=== PATIENT | female | born 1950 | race Caucasian/White ===

== ENCOUNTER 2017-03-01 08:10 | Day surgery (SDC) | payer MEDICARE, OTHER ==
[~2017-03-01 08:10] MED LIST: BUPIVACAINE HCL 0.75% INJ/PF (7.5 MG/1 ML) 10 ML SDV OS PRN; KETOROLAC TROMETHAMINE 0.45% 4 DROP/0.4 ML DROPERETTE OS PRN; LIDOCAINE 4% INJ/PF (40 MG/ML) 5 ML AMPUL OS PRN
[2017-03-01] MEDS ORDERED: CHONDR SU A NA/HYALUR INTRAOC KIT (SURGICARE) ONE (08:13)
[2017-03-01] MEDS ORDERED: PHENYLEPHRINE/KETOROLAC 1%-0.3% 4 ML VIAL ONE (08:13)
[2017-03-01] MEDS: CYCLOPENTOLATE 0.2%/PHENYLEPHRINE 1% OPH SOLN 2 ML OS PRN ×3 (08:31→08:57)
[2017-03-01] MEDS: TROPICAMIDE 1% OPH SOLN 3 ML OS PRN ×3 (08:32→08:58)
[2017-03-01] MEDS: BESIFLOXACIN HCL 0.6% OPH SUSP 5 ML BOTTLE OS PRN ×4 (08:33→09:40)
[2017-03-01] MEDS: TETRACAINE HCL 0.5% OPH SOLN 0.6 ML DROPERETTE OS PRN ×2 (08:35→08:59)
[2017-03-01] MEDS ORDERED: MIDAZOLAM 2 MG/2 ML INJ ONE (08:54)
--- NOTE | 2017-03-01 09:53 | [facility] OPERATIVE REPORT E ---
[facility] Operative Report NAME: MIGUEL ROBB AGE: 66Y DATE OF SURGERY: 03/01/2017 ROOM: PREOPERATIVE DIAGNOSIS: CATARACT, LEFT EYE. POSTOPERATIVE DIAGNOSIS: CATARACT, LEFT EYE. PROCEDURE PERFORMED: PHACOEMULSIFICATION WITH POSTERIOR CHAMBER INTRAOCULAR LENS, LEFT EYE. SURGEON: LEYLA GAR MD ANESTHESIA: TOPICAL WITH MAC. INDICATIONS FOR SURGERY: Difficulty reading captions on the TV and driving at night. Best corrected visual acuity 20/50. PROCEDURE: The patient was brought to the Operating Room and placed on the operative table. Following tetracaine drops, topical anesthesia was administered. This consisted of instrument wipe pledgets soaked in a solution of 4% Xylocaine mixed with 0.75% Marcaine in a 1:2 ratio. A 2 x 1 cm pledget was placed in the superior fornix. A 1 x 1 cm pledget was placed in the inferior fornix. The eye was patched shut for 5 minutes. The patch was removed. The eye was sterilely prepped and draped in the usual manner. Lid speculum was placed in the eye. The pledgets were removed. 4-0 black silk sutures were placed around the superior and the inferior rectus muscles to be used as traction. A conjunctival peritomy was made at the 10 o'clock position. Hemostasis was obtained with bipolar cautery. A posterior limbal groove was created using a crescent knife and dissected anteriorly towards the cornea. A sharp point blade was used to create a paracentesis site at the 2 o'clock position. A 2.4 mm keratome was used to enter the anterior chamber through the groove. Viscoelastic was injected into the anterior chamber. An anterior capsulotomy was performed using Utrata forceps in a capsulorrhexis fashion. Hydrodissection and hydrodelineation were performed. Phacoemulsification was performed in [id number] technique. A total of 52 seconds phaco time was used. Following this, the I/A unit was used to remove residual cortex. Viscoelastic was injected into the capsular bag. Intraocular lens model [id number], 19.5 diopters, serial number [id number] was placed in the capsular bag. The I/A unit was used to remove residual viscoelastic. The wound was seen to be watertight under high and low pressure, and no sutures were placed. The intraocular lens was well centered. The pressure was adjusted in the eye to normal pressure. The 4-0 black silk sutures and lid speculum were removed. The eye was shielded after Besivance drops were placed. The patient tolerated the procedure well and was sent to the Recovery Room in good condition. DICTATING PHYSICIAN: LEYLA GAR M.D. DICTATING PHYSICIAN: LEYLA GAR M.D. [id number] PHY#: [id number] ID: [id number] JOB#: [id number] ACCT: [id number] cc:LEYLA GAR M.D. >
--- NOTE | 2017-03-01 09:58 | [facility] DISCHARGE SUMMARY E ---
[facility] Discharge Summary NAME: MIGUEL ROBB AGE: 66Y ADMITTED: 03/01/2017 DISCHARGED: HOSPITAL COURSE: The patient is a 66-year-old lady who underwent uneventful cataract extraction with intraocular lens implant left eye on 03/01/17. She will be discharged to home. She is instructed to resume preoperative medications, take Tylenol as needed for discomfort, to keep eye shielded, to use Pred Forte, ketorolac, and Vigamox at 3:00 p.m. and 8:00 p.m. Follow up in my office in 1 day. DICTATING PHYSICIAN: LEYLA GAR M.D. [id number] PHY#: [id number] ID: [id number] JOB#: [id number] ACCT: [id number] cc:LEYLA GAR M.D. >
== END 2017-03-01 10:31 | disposition home or self-care (01) ==
LOC: SC 08:10
PROVIDERS: ATTEND Ophthalmology
PROC: 08RK3JZ Replacement of Left Lens with Synthetic Substitute, Percutaneous Approach (ICD-10-PCS; principal; 2017-03-01 09:30)
DX: H25.813 Combined forms of age-related cataract, bilateral (principal); H35.3131 Nonexudative age-related macular degeneration, bilateral, early dry stage; H04.123 Dry eye syndrome of bilateral lacrimal glands; H01.001 Unspecified blepharitis right upper eyelid; H01.004 Unspecified blepharitis left upper eyelid; E11.9 Type 2 diabetes mellitus without complications; I10 Essential (primary) hypertension; E78.00 Pure hypercholesterolemia, unspecified; E03.9 Hypothyroidism, unspecified; M19.90 Unspecified osteoarthritis, unspecified site; G47.30 Sleep apnea, unspecified; I51.9 Heart disease, unspecified; E66.9 Obesity, unspecified; Z87.891 Personal history of nicotine dependence; Z79.82 Long term (current) use of aspirin; Z79.899 Other long term (current) drug therapy; Z79.02 Long term (current) use of antithrombotics/antiplatelets; Z88.2 Allergy status to sulfonamides; Z88.5 Allergy status to narcotic agent; Z88.8 Allergy status to other drugs, medicaments and biological substances; Z79.84 Long term (current) use of oral hypoglycemic drugs; Z68.43 Body mass index [BMI] 50.0-59.9, adult
CPT/HCPCS: 66984; 82962; V2632; J2250; J3490 ×3; A9270; C9447; 142

== ENCOUNTER 2017-04-05 11:35 | Day surgery (SDC) | payer MEDICARE, OTHER ==
[~2017-04-05 11:35] MED LIST changes: +BUPIVACAINE HCL 0.75% INJ/PF (7.5 MG/1 ML) 10 ML SDV OD PRN; -BUPIVACAINE HCL 0.75% INJ/PF (7.5 MG/1 ML) 10 ML SDV OS PRN; +KETOROLAC TROMETHAMINE 0.45% 4 DROP/0.4 ML DROPERETTE OD PRN; -KETOROLAC TROMETHAMINE 0.45% 4 DROP/0.4 ML DROPERETTE OS PRN; +LIDOCAINE 4% INJ/PF (40 MG/ML) 5 ML AMPUL OD PRN; -LIDOCAINE 4% INJ/PF (40 MG/ML) 5 ML AMPUL OS PRN; +MIDAZOLAM 2 MG/2 ML INJ ONE
[2017-04-05] MEDS ORDERED: PHENYLEPHRINE/KETOROLAC 1%-0.3% 4 ML VIAL ONE (11:42)
[2017-04-05] MEDS ORDERED: CHONDR SU A NA/HYALUR INTRAOC KIT (SURGICARE) ONE (11:43)
[2017-04-05] MEDS: TROPICAMIDE 1% OPH SOLN 3 ML OD PRN ×3 (12:08→12:36)
[2017-04-05] MEDS: CYCLOPENTOLATE 0.2%/PHENYLEPHRINE 1% OPH SOLN 2 ML OD PRN ×3 (12:08→12:36)
[2017-04-05] MEDS: BESIFLOXACIN HCL 0.6% OPH SUSP 5 ML BOTTLE OD PRN ×3 (12:09→13:12)
[2017-04-05] MEDS: TETRACAINE HCL 0.5% OPH SOLN 0.6 ML DROPERETTE OD PRN ×2 (12:10→12:37)
--- NOTE | 2017-04-05 13:23 | [facility] OPERATIVE REPORT E ---
[facility] Operative Report NAME: MIGUEL RBOB AGE: 66Y DATE OF SURGERY: 04/05/2017 ROOM: PREOPERATIVE DIAGNOSIS: Cataract, right eye. POSTOPERATIVE DIAGNOSIS: Cataract, right eye. PROCEDURE PERFORMED: Phacoemulsification with posterior chamber intraocular lens, right eye. SURGEON: LEYLA GAR M.D. ANESTHESIA: Topical with MAC. INDICATIONS FOR SURGERY: Difficulty watching TV and reading small print. BEST CORRECTED VISUAL ACUITY: 20/70. DESCRIPTION OF PROCEDURE: The patient was brought to the operating room and placed on the operative table. Following tetracaine drops, topical anesthesia was administered. This consisted of instrument wipe pledgets soaked in a solution of 4% Xylocaine mixed with 0.75% Marcaine in a 1:2 ratio. A 2 x 1 cm pledget was placed in the superior fornix. A 1 x 1 cm pledget was placed in the inferior fornix. The eye was patched shut for 5 minutes. The patch was removed. The eye was sterilely prepped and draped in the usual manner. Lid speculum was placed in the eye. The pledgets were removed, 4-0 black silk sutures were placed around the superior and the inferior rectus muscles to be used as traction. A conjunctival peritomy was made at the 10 o'clock position. Hemostasis was obtained with bipolar cautery. A posterior limbal groove was created using a crescent knife and dissected anteriorly towards the cornea. A sharp point blade was used to create a paracentesis site at the 2 o'clock position. A 2.4 mm keratome was used to enter the anterior chamber through the groove. Viscoelastic was injected into the anterior chamber. An anterior capsulotomy was performed using Utrata forceps in a capsulorrhexis fashion. Hydrodissection and hydrodelineation were performed. Phacoemulsification was performed in [id number]-ket-[id number] technique. A total of 1 minutes 27 seconds of total phaco time was used. Following this, the I/A unit was used to remove residual cortex. Viscoelastic was injected into the capsular bag. Intraocular lens Model SN60WF, 21.0 diopters, serial number [id number] was placed in the capsular bag. The I/A unit was used to remove residual viscoelastic. The wound was seen to be watertight under high and low pressure, and no sutures were placed. The intraocular lens was well centered. The pressure was adjusted in the eye to normal pressure. The 4-0 black silk sutures and lid speculum were removed. The eye was shielded after Besivance drops were placed. The patient tolerated the procedure well and was sent to the recovery room in good condition. DICTATING PHYSICIAN: LEYLA GAR M.D. [id number] PHY#: [id number] ID: [id number] JOB#: [id number] ACCT: [id number] cc:LEYLA GAR M.D. >
--- NOTE | 2017-04-05 13:28 | [facility] DISCHARGE SUMMARY E ---
[facility] Discharge Summary NAME: MIGUEL ROBB AGE: 66Y ADMITTED: 04/05/2017 DISCHARGED: 04/05/2017 HOSPITAL COURSE: Ms. Rawls is a 66-year-old lady who underwent uneventful cataract extraction with intraocular lens implant, right eye, on 04/05/2017. She will be discharged to home. She was instructed to resume preoperative medications, to take Tylenol as needed for discomfort, to keep her eye shielded, to use Besivance, Durezol, and Ilevro at 3:00 p.m. and 8:00 p.m., and to follow up in my office in 1 day. DICTATING PHYSICIAN: LEYLA GAR M.D. [id number] PHY#: [id number] ID: [id number] JOB#: [id number] ACCT: [id number] cc:LEYLA GAR M.D. >
== END 2017-04-05 14:07 | disposition home or self-care (01) ==
LOC: SC 11:35
PROVIDERS: ATTEND Ophthalmology
PROC: 08RJ3JZ Replacement of Right Lens with Synthetic Substitute, Percutaneous Approach (ICD-10-PCS; principal; 2017-04-05 13:00)
DX: H25.811 Combined forms of age-related cataract, right eye (principal); E07.9 Disorder of thyroid, unspecified; Z96.1 Presence of intraocular lens; I11.0 Hypertensive heart disease with heart failure; I50.9 Heart failure, unspecified; E11.9 Type 2 diabetes mellitus without complications; Z79.899 Other long term (current) drug therapy; Z79.02 Long term (current) use of antithrombotics/antiplatelets; Z88.2 Allergy status to sulfonamides; Z79.84 Long term (current) use of oral hypoglycemic drugs; Z88.8 Allergy status to other drugs, medicaments and biological substances; Z88.5 Allergy status to narcotic agent; Z79.82 Long term (current) use of aspirin; E66.9 Obesity, unspecified; Z68.43 Body mass index [BMI] 50.0-59.9, adult
CPT/HCPCS: 66984; 82962; V2632; J2250; J3490 ×3; A9270; C9447; 142

== ENCOUNTER 2017-10-30 04:33 | Observation (INO) | payer MEDICARE, OTHER ==
--- NOTE | 2017-10-30 04:58 | ER Document Report ---
ED General - General Stated Complaint: BLOOD SUGAR PROBLEMS Time Seen by Provider: 10/30/17 04:39 TRAVEL OUTSIDE OF THE [place] IN LAST 30 DAYS: No - HPI Notes: Patient is a 67-year-old female with a history of type 2 diabetes, hypertension , coronary artery disease, hypothyroidism, chronic LBP who presents to the ED by EMS status post hypoglycemic episode prior to arrival. Patient states that she ate a very good dinner last evening. Patient states that she was on the floor next to her bed during her hypoglycemic episode and possibly lost consciousness for an unknown amount of time. Her son states that she ate well for dinner with a glucose of 70 prior to the meal. She went to bed normally and he left and hung out with his friend throughout the night. Son states that he received a phone call from his mother at 4am and it sounded slurred so he rushed home (5minutes away) which is when she was sitting on the floor and 'not making any sense when she spoke.' Patient states that her son gave her oral glucose which increased her sugar to 51 when EMS came and checked her glucose. EMS then gave another dose of oral glucose and her sugars increased to 108 over a shorter period of time. Patient did urinate on herself when she was having her episode. Currently, patient has no concerns or complaints and feels 'good. ' Patient has not noticed any changes in her mentation, vision, speech. Patient is nonambulatory normally aside from transitioning from her wheelchair to her bed/toilet/furniture. Patient has no other concerns or complaints. Patient does take sitagliptin and Januvia for her diabetes. Patient states that she has had hypoglycemic episodes in the past. Her PCM is Ms BroMargaret. Denies any headache, fever, neck pain, changes in vision/speech/mentation/ hearing, URI, sore throat, chest pain, palpitations, syncope, cough, shortness of breath, wheeze, dyspnea, abdominal pain, nausea/vomiting/diarrhea, urinary retention, dysuria, hematuria, numbness/tingling, saddle anesthesia, muscle paralysis/weakness, or rash. - Related Data Allergies/Adverse Reactions: albuterol [Albuterol] Allergy (Intermediate, Verified 02/22/17 12:58) Sulfa (Sulfonamide Antibiotics) Allergy (Intermediate, Verified 02/22/17 12:58) codeine [Codeine] Adverse Reaction (Intermediate, Verified 02/22/17 12:58) Past Medical History - Social History Smoking Status: Unknown if Ever Smoked Family History: DM, Hyperlipidemia, Hypertension - Past Medical History Cardiac Medical History: Reports: Hx Congestive Heart Failure, Hx Heart Attack - HRT CATH AUG 2016 2 [facility] SHANNON 3 MO AGO, Hx Hypercholesterolemia, Hx Hypertension - MEDICATED Pulmonary Medical History: Reports: Hx COPD Denies: Hx Asthma Neurological Medical History: Denies: Hx Cerebrovascular Accident, Hx Seizures Endocrine Medical History: Reports: Hx Diabetes Mellitus Type 2, Hx Hypothyroidism GI Medical History: Denies: Hx Hepatitis, Hx Hiatal Hernia, Hx Ulcer Musculoskeltal Medical History: Reports Hx Muscle Weakness Infectious Medical History: Denies: Hx Hepatitis Past Surgical History: Reports: Hx Abdominal Surgery - exploratory abd surgery, Hx Appendectomy, Hx Section, Hx Herniorrhaphy, Other - exploratory laparotomy 2. Denies: Hx Hysterectomy, Hx Mastectomy, Hx Open Heart Surgery, Hx Pacemaker - Immunizations Hx Pneumococcal Vaccination: 10/17/14 Review of Systems - Review of Systems Notes: REVIEW OF SYSTEMS: CONSTITUTIONAL : Denies fever, chills, or sweats. Denies recent illness. EENT: Denies eye, ear, throat, or mouth pain or symptoms. Denies nasal or sinus congestion or discharge. Denies throat, tongue, or mouth swelling or difficulty swallowing. CARDIOVASCULAR: Denies chest pain. Denies palpitations or racing or irregular heart beat. RESPIRATORY: Denies cough, cold, or chest congestion. Denies shortness of breath, difficulty breathing, or wheezing. GASTROINTESTINAL: Denies abdominal pain or distention. Denies nausea, vomiting , or diarrhea. Denies blood in vomitus, stools, or per rectum. Denies black, tarry stools. Denies constipation. GENITOURINARY: see hpi. Denies difficulty urinating, painful urination, burning, frequency, blood in urine, or discharge. MUSCULOSKELETAL: Denies back or neck pain or stiffness. Denies joint pain or swelling. SKIN: Denies rash, lesions or sores. NEUROLOGICAL: see hpi. Denies confusion or altered mental status. Denies dizziness or lightheadedness. Denies headache. Denies weakness or paralysis or loss of use of either side. Denies problems with gait or speech. Denies sensory loss, numbness, or tingling. Denies seizures. PSYCHIATRIC: Denies anxiety or stress. Denies depression, suicidal ideation, or homicidal ideation. ALL OTHER SYSTEMS REVIEWED AND NEGATIVE. Dictation was performed using [employer] voice recognition software Physical Exam - Vital signs Vitals: Temp Pulse Resp BP Pulse Ox 97.8 F 64 18 144/87 H 100 10/30/17 04:35 10/30/17 04:35 10/30/17 04:35 10/30/17 04:35 10/30/17 04:35 Notes: PHYSICAL EXAMINATION: GENERAL: Well-appearing, well-nourished and in no acute distress. A&Ox4. Answers questions appropriately. Does not show any signs of discomfort. HEAD: Atraumatic, normocephalic. Non-tender. No swift sign EYES: Pupils equal round and reactive to light, extraocular movements intact, sclera anicteric, conjunctiva are normal. No raccoon eyes/entrapment. No nystagmus. ENT: EAC clear b/l. TM's intact b/l without erythema, fluid, or perforation. Nares patent and without discharge. oropharynx clear without exudates. No tonsilar hypertrophy or erythema. Moist mucous membranes. No sinus tenderness. No hemotympanum/CSF discharge. NECK: Normal range of motion, supple without lymphadenopathy. No rigidity. No midline tenderness. Spurling negative. NEXUS negative. Chest: No flail chest. equal rise/fall. Non-tender LUNGS: Breath sounds clear to auscultation bilaterally and equal. No wheezes rales or rhonchi. HEART: Regular rate and rhythm without murmurs, rubs, gallops. ABDOMEN: Obese. Soft, nontender, nondistended abdomen. No guarding, no rebound. No masses appreciated. Normal bowel sounds present. No CVA tenderness bilaterally. Musculoskeletal: Ext b/l: FROM to passive/active. Strength 5+/5. No deficits noted. No bony tenderness of extremities. Back: FROM to passive/active. Strength 5+/5. No vertebral point tenderness, stepoffs, or deformities. No other bony tenderness or ecchymosis. + tenderness to the paraspinal L-spine. Extremities: Trace pitting edema b/l. Peripheral pulses 2+. Capillary refill less than 2 seconds. NEUROLOGICAL: NIH 0. GCS 15. MMSE intact. Cranial nerves grossly intact. Normal speech. Normal sensory, motor exams. Reflexes 2+ b/l. VERONIQUE's negative. Pronator drift negative. Heel/mancuso, finger/nose wnl. PSYCH: Normal mood, normal affect. SKIN: Warm, Dry, normal turgor, no rashes or lesions noted. Course - Re-evaluation Re-evalutation: 10/30/17 06:[address] Escalera who is in agreement with admit/plan: Patient is an afebrile, well-hydrated, 67-year-old female who presents to the ED status post hypoglycemic event (on sulfonylurea) who is currently euglycemic and has a UTI. Vitals are stable. PE is otherwise unremarkable for any focal neurological deficits. CBC did show a mildly elevated white count with a left shift. CMP was otherwise unremarkable. TSH is pending. See urinalysis results with a urine culture pending. Rocephin given IV today. Patient has been eating crackers without any difficulties. Her Accu-Chek most recently was 135. Patient has no new concerns or complaints and is feeling well otherwise. Reviewed with Dr. La who will accept patient for medical floor obs. Pt and family are in agreement with plan. - Vital Signs Vital signs: Temp Pulse Resp BP Pulse Ox 97.8 F 64 18 141/58 H 98 10/30/17 04:35 10/30/17 04:35 10/30/17 05:27 10/30/17 05:27 10/30/17 05:27 - Laboratory Result Diagrams: 10/30/17 05:35 10/30/17 05:35 Laboratory results interpreted by me: 10/30/17 10/30/17 10/30/17 04:55 05:35 05:35 WBC 14.5 H RBC 5.31 H MCH 25.0 L MCHC 30.8 L RDW 17.3 H Seg Neutrophils % 78.6 H Lymphocytes % 12.6 L Absolute Neutrophils 11.4 H Chloride 110 H BUN 24 H Glucose 127 H Calcium 10.8 H Urine Nitrite POSITIVE H Ur Leukocyte Esterase LARGE H Discharge - Discharge Clinical Impression: Hypoglycemia UTI (urinary tract infection) Qualifiers: Urinary tract infection type: site unspecified Hematuria presence: without hematuria Qualified Code(s): N39.0 - Urinary tract infection, site not specified Condition: Stable Disposition: ADMITTED OBSERVATION Admitting Provider: Hospitalist - Dr. La-Day shift Unit Admitted: Medical Floor Referrals: NIC KOTHARI NP [Primary Care Provider] - Follow up as needed
[2017-10-30 05:17] LABS: APPEARANCE,URINE SLIGHTLY-CLOUDY; BILIRUBIN,URINE NEGATIVE (NEGATIVE); COLOR,URINE YELLOW; GLUCOSE, URINE NEGATIVE (NEGATIVE); KETONES,URINE NEGATIVE (NEGATIVE); LEUKOCYTE ESTERASE,URINE LARGE (NEGATIVE); NITRITE,URINE POSITIVE (NEGATIVE); PROTEIN,URINE NEGATIVE (NEGATIVE); URINE SPECIFIC GRAVITY 1.011; UROBILINOGEN,URINE NEGATIVE mg/dL (<2.0)
[2017-10-30 05:58] LABS: ABSOLUTE BASOPHILS # (AUTO) 0.1 10^3/uL (0.0-0.2); ABSOLUTE EOSINOPHILS # (AUTO) 0.1 10^3/uL (0.0-0.6); ABSOLUTE LYMPHOCYTES (AUTO) 1.8 10^3/uL (0.5-4.7); ABSOLUTE MONOCYTES (AUTO) 1.1 10^3/uL (0.1-1.4); ABSOLUTE NEUT (AUTO) 11.4 10^3/uL (1.7-8.2); BASOPHILS % (AUTO) 0.5 % (0-2); EOSINOPHILS % (AUTO) 0.8 % (0-6); HEMATOCRIT 43.2 % (36.0-47.0); HEMOGLOBIN 13.3 g/dL (12.0-15.5); LYMPHOCYTES % (AUTO) 12.6 % (13-45); MEAN CORPUSCULAR HGB CONC 30.8 g/dL (32.0-36.0); MEAN CORPUSCULAR VOLUME 81 fl (80-97); MONOCYTES % (AUTO) 7.5 % (3-13); PLATELET COUNT 351 10^3/uL (150-450); RED BLOOD COUNT 5.31 10^6/uL (3.72-5.28); RED CELL DISTRIBUTION WIDTH 17.3 % (11.5-14.0); SEGMENTED NEUTROPHILS % (AUTO) 78.6 % (42-78); TOTAL CELLS COUNTED % (AUTO) 100 %; WHITE BLOOD COUNT 14.5 10^3/uL (4.0-10.5)
[2017-10-30 06:12] LABS: ALANINE AMINOTRANSFERASE 21 U/L (9-52); ALBUMIN 3.5 g/dL (3.5-5.0); ALKALINE PHOSPHATASE 112 U/L (38-126); ANION GAP 9 (5-19); ASPARTATE AMINO TRANSFERASE 18 U/L (14-36); BILIRUBIN,DIRECT 0.2 mg/dL (0.0-0.4); BILIRUBIN,TOTAL 0.3 mg/dL (0.2-1.3); BLOOD UREA NITROGEN 24 mg/dL (7-20); CALCIUM 10.8 mg/dL (8.4-10.2); CARBON DIOXIDE 26 mmol/L (22-30); CHLORIDE 110 mmol/L (98-107); GLUCOSE 127 mg/dL (75-110); POTASSIUM 4.6 mmol/L (3.6-5.0); SODIUM 144.7 mmol/L (137-145); TOTAL PROTEIN 6.5 g/dL (6.3-8.2)
[2017-10-30] MEDS ORDERED: CEFTRIAXONE 1 GM/D5W RTU 1 GM/50 ML RTUPB IV ONE (06:33)
[2017-10-30] MEDS ORDERED: CEFTRIAXONE INJ 1000 MG VIAL ONE (06:42)
[2017-10-30] MEDS ORDERED: ONDANSETRON HCL INJ/PF 4 MG/2 ML SDV IV PRN (07:41)
[2017-10-30] MEDS ORDERED: ACETAMINOPHEN 325 MG TABLET PO PRN (07:41)
[2017-10-30] MEDS ORDERED: ZOLPIDEM TARTRATE 5 MG TABLET PO PRN (07:41)
[2017-10-30] MEDS ORDERED: TOBRAMYCIN SULFATE/DEXAMETH OPH SUSP 2.5 ML OP SCH (07:45)
[2017-10-30] MEDS ORDERED: (PENDING PHARMACY ID) (Difluprednate [Durezol] 1 DROP) OP SCH (07:45)
[2017-10-30] MEDS ORDERED: GLUCAGON,HUMAN RECOMB 1 MG INJ IM PRN (07:47)
[2017-10-30] MEDS ORDERED: DEXTROSE 50%-WATER 25 GM/50 ML DISP.SYRIN IV PRN ×2 (07:47)
[2017-10-30] MEDS ORDERED: INSULIN LISPRO 100 UNIT/ML 3 ML VIAL SUBCUT PRN (07:47)
[2017-10-30] MEDS ORDERED: DEXTROSE 40% GEL 15 GM TUBE PO PRN ×2 (07:47)
--- NOTE | 2017-10-30 08:49 | EKG REPORT ---
SEVERITY:- ABNORMAL ECG - SINUS RHYTHM INCOMPLETE LEFT BUNDLE BRANCH BLOCK PROBABLE LVH WITH SECONDARY REPOL ABNRM : Confirmed by: Ino Coon MD 30-Oct-2017 08:48:46
[2017-10-30] MEDS: METOPROLOL SUCCINATE 25 MG TAB.SR.24H PO SCH (09:31)
[2017-10-30] MEDS: CLOPIDOGREL BISULFATE 75 MG TABLET PO SCH (09:32)
[2017-10-30] MEDS: LISINOPRIL 10 MG TABLET PO SCH (09:33)
[2017-10-30] MEDS: ATORVASTATIN CALCIUM 40 MG TABLET PO SCH (09:34)
[2017-10-30] MEDS: ASPIRIN 81 MG TABLET, CHEWABLE PO SCH (09:34)
[2017-10-30] MEDS: FUROSEMIDE 40 MG TABLET PO SCH (09:34)
[2017-10-30] MEDS: ENOXAPARIN SODIUM INJ 40 MG/0.4 ML DISP.SYRIN SUBCUT SCH (09:35)
[2017-10-30] MEDS: OXYCODONE-ACETAMINOPHEN 5-325 MG TABLET PO PRN ×2 (09:52→22:11)
[2017-10-30] MEDS: DOCUSATE SODIUM 100 MG CAPSULE PO SCH (09:54)
[2017-10-30] MEDS ORDERED: (PENDING PHARMACY ID) (Duloxetine Hcl [Duloxetine Hcl] 60 MG) PO SCH (10:00)
[2017-10-30] MEDS ORDERED: BUDESONIDE IH SCH (10:00)
[2017-10-30] MEDS ORDERED: LEVOTHYROXINE SODIUM 0.075 MG TABLET PO ONE (10:00)
[2017-10-30] MEDS ORDERED: (PENDING PHARMACY ID) (Lisinopril [Lisinopril] 20 MG) PO SCH (10:00)
[2017-10-30] MEDS: DULOXETINE HCL 30 MG CAPSULE.DR PO SCH ×2 (10:55→22:00)
--- NOTE | 2017-10-30 11:11 | PDOC H&P ---
History of Present Illness Admission Date/PCP: 10/30/17 06:38 NIC KOTHARI NP History of Present Illness: MIGUEL ROBB is a 67 year old female who presented to the ED by EMS due to hypoglycemic episode prior to arrival. Patient relates that she check her blood sugar before bedtime and was in the 70s. She had a small portion of lasagna. Patient states that she was on the floor next to her bed during her hypoglycemic episode and possibly lost consciousness for an unknown amount of time. Son states that he received a phone call from his mother at 4am and it sounded slurred so he rushed home which was 5 minutes away. On arrival patient was sitting on the floor and 'not making any sense when she spoke.' Patient states that her son gave her oral glucose which increased her sugar to 5. On arrival EMS then gave her another dose of oral glucose and her sugars increased to 108 over a shorter period of time. Patient did urinate on herself when she was having her episode. She admits that had been having frquen low blood sugar episodes. Patient does take Amaryl and Januvia for her diabetes. Due to comorbidities are service was contacted and prompted to admit for observation status. Past Medical History Cardiac Medical History: Reports: Congestive Heart Failure, Myocardial Infarction - HRT CATH AUG 2016 2 [facility] SHANNON 3 MO AGO, Hyperlipidema, Hypertension - MEDICATED Pulmonary Medical History: Reports: Chronic Obstructive Pulmonary Disease (COPD) Denies: Asthma EENT Medical History: Reports: None Neurological Medical History: Reports: None Denies: Seizures Endocrine Medical History: Reports: Diabetes Mellitus Type 2, Hypothyroidism Malignancy Medical History: Reports: None GI Medical History: Denies: Hepatitis, Hiatal Hernia Musculoskeltal Medical History: Reports: None Psychiatric Medical History: Reports: None Traumatic Medical History: Reports: None Hematology: Denies: Anemia, Sickle Cell Disease Infectious Medical History: Reports: None Past Surgical History Past Surgical History: Reports: Appendectomy, Section, Herniorrhaphy, Other - exploratory laparotomy 2 Denies: Amputation, Hysterectomy, Mastectomy, Pacemaker Social History Smoking Status: Former Smoker Frequency of Alcohol Use: None Hx Recreational Drug Use: No Drugs: None Hx Prescription Drug Abuse: No - Advance Directive Resuscitation Status: Full Code Family History Family History: DM, Hyperlipidemia, Hypertension Parental Family History Reviewed: Yes Children Family History Reviewed: Yes Sibling(s) Family History Reviewed.: Yes Medication/Allergy Home Medications: Furosemide [Lasix 40 mg Tablet] 40 mg PO QAM #30 tablet 01/09/15 Metoprolol Succinate 25 mg PO DAILY #30 tab.sr.24h 01/09/15 Aspirin 81 mg PO DAILY PRN 09/01/16 Atorvastatin Calcium 40 mg PO DAILY 02/22/17 Clopidogrel Bisulfate [Clopidogrel] 75 mg PO DAILY 02/22/17 Gabapentin 600 mg PO TID 02/22/17 Levothyroxine Sodium [Synthroid 0.075 mg Tablet] 0.15 mg PO DAILY 02/22/17 Lisinopril 20 mg PO DAILY 02/22/17 Tobramycin Sulf/Dexamethasone [Tobradex Eye Drops] 1 drop OP ASDIR 02/22/17 Difluprednate [Durezol] 1 drop OP .3 & 8 PM TODAY 02/28/17 Benzonatate 100 mg PO TID 10/30/17 Budesonide [Pulmicort 90 mcg Flexhaler] 1 inh IH DAILY 10/30/17 Duloxetine HCl 60 mg PO BID 10/30/17 Glimepiride 4 mg PO BID 10/30/17 Sitagliptin Phos/Metformin HCl [Janumet Xr 100-1,000 mg Tablet] 1 each PO DAILY 10/30/17 Sitagliptin Phosphate [Januvia] 100 mg PO DAILY 10/30/17 Allergies/Adverse Reactions: albuterol [Albuterol] Allergy (Intermediate, Verified 02/22/17 12:58) Sulfa (Sulfonamide Antibiotics) Allergy (Intermediate, Verified 02/22/17 12:58) codeine [Codeine] Adverse Reaction (Intermediate, Verified 02/22/17 12:58) Review of Systems Constitutional: ABSENT: fatigue, fever(s), night sweats, weakness Eyes: ABSENT: visual disturbances Ears: ABSENT: hearing changes Nose, Mouth, and Throat: ABSENT: mouth pain, sore throat Cardiovascular: ABSENT: chest pain, dyspnea on exertion, edema Respiratory: ABSENT: cough Gastrointestinal: ABSENT: abdominal pain, nausea, vomiting Genitourinary: ABSENT: difficulty urinating, dysuria, hematuria Musculoskeletal: ABSENT: joint swelling, muscle weakness Neurological: ABSENT: numbness Psychiatric: ABSENT: depression Endocrine: PRESENT: cold intolerance Hematologic/Lymphatic: ABSENT: easy bruising, lymphadenopathy Physical Exam Vital Signs: Temp Pulse Resp BP Pulse Ox 97.8 F 64 17 108/53 L 96 10/30/17 04:35 10/30/17 04:35 10/30/17 10:05 10/30/17 10:05 10/30/17 10:05 Intake & Output 10/29/17 10/30/17 10/31/17 06:59 06:59 06:59 Output Total 75 Balance -75 General appearance: PRESENT: no acute distress, cooperative, well-developed, well-nourished Head exam: PRESENT: atraumatic, normocephalic Eye exam: PRESENT: conjunctiva pink, EOMI, PERRLA Ear exam: PRESENT: normal external ear exam Mouth exam: PRESENT: moist Neck exam: PRESENT: full ROM. ABSENT: JVD, lymphadenopathy, tenderness, thyromegaly Respiratory exam: PRESENT: clear to auscultation [place] Cardiovascular exam: PRESENT: RRR. ABSENT: diastolic murmur, systolic murmur Vascular exam: PRESENT: normal capillary refill GI/Abdominal exam: PRESENT: normal bowel sounds, soft. ABSENT: tenderness Extremities exam: ABSENT: joint swelling, pedal edema, tenderness Musculoskeletal exam: PRESENT: full ROM Neurological exam: PRESENT: alert, oriented to person, oriented to place, oriented to time Psychiatric exam: PRESENT: appropriate affect, normal mood Skin exam: PRESENT: normal color Assessment & Plan - Diagnosis (1) Diabetes Qualifiers: Diabetes mellitus type: type 2 Diabetes mellitus complication status: with hypoglycemia Diabetes mellitus complication detail: without coma Diabetes mellitus roasterman insulin use: without chcf use Qualified Code(s): E11.649 - Type 2 diabetes mellitus with hypoglycemia without coma Is this a current diagnosis for this admission?: Yes Plan: Hold oral anti-glycemic agents. To place on bedside glucose before meals and at bedtime and Humalog sliding scale. Patient has been advised as to follow-up with her primary care provider since she has been having acute episodes of hypoglycemia. She has was also made aware that if when checking up blood sugar before bedtime if it is 100 or less she will have to have a snack (2) UTI (urinary tract infection) Qualifiers: Urinary tract infection type: site unspecified Hematuria presence: without hematuria Qualified Code(s): N39.0 - Urinary tract infection, site not specified Is this a current diagnosis for this admission?: Yes Plan: Had been started on Rocephin in ED will follow up urine culture since review of system does not point to a urinary tract infection and findings in urinalysis may relate to contamination - Time Time Spent: 30 to 50 Minutes Medications reviewed and adjusted accordingly: Yes Anticipated discharge: Home Within: within 24 hours - Inpatient Certification Based on my medical assessment, after consideration of the patient's comorbidities, presenting symptoms, or acuity I expect that the services needed warrant INPATIENT care.: No I certify that my determination is in accordance with my understanding of Medicare's requirements for reasonable and necessary INPATIENT services [42 CFR 412.3e].: Yes Medical Necessity: Risk of Complication if Not Cared For in Hospital
[2017-10-30] MEDS: GABAPENTIN 300 MG CAPSULE PO SCH ×2 (14:43→22:00)
[2017-10-30] MEDS ORDERED: DEXTROSE 5%-1/2 NORMAL SALINE 1,000 ML IV PRN (17:17)
[2017-10-31] MEDS: GABAPENTIN 300 MG CAPSULE PO SCH (05:53)
[2017-10-31] MEDS ORDERED: LEVOTHYROXINE SODIUM 0.075 MG TABLET PO SCH (06:00)
[2017-10-31 07:18] LABS: ABSOLUTE EOSINOPHILS # (AUTO) 0.3 10^3/uL (0.0-0.6); ABSOLUTE LYMPHOCYTES (AUTO) 2.7 10^3/uL (0.5-4.7); ABSOLUTE MONOCYTES (AUTO) 1.1 10^3/uL (0.1-1.4); ABSOLUTE NEUT (AUTO) 5.7 10^3/uL (1.7-8.2); BASOPHILS % (AUTO) 0.3 % (0-2); EOSINOPHILS % (AUTO) 3.5 % (0-6); HEMOGLOBIN 12.4 g/dL (12.0-15.5); LYMPHOCYTES % (AUTO) 27.5 % (13-45); MEAN CORPUSCULAR HEMOGLOBIN 25.6 pg (27.0-33.4); MEAN CORPUSCULAR HGB CONC 31.9 g/dL (32.0-36.0); MEAN CORPUSCULAR VOLUME 81 fl (80-97); MONOCYTES % (AUTO) 10.9 % (3-13); PLATELET COUNT 288 10^3/uL (150-450); RED BLOOD COUNT 4.84 10^6/uL (3.72-5.28); RED CELL DISTRIBUTION WIDTH 16.9 % (11.5-14.0); SEGMENTED NEUTROPHILS % (AUTO) 57.8 % (42-78); TOTAL CELLS COUNTED % (AUTO) 100 %; WHITE BLOOD COUNT 9.8 10^3/uL (4.0-10.5)
[2017-10-31 07:29] LABS: ANION GAP 8 (5-19); BLOOD UREA NITROGEN 21 mg/dL (7-20); CALCIUM 10.2 mg/dL (8.4-10.2); CARBON DIOXIDE 25 mmol/L (22-30); CHLORIDE 110 mmol/L (98-107); GLUCOSE 118 mg/dL (75-110); MAGNESIUM 2.3 mg/dL (1.6-2.3); POTASSIUM 5.1 mmol/L (3.6-5.0); SODIUM 142.7 mmol/L (137-145)
[2017-10-31] MEDS: LISINOPRIL 10 MG TABLET PO SCH (09:27)
[2017-10-31] MEDS: DULOXETINE HCL 30 MG CAPSULE.DR PO SCH (09:30)
[2017-10-31] MEDS: DOCUSATE SODIUM 100 MG CAPSULE PO SCH (09:30)
[2017-10-31] MEDS: OXYCODONE-ACETAMINOPHEN 5-325 MG TABLET PO PRN (09:30)
[2017-10-31] MEDS: ASPIRIN 81 MG TABLET, CHEWABLE PO SCH (09:30)
[2017-10-31] MEDS: ATORVASTATIN CALCIUM 40 MG TABLET PO SCH (09:31)
[2017-10-31] MEDS: FUROSEMIDE 40 MG TABLET PO SCH (09:31)
[2017-10-31] MEDS: CLOPIDOGREL BISULFATE 75 MG TABLET PO SCH (09:31)
[2017-10-31] MEDS: METOPROLOL SUCCINATE 25 MG TAB.SR.24H PO SCH (09:31)
[2017-10-31] MEDS: ENOXAPARIN SODIUM INJ 40 MG/0.4 ML DISP.SYRIN SUBCUT SCH (09:35)
[2017-10-31] MEDS ORDERED: CEFTRIAXONE 1 GM/D5W RTU 1 GM/50 ML RTUPB IV SCH (10:00)
[2017-10-31] MEDS ORDERED: CEFTRIAXONE SODIUM 1,000 MG in DEXTROSE 5%-WATER 50 ML IV SCH (10:00)
[2017-10-31 10:04] VITALS: BP 123/63
--- NOTE | 2017-10-31 11:56 | PDOC DISCHARGE SUMMARY ---
General - Admit/Disc Date/PCP Admission Date/Primary Care Provider: 10/30/17 06:38 NIC KOTHARI NP Discharge Date: 10/31/17 - Discharge Diagnosis (1) Diabetes Is this a current diagnosis for this admission?: Yes (2) UTI (urinary tract infection) Is this a current diagnosis for this admission?: Yes (3) Hyperkalemia Is this a current diagnosis for this admission?: Yes - Additional Information Resuscitation Status: Full Code Prescriptions: Cefuroxime Axetil [Ceftin 500 mg Tablet] 1 tab PO BID #20 tablet Home Medications: Aspirin [Aspirin EC] 81 mg PO DAILY 10/30/17 Atorvastatin Calcium [Lipitor 40 mg Tablet] 40 mg PO QHS 10/30/17 Budesonide [Pulmicort Flexhaler] 1 puff IH DAILY 10/30/17 Duloxetine HCl [Cymbalta] 60 mg PO Q12 10/30/17 Furosemide [Lasix 40 mg Tablet] 40 mg PO QAM 10/30/17 Gabapentin [Neurontin 300 mg Capsule] 600 mg PO Q8 10/30/17 Hydrocodone Bit/Acetaminophen [Hydrocodon-Acetaminophn 10-325] 1 each PO Q8HP PRN 10/30/17 Levothyroxine Sodium [Synthroid 0.15 mg Tablet] 0.15 mg PO Q6AM 10/30/17 Lisinopril [Prinivil 10 mg Tablet] 20 mg PO DAILY 10/30/17 Metoprolol Succinate [Toprol Xl 25 mg Tab.sr] 25 mg PO DAILY 10/30/17 Nitroglycerin [Nitrostat 0.4 mg (1/150 Gr) Tabs 25/Bottle] 1 tab SL Q5MP PRN Cefuroxime Axetil [Ceftin 500 mg Tablet] 1 tab PO BID #20 tablet 10/31/17 Sitagliptin Phosphate [Januvia 50 mg Tablet] 100 mg PO DAILY #0 10/31/17 History of Present Illness History of Present Illness: MIGUEL ROBB is a 67 year old female who presented to the ED by EMS due to hypoglycemic episode prior to arrival. Patient related that she checked her blood sugar before bedtime and was in the 70s. She had a small portion of lasagna. Patient stated that she was on the floor next to her bed during her hypoglycemic episode and possibly lost consciousness for an unknown amount of time. Son stated that he received a phone call from his mother at 4am and it sounded slurred so he rushed home which was 5 minutes away. On arrival patient was sitting on the floor and 'not making any sense when she spoke.' Patient stated that her son gave her oral glucose which increased her sugar. On arrival EMS then gave her another dose of oral glucose and her sugars increased to 108 over a shorter period of time. Patient did urinate on herself when she was having her episode. She admits that had been having frequent low blood sugar episodes. Patient does take Amaryl and Januvia for her diabetes. Due to comorbidities the hospitalist service was contacted and was admitted for observation status. Hospital Course Hospital Course: Patient was admitted for observation status. It is noteworthy i to mention that her blood sugars had remained stable for more than 12 hours however around 1700 blood sugar dropped and patient had to be placed on D5 and half-normal saline. Blood sugars remained stable. We discontinued then IV fluids. On the day of discharge, patient stated that she was feeling well and that she wanted to go home. We had extensive conversation with this patient regarding adequate oral intake to avoid episodes of hypoglycemia as she has been advised not to take Amaryl and to restart Januvia on November 02. She does have an appointment with her primary care provider on November 09. Patient has been encouraged to check her blood sugar before bedtime and if 100 or less she is to take a snack, apple juice or regular Coke. Hemoglobin A1c was checked and it was 6. Recommend primary care provider not to pursue aggressive blood sugar control according to recommendations for elderly patients. On admission urinalysis was consistent with a urinary tract infection and at the time of dictation had been growing gram-negative bacilli. Patient had been placed on Rocephin IV while hospitalized. We opted to discharge patient on Ceftin 500 mg 1 p.o. twice daily. Recommend primary care provider to follow up final sensitivity report. . Also recommend primary care provider to follow-up BMP due to mild hyperkalemia. On admission potassium level was normal. Therefore there is a concern of a traumatic blood draw however patient was treated with Kayexalate 1 dose. Since patient had achieved maximum benefit of hospitalization stay prompted to discharge under stable condition Physical Exam Vital Signs: Temp Pulse Resp BP Pulse Ox 97.8 F 56 L 20 134/56 H 98 10/31/17 07:44 10/31/17 07:44 10/31/17 07:44 10/31/17 07:44 10/31/17 07:44 Intake & Output 10/30/17 10/31/17 11/01/17 06:59 06:59 06:59 Intake Total 1900 Output Total 875 Balance 1025 Weight 112.3 kg General appearance: PRESENT: no acute distress, cooperative, obese Head exam: PRESENT: atraumatic, normocephalic Eye exam: PRESENT: conjunctiva pink, EOMI, PERRLA Ear exam: PRESENT: normal external ear exam, TM's normal bilaterally Mouth exam: PRESENT: moist, neck supple Neck exam: PRESENT: full ROM. ABSENT: JVD, lymphadenopathy, tenderness, thyromegaly Respiratory exam: PRESENT: clear to auscultation [place] Cardiovascular exam: PRESENT: RRR. ABSENT: diastolic murmur, systolic murmur Vascular exam: PRESENT: normal capillary refill GI/Abdominal exam: PRESENT: normal bowel sounds, soft. ABSENT: guarding, tenderness Extremities exam: PRESENT: full ROM. ABSENT: joint swelling, pedal edema Musculoskeletal exam: PRESENT: ambulatory Neurological exam: PRESENT: alert, awake, oriented to person, oriented to place , oriented to time, CN II-XII grossly intact Psychiatric exam: PRESENT: appropriate affect, normal mood Skin exam: PRESENT: normal color Results Laboratory Results: 10/31/17 06:26 10/31/17 06:26 10/31/17 10/31/17 06:26 06:26 WBC 9.8 RBC 4.84 Hgb 12.4 Hct 39.0 MCV 81 MCH 25.6 L MCHC 31.9 L RDW 16.9 H Plt Count 288 Seg Neutrophils % 57.8 Lymphocytes % 27.5 Monocytes % 10.9 Eosinophils % 3.5 Basophils % 0.3 Absolute Neutrophils 5.7 Absolute Lymphocytes 2.7 Absolute Monocytes 1.1 Absolute Eosinophils 0.3 Absolute Basophils 0.0 Sodium 142.7 Potassium 5.1 H Chloride 110 H Carbon Dioxide 25 Anion Gap 8 BUN 21 H Creatinine 0.98 Est GFR ( Amer) > 60 Est GFR (Non-Af Amer) 56 L Glucose 118 H Calcium 10.2 Magnesium 2.3 Plan Discharge Plan: Discharge home Time Spent: Less than 30 Minutes
[2017-10-31] MEDS ORDERED: SODIUM POLYSTYRENE SULFONATE 15 GM/60 ML PO ONE (12:30)
== END 2017-10-31 11:47 | disposition home or self-care (01) ==
LOC: ER 04:33 → EH 06:38 → 2N 11:37
PROVIDERS: ADMIT Family Medicine; ATTEND Family Medicine
DX: E11.649 Type 2 diabetes mellitus with hypoglycemia without coma (principal); N39.0 Urinary tract infection, site not specified; E87.5 Hyperkalemia; R32 Unspecified urinary incontinence; E03.9 Hypothyroidism, unspecified; J44.9 Chronic obstructive pulmonary disease, unspecified; E66.9 Obesity, unspecified; I11.0 Hypertensive heart disease with heart failure; I50.9 Heart failure, unspecified; Z79.899 Other long term (current) drug therapy; Z68.43 Body mass index [BMI] 50.0-59.9, adult; Z79.82 Long term (current) use of aspirin; Z79.84 Long term (current) use of oral hypoglycemic drugs; Z95.5 Presence of coronary angioplasty implant and graft; I25.2 Old myocardial infarction; Z90.49 Acquired absence of other specified parts of digestive tract; Z87.891 Personal history of nicotine dependence; Z83.3 Family history of diabetes mellitus; Z79.02 Long term (current) use of antithrombotics/antiplatelets; Z99.3 Dependence on wheelchair; Z74.01 Bed confinement status
CPT/HCPCS: 93005; 99285; 96372; 96374; 96375; 36415 ×2; 87086; 82962 ×2; 83735; 84443; 85025 ×2; 87088; 80048; 80053; 81001; 87186; 83036; 93010; G0378 ×3; A9270 ×21; J3490; J1650; J0696 ×2; J2405; J1815

== ENCOUNTER 2017-11-11 03:14 | Observation (INO) | payer MEDICARE, OTHER ==
[2017-11-11 06:36] LABS: ABSOLUTE EOSINOPHILS # (AUTO) 0.3 10^3/uL (0.0-0.6); ABSOLUTE LYMPHOCYTES (AUTO) 1.9 10^3/uL (0.5-4.7); ABSOLUTE MONOCYTES (AUTO) 1.1 10^3/uL (0.1-1.4); ABSOLUTE NEUT (AUTO) 11.5 10^3/uL (1.7-8.2); BASOPHILS % (AUTO) 0.2 % (0-2); EOSINOPHILS % (AUTO) 1.9 % (0-6); HEMATOCRIT 40.7 % (36.0-47.0); HEMOGLOBIN 12.5 g/dL (12.0-15.5); MEAN CORPUSCULAR HEMOGLOBIN 25.4 pg (27.0-33.4); MEAN CORPUSCULAR HGB CONC 30.8 g/dL (32.0-36.0); MEAN CORPUSCULAR VOLUME 83 fl (80-97); MONOCYTES % (AUTO) 7.6 % (3-13); PLATELET COUNT 322 10^3/uL (150-450); RED BLOOD COUNT 4.94 10^6/uL (3.72-5.28); RED CELL DISTRIBUTION WIDTH 17.1 % (11.5-14.0); SEGMENTED NEUTROPHILS % (AUTO) 77.3 % (42-78); TOTAL CELLS COUNTED % (AUTO) 100 %; WHITE BLOOD COUNT 14.8 10^3/uL (4.0-10.5)
[2017-11-11 06:44] LABS: ALANINE AMINOTRANSFERASE 28 U/L (9-52); ALBUMIN 3.3 g/dL (3.5-5.0); ALKALINE PHOSPHATASE 113 U/L (38-126); ANION GAP 8 (5-19); ASPARTATE AMINO TRANSFERASE 26 U/L (14-36); BILIRUBIN,DIRECT 0.2 mg/dL (0.0-0.4); BILIRUBIN,TOTAL 0.3 mg/dL (0.2-1.3); BLOOD UREA NITROGEN 27 mg/dL (7-20); CALCIUM 10.4 mg/dL (8.4-10.2); CARBON DIOXIDE 25 mmol/L (22-30); CHLORIDE 110 mmol/L (98-107); GLUCOSE 119 mg/dL (75-110); POTASSIUM 4.4 mmol/L (3.6-5.0); SODIUM 142.9 mmol/L (137-145); TOTAL PROTEIN 6.3 g/dL (6.3-8.2)
--- NOTE | 2017-11-11 07:24 | RADIOLOGY REPORT (SQ) ---
EXAM DESCRIPTION: CT ABDOMEN AND PELVIS WITH CONTRAST CLINICAL HISTORY: Insulinoma COMPARISON: None Available. TECHNIQUE: CT of the abdomen and pelvis are performed during IV bolus administration of 100 mL of Isovue-370. DLP: 3543.68 mGycm FINDINGS: Abdomen: The liver has normal size and density. No intrahepatic mass or biliary dilatation. Prior cholecystectomy. The spleen, pancreas, and right adrenal gland are unremarkable. No pancreatic hyperenhancing mass or nodule identified. 2.4 cm lipid rich left adrenal adenoma. The kidneys have normal size and contour without evidence of solid mass or hydronephrosis. Aortoiliac atherosclerosis. IVC is unremarkable. The portal vein patent. The proximal visceral and renal arteries are patent. No free intraperitoneal air. The stomach and duodenum have normal course. Pelvis: Uterus is not enlarged. Urinary bladder is unremarkable. No free pelvic fluid or lymphadenopathy. Scattered diverticula of the colon. No dilated loops of large or small bowel. Normal appendix. Prior ventral hernia repair. Midline ventral hernia containing loops of nondilated transverse colon. The visualized lung bases are clear. Coronary artery atherosclerosis. No destructive bone lesions identified. Degenerative change of the lumbar spine. IMPRESSION: 1. No acute inflammatory or obstructive abnormality identified. 2. No enhancing pancreatic nodule identified suggesting insulinoma. 3. Midline ventral hernia with a small neck containing a loop of transverse colon without evidence of obstruction. 4. Diverticulosis without evidence of diverticulitis. 5. Lipid rich benign appearing 2.4 cm left adrenal adenoma. This exam was performed according to our departmental dose-optimization program, which includes automated exposure control, adjustment of the mA and/or kV according to patient size and/or use of iterative reconstruction technique.
--- NOTE | 2017-11-11 07:44 | ER Document Report ---
ED General - General Chief Complaint: Low Blood Sugar Stated Complaint: BLOOD SUGAR PROBLEMS Time Seen by Provider: 11/11/17 06:05 Mode of Arrival: Medic Information source: Patient Notes: 67-year-old female diabetic who was on 3 different medications for her blood sugar presents with hypoglycemia. Patient notes her primary care physician Felicitas Gunderson and removed her from all meds yesterday morning that was the last time she took Januvia. She says that she took the medications out of the case and ate well last night. Patient notes son came home and blood sugar was in the 20s, patient brought in for evaluation. Patient had similar episode for admission a week ago TRAVEL OUTSIDE OF THE [place] IN LAST 30 DAYS: No - HPI Onset: Last week Onset/Duration: Persistent Quality of pain: No pain Severity: Mild Pain Level: Denies Associated symptoms: Weakness, Other Exacerbated by: Denies Relieved by: Denies Similar symptoms previously: Yes Recently seen / treated by doctor: Yes - Related Data Allergies/Adverse Reactions: albuterol [Albuterol] Allergy (Intermediate, Verified 02/22/17 12:58) Sulfa (Sulfonamide Antibiotics) Allergy (Intermediate, Verified 02/22/17 12:58) codeine [Codeine] Adverse Reaction (Intermediate, Verified 02/22/17 12:58) Past Medical History - Social History Smoking Status: Unknown if Ever Smoked Cigarette use (# per day): No Chew tobacco use (# tins/day): No Smoking Education Provided: No Frequency of alcohol use: None Drug Abuse: None Family History: DM, Hyperlipidemia, Hypertension Patient has suicidal ideation: No Patient has homicidal ideation: No - Past Medical History Cardiac Medical History: Reports: Hx Congestive Heart Failure, Hx Heart Attack - HRT CATH AUG 2016 [address] [facility] SHANNON 3 MO AGO, Hx Hypercholesterolemia, Hx Hypertension - MEDICATED Pulmonary Medical History: Reports: Hx COPD Denies: Hx Asthma Neurological Medical History: Denies: Hx Cerebrovascular Accident, Hx Seizures Endocrine Medical History: Reports: Hx Diabetes Mellitus Type 2, Hx Hypothyroidism Renal/ Medical History: Denies: Hx Peritoneal Dialysis GI Medical History: Denies: Hx Hepatitis, Hx Hiatal Hernia, Hx Ulcer Musculoskeltal Medical History: Reports Hx Muscle Weakness Psychiatric Medical History: Reports: Hx Depression Infectious Medical History: Denies: Hx Hepatitis Past Surgical History: Reports: Hx Abdominal Surgery - exploratory abd surgery, Hx Appendectomy, Hx Section, Hx Herniorrhaphy, Other - exploratory laparotomy 2. Denies: Hx Hysterectomy, Hx Mastectomy, Hx Open Heart Surgery, Hx Pacemaker - Immunizations Hx Pneumococcal Vaccination: 10/17/14 Review of Systems - Review of Systems Notes: REVIEW OF SYSTEMS: CONSTITUTIONAL : Denies fever, chills, or sweats. Denies recent illness. EENT: Denies eye, ear, throat, or mouth pain or symptoms. Denies nasal or sinus congestion or discharge. Denies throat, tongue, or mouth swelling or difficulty swallowing. CARDIOVASCULAR: Denies chest pain. Denies palpitations or racing or irregular heart beat. Denies ankle edema. RESPIRATORY: Denies cough, cold, or chest congestion. Denies shortness of breath, difficulty breathing, or wheezing. GASTROINTESTINAL: Denies abdominal pain or distention. Denies nausea, vomiting , or diarrhea. Denies blood in vomitus, stools, or per rectum. Denies black, tarry stools. Denies constipation. GENITOURINARY: Denies difficulty urinating, painful urination, burning, frequency, blood in urine, or discharge. FEMALE GENITOURINARY: Denies vaginal bleeding, heavy or abnormal periods, irregular periods. Denies vaginal discharge or odor. MUSCULOSKELETAL: Denies back or neck pain or stiffness. Denies joint pain or swelling. SKIN: Denies rash, lesions or sores. HEMATOLOGIC : Denies easy bruising or bleeding. LYMPHATIC: Denies swollen, enlarged glands. NEUROLOGICAL: Admits to generalized weakness PSYCHIATRIC: Denies anxiety or stress. Denies depression, suicidal ideation, or homicidal ideation. ALL OTHER SYSTEMS REVIEWED AND NEGATIVE. PHYSICAL EXAMINATION: GENERAL: Morbidly obese HEAD: Atraumatic, normocephalic. EYES: Pupils equal round and reactive to light, extraocular movements intact, conjunctiva are normal. ENT: Nares patent, oropharynx clear without exudates. Moist mucous membranes. NECK: Normal range of motion, supple without lymphadenopathy LUNGS: Breath sounds clear to auscultation bilaterally and equal. No wheezes rales or rhonchi. HEART: Regular rate and rhythm without murmurs ABDOMEN: Soft, nontender, nondistended abdomen. No guarding, no rebound. No masses appreciated. Female : deferred Musculoskeletal: Normal range of motion, no pitting or edema. No cyanosis. NEUROLOGICAL: Cranial nerves grossly intact. Normal speech, normal gait. Normal sensory, motor exams PSYCH: Normal mood, normal affect. SKIN: Chronic venous stasis changes of the feet Dictation was performed using [employer] voice recognition software Physical Exam - Vital signs Vitals: Temp Pulse Resp BP Pulse Ox 97.8 F 64 16 124/72 99 11/11/17 08:12 11/11/17 08:12 11/11/17 08:12 11/11/17 08:12 11/11/17 08:12 Course - Re-evaluation Re-evalutation: 11/11/17 08:27 Patient was washed in the emergency department 3 times her blood sugar went over 100 and then immediately dropped to 20s and 30s, a CT was performed to make sure there is no mass on the pancreas and none were noted. Patient denies taking any medications, C-peptide level has been ordered. I attempted to discharge the patient but due to the multiple hypoglycemic events she will require observation - Vital Signs Vital signs: Temp Pulse Resp BP Pulse Ox 97.8 F 64 16 124/72 99 11/11/17 08:12 11/11/17 08:12 11/11/17 08:12 11/11/17 08:12 11/11/17 08:12 - Laboratory Result Diagrams: 11/11/17 03:30 11/11/17 03:30 Laboratory results interpreted by me: 11/11/17 11/11/17 11/11/17 03:30 03:30 03:45 WBC 14.8 H MCH 25.4 L MCHC 30.8 L RDW 17.1 H Absolute Neutrophils 11.5 H Chloride 110 H BUN 27 H Glucose 119 H POC Glucose 114 H Calcium 10.4 H Albumin 3.3 L - Diagnostic Test Radiology reviewed: Image reviewed, Reports reviewed Discharge - Discharge Clinical Impression: Hypoglycemia Type II diabetes mellitus with complication, uncontrolled Qualifiers: Diabetes mellitus lobsterman insulin use: without usp use Qualified Code(s ): E11.8 - Type 2 diabetes mellitus with unspecified complications; E11.65 - Type 2 diabetes mellitus with hyperglycemia; E11.65 - Type 2 diabetes mellitus with hyperglycemia; E11.65 - Type 2 diabetes mellitus with hyperglycemia; E11.65 - Type 2 diabetes mellitus with hyperglycemia Condition: Stable Disposition: ADMITTED OBSERVATION Admitting Provider: Hospitalist
[2017-11-11] MEDS ORDERED: ACETAMINOPHEN 325 MG TABLET PO PRN (09:40)
[2017-11-11] MEDS ORDERED: ONDANSETRON 4 MG TAB.RAPDIS PO PRN (09:40)
--- NOTE | 2017-11-11 09:58 | PDOC H&P ---
History of Present Illness Admission Date/PCP: 11/11/17 08:02 CALDERON ALVAREZ MD Patient complains of: Low blood sugar History of Present Illness: MIGUEL ROBB is a 67 year old female presents with complaint of low blood sugar. ER physician states that blood sugars have been reported to be in the 30s. Patient states that she took her glimepiride 4 mg twice a day yesterday as instructed. Patient states that her blood sugar was checked and it was found to be low. ER doctor stated that he had given her glucose containing fluid and blood sugar was up to 114. ER physician states that when he rechecked her blood sugar it was in the 30s. Patient reports that she has lost over 140 lbs intentional due to her goal of being healthier. Patient was recently admitted to the hospital due to hypoglycemia and was discharged on . Patient denies any chest pain shortness of breath nausea vomiting or dizziness. Past Medical History Cardiac Medical History: Reports: Congestive Heart Failure, Myocardial Infarction - HRT CATH AUG 2016 [address] [facility] SHANNON 3 MO AGO, Hyperlipidema, Hypertension - MEDICATED Pulmonary Medical History: Reports: Chronic Obstructive Pulmonary Disease (COPD) Denies: Asthma Neurological Medical History: Denies: Seizures Endocrine Medical History: Reports: Diabetes Mellitus Type 2, Hypothyroidism GI Medical History: Denies: Hepatitis, Hiatal Hernia Psychiatric Medical History: Reports: Depression Hematology: Denies: Anemia, Sickle Cell Disease Past Surgical History Past Surgical History: Reports: Appendectomy, Section, Herniorrhaphy, Other - exploratory laparotomy 2 Denies: Amputation, Hysterectomy, Mastectomy, Pacemaker Social History Smoking Status: Unknown if Ever Smoked Frequency of Alcohol Use: None Hx Recreational Drug Use: No Drugs: None Hx Prescription Drug Abuse: No Family History Family History: DM, Hyperlipidemia, Hypertension Parental Family History Reviewed: No Children Family History Reviewed: No Sibling(s) Family History Reviewed.: No Medication/Allergy Home Medications: Aspirin [Aspirin EC] 81 mg PO DAILY 10/30/17 Atorvastatin Calcium [Lipitor 40 mg Tablet] 40 mg PO QHS 10/30/17 Budesonide [Pulmicort Flexhaler] 1 puff IH DAILY 10/30/17 Duloxetine HCl [Cymbalta] 60 mg PO Q12 10/30/17 Furosemide [Lasix 40 mg Tablet] 40 mg PO QAM 10/30/17 Gabapentin [Neurontin 300 mg Capsule] 600 mg PO Q8 10/30/17 Hydrocodone Bit/Acetaminophen [Hydrocodon-Acetaminophn 10-325] 1 each PO Q8HP PRN 10/30/17 Levothyroxine Sodium [Synthroid 0.15 mg Tablet] 0.15 mg PO Q6AM 10/30/17 Lisinopril [Prinivil 10 mg Tablet] 20 mg PO DAILY 10/30/17 Metoprolol Succinate [Toprol Xl 25 mg Tab.sr] 25 mg PO DAILY 10/30/17 Nitroglycerin [Nitrostat 0.4 mg (1/150 Gr) Tabs 25/Bottle] 1 tab SL Q5MP PRN Sitagliptin Phosphate [Januvia 50 mg Tablet] 100 mg PO DAILY #0 10/31/17 Allergies/Adverse Reactions: albuterol [Albuterol] Allergy (Intermediate, Verified 02/22/17 12:58) Sulfa (Sulfonamide Antibiotics) Allergy (Intermediate, Verified 02/22/17 12:58) codeine [Codeine] Adverse Reaction (Intermediate, Verified 02/22/17 12:58) Review of Systems Constitutional: PRESENT: weight loss. ABSENT: chills, fever(s), headache(s), weight gain Eyes: ABSENT: visual disturbances Ears: ABSENT: hearing changes Cardiovascular: ABSENT: chest pain, dyspnea on exertion, edema, orthropnea, palpitations Respiratory: ABSENT: cough, hemoptysis Gastrointestinal: ABSENT: abdominal pain, constipation, diarrhea, hematemesis, hematochezia, nausea, vomiting Genitourinary: ABSENT: dysuria, hematuria Musculoskeletal: ABSENT: joint swelling Integumentary: ABSENT: rash, wounds Neurological: ABSENT: abnormal gait, abnormal speech, confusion, dizziness, focal weakness, syncope Psychiatric: ABSENT: anxiety, depression, homidical ideation, suicidal ideation Endocrine: ABSENT: cold intolerance, heat intolerance, polydipsia, polyuria Hematologic/Lymphatic: ABSENT: easy bleeding, easy bruising Physical Exam Vital Signs: Temp Pulse Resp BP Pulse Ox 97.8 F 64 16 124/72 99 11/11/17 08:12 11/11/17 08:12 11/11/17 08:12 11/11/17 08:12 11/11/17 08:12 Intake & Output 11/10/17 11/11/17 11/12/17 06:59 06:59 06:59 Weight 122.3 kg General appearance: PRESENT: no acute distress, well-developed, well-nourished Head exam: PRESENT: atraumatic, normocephalic Eye exam: PRESENT: conjunctiva pink, EOMI. ABSENT: scleral icterus Ear exam: PRESENT: normal external ear exam Mouth exam: PRESENT: moist, tongue midline Neck exam: ABSENT: carotid bruit, JVD, lymphadenopathy, thyromegaly Respiratory exam: PRESENT: clear to auscultation [place]. ABSENT: rales, rhonchi, wheezes Cardiovascular exam: PRESENT: RRR. ABSENT: diastolic murmur, rubs, systolic murmur Pulses: PRESENT: normal carotid pulses Vascular exam: PRESENT: normal capillary refill GI/Abdominal exam: PRESENT: normal bowel sounds, soft, tenderness, other - Large anterior ventral hernia Rectal exam: PRESENT: deferred Extremities exam: PRESENT: full ROM. ABSENT: calf tenderness, clubbing, pedal edema Neurological exam: PRESENT: alert, awake, oriented to person, oriented to place , oriented to time, oriented to situation, CN II-XII grossly intact. ABSENT: motor sensory deficit Psychiatric exam: PRESENT: appropriate affect, normal mood. ABSENT: homicidal ideation, suicidal ideation Skin exam: PRESENT: dry, intact, warm. ABSENT: cyanosis, rash Results Impressions: Abdomen/Pelvis CT 11/11/17 06:16 IMPRESSION: 1. No acute inflammatory or obstructive abnormality identified. 2. No enhancing pancreatic nodule identified suggesting insulinoma. 3. Midline ventral hernia with a small neck containing a loop of transverse colon without evidence of obstruction. 4. Diverticulosis without evidence of diverticulitis. 5. Lipid rich benign appearing 2.4 cm left adrenal adenoma. This exam was performed according to our departmental dose-optimization program, which includes automated exposure control, adjustment of the mA and/or kV according to patient size and/or use of iterative reconstruction technique. Assessment & Plan - Diagnosis (1) Hypoglycemia Is this a current diagnosis for this admission?: Yes Plan: We will stop all diabetic medication. Will place patient on regular diet. Will check Accu-Cheks before meals. (2) Diabetes Qualifiers: Diabetes mellitus type: type 2 Diabetes mellitus complication status: with hypoglycemia Diabetes mellitus complication detail: without coma Diabetes mellitus longterm insulin use: without longterm use Qualified Code(s): E11.649 - Type 2 diabetes mellitus with hypoglycemia without coma Is this a current diagnosis for this admission?: Yes Plan: Patient has lost over 140 pounds. Even though patient still is morbidly obese patient's weight loss may be enough to have reversed her disease process. Will place on regular diet and give no diabetic medication (3) Morbid obesity Is this a current diagnosis for this admission?: Yes Plan: We will continue to encourage weight loss. (4) Hypercalcemia Is this a current diagnosis for this admission?: Yes Plan: Most likely secondary to immobility. Will monitor. Patient would benefit from workup as outpatient. (5) DVT prophylaxis Is this a current diagnosis for this admission?: Yes Plan: SCDS - Time Time Spent: 30 to 50 Minutes
[2017-11-11] MEDS ORDERED: LANSOPRAZOLE 15 MG TAB.RAP.DR PO ONE (10:15)
[2017-11-11] MEDS: HYDROCODONE/ACETAMINOPHEN 10-325 MG TABLET PO PRN (13:41)
[2017-11-11] MEDS: GABAPENTIN 300 MG CAPSULE PO SCH ×2 (14:31→22:54)
[2017-11-11] MEDS: DULOXETINE HCL 30 MG CAPSULE.DR PO SCH (21:51)
[2017-11-11] MEDS ORDERED: GABAPENTIN 300 MG CAPSULE ONE (22:51)
[2017-11-11] MEDS ORDERED: ATORVASTATIN CALCIUM 40 MG TABLET ONE (22:52)
[2017-11-11] MEDS: ATORVASTATIN CALCIUM 40 MG TABLET PO SCH (22:55)
[2017-11-12] MEDS ORDERED: GABAPENTIN 100 MG CAPSULE ONE (05:27)
[2017-11-12] MEDS ORDERED: GABAPENTIN 400 MG CAPSULE ONE (05:28)
[2017-11-12] MEDS: LANSOPRAZOLE 15 MG TAB.RAP.DR PO SCH (05:48)
[2017-11-12] MEDS: LEVOTHYROXINE SODIUM 0.15 MG TABLET PO SCH (05:49)
[2017-11-12] MEDS: GABAPENTIN 300 MG CAPSULE PO SCH ×3 (05:52→23:21)
[2017-11-12] MEDS ORDERED: FUROSEMIDE 40 MG TABLET PO SCH (08:00)
[2017-11-12 08:21] LABS: ABSOLUTE EOSINOPHILS # (AUTO) 0.4 10^3/uL (0.0-0.6); ABSOLUTE LYMPHOCYTES (AUTO) 2.3 10^3/uL (0.5-4.7); ABSOLUTE MONOCYTES (AUTO) 1.1 10^3/uL (0.1-1.4); ABSOLUTE NEUT (AUTO) 7.5 10^3/uL (1.7-8.2); BASOPHILS % (AUTO) 0.4 % (0-2); EOSINOPHILS % (AUTO) 3.3 % (0-6); HEMATOCRIT 39.4 % (36.0-47.0); HEMOGLOBIN 12.2 g/dL (12.0-15.5); LYMPHOCYTES % (AUTO) 20.1 % (13-45); MEAN CORPUSCULAR HEMOGLOBIN 25.4 pg (27.0-33.4); MEAN CORPUSCULAR HGB CONC 31.1 g/dL (32.0-36.0); MEAN CORPUSCULAR VOLUME 82 fl (80-97); MONOCYTES % (AUTO) 9.8 % (3-13); PLATELET COUNT 322 10^3/uL (150-450); RED BLOOD COUNT 4.81 10^6/uL (3.72-5.28); RED CELL DISTRIBUTION WIDTH 17.2 % (11.5-14.0); SEGMENTED NEUTROPHILS % (AUTO) 66.4 % (42-78); TOTAL CELLS COUNTED % (AUTO) 100 %; WHITE BLOOD COUNT 11.3 10^3/uL (4.0-10.5)
[2017-11-12 08:36] LABS: ALANINE AMINOTRANSFERASE 28 U/L (9-52); ALBUMIN 3.3 g/dL (3.5-5.0); ALKALINE PHOSPHATASE 120 U/L (38-126); ANION GAP 5 (5-19); ASPARTATE AMINO TRANSFERASE 19 U/L (14-36); BILIRUBIN,DIRECT 0.1 mg/dL (0.0-0.4); BILIRUBIN,TOTAL 0.1 mg/dL (0.2-1.3); BLOOD UREA NITROGEN 26 mg/dL (7-20); CALCIUM 10.2 mg/dL (8.4-10.2); CARBON DIOXIDE 27 mmol/L (22-30); CHLORIDE 109 mmol/L (98-107); GLUCOSE 211 mg/dL (75-110); POTASSIUM 5.4 mmol/L (3.6-5.0); SODIUM 141.4 mmol/L (137-145); TOTAL PROTEIN 6.1 g/dL (6.3-8.2)
[2017-11-12] MEDS ORDERED: FUROSEMIDE 40 MG TABLET PO ONE (09:30)
[2017-11-12] MEDS ORDERED: BUDESONIDE IH SCH (10:00)
[2017-11-12] MEDS: LISINOPRIL 10 MG TABLET PO SCH (10:07)
[2017-11-12] MEDS: DULOXETINE HCL 30 MG CAPSULE.DR PO SCH ×2 (10:07→23:21)
[2017-11-12] MEDS: ASPIRIN 81 MG TABLET, ENT COATED PO SCH (10:08)
[2017-11-12] MEDS: METOPROLOL SUCCINATE 25 MG TAB.SR.24H PO SCH (10:08)
[2017-11-12] MEDS: HYDROCODONE/ACETAMINOPHEN 10-325 MG TABLET PO PRN ×2 (10:14→23:55)
--- NOTE | 2017-11-12 20:50 | PDOC PROGRESS REPORT ---
Subjective Progress Note for:: 11/12/17 Subjective:: Pt states that she is having knee pain. Reason For Visit: HYPOGLYCEMIA SECONDARY TO MEDICATION Physical Exam Vital Signs: Temp Pulse Resp BP Pulse Ox 98.5 F 75 20 131/71 H 99 11/12/17 15:10 11/12/17 15:10 11/12/17 15:10 11/12/17 15:10 11/12/17 15:10 Intake & Output 11/11/17 11/12/17 11/13/17 06:59 06:59 06:59 Intake Total 700 1000 Output Total 600 Balance 100 1000 Weight 117 kg General appearance: PRESENT: no acute distress, well-developed, well-nourished Head exam: PRESENT: atraumatic, normocephalic Eye exam: PRESENT: conjunctiva pink, EOMI. ABSENT: scleral icterus Ear exam: PRESENT: normal external ear exam Mouth exam: PRESENT: moist, tongue midline Neck exam: ABSENT: carotid bruit, JVD, lymphadenopathy, thyromegaly Respiratory exam: PRESENT: clear to auscultation [place]. ABSENT: rales, rhonchi, wheezes Cardiovascular exam: PRESENT: RRR. ABSENT: diastolic murmur, rubs, systolic murmur Pulses: PRESENT: normal dorsalis pedis pul Vascular exam: PRESENT: normal capillary refill GI/Abdominal exam: PRESENT: normal bowel sounds, soft. ABSENT: distended, guarding, mass, organolmegaly, rebound, tenderness Rectal exam: PRESENT: deferred Extremities exam: PRESENT: full ROM. ABSENT: calf tenderness, clubbing, pedal edema Neurological exam: PRESENT: alert, awake, oriented to person, oriented to place , oriented to time, CN II-XII grossly intact. ABSENT: motor sensory deficit Psychiatric exam: PRESENT: appropriate affect, normal mood. ABSENT: homicidal ideation, suicidal ideation Skin exam: PRESENT: dry, intact, warm. ABSENT: cyanosis, rash Results Laboratory Results: 11/12/17 07:28 11/12/17 07:28 11/12/17 11/12/17 07:28 07:28 WBC 11.3 H RBC 4.81 Hgb 12.2 Hct 39.4 MCV 82 MCH 25.4 L MCHC 31.1 L RDW 17.2 H Plt Count 322 Seg Neutrophils % 66.4 Lymphocytes % 20.1 Monocytes % 9.8 Eosinophils % 3.3 Basophils % 0.4 Absolute Neutrophils 7.5 Absolute Lymphocytes 2.3 Absolute Monocytes 1.1 Absolute Eosinophils 0.4 Absolute Basophils 0.0 Sodium 141.4 Potassium 5.4 H Chloride 109 H Carbon Dioxide 27 Anion Gap 5 BUN 26 H Creatinine 0.88 Est GFR ( Amer) > 60 Est GFR (Non-Af Amer) > 60 Glucose 211 H Calcium 10.2 Total Bilirubin 0.1 L AST 19 ALT 28 Alkaline Phosphatase 120 Total Protein 6.1 L Albumin 3.3 L Impressions: Abdomen/Pelvis CT 11/11/17 06:16 IMPRESSION: 1. No acute inflammatory or obstructive abnormality identified. 2. No enhancing pancreatic nodule identified suggesting insulinoma. 3. Midline ventral hernia with a small neck containing a loop of transverse colon without evidence of obstruction. 4. Diverticulosis without evidence of diverticulitis. 5. Lipid rich benign appearing 2.4 cm left adrenal adenoma. This exam was performed according to our departmental dose-optimization program, which includes automated exposure control, adjustment of the mA and/or kV according to patient size and/or use of iterative reconstruction technique. Assessment & Plan - Diagnosis (1) Hypoglycemia Is this a current diagnosis for this admission?: Yes Plan: Will continue accuchecks. Will keep off diabetic medications. (2) Diabetes Qualifiers: Diabetes mellitus type: type 2 Diabetes mellitus complication status: with hypoglycemia Diabetes mellitus complication detail: without coma Diabetes mellitus prison insulin use: without prison use Qualified Code(s): E11.649 - Type 2 diabetes mellitus with hypoglycemia without coma Is this a current diagnosis for this admission?: Yes Plan: Patient has lost over 140 pounds. Even though patient still is morbidly obese patient's weight loss may be enough to have reversed her disease process. Continue regular diet and give no diabetic medication (3) Morbid obesity Is this a current diagnosis for this admission?: Yes Plan: We will continue to encourage weight loss. (4) Hypercalcemia Is this a current diagnosis for this admission?: Yes Plan: Most likely secondary to immobility. Resolved with IVFs. (5) DVT prophylaxis Is this a current diagnosis for this admission?: Yes Plan: SCDS - Time Time Spent with patient: 15-24 minutes
[2017-11-12] MEDS ORDERED: ATORVASTATIN CALCIUM 40 MG TABLET ONE (23:08)
[2017-11-12] MEDS ORDERED: LEVOTHYROXINE SODIUM 0.15 MG TABLET ONE (23:09)
[2017-11-12] MEDS ORDERED: GABAPENTIN 300 MG CAPSULE ONE (23:09)
[2017-11-12] MEDS: ATORVASTATIN CALCIUM 40 MG TABLET PO SCH (23:21)
[2017-11-13] MEDS: GABAPENTIN 300 MG CAPSULE PO SCH ×2 (05:21→14:04)
[2017-11-13] MEDS: LEVOTHYROXINE SODIUM 0.15 MG TABLET PO SCH (05:21)
[2017-11-13] MEDS: LANSOPRAZOLE 15 MG TAB.RAP.DR PO SCH (05:22)
[2017-11-13] MEDS ORDERED: FUROSEMIDE 40 MG TABLET PO SCH (08:00)
[2017-11-13] MEDS: HYDROCODONE/ACETAMINOPHEN 10-325 MG TABLET PO PRN (08:01)
[2017-11-13] MEDS: ASPIRIN 81 MG TABLET, ENT COATED PO SCH (09:38)
[2017-11-13] MEDS: DULOXETINE HCL 30 MG CAPSULE.DR PO SCH (09:38)
[2017-11-13] MEDS: METOPROLOL SUCCINATE 25 MG TAB.SR.24H PO SCH (09:38)
[2017-11-13] MEDS: LISINOPRIL 10 MG TABLET PO SCH (09:38)
[2017-11-13 12:55] VITALS: BP 116/71
--- NOTE | 2017-11-13 14:32 | RADIOLOGY REPORT (SQ) ---
EXAM DESCRIPTION: KNEE BILATERAL 1-2 VIEWS COMPLETED DATE/TIME: 11/13/2017 1:53 pm REASON FOR STUDY: Knee pain COMPARISON: None. NUMBER OF VIEWS: Two views left knee. Two views right knee. LIMITATIONS: Soft tissue attenuation. Osteopenia. Mild positioning difficulties. FINDINGS: Left knee: Medial and lateral compartments significant joint space narrowing with associa german osteophytes and sclerosis. No gross fracture. Right knee: Degenerative arthropathy throughout all joint spaces with prominent patellofemoral spurr ing most notably. No fracture or bone lesion evident. OTHER: No other significant finding. IMPRESSION: Bilateral knee DJD and osteopenia. No gross fracture. TECHNICAL DOCUMENTATION: JOB ID: [id number]
--- NOTE | 2017-11-13 15:36 | PDOC DISCHARGE SUMMARY ---
General - Admit/Disc Date/PCP Admission Date/Primary Care Provider: 11/11/17 08:02 CALDERON ALVAREZ MD Discharge Date: 11/13/17 - Discharge Diagnosis (1) Hypoglycemia Is this a current diagnosis for this admission?: Yes Summary: Secondary to medication: Pt will be taken off all diabetic medications. Pt will need to follow up with PCP. (2) Diabetes Is this a current diagnosis for this admission?: Yes Summary: DM Type 2: Patient reports that she is lost 140 pounds. Will take patient off of all diabetic medication recommend that patient adhere to a diabetic heart healthy diet. (3) Morbid obesity Is this a current diagnosis for this admission?: Yes Summary: Encourage dietary changes. (4) Hypercalcemia Is this a current diagnosis for this admission?: Yes Summary: Secondary to dehydration. - Additional Information Resuscitation Status: Full Code Discharge Diet: Cardiac, Diabetic Discharge Activity: Activity As Tolerated Home Medications: Aspirin [Aspirin EC] 81 mg PO DAILY 10/30/17 Atorvastatin Calcium [Lipitor 40 mg Tablet] 40 mg PO QHS 10/30/17 Budesonide [Pulmicort Flexhaler] 1 puff IH DAILY 10/30/17 Duloxetine HCl [Cymbalta] 60 mg PO Q12 10/30/17 Furosemide [Lasix 40 mg Tablet] 40 mg PO QAM 10/30/17 Gabapentin [Neurontin 300 mg Capsule] 600 mg PO Q8 10/30/17 Hydrocodone Bit/Acetaminophen [Hydrocodon-Acetaminophn 10-325] 1 each PO Q8HP PRN 10/30/17 Levothyroxine Sodium [Synthroid 0.15 mg Tablet] 0.15 mg PO Q6AM 10/30/17 Lisinopril [Prinivil 10 mg Tablet] 20 mg PO DAILY 10/30/17 Metoprolol Succinate [Toprol Xl 25 mg Tab.sr] 25 mg PO DAILY 10/30/17 Nitroglycerin [Nitrostat 0.4 mg (1/150 Gr) Tabs 25/Bottle] 1 tab SL Q5MP PRN History of Present Illness Patient complains of: Low Blood Sugar History of Present Illness: MIGUEL ROBB is a 67 year old female presents with complaint of low blood sugar. ER physician states that blood sugars have been reported to be in the 30s. Patient states that she took her glimepiride 4 mg twice a day yesterday as instructed. Patient states that her blood sugar was checked and it was found to be low. ER doctor stated that he had given her glucose containing fluid and blood sugar was up to 114. ER physician states that when he rechecked her blood sugar it was in the 30s. Patient reports that she has lost over 140 lbs intentional due to her goal of being healthier. Patient was recently admitted to the hospital due to hypoglycemia and was discharged on . Patient denies any chest pain shortness of breath nausea vomiting or dizziness. Hospital Course Hospital Course: It is a 67-year-old female that presents to our facility with hypoglycemia. Patient had been taking her glimepiride 4 mg p.o. twice a day. Patient was presented to the emergency room with a blood glucose of 30. Pt was give glucose containing fluid which helped to improve blood glucose. Pt then developed another episode of hypoglycemia. Pt was placed on a regular diet during hospitalization. Pt's highest blood glucose was 288. Pt was instructed to adhere to a cardiac and diabetic diet. Physical Exam Vital Signs: Temp Pulse Resp BP Pulse Ox 98.1 F 71 18 116/71 98 11/13/17 12:00 11/13/17 12:00 11/13/17 12:00 11/13/17 12:00 11/13/17 12:00 Intake & Output 11/12/17 11/13/17 11/14/17 06:59 06:59 06:59 Intake Total 700 1000 Output Total 600 Balance 100 1000 Weight 117 kg General appearance: PRESENT: no acute distress, well-developed, well-nourished Head exam: PRESENT: atraumatic, normocephalic Eye exam: PRESENT: conjunctiva pink, EOMI, PERRLA. ABSENT: scleral icterus Ear exam: PRESENT: normal external ear exam Mouth exam: PRESENT: moist, tongue midline Neck exam: ABSENT: carotid bruit, JVD, lymphadenopathy, thyromegaly Respiratory exam: PRESENT: clear to auscultation [place]. ABSENT: rales, rhonchi, wheezes Cardiovascular exam: PRESENT: RRR. ABSENT: diastolic murmur, rubs, systolic murmur Pulses: PRESENT: normal dorsalis pedis pul Vascular exam: PRESENT: normal capillary refill GI/Abdominal exam: PRESENT: normal bowel sounds, soft. ABSENT: distended, guarding, mass, organolmegaly, rebound, tenderness Rectal exam: PRESENT: deferred Extremities exam: PRESENT: full ROM. ABSENT: calf tenderness, clubbing, pedal edema Neurological exam: PRESENT: alert, awake, oriented to person, oriented to place , oriented to time, oriented to situation Psychiatric exam: PRESENT: appropriate affect, normal mood. ABSENT: homicidal ideation, suicidal ideation Skin exam: PRESENT: dry, intact, warm. ABSENT: cyanosis, rash Results Laboratory Results: 11/12/17 07:28 11/12/17 07:28 Impressions: Abdomen/Pelvis CT 11/11/17 06:16 IMPRESSION: 1. No acute inflammatory or obstructive abnormality identified. 2. No enhancing pancreatic nodule identified suggesting insulinoma. 3. Midline ventral hernia with a small neck containing a loop of transverse colon without evidence of obstruction. 4. Diverticulosis without evidence of diverticulitis. 5. Lipid rich benign appearing 2.4 cm left adrenal adenoma. This exam was performed according to our departmental dose-optimization program, which includes automated exposure control, adjustment of the mA and/or kV according to patient size and/or use of iterative reconstruction technique. Knee X-Ray 11/13/17 00:00 IMPRESSION: Bilateral knee DJD and osteopenia. No gross fracture. Plan Time Spent: Less than 30 Minutes
== END 2017-11-13 16:38 | disposition home or self-care (01) ==
LOC: ER 03:14 → EH 08:02 → UNDOADMOB 08:02 → EH 11:30 → 2N 15:00
PROVIDERS: ADMIT Emergency Medicine; ATTEND Emergency Medicine
DX: E09.649 Drug or chemical induced diabetes mellitus with hypoglycemia without coma (principal); T38.3X5A Adverse effect of insulin and oral hypoglycemic [antidiabetic] drugs, initial encounter; E66.01 Morbid (severe) obesity due to excess calories; Z68.44 Body mass index [BMI] 60.0-69.9, adult; E83.52 Hypercalcemia; E86.0 Dehydration; M17.0 Bilateral primary osteoarthritis of knee; M85.862 Other specified disorders of bone density and structure, left lower leg; M85.861 Other specified disorders of bone density and structure, right lower leg; I87.8 Other specified disorders of veins; I11.0 Hypertensive heart disease with heart failure; I50.9 Heart failure, unspecified; E03.9 Hypothyroidism, unspecified; J44.9 Chronic obstructive pulmonary disease, unspecified; I25.2 Old myocardial infarction; Z79.82 Long term (current) use of aspirin; Z79.899 Other long term (current) drug therapy; Z95.5 Presence of coronary angioplasty implant and graft; Z90.49 Acquired absence of other specified parts of digestive tract; Z83.3 Family history of diabetes mellitus
CPT/HCPCS: 99285; 36415 ×2; 82962 ×3; 84681; 85025 ×2; 80053 ×2; 73560; 74177; 97163; G0378 ×4; A9270 ×22

== ENCOUNTER 2018-11-14 15:01 | Emergency (ER) | payer MEDICARE, OTHER ==
[2018-11-14] MEDS ORDERED: KETOROLAC TROMETHAMINE 60 MG/2 ML SDV IM ONE (16:02)
--- NOTE | 2018-11-14 16:02 | ER Document Report ---
ED Medical Screen (RME) - General TRAVEL OUTSIDE OF THE [place] IN LAST 30 DAYS: No - HPI Patient complains to provider of: Low back pain - General Chief Complaint: Back Pain Stated Complaint: BACK PAIN Time Seen by Provider: 11/14/18 15:53 Primary Care Provider: CALDERON ALVAREZ MD [NO LOCAL MD] - Follow up as needed - HPI Notes: 11/14/18 16:01 Patient is a 68-year-old female presenting to the emergency room complaining of right-sided low back pain that is constant and has been persistent times 3 days, she denies a fall or injury (TJ GONSALES) - Related Data Allergies/Adverse Reactions: albuterol [Albuterol] Allergy (Intermediate, Verified 11/14/18 15:52) Sulfa (Sulfonamide Antibiotics) Allergy (Intermediate, Verified 11/14/18 15:52) codeine [Codeine] Adverse Reaction (Intermediate, Verified 11/14/18 15:52) Past Medical History - Past Medical History Cardiac Medical History: Reports: Hx Congestive Heart Failure, Hx Heart Attack - HRT CATH AUG 2016 [address] [facility] [address] SHANNON 3 MO AGO, Hx Hypercholesterolemia, Hx Hypertension - MEDICATED Pulmonary Medical History: Reports: Hx COPD Denies: Hx Asthma Neurological Medical History: Denies: Hx Cerebrovascular Accident, Hx Seizures Endocrine Medical History: Reports: Hx Diabetes Mellitus Type 2, Hx Hypothyroidism Renal/ Medical History: Denies: Hx Peritoneal Dialysis GI Medical History: Denies: Hx Hepatitis, Hx Hiatal Hernia, Hx Ulcer Musculoskeltal Medical History: Reports Hx Muscle Weakness Psychiatric Medical History: Reports: Hx Depression Infectious Medical History: Denies: Hx Hepatitis Past Surgical History: Reports: Hx Abdominal Surgery - exploratory abd surgery, Hx Appendectomy, Hx Section, Hx Herniorrhaphy, Other - exploratory laparotomy 2. Denies: Hx Hysterectomy, Hx Mastectomy, Hx Open Heart Surgery, Hx Pacemaker - Immunizations History of Influenza Vaccine for 07/2017 - 12/2017 Season: Yes - Vital signs Vitals: Temp Pulse Resp BP Pulse Ox 98.0 F 79 16 138/63 H 95 11/14/18 15:14 11/14/18 15:14 11/14/18 15:14 11/14/18 15:14 11/14/18 15:14 - Vital Signs Vital signs: Temp Pulse Resp BP Pulse Ox 98.0 F 79 16 138/63 H 95 11/14/18 15:14 11/14/18 15:14 11/14/18 15:14 11/14/18 15:14 11/14/18 15:14 - Laboratory Laboratory results interpreted by me: 11/14/18 16:20 Urine Nitrite POSITIVE H Ur Leukocyte Esterase LARGE H Doctor's Discharge - Discharge Referrals: CALDERON ALVAREZ MD [NO LOCAL MD] - Follow up as needed
[2018-11-14 16:50] LABS: APPEARANCE,URINE SLIGHTLY-CLOUDY; BILIRUBIN,URINE NEGATIVE (NEGATIVE); COLOR,URINE YELLOW; GLUCOSE, URINE NEGATIVE (NEGATIVE); KETONES,URINE NEGATIVE (NEGATIVE); LEUKOCYTE ESTERASE,URINE LARGE (NEGATIVE); NITRITE,URINE POSITIVE (NEGATIVE); PROTEIN,URINE NEGATIVE (NEGATIVE); URINE SPECIFIC GRAVITY 1.018; UROBILINOGEN,URINE NEGATIVE mg/dL (<2.0)
--- NOTE | 2018-11-14 17:05 | RADIOLOGY REPORT (SQ) ---
EXAM DESCRIPTION: L SPINE WHOLE COMPLETED DATE/TIME: 11/14/2018 4:43 pm REASON FOR STUDY: low back pain COMPARISON: None. NUMBER OF VIEWS: Five views including obliques. TECHNIQUE: AP, lateral, oblique, and sacral radiographic images acquired of the lumbar spine. LIMITATIONS: None. FINDINGS: MINERALIZATION: Osteopenia. SEGMENTATION: Normal. No transitional anatomy. ALIGNMENT: Scoliosis of the lumbar spine, apex to the right. VERTEBRAE: Remote old compression deformity suggested at L3 and L4. DISCS: Multilevel marked disc space narrowing. Grade 1 anterolisthesis of L5 on S1. Slight Grade 1 retrolisthesis of L4 on L5. POSTERIOR ELEMENTS: Multilevel facet arthrosis P The visualized pedicles are intact. No pars defect or posterior arch defects. HARDWARE: None in the spine. PARASPINAL SOFT TISSUES: Normal. PELVIS: Intact as visualized. No fractures or worrisome bone lesions. SI joints intact. OTHER: Atherosclerotic changes involving the abdominal aorta. Pelvic vascular calcifications. Mult iple surgical donta in the right side of the abdomen and the pelvic region. IMPRESSION: 1. Dextroconvex scoliosis and accompanying degenerative lumbar spondylosis, and multile isabela marked degenerative disc disease. 2. Old remote compression deformities are suggested at L3 and L4. 3. Additional findings as above. TECHNICAL DOCUMENTATION: JOB ID: [id number] [employer]- All Rights Reserved Reading location - IP/workstation name: [email or web address]
[2018-11-14] MEDS ORDERED: CEPHALEXIN 500 MG CAPSULE PO ONE (18:09)
[2018-11-14] MEDS ORDERED: LIDOCAINE 5% (700 MG) TRANSDERMAL ADH..PATCH TP ONE (18:18)
[2018-11-14 18:19] VITALS: BP 150/90
--- NOTE | 2018-11-14 18:19 | ER Document Report ---
ED Neck/Back Problem - General Chief Complaint: Back Pain Stated Complaint: BACK PAIN Time Seen by Provider: 11/14/18 15:53 Primary Care Provider: CALDERON ALVAREZ MD [NO LOCAL MD] - Follow up as needed NIC KOTHARI NP [Primary Care Provider] - Follow up in 3-5 days Information source: Patient Notes: 68-year-old female presented to ED for complaint of low back pain that she has had off and on for many years but is been persistent for the last 3 days. She denies any falls or injuries. She states she knows she has scoliosis degenerative disc disease multiple hernias and multiple other chronic problems. Patient is a morbidly obese 4 foot 7 inch patient who weighs 113 kg. TRAVEL OUTSIDE OF THE [place] IN LAST 30 DAYS: No - HPI Patient complains to provider of: Pain, Lower back Onset: Other - She states this is her chronic pain but is been constant for the last 3 days Where: Home Onset: Chronic Timing: Still present Quality of pain: Sharp Severity: Moderate Pain Level: 4 Recent injury: No Associated symptoms: Like prior neck/back pain, Radiation to leg, Lower back pain. denies: Incontinence, Motor loss, Numbness/tingling, Radiation to arm, Radiation to chest, Sensory loss, Unable to urinate, Upper back pain Exacerbated by: Movement of trunk, Sitting position Relieved by: Nothing Similar symptoms previously: Yes Recently seen / treated by doctor: No - Related Data Allergies/Adverse Reactions: albuterol [Albuterol] Allergy (Intermediate, Verified 11/14/18 15:52) Sulfa (Sulfonamide Antibiotics) Allergy (Intermediate, Verified 11/14/18 15:52) codeine [Codeine] Adverse Reaction (Intermediate, Verified 11/14/18 15:52) Past Medical History - General Information source: Patient - Social History Smoking Status: Current Every Day Smoker Cigarette use (# per day): Yes Smoking Education Provided: Yes - 4 minutes Frequency of alcohol use: None Drug Abuse: None Lives with: Family Family History: DM, Hyperlipidemia, Hypertension Patient has suicidal ideation: No Patient has homicidal ideation: No - Past Medical History Cardiac Medical History: Reports: Hx Congestive Heart Failure, Hx Heart Attack - HRT CATH AUG 2016 2 [facility] [address] SHANNON 3 MO AGO, Hx Hypercholesterolemia, Hx Hypertension - MEDICATED Pulmonary Medical History: Reports: Hx COPD EENT Medical History: Reports: None Neurological Medical History: Reports: None Endocrine Medical History: Reports: Hx Diabetes Mellitus Type 2, Hx Hypothyroidism Renal/ Medical History: Reports: None Malignancy Medical History: Reports: None GI Medical History: Reports: Other - Multiple abdominal hernia Musculoskeletal Medical History: Reports Hx Arthritis, Reports Hx Muscle Weakness, Reports Hx Musculoskeletal Deformity - Scoliosis Skin Medical History: Reports None Psychiatric Medical History: Reports: Hx Depression Infectious Medical History: Reports: None Past Surgical History: Reports: Hx Abdominal Surgery - exploratory abd surgery, Hx Appendectomy, Hx Section, Hx Herniorrhaphy, Other - exploratory laparotomy 2 - Immunizations Hx Pneumococcal Vaccination: 10/17/14 Review of Systems - Review of Systems Constitutional: No symptoms reported EENT: No symptoms reported Cardiovascular: No symptoms reported Respiratory: No symptoms reported Gastrointestinal: No symptoms reported Genitourinary: No symptoms reported Female Genitourinary: No symptoms reported Musculoskeletal: Back pain, Muscle pain, Muscle stiffness Skin: No symptoms reported Hematologic/Lymphatic: No symptoms reported Neurological/Psychological: No symptoms reported -: Yes All other systems reviewed and negative Physical Exam - Vital signs Vitals: Temp Pulse Resp BP Pulse Ox 98.0 F 79 16 138/63 H 95 11/14/18 15:14 11/14/18 15:14 11/14/18 15:14 11/14/18 15:14 11/14/18 15:14 Interpretation: Normal - General General appearance: Appears well, Alert - HEENT Head: Normocephalic, Atraumatic Eyes: Normal Pupils: PERRL - Respiratory Respiratory status: No respiratory distress Chest status: Nontender Breath sounds: Normal Chest palpation: Normal - Cardiovascular Rhythm: Regular Heart sounds: Normal auscultation Murmur: No - Abdominal Inspection: Normal Distension: No distension Bowel sounds: Normal Tenderness: Nontender Organomegaly: No organomegaly - Back Back: Normal, Vertebra tenderness, Scoliosis. No: Deformity/step-off, CVA tend erness, Scars, Wounds Notes: Denies any signs or symptoms of cauda equina, denies any saddle anesthesia, loss of control of bowel or bladders, loss control of lower extremities, loss of sensation to lower extremities. She states she has a long history of chronic back pain sciatica scoliosis and multiple other pain for conditions that she gets narcotics from her primary care doctor for. She states that she will follow-up with Nic braun her primary care provider. Patient was given a Lidoderm patch and given a prescription for Lidoderm patches and instructed to f ollow-up with her primary care doctor for her UTI. - Extremities General upper extremity: Normal inspection, Nontender, Normal color, Normal ROM, Normal temperature General lower extremity: Normal inspection, Nontender, Normal color, Normal ROM, Normal temperature, Normal weight bearing. No: Ce's sign - Neurological Neuro grossly intact: Yes Cognition: Normal Orientation: AAOx4 [place] Coma Scale Eye Opening: Spontaneous [place] Coma Scale Verbal: Oriented [place] Coma Scale Motor: Obeys Commands Theresa Coma Scale Total: 15 Speech: Normal Motor strength normal: LUE, RUE, LLE, RLE Sensory: Normal - Psychological Associated symptoms: Normal affect, Normal mood - Skin Skin Temperature: Warm Skin Moisture: Dry Skin Color: Normal Course - Vital Signs Vital signs: Temp Pulse Resp BP Pulse Ox 97.7 F 92 16 150/90 H 93 11/14/18 18:16 11/14/18 18:16 11/14/18 15:14 11/14/18 18:16 11/14/18 18:16 - Laboratory Laboratory results interpreted by me: 11/14/18 16:20 Urine Nitrite POSITIVE H Ur Leukocyte Esterase LARGE H Discharge - Discharge Clinical Impression: Low back pain Qualifiers: Chronicity: acute Back pain laterality: bilateral Sciatica presence: with sciatica Sciatica laterality: bilateral sciatica Qualified Code(s): M54.42 - Lumbago with sciatica, left side UTI (urinary tract infection) Qualifiers: Urinary tract infection type: site unspecified Hematuria presence: without hematuria Qualified Code(s): N39.0 - Urinary tract infection, site not specified Condition: Stable Disposition: HOME, SELF-CARE Instructions: Range of Motion Exercises ([facility]), Stretching Exercises for the Back ([facility]) Additional Instructions: Chronic Back Pain Chronic back pain (pain persisting longer than three months) is a common problem. A medical evaluation can look for herniated disc, arthritis, osteoporosis, tumors, and infections. But at least half the time, there's no obvious treatable cause. Anxiety and depression tend to worsen back pain. Ibuprofen or other anti-inflammatory medicine can help. A heating pad, used for 15-20 minutes at a time, can ease pain. For this type of back pain, narcotic medicines should be avoided. Muscle relaxers are rarely helpful unless you're having spasms. Activity is important. Find an aerobic exercise program that your back can tolerate. Too much rest makes back pain worse. Specific back exercises are usually prescribed to strengthen the back and abdominal muscles. Often, a physical therapist can help. Avoid heavy lifting, working while bent over, or standing with both knees straight. Most back pain patients do better with a firm mattress. If new symptoms of a "herniated disc" (radiation of pain, numbness, or tingling down the back of the leg or weakness in the leg) occur, you should be re-examined. Chronic Pain Control Stress, inactivity, and depression make pain more severe regardless of the cause of the pain. Stress and poor physical condition can cause pain such as headaches and backache. Relaxation: Rest in a quiet place with your eyes closed for 20 minutes twice daily. Concentrate on a pleasant image, or simply "feel" your breathing. Clear your mind. Stress management: Deal with your "stressors." Either take action, or eliminate the stressor from your life. Don't let things hang over you. Accept those things you can't change. Nutrition: Eat small, balanced meals -- don't skip, don't overeat. Meals should be high-carbohydrate, low-sugar, low-fat. Exercise: Exercise helps painful conditions and eases stress. Get 30 minutes of moderate exercise, five days a week. Do an activity that does not flare your pain. Precautions: Pain which continues to disrupt daily activities, or which changes in nature, requires a medical evaluation. Pain Clinic referral is available. We do not manage chronic pain in the Emergency Department. We will try to appropriately help you through an acute flare of your chronic painful condition, but for on-going chronic pain that does not improve, you will need to see your private doctor or paint spray tender. We do not provide repeated medication management of chronic painful conditions. If you wish, we can provide the name of local pain management physicians. URINARY TRACT INFECTION: Your evaluation indicates that you have a urinary tract infection. This is due to germs growing in the bladder. This is a common problem. This infection usually responds quickly to antibiotics. Your antibiotic should be taken exactly as prescribed. Drink plenty of fluids -- three to four quarts a day. Occasionally, a bladder anesthetic will be prescribed to help stop the feeling of urgency until the antibiotic has a chance to clear the infection. This may cause your urine to be dark orange. Certain urine infections require a culture. If the doctor obtained a culture, the results will be back in two days. You should call to see if a change in treatment is needed. A repeat urinalysis after you finish treatment is often recommended. The physician will let you know if further testing is required. Call the doctor if you develop fever, chills, flank pain, inability to urinate, or blood in the urine. CEPHALEXIN: The antibiotic you've been prescribed is a member of the cephalosporin class. This type of antibiotic covers a wide variety of infections, including those of the skin, lungs, and urinary tract. It's useful for staph infections. This antibiotic is slightly similar to the penicillin family. In rare cases, a person who is allergic to penicillin will also be allergic to this medication. If you have had a severe allergic reaction to penicillin, and have not taken this antibiotic since that time, notify your doctor. Antibiotics which cover many germs ("broad spectrum" antibiotics) are more likely to cause diarrhea or "yeast" infections. Women prone to vaginal yeast problems may suffer an attack after taking this antibiotic. In infants, oral thrush (white spots "stuck" on the cheek) or yeast diaper rash may result. See your doctor if these problems occur. Call at once if you develop itching, hi ves, shortness of breath, or lightheadedness. ICE PACKS: Apply ice packs frequently against the painful area. Many different schedules are recommended, such as "20 minutes on, 20 minutes off" or "one hour ice, two hours rest." If you need to work, you may need to go longer between ice treatments. You should plan to have the area ice packed AT LEAST one fourth of the time. The ice should be applied over the wrap, tape, or splint, or over a layer of cloth -- not directly against the skin. Some ice bags have a built-in cloth and can be put directly on the skin. WARM PACKS: After approximately two days, apply gentle heat (such as a heating pad or hot water bottle) for about 20 to 30 minutes about every two hours -- at least four times daily. Warmth and elevation will help you make a more rapid recovery, and will ease the pain considerably. Do not use HOT heat, and never apply heat for longer than 30 minutes. The continuous heat can invisibly damage skin and muscles -- even when no burn is seen on the surface. Damaged muscles can make you MORE sore. FOLLOW-UP CARE: If you have been referred to a physician for follow-up care, call the physicians office for an appointment as you were instructed or within the next two days. If you experience worsening or a significant change in your symptoms, notify the physician immediately or return to the Emergency Department at any time for re-evaluation. Prescriptions: Cephalexin Monohydrate [Keflex 500 mg Capsule] 500 mg PO QID #40 capsule Lidocaine [Lidoderm 5% (700 mg) Transdermal Patch] 1 patch TP DAILY #30 adh..patch Forms: Elevated Blood Pressure, Smoking Cessation Education Referrals: CALDERON ALVAREZ MD [NO LOCAL MD] - Follow up as needed NIC KOTHARI NP [Primary Care Provider] - Follow up in 3-5 days
== END 2018-11-14 18:39 | disposition home or self-care (01) ==
LOC: ER 15:01
DX: M54.42 Lumbago with sciatica, left side (principal); N39.0 Urinary tract infection, site not specified; F17.210 Nicotine dependence, cigarettes, uncomplicated; I50.9 Heart failure, unspecified; E66.01 Morbid (severe) obesity due to excess calories; E78.00 Pure hypercholesterolemia, unspecified; I11.0 Hypertensive heart disease with heart failure; E11.9 Type 2 diabetes mellitus without complications; E03.9 Hypothyroidism, unspecified; Z88.2 Allergy status to sulfonamides; Z88.6 Allergy status to analgesic agent; I25.2 Old myocardial infarction
CPT/HCPCS: 99406; 99283; 96372; 87086; 87088; 81001; 87186; 72110; A9270; J1885

== ENCOUNTER 2019-04-21 05:34 | Emergency (ER) | payer MEDICARE, OTHER ==
[2019-04-21] MEDS ORDERED: ONDANSETRON HCL 8 MG TABLET PO ONE (07:42)
[2019-04-21] MEDS ORDERED: MORPHINE SULFATE 10 MG/ML INJ IM ONE (07:42)
--- NOTE | 2019-04-21 08:40 | RADIOLOGY REPORT (SQ) ---
EXAM DESCRIPTION: CT LUMBAR SPINE WITHOUT COMPLETED DATE/TIME: 04/21/2019 8:22 am REASON FOR STUDY: fall, back pain COMPARISON: Lumbar spine plain films 11/14/2018 CT abdomen pelvis 11/11/2017 TECHNIQUE: Axial images acquired through the lumbar spine without intravenous contrast. Images revi ewed with lung, soft tissue and bone windows. Reconstructed coronal and sagittal MPR images reviewed . All images stored on PACS. All CT scanners at this facility use dose modulation, iterative reconstruction, and/or weight based d osing when appropriate to reduce radiation dose to as low as reasonably achievable (ALARA). [facility]: Dose Right [facility]: CareDose [facility]: Dose Right [facility]: Teradose 4D [facility]: Dynamic Recreation RADIATION DOSE: 36 mGy. LIMITATIONS: None. FINDINGS: SEGMENTATION: Normal. No transitional anatomy. ALIGNMENT: Convex rightward lumbar curvature VERTEBRAL BODIES: No fractures. No dislocation. No acute findings. DISCS: T11-12, T12-L1, L1-2 L2-3 are unremarkable. At L3-4, broad diffuse posterior disc bulging is present with mild central stenosis. Mild right, hig h-grade left foraminal narrowing. At L4-5, broad diffuse posterior disc bulging is present. There is soft tissue filling the right lat eral recess which could be an old chronic disc herniation. High-grade central canal narrowing is pre sent from broad diffuse disc bulge and facet and ligament hypertrophy. High-grade right foraminal na rrowing, moderate left foraminal narrowing. At L5-S1, broad diffuse disc bulge is present with facet arthropathy. No high-grade central or bj inal stenosis. PEDICLES, TRANSVERSE PROCESSES: No acute changes FACETS, POSTERIOR ELEMENTS: No acute changes HARDWARE: None in the spine. VISUALIZED RIBS: No fractures. SOFT TISSUES: No significant or acute finding in adjacent soft tissues. OTHER: No other significant finding. IMPRESSION: Degenerative changes most pronounced at L4-5 at L5-S1. No acute fracture TECHNICAL DOCUMENTATION: JOB ID: [id number] Quality ID # [id number]: Final reports with documentation of one or more dose reduction techniques (e.g., Au tomated exposure control, adjustment of the mA and/or kV according to patient size, use of iterative reconstruction technique) 2010 [employer]- All Rights Reserved Reading location - IP/workstation name: [email or web address]
[2019-04-21 09:12] LABS: APPEARANCE,URINE CLEAR; BILIRUBIN,URINE NEGATIVE (NEGATIVE); COLOR,URINE STRAW; GLUCOSE, URINE NEGATIVE (NEGATIVE); KETONES,URINE NEGATIVE (NEGATIVE); URINE SPECIFIC GRAVITY 1.013
[2019-04-21 09:13] LABS: LEUKOCYTE ESTERASE,URINE NEGATIVE (NEGATIVE); NITRITE,URINE NEGATIVE (NEGATIVE); PROTEIN,URINE NEGATIVE (NEGATIVE); UROBILINOGEN,URINE NEGATIVE mg/dL (<2.0)
[2019-04-21] MEDS ORDERED: HYDROCODONE/ACETAMINOPHEN 5-325 MG (6 TAB/ER DISP) PO PRN (09:53)
--- NOTE | 2019-04-21 09:59 | ER Document Report ---
ED General - General Chief Complaint: Back Pain Stated Complaint: BACK PAIN Time Seen by Provider: 04/21/19 07:34 Primary Care Provider: NIC KOTHARI NP [Primary Care Provider] - Follow up as needed TRAVEL OUTSIDE OF THE [place] IN LAST 30 DAYS: No - HPI Notes: Patient is a 68-year-old female with a history of chronic low back pain, radicular symptoms, who presents to the emergency department for evaluation of increased pain. Initially she states to me that her legs were weak and she could not get into her bed. She states she fell down, injuring her lower back. On further questioning, however, she uses a wheelchair regularly. She has but home with her son. She denies any bowel or bladder incontinence, no saddle anesthesia. She states that she sees her primary care provider regularly, receives Vicodin monthly. She has run out, is not due for another prescription until Tuesday. She describes her pain as sharp and stabbing, with occasional radiation into the buttock and hip region. - Related Data Allergies/Adverse Reactions: albuterol [Albuterol] Allergy (Intermediate, Verified 04/21/19 06:28) Sulfa (Sulfonamide Antibiotics) Allergy (Intermediate, Verified 04/21/19 06:28) codeine [Codeine] Adverse Reaction (Intermediate, Verified 04/21/19 06:28) Past Medical History - General Information source: Patient - Social History Smoking Status: Current Every Day Smoker Frequency of alcohol use: None Drug Abuse: None Family History: DM, Hyperlipidemia, Hypertension Patient has suicidal ideation: No Patient has homicidal ideation: No - Past Medical History Cardiac Medical History: Reports: Hx Congestive Heart Failure, Hx Heart Attack - HRT CATH AUG 2016 [address] [facility] SHANNON 3 MO AGO, Hx Hypercholesterolemia, Hx Hypertension - MEDICATED Pulmonary Medical History: Reports: Hx COPD Denies: Hx Asthma Neurological Medical History: Denies: Hx Cerebrovascular Accident, Hx Seizures Endocrine Medical History: Reports: Hx Diabetes Mellitus Type 2, Hx Hypothyroidism Renal/ Medical History: Denies: Hx Peritoneal Dialysis GI Medical History: Denies: Hx Hepatitis, Hx Hiatal Hernia, Hx Ulcer Musculoskeletal Medical History: Reports Hx Arthritis, Reports Hx Muscle Weakness, Reports Hx Musculoskeletal Deformity - Scoliosis Psychiatric Medical History: Reports: Hx Depression Infectious Medical History: Denies: Hx Hepatitis Past Surgical History: Reports: Hx Abdominal Surgery - exploratory abd surgery, Hx Appendectomy, Hx Section, Hx Herniorrhaphy, Other - exploratory laparotomy 2. Denies: Hx Hysterectomy, Hx Mastectomy, Hx Open Heart Surgery, Hx Pacemaker - Immunizations Hx Pneumococcal Vaccination: 10/17/14 Review of Systems - Review of Systems Constitutional: No symptoms reported EENT: No symptoms reported Cardiovascular: No symptoms reported Respiratory: No symptoms reported Gastrointestinal: No symptoms reported Genitourinary: No symptoms reported Musculoskeletal: See HPI Skin: No symptoms reported Neurological/Psychological: No symptoms reported Physical Exam - Vital signs Vitals: Temp Pulse Resp BP Pulse Ox 97.9 F 91 21 H 129/80 H 95 04/21/19 05:37 04/21/19 05:37 04/21/19 05:37 04/21/19 05:37 04/21/19 05:37 - Notes Notes: This is an obese 68-year-old female who appears her stated age in no acute distress. Head is normocephalic and atraumatic. Pupils are equal round, reactive to light. Oral mucous is moist. Heart is regular rate and rhythm, lungs are clear station bilaterally. Examination of the spine yields no obvious deformity. She is tender to palpation over the entire midline lumbar spine, even with light touch. She has no appreciable step-off, but exam is understandably limited by body habitus. I am unable to strength test the lower extremities secondary to pain. She does have diminished Achilles and patellar reflexes bilaterally. Sensation appears to be intact. Course - Re-evaluation Re-evalutation: 04/21/19 09:56 Patient presents to the emergency department for evaluation. She has a back injury per history, but I also suspect that this is in part due to the fact that she is run out of her [employer]. I did perform CT scan of her lumbar spine. It failed to reveal any acute fracture. She does have significant disc herniation and radiculopathy, as well as spinal stenosis. Patient is unfortunately a diabetic, will not be able to treat with steroids. We will go ahead with Shelli. We will send her home with the [facility] [employer] to go. She is to follow-up with her primary care provider on Tuesday as scheduled. She is to return to the ED with worsening or new concerning symptoms of any sort. 04/21/19 10:08 Please note that, during the course of her stay, patient had an incident. Please see nurse's notes for full details. In short, during assist to getting her over to the ED bed, she slid to the floor. She was lowered slowly. She denies any increase in her pain from this. She was medicated following this and, states she is feeling improved. - Vital Signs Vital signs: Temp Pulse Resp BP Pulse Ox 97.8 F 81 16 125/84 100 04/21/19 08:52 04/21/19 08:52 04/21/19 08:52 04/21/19 08:53 04/21/19 08:52 - Laboratory Laboratory results interpreted by me: 04/21/19 08:56 Urine Ascorbic Acid 40 H Discharge - Discharge Clinical Impression: Lumbosacral radiculopathy Fall Qualifiers: Encounter type: initial encounter Qualified Code(s): W19.XXXA - Unspecified fall, initial encounter Condition: Stable Disposition: HOME, SELF-CARE Instructions: Low Back Pain ([facility]), Warm Packs ([facility]) Additional Instructions: Follow-up with your primary care provider as scheduled on Tuesday. Mobic as directed, with food. Return to the emergency department with worsening or new concerning symptoms of any sort. Prescriptions: Meloxicam [Mobic] 15 mg PO DAILY #10 tablet Referrals: NIC KOTHARI NP [Primary Care Provider] - Follow up as needed
[2019-04-21 11:57] VITALS: BP 123/62
== END 2019-04-21 11:51 | disposition home or self-care (01) ==
LOC: ER 05:34
DX: M54.17 Radiculopathy, lumbosacral region (principal); G89.29 Other chronic pain; M54.5 Low back pain; W18.30XA Fall on same level, unspecified, initial encounter; F17.200 Nicotine dependence, unspecified, uncomplicated; I50.9 Heart failure, unspecified; E78.00 Pure hypercholesterolemia, unspecified; I11.0 Hypertensive heart disease with heart failure; E11.9 Type 2 diabetes mellitus without complications; E03.9 Hypothyroidism, unspecified; Z88.6 Allergy status to analgesic agent; Z88.2 Allergy status to sulfonamides; I25.2 Old myocardial infarction
CPT/HCPCS: 99284; 96374; 81001; 72131; J2270; A9270 ×2; S0119

== ENCOUNTER 2019-07-02 17:56 | Inpatient (IN) | payer MEDICARE, OTHER ==
[2019-07-02] MEDS ORDERED: ASPIRIN 81 MG TABLET, CHEWABLE PO ONE (18:01)
[2019-07-02] MEDS ORDERED: FUROSEMIDE INJ/PF 40 MG/4 ML SDV IV ONE (18:14)
[2019-07-02 18:30] LABS: ABSOLUTE BASOPHILS # (AUTO) 0.1 10^3/uL (0.0-0.2); ABSOLUTE EOSINOPHILS # (AUTO) 0.2 10^3/uL (0.0-0.6); ABSOLUTE LYMPHOCYTES (AUTO) 1.4 10^3/uL (0.5-4.7); ABSOLUTE MONOCYTES (AUTO) 0.9 10^3/uL (0.1-1.4); ABSOLUTE NEUT (AUTO) 10.1 10^3/uL (1.7-8.2); BASOPHILS % (AUTO) 0.5 % (0-2); EOSINOPHILS % (AUTO) 1.2 % (0-6); HEMATOCRIT 29.7 % (36.0-47.0); HEMOGLOBIN 8.8 g/dL (12.0-15.5); LYMPHOCYTES % (AUTO) 11.2 % (13-45); MEAN CORPUSCULAR HGB CONC 29.7 g/dL (32.0-36.0); MEAN CORPUSCULAR VOLUME 67 fl (80-97); MONOCYTES % (AUTO) 7.4 % (3-13); PLATELET COUNT 412 10^3/uL (150-450); SEGMENTED NEUTROPHILS % (AUTO) 79.7 % (42-78); TOTAL CELLS COUNTED % (AUTO) 100 %; WHITE BLOOD COUNT 12.7 10^3/uL (4.0-10.5)
[2019-07-02 18:44] LABS: ALKALINE PHOSPHATASE 118 U/L (38-126); ANION GAP 7 (5-19); ASPARTATE AMINO TRANSFERASE 13 U/L (14-36); BILIRUBIN,DIRECT 0.3 mg/dL (0.0-0.4); BILIRUBIN,TOTAL 0.5 mg/dL (0.2-1.3); BLOOD UREA NITROGEN 26 mg/dL (7-20); CALCIUM 10.2 mg/dL (8.4-10.2); CARBON DIOXIDE 27 mmol/L (22-30); CHLORIDE 109 mmol/L (98-107); GLUCOSE 120 mg/dL (75-110); POTASSIUM 3.6 mmol/L (3.6-5.0)
[2019-07-02 18:56] LABS: TROPONIN I 0.016 ng/mL
--- NOTE | 2019-07-02 19:04 | RADIOLOGY REPORT (SQ) ---
EXAM DESCRIPTION: CHEST SINGLE VIEW COMPLETED DATE/TIME: 07/02/2019 6:41 pm REASON FOR STUDY: t2 cp COMPARISON: 09/01/2016 TECHNIQUE: Single frontal radiographic view of the chest acquired. NUMBER OF VIEWS: One view. LIMITATIONS: None. FINDINGS: LUNGS AND PLEURA: No pneumothorax. Left basilar airspace -interstitial markings and small pleural effusion. MEDIASTINUM AND HILAR STRUCTURES: Stable. HEART AND VASCULAR STRUCTURES: Stable. BONES: No acute findings. HARDWARE: None in the chest. OTHER: No other significant finding. IMPRESSION: Left basilar airspace -interstitial markings and small pleural effusion. TECHNICAL DOCUMENTATION: JOB ID: [id number] [place]-72 2010 [employer]- All Rights Reserved Reading location - IP/workstation name: [email or web address]
[2019-07-02] MEDS ORDERED: CEFTRIAXONE 2 GM/D5W RTU 2 GM/50 ML RTUPB IV ONE (20:19)
[2019-07-02] MEDS ORDERED: AZITHROMYCIN 250 MG TABLET PO ONE (20:19)
[2019-07-02] MEDS ORDERED: HYDRALAZINE HCL INJ/PF 20 MG/1 ML SDV IV PRN (20:30)
[2019-07-02] MEDS ORDERED: IPRATROPIUM BROMIDE 0.02% NEB 0.5 MG/2.5 ML AMPUL NEB PRN (20:36)
[2019-07-02] MEDS ORDERED: LEVALBUTEROL HCL NEB 1.25 MG/3 ML AMPUL NEB PRN (20:36)
[2019-07-02] MEDS ORDERED: GLUCAGON,HUMAN RECOMB 1 MG INJ IM PRN (20:38)
[2019-07-02] MEDS ORDERED: DEXTROSE 40% GEL 15 GM TUBE PO PRN ×2 (20:38)
[2019-07-02] MEDS ORDERED: DEXTROSE 50%-WATER 25 GM/50 ML DISP.SYRIN IV PRN ×2 (20:38)
--- NOTE | 2019-07-02 21:23 | ER Document Report ---
ED General - General Chief Complaint: Shortness Of Breath Stated Complaint: CHEST PAIN Time Seen by Provider: 07/02/19 18:09 Primary Care Provider: NIC KOTHARI NP [Primary Care Provider] - Follow up as needed TRAVEL OUTSIDE OF THE [place] IN LAST 30 DAYS: No - HPI Notes: Patient presents complaining of shortness of breath. Patient states she got up to use the restroom and on her way back to bed she became severely short of breath. The ambulance was called and brought the patient to the emergency department. EMS records state that patient was found in respiratory distress with saturations of 88% on room air. They states on 6 L her pulse ox was 96%. Patient denies being on home oxygen. She states she is supposed to be on CPAP but has been unable to get the CPAP at this time. She does have a history of congestive heart failure. She states she had a dry cough. No fevers. She denies any pain. The shortness of breath was worse with exertion and better with rest. There is no radiation of the symptoms. The symptoms were constant but now improving since she got oxygen and nitroglycerin in route. The symptoms were severe. - Related Data Allergies/Adverse Reactions: albuterol [Albuterol] Allergy (Intermediate, Verified 04/21/19 06:28) Sulfa (Sulfonamide Antibiotics) Allergy (Intermediate, Verified 04/21/19 06:28) codeine [Codeine] Adverse Reaction (Intermediate, Verified 04/21/19 06:28) Past Medical History - General Information source: Patient - Social History Smoking Status: Never Smoker Frequency of alcohol use: None Drug Abuse: None Family History: Reviewed & Not Pertinent, DM, Hyperlipidemia, Hypertension Patient has suicidal ideation: No Patient has homicidal ideation: No - Past Medical History Cardiac Medical History: Reports: Hx Congestive Heart Failure, Hx Heart Attack - HRT CATH AUG 2016 [address] SHANNON 3 MO AGO, Hx Hypercholesterolemia, Hx Hypertension - MEDICATED Pulmonary Medical History: Reports: Hx COPD Denies: Hx Asthma Neurological Medical History: Denies: Hx Cerebrovascular Accident, Hx Seizures Endocrine Medical History: Reports: Hx Diabetes Mellitus Type 2, Hx Hypothyroidism Renal/ Medical History: Denies: Hx Peritoneal Dialysis GI Medical History: Denies: Hx Hepatitis, Hx Hiatal Hernia, Hx Ulcer Musculoskeletal Medical History: Reports Hx Arthritis, Reports Hx Muscle Weakness, Reports Hx Musculoskeletal Deformity - Scoliosis Psychiatric Medical History: Reports: Hx Depression Infectious Medical History: Denies: Hx Hepatitis Past Surgical History: Reports: Hx Abdominal Surgery - exploratory abd surgery, Hx Appendectomy, Hx Section, Hx Herniorrhaphy, Other - exploratory laparotomy 2. Denies: Hx Hysterectomy, Hx Mastectomy, Hx Open Heart Surgery, Hx Pacemaker - Immunizations Hx Pneumococcal Vaccination: 10/17/14 Review of Systems - Review of Systems Constitutional: Malaise, Weakness Cardiovascular: Dyspnea. denies: Chest pain Respiratory: Cough, Short of breath Gastrointestinal: denies: Diarrhea, Vomiting -: Yes All other systems reviewed and negative Physical Exam - Vital signs Vitals: Temp 98.0 F 07/02/19 18:05 Interpretation: Hypertensive, Hypoxic - General General appearance: Alert In distress: Mild - HEENT Head: Normocephalic, Atraumatic Eyes: Normal Pupils: PERRL - Respiratory Respiratory status: No respiratory distress Chest status: Nontender Breath sounds: Decreased air movement - Bilateral Chest palpation: Normal - Cardiovascular Rhythm: Regular Heart sounds: Normal auscultation Murmur: No - Abdominal Inspection: Normal Distension: No distension Bowel sounds: Normal Tenderness: Nontender Organomegaly: No organomegaly - Back Back: Normal, Nontender - Extremities General upper extremity: Normal inspection, Nontender, Normal color, Normal ROM, Normal temperature General lower extremity: Normal inspection, Nontender, Edema - 2+ bilaterally, Normal color, Normal ROM, Normal temperature. No: Ce's sign - Neurological Neuro grossly intact: Yes Cognition: Normal Orientation: AAOx4 Theresa Coma Scale Eye Opening: Spontaneous Thersea Coma Scale Verbal: Oriented Theresa Coma Scale Motor: Obeys Commands Theresa Coma Scale Total: 15 Speech: Normal Motor strength normal: LUE, RUE, LLE, RLE Sensory: Normal - Psychological Associated symptoms: Normal affect, Normal mood - Skin Skin Temperature: Warm Skin Moisture: Dry Skin Color: Normal Course - Re-evaluation Re-evalutation: 07/02/19 21:20 Patient's x-ray shows a focal consolidation at the left base. She also has an elevated white blood cell count. In addition to being short of breath this seems consistent with a possible infectious etiology. Therefore patient had blood cultures drawn and antibiotics were given. Patient also has a history of shortness of breath and appeared to be in some mild failure. Therefore Lasix and nitro were also given. Patient at this time states she feels significantly better. She is not tachypneic or hypoxic at this time. I have discussed the case with the hospitalist who admitted the patient for further treatment of pneumonia and congestive heart failure. - Vital Signs Vital signs: Temp Pulse Resp BP Pulse Ox 98.0 F 22 H 166/132 H 99 07/02/19 18:05 07/02/19 19:02 07/02/19 19:02 07/02/19 19:02 - Laboratory Result Diagrams: 07/02/19 18:08 07/02/19 18:08 Laboratory results interpreted by me: 07/02/19 07/02/19 07/02/19 18:08 18:08 18:08 WBC 12.7 H Hgb 8.8 L Hct 29.7 L MCV 67 L MCH 20.0 L MCHC 29.7 L RDW 19.0 H Lymph % (Auto) 11.2 L Absolute Neuts (auto) 10.1 H Seg Neutrophils % 79.7 H Chloride 109 H BUN 26 H Glucose 120 H AST 13 L NT-Pro-B Natriuret Pep 1510 H Total Protein 6.0 L Albumin 3.0 L - Diagnostic Test Radiology reviewed: Image reviewed, Reports reviewed - EKG Interpretation by Me EKG shows normal: Sinus rhythm Rate: Normal - 75 Rhythm: NSR Webster/QRS: IVCD Discharge - Discharge Clinical Impression: Morbid obesity Pneumonia Qualifiers: Pneumonia type: due to unspecified organism Laterality: left Lung location: lower lobe of lung Qualified Code(s): J18.1 - Lobar pneumonia, unspecified organism Condition: Fair Disposition: ADMITTED INPATIENT Admitting Provider: Hugo (Hospitalist) Unit Admitted: Telemetry Referrals: NIC KOTHARI NP [Primary Care Provider] - Follow up as needed
[2019-07-02 21:34] LABS: IRON(TIBC) 13.7 ug/dL (37-170)
[2019-07-02 21:36] LABS: ABSOLUTE RETICS # 0.067 10^6/uL (0.028-0.122); RETICULOCYTE COUNT (AUTO) 1.52 % (0.66-2.85)
[2019-07-02] MEDS: FLUTICASONE NASAL SPRAY 50 MCG/SPRY 120 SPRAY/16 GM NASL SCH (22:29)
[2019-07-02] MEDS: HEPARIN SOD (PORCINE) 5,000 UNIT/ML 1 ML VIAL SUBCUT SCH (22:29)
[2019-07-02] MEDS: LOSARTAN POTASSIUM 50 MG TABLET PO SCH (22:30)
[2019-07-02] MEDS: ATORVASTATIN CALCIUM 40 MG TABLET PO SCH (22:30)
[2019-07-02] MEDS: DULOXETINE HCL 30 MG CAPSULE.DR PO SCH (22:30)
[2019-07-02] MEDS: METOPROLOL TARTRATE 25 MG TABLET PO SCH (22:38)
[2019-07-02 22:41] LABS: FOLATE 5.44 ng/mL (>2.76)
[2019-07-02] MEDS ORDERED: POTASSIUM CHLORIDE 10 MEQ CAPSULE.ER PO ONE (23:00)
[2019-07-03] MEDS ORDERED: LEVALBUTEROL HCL NEB 1.25 MG/3 ML AMPUL NEB SCH
[2019-07-03] MEDS: IPRATROPIUM BROMIDE 0.02% NEB 0.5 MG/2.5 ML AMPUL NEB SCH ×3 (00:26→16:19)
--- NOTE | 2019-07-03 05:49 | PDOC H&P ---
History of Present Illness Admission Date/PCP: 07/02/19 21:54 NIC KOTHARI NP Patient complains of: Shortness of breath History of Present Illness: MIGUEL ROBB is a 68 year old female with a past medical history of morbid obesity, congestive heart failure with ejection fraction of 45%, pulmonary hypertension, obstructive sleep apnea, hypertension, coronary artery disease, diabetes and debility. Patient presents with 48 hours of increasing shortness of breath with a nonproductive cough orthopnea, lower extremity edema which prompted her evaluation emergency room where she is found to have uncontrolled hypertension, microcytic anemia, left-sided pleural effusion and pulmonary vascular congestion. She started on Lasix and referred to the hospitalist for admission. Patient admits noncompliance with BiPAP as she has been unable to replace her tubing. She is unaware of a history of anemia. She denies chest pain, nausea vomiting palpitations, discolored urine or stools. Past Medical History Cardiac Medical History: Reports: Congestive Heart Failure, Myocardial Infarction - HRT CATH AUG 2016 [address] [facility]ANNON 3 MO AGO, Hyperlipidema, Hypertension - MEDICATED Pulmonary Medical History: Reports: Chronic Obstructive Pulmonary Disease (COPD) Denies: Asthma Neurological Medical History: Denies: Seizures Endocrine Medical History: Reports: Diabetes Mellitus Type 2, Hypothyroidism GI Medical History: Denies: Hepatitis, Hiatal Hernia Musculoskeltal Medical History: Reports: Arthritis Psychiatric Medical History: Reports: Depression Hematology: Denies: Anemia, Sickle Cell Disease Past Surgical History Past Surgical History: Reports: Appendectomy, Section, Herniorrhaphy, Other - exploratory laparotomy 2 Denies: Amputation, Hysterectomy, Mastectomy, Pacemaker Social History Information Source: Patient, [facility] Records Smoking Status: Never Smoker Frequency of Alcohol Use: None Hx Recreational Drug Use: No Drugs: None Hx Prescription Drug Abuse: No - Advance Directive Resuscitation Status: Full Code Family History Family History: DM, Hyperlipidemia, Hypertension Parental Family History Reviewed: Yes Children Family History Reviewed: Yes Sibling(s) Family History Reviewed.: Yes Medication/Allergy Home Medications: Atorvastatin Calcium [Lipitor 40 mg Tablet] 40 mg PO DAILY 10/30/17 Duloxetine HCl [Cymbalta] 60 mg PO Q12 10/30/17 Furosemide [Lasix 40 mg Tablet] 40 mg PO QAM 10/30/17 Gabapentin [Neurontin 300 mg Capsule] 900 mg PO Q8 10/30/17 Lisinopril [Prinivil 10 mg Tablet] 40 mg PO DAILY 10/30/17 Metoprolol Succinate [Toprol Xl 25 mg Tab.sr] 25 mg PO DAILY 10/30/17 Nitroglycerin [Nitrostat 0.4 mg (1/150 Gr) Tabs 25/Bottle] 1 tab SL Q5MP PRN 10/30/17 Clopidogrel Bisulfate [Plavix] 75 mg PO DAILY 04/21/19 Hydrocodone/Acetaminophen [[place] 7.5-325 mg Tablet] 1 tab PO TID 04/21/19 Meloxicam [Mobic] 15 mg PO DAILY #10 tablet 04/21/19 Metaxalone [Skelaxin] 800 mg PO TID 04/21/19 Metformin HCl [Metformin HCl ER] 500 mg PO BID 04/21/19 Naloxone HCl 0.4 mg IJ PRN PRN 04/21/19 Nystatin [Mycostatin Topical Powder 15 gm] 1 applic TP QID 04/21/19 Sitagliptin Phosphate [Januvia] 100 mg PO 1200 04/21/19 Allergies/Adverse Reactions: albuterol [Albuterol] Allergy (Intermediate, Verified 04/21/19 06:28) Sulfa (Sulfonamide Antibiotics) Allergy (Intermediate, Verified 04/21/19 06:28) codeine [Codeine] Adverse Reaction (Intermediate, Verified 04/21/19 06:28) Review of Systems Constitutional: PRESENT: as per HPI, fatigue, weakness, weight gain. ABSENT: fever(s), headache(s), night sweats Eyes: ABSENT: visual disturbances Ears: ABSENT: hearing changes Cardiovascular: PRESENT: as per HPI, dyspnea on exertion, edema, orthropnea. ABSENT: palpitations Respiratory: PRESENT: as per HPI, cough, dyspnea. ABSENT: hemoptysis, sputum Gastrointestinal: PRESENT: constipation. ABSENT: abdominal pain, diarrhea, hematemesis, hematochezia, nausea, vomiting Genitourinary: ABSENT: dysuria, hematuria Musculoskeletal: ABSENT: joint swelling Integumentary: ABSENT: rash, wounds Neurological: ABSENT: abnormal gait, abnormal speech, confusion, dizziness, focal weakness, syncope Psychiatric: ABSENT: anxiety, depression, homidical ideation, suicidal ideation Endocrine: ABSENT: cold intolerance, heat intolerance, polydipsia, polyuria Hematologic/Lymphatic: ABSENT: easy bleeding, easy bruising Physical Exam Vital Signs: Temp Pulse Resp BP Pulse Ox 97.8 F 65 21 H 178/69 H 93 07/03/19 04:31 07/03/19 00:26 07/03/19 04:31 07/03/19 04:31 07/03/19 04:31 Intake & Output 07/01/19 07/02/19 07/03/19 11:59 11:59 11:59 Intake Total 50 Output Total 3000 Balance -2950 Weight 108.9 kg General appearance: PRESENT: cooperative, mild distress, morbidly obese, well- developed, well-nourished Head exam: PRESENT: atraumatic, normocephalic Eye exam: PRESENT: conjunctiva pink, EOMI, PERRLA. ABSENT: scleral icterus Ear exam: PRESENT: normal external ear exam Mouth exam: PRESENT: moist, tongue midline Neck exam: PRESENT: JVD. ABSENT: meningismus, tenderness, thyromegaly Respiratory exam: PRESENT: accessory muscle use, crackles, decreased breath sounds, rales, tachypnea. ABSENT: retraction, rhonchi Cardiovascular exam: PRESENT: gallop, +S1, +S2, tachycardia Pulses: PRESENT: normal dorsalis pedis pul Vascular exam: PRESENT: normal capillary refill GI/Abdominal exam: PRESENT: normal bowel sounds, soft. ABSENT: distended, gua rding, mass, organolmegaly, rebound, tenderness Rectal exam: PRESENT: deferred Extremities exam: PRESENT: full ROM, +1 edema. ABSENT: calf tenderness, tenderness Psychiatric exam: PRESENT: appropriate affect, normal mood. ABSENT: homicidal ideation, suicidal ideation Skin exam: PRESENT: dry, intact, warm. ABSENT: cyanosis, rash Results Laboratory Results: 07/02/19 18:08 07/02/19 18:08 07/02/19 07/02/19 07/02/19 18:08 18:08 18:08 WBC 12.7 H RBC 4.40 Hgb 8.8 L Hct 29.7 L MCV 67 L MCH 20.0 L MCHC 29.7 L RDW 19.0 H Plt Count 412 Seg Neutrophils % 79.7 H Retic Count (auto) Sodium 143.2 Potassium 3.6 Chloride 109 H Carbon Dioxide 27 Anion Gap 7 BUN 26 H Creatinine 0.80 Est GFR ( Amer) > 60 Glucose 120 H Calcium 10.2 Magnesium 1.8 Iron TIBC % Saturation Ferritin Total Bilirubin 0.5 AST 13 L Alkaline Phosphatase 118 Total Protein 6.0 L Albumin 3.0 L Vitamin B12 Folate 07/02/19 07/02/19 18:08 18:08 WBC RBC Hgb Hct MCV MCH MCHC RDW Plt Count Seg Neutrophils % Retic Count (auto) 1.52 Sodium Potassium Chloride Carbon Dioxide Anion Gap BUN Creatinine Est GFR ( Amer) Glucose Calcium Magnesium Iron 13.7 L TIBC 383 % Saturation 4 Ferritin 8.80 L Total Bilirubin AST Alkaline Phosphatase Total Protein Albumin Vitamin B12 538.0 Folate 5.44 07/02/19 07/02/19 18:08 22:07 Troponin I 0.016 0.028 NT-Pro-B Natriuret Pep 1510 H Impressions: Chest X-Ray 07/02/19 18:02 IMPRESSION: Left basilar airspace -interstitial markings and small pleural effusion. Assessment and Plan - Diagnosis (1) Diastolic CHF, acute on chronic Is this a current diagnosis for this admission?: Yes Plan: Multifactorial systolic and diastolic heart failure exacerbation. Uncontrolled hypertension, high output from microcytic anemia, morbid obesity with obstructive sleep apnea. Complicated by BiPAP noncompliance, pleural effusion and tobacco. Telemetry admission, CHF care set, fluid restriction, Lasix, blood pressure optimization, BiPAP and correction of anemia. (2) CLYDE on CPAP Is this a current diagnosis for this admission?: Yes Plan: BiPAP ordered, education (3) Diabetes Qualifiers: Is this a current diagnosis for this admission?: Yes Plan: Outpatient regiment initiated with Humalog sliding scale (4) Morbid obesity Is this a current diagnosis for this admission?: Yes Plan: Morbid obesity will evaluate for metabolic cause with evaluation of thyroid function and dietitian consultation (5) Continuous tobacco abuse Is this a current diagnosis for this admission?: Yes Plan: Denies but reeks of smoke, refuses nicotine replacement options, education - Time Time Spent with patient: 35 or more minutes - Inpatient Certification Medical Necessity: Need Close Monitoring Due to Risk of Patient Decompensation
[2019-07-03] MEDS: HEPARIN SOD (PORCINE) 5,000 UNIT/ML 1 ML VIAL SUBCUT SCH ×3 (06:15→23:20)
[2019-07-03 06:48] LABS: ABSOLUTE EOSINOPHILS # (AUTO) 0.2 10^3/uL (0.0-0.6); ABSOLUTE LYMPHOCYTES (AUTO) 1.7 10^3/uL (0.5-4.7); ABSOLUTE NEUT (AUTO) 7.7 10^3/uL (1.7-8.2); BASOPHILS % (AUTO) 0.3 % (0-2); EOSINOPHILS % (AUTO) 2.1 % (0-6); HEMATOCRIT 29.9 % (36.0-47.0); HEMOGLOBIN 8.9 g/dL (12.0-15.5); LYMPHOCYTES % (AUTO) 15.7 % (13-45); MEAN CORPUSCULAR HEMOGLOBIN 20.1 pg (27.0-33.4); MEAN CORPUSCULAR HGB CONC 29.7 g/dL (32.0-36.0); MEAN CORPUSCULAR VOLUME 68 fl (80-97); MONOCYTES % (AUTO) 9.1 % (3-13); PLATELET COUNT 401 10^3/uL (150-450); RED BLOOD COUNT 4.41 10^6/uL (3.72-5.28); RED CELL DISTRIBUTION WIDTH 18.4 % (11.5-14.0); SEGMENTED NEUTROPHILS % (AUTO) 72.8 % (42-78); TOTAL CELLS COUNTED % (AUTO) 100 %; WHITE BLOOD COUNT 10.6 10^3/uL (4.0-10.5)
[2019-07-03 07:00] LABS: ANION GAP 6 (5-19); BLOOD UREA NITROGEN 21 mg/dL (7-20); CALCIUM 10.2 mg/dL (8.4-10.2); CARBON DIOXIDE 29 mmol/L (22-30); CHLORIDE 107 mmol/L (98-107); GLUCOSE 121 mg/dL (75-110)
--- NOTE | 2019-07-03 07:49 | EKG REPORT ---
SEVERITY:- ABNORMAL ECG - SINUS RHYTHM ATRIAL PREMATURE COMPLEX NONSPECIFIC INTRAVENTRICULAR CONDUCTION DELAY PROBABLE LVH WITH SECONDARY REPOL ABNRM BORDERLINE INFERIOR Q WAVES : Confirmed by: Ino Coon MD 03-Jul-2019 07:48:38
[2019-07-03] MEDS: INSULIN LISPRO 100 UNIT/ML 3 ML VIAL SUBCUT SCH ×3 (08:48→18:21)
--- NOTE | 2019-07-03 08:51 | Progress Note ---
Provider Note Provider Note: Patient admitted early a.m. I reviewed her labs at this time added ferric carboxy maltase 750 mg IV x1 we will start patient on ferrous sulfate 325 mg p.o. daily starting in the a.m. I will follow patient make change plan of care as appropriate
[2019-07-03] MEDS ORDERED: FERRIC CARBOXYMALTOSE INJ 750 MG/15 ML VIAL IV SCH (09:00)
[2019-07-03] MEDS: LOSARTAN POTASSIUM 50 MG TABLET PO SCH ×2 (09:40→23:21)
[2019-07-03] MEDS: FUROSEMIDE INJ/PF 40 MG/4 ML SDV IV SCH ×2 (09:40→23:20)
[2019-07-03] MEDS: POTASSIUM CHLORIDE 10 MEQ CAPSULE.ER PO SCH ×2 (09:40→23:20)
[2019-07-03] MEDS: METOPROLOL TARTRATE 25 MG TABLET PO SCH ×2 (09:41→23:35)
[2019-07-03] MEDS: FLUTICASONE NASAL SPRAY 50 MCG/SPRY 120 SPRAY/16 GM NASL SCH ×2 (09:41→23:22)
[2019-07-03] MEDS: DULOXETINE HCL 30 MG CAPSULE.DR PO SCH ×2 (09:41→23:21)
[2019-07-03] MEDS: ACETAMINOPHEN 325 MG TABLET PO PRN (09:50)
[2019-07-03] MEDS ORDERED: FERRIC CARBOXYMALTOSE 750 MG in NORMAL SALINE 250 ML IV ONE (11:30)
[2019-07-03] MEDS ORDERED: ONDANSETRON HCL INJ/PF 4 MG/2 ML SDV IV PRN (11:40)
[2019-07-03] MEDS ORDERED: VANCOMYCIN HCL 0 MG in DEXTROSE 5%-WATER 250 ML IV NR (11:45)
[2019-07-03] MEDS: PIPERACILLIN SODIUM/TAZOBACTAM 3.375 GM in NORMAL SALINE 100 ML IV SCH ×2 (13:07→18:24)
[2019-07-03] MEDS: HYDROCODONE/ACETAMINOPHEN 7.5-325 MG TABLET PO PRN (13:59)
[2019-07-03] MEDS: NYSTATIN TOPICAL POWDER 15 GM TP SCH ×3 (14:04→23:23)
[2019-07-03] MEDS: VANCOMYCIN HCL 1,000 MG in DEXTROSE 5%-WATER 250 ML IV SCH ×2 (14:05→23:23)
[2019-07-03] MEDS ORDERED: CEFTRIAXONE 1 GM/D5W RTU 1 GM/50 ML RTUPB IV SCH (18:00)
[2019-07-03] MEDS ORDERED: AZITHROMYCIN 500 MG in DEXTROSE 5%-WATER 250 ML IV SCH (22:00)
[2019-07-03] MEDS: ATORVASTATIN CALCIUM 40 MG TABLET PO SCH (23:21)
[2019-07-04] MEDS: IPRATROPIUM BROMIDE 0.02% NEB 0.5 MG/2.5 ML AMPUL NEB SCH ×3 (00:16→16:13)
[2019-07-04] MEDS: PIPERACILLIN SODIUM/TAZOBACTAM 3.375 GM in NORMAL SALINE 100 ML IV SCH ×2 (01:10→05:56)
[2019-07-04] MEDS: HEPARIN SOD (PORCINE) 5,000 UNIT/ML 1 ML VIAL SUBCUT SCH ×3 (05:55→21:07)
[2019-07-04] MEDS: INSULIN LISPRO 100 UNIT/ML 3 ML VIAL SUBCUT SCH ×3 (07:58→16:59)
--- NOTE | 2019-07-04 08:41 | PDOC PROGRESS REPORT ---
Subjective Progress Note for:: 07/04/19 Subjective:: 07/04/2019-no complaints this a.m. Reason For Visit: CHF,CLYDE, MORBID, ANEMIA, PNEUMONIA Physical Exam Vital Signs: Temp Pulse Resp BP Pulse Ox 97.8 F 57 L 17 126/54 H 90 L 07/04/19 03:44 07/04/19 07:00 07/04/19 03:44 07/04/19 03:44 07/04/19 03:44 Intake & Output 07/03/19 07/04/19 07/05/19 06:59 06:59 06:59 Intake Total 50 2014 Output Total 3100 1850 Balance -3050 165 Weight 102.3 kg 102.1 kg General appearance: PRESENT: no acute distress, morbidly obese, well-developed, well-nourished Neck exam: ABSENT: carotid bruit, JVD, lymphadenopathy, thyromegaly Respiratory exam: PRESENT: crackles, decreased breath sounds, other - Crackles in the bases. ABSENT: rales, rhonchi, wheezes Cardiovascular exam: PRESENT: RRR. ABSENT: diastolic murmur, rubs, systolic murmur Pulses: PRESENT: +1 pedal pulses bilateral Vascular exam: PRESENT: normal capillary refill GI/Abdominal exam: PRESENT: normal bowel sounds, soft. ABSENT: distended, guarding, mass, organolmegaly, rebound, tenderness Extremities exam: PRESENT: full ROM, +1 edema. ABSENT: calf tenderness, clubbing Neurological exam: PRESENT: alert, awake, oriented to person, oriented to place, oriented to time, oriented to situation, CN II-XII grossly intact. ABSENT: motor sensory deficit Psychiatric exam: PRESENT: appropriate affect, normal mood. ABSENT: homicidal ideation, suicidal ideation Skin exam: PRESENT: dry, intact, warm. ABSENT: cyanosis, rash Adult Front & Back Image: 1 - Muhammad catheter Results Laboratory Results: 07/03/19 06:24 07/03/19 06:24 07/02/19 20:54 Blood Blood Culture - Final Bacillus Sp. Not Anthracis 07/02/19 07/02/19 18:08 22:07 Troponin I 0.016 0.028 NT-Pro-B Natriuret Pep 1510 H Impressions: Chest X-Ray 07/02/19 18:02 IMPRESSION: Left basilar airspace -interstitial markings and small pleural effusion. Assessment and Plan - Diagnosis (1) Acute on chronic systolic (congestive) heart failure Is this a current diagnosis for this admission?: Yes Plan: 07/04/2019-last echocardiogram from 2 years ago shows an ejection fraction 45 to 50%. I will assure that patient has echo cardiogram repeated on her admission. Continue current Lasix dosing until we see a bump in patient's creatinine. Patient continues on beta-tin and PHILLIP inhibitors. (2) CLYDE on CPAP Is this a current diagnosis for this admission?: Yes Plan: BiPAP ordered, education 07/04/2019-continue BiPAP at night. (3) Diabetes mellitus type 2 in obese Is this a current diagnosis for this admission?: Yes Plan: 07/04/2019-carbohydrate controlled diet, sliding scale insulin before meals and at bedtime and continue home regimen once patient has improved and her congestive heart failure. I am holding metformin at this time in case patient needs future diagnostic test. (4) Morbid obesity Is this a current diagnosis for this admission?: Yes Plan: Morbid obesity will evaluate for metabolic cause with evaluation of thyroid function and dietitian consultation 07/04/2019-continue to educate about the positive health benefits of weight loss (5) Leukocytosis Is this a current diagnosis for this admission?: Yes Plan: 07/04/2019-improved today. Patient did have one blood culture showing bacillus species, most likely contaminant in nature. I have DC'd IV vancomycin and Zosyn at this time. We will continue to follow - Time Time Spent with patient: 15-24 minutes - Inpatient Certification Based on my medical assessment, after consideration of the patient's comorbidities, presenting symptoms, or acuity I expect that the services needed warrant INPATIENT care.: Yes I certify that my determination is in accordance with my understanding of Medicare's requirements for reasonable and necessary INPATIENT services [42 CFR 412.3e].: Yes Medical Necessity: Other - IV diuresis, echocardiogram
[2019-07-04] MEDS: FUROSEMIDE INJ/PF 40 MG/4 ML SDV IV SCH ×2 (09:42→21:07)
[2019-07-04] MEDS: FERROUS SULFATE 325 MG TABLET PO SCH (09:43)
[2019-07-04] MEDS: CLOPIDOGREL BISULFATE 75 MG TABLET PO SCH (09:43)
[2019-07-04] MEDS: DULOXETINE HCL 30 MG CAPSULE.DR PO SCH ×2 (09:43→21:07)
[2019-07-04] MEDS: METOPROLOL SUCCINATE 25 MG TAB.SR.24H PO SCH (09:44)
[2019-07-04] MEDS: LISINOPRIL 10 MG TABLET PO SCH (09:44)
[2019-07-04] MEDS: LOSARTAN POTASSIUM 50 MG TABLET PO SCH ×2 (09:44→21:07)
[2019-07-04] MEDS: METOPROLOL TARTRATE 25 MG TABLET PO SCH (09:44)
[2019-07-04] MEDS: FLUTICASONE NASAL SPRAY 50 MCG/SPRY 120 SPRAY/16 GM NASL SCH ×2 (09:45→21:07)
[2019-07-04] MEDS: NYSTATIN TOPICAL POWDER 15 GM TP SCH ×4 (09:45→21:08)
[2019-07-04] MEDS ORDERED: (PENDING PHARMACY ID) (Lisinopril [Zestril] 40 MG) PO SCH (10:00)
[2019-07-04 10:28] LABS: ANION GAP 6 (5-19); BLOOD UREA NITROGEN 18 mg/dL (7-20); CALCIUM 10.2 mg/dL (8.4-10.2); CARBON DIOXIDE 31 mmol/L (22-30); CHLORIDE 104 mmol/L (98-107); GLUCOSE 166 mg/dL (75-110); POTASSIUM 4.2 mmol/L (3.6-5.0)
[2019-07-04] MEDS ORDERED: VANCOMYCIN HCL 0 MG in DEXTROSE 5%-WATER 250 ML IV NR (11:45)
[2019-07-04] MEDS: HYDROCODONE/ACETAMINOPHEN 7.5-325 MG TABLET PO PRN ×2 (13:28→21:09)
[2019-07-04] MEDS: GABAPENTIN 300 MG CAPSULE PO SCH ×2 (13:30→21:06)
[2019-07-04] MEDS: VANCOMYCIN HCL 1,000 MG in DEXTROSE 5%-WATER 250 ML IV SCH ×2 (14:46→21:06)
[2019-07-04] MEDS: LEVOTHYROXINE SODIUM 0.15 MG TABLET PO SCH (15:53)
[2019-07-04] MEDS: ACETAMINOPHEN 325 MG TABLET PO PRN (18:30)
[2019-07-04] MEDS: ATORVASTATIN CALCIUM 40 MG TABLET PO SCH (21:07)
[2019-07-04] MEDS ORDERED: ATORVASTATIN CALCIUM 40 MG TABLET PO SCH (22:00)
[2019-07-05] MEDS: IPRATROPIUM BROMIDE 0.02% NEB 0.5 MG/2.5 ML AMPUL NEB SCH ×4 (00:04→23:45)
[2019-07-05 05:13] LABS: HEMATOCRIT 30.1 % (36.0-47.0); HEMOGLOBIN 8.9 g/dL (12.0-15.5); MEAN CORPUSCULAR HEMOGLOBIN 20.1 pg (27.0-33.4); MEAN CORPUSCULAR HGB CONC 29.6 g/dL (32.0-36.0); MEAN CORPUSCULAR VOLUME 68 fl (80-97); PLATELET COUNT 372 10^3/uL (150-450); RED BLOOD COUNT 4.43 10^6/uL (3.72-5.28); RED CELL DISTRIBUTION WIDTH 18.5 % (11.5-14.0); WHITE BLOOD COUNT 10.1 10^3/uL (4.0-10.5)
[2019-07-05 05:42] LABS: BLOOD UREA NITROGEN 17 mg/dL (7-20); CALCIUM 10.2 mg/dL (8.4-10.2); CHLORIDE 102 mmol/L (98-107); GLUCOSE 117 mg/dL (75-110); POTASSIUM 3.8 mmol/L (3.6-5.0)
[2019-07-05 05:51] LABS: ANION GAP 5 (5-19); CARBON DIOXIDE 33 mmol/L (22-30)
[2019-07-05] MEDS: LEVOTHYROXINE SODIUM 0.15 MG TABLET PO SCH (05:57)
[2019-07-05] MEDS: GABAPENTIN 300 MG CAPSULE PO SCH ×3 (05:57→21:24)
[2019-07-05] MEDS: HEPARIN SOD (PORCINE) 5,000 UNIT/ML 1 ML VIAL SUBCUT SCH ×3 (05:57→21:24)
--- NOTE | 2019-07-05 08:42 | PDOC PROGRESS REPORT ---
Subjective Progress Note for:: 07/05/19 Subjective:: 07/04/2019-no complaints this a.m. 07/05/2019-no complaints this a.m. Reason For Visit: CHF,CLYDE, MORBID, ANEMIA, PNEUMONIA Physical Exam Vital Signs: Temp Pulse Resp BP Pulse Ox 97.6 F 55 L 14 133/40 H 91 L 07/05/19 07:25 07/05/19 07:48 07/05/19 07:48 07/05/19 07:25 07/05/19 07:48 Intake & Output 07/04/19 07/05/19 07/06/19 06:59 06:59 06:59 Intake Total 20140 250 Output Total 1849 1550 Balance 165 -580 250 Weight 102.1 kg 100.9 kg General appearance: PRESENT: no acute distress, well-developed, well-nourished Neck exam: ABSENT: carotid bruit, JVD, lymphadenopathy, thyromegaly Respiratory exam: PRESENT: decreased breath sounds. ABSENT: rales, rhonchi, wheezes Cardiovascular exam: PRESENT: RRR. ABSENT: diastolic murmur, rubs, systolic murmur Pulses: PRESENT: +1 pedal pulses bilateral Vascular exam: PRESENT: normal capillary refill GI/Abdominal exam: PRESENT: normal bowel sounds, soft. ABSENT: distended, guarding, mass, organolmegaly, rebound, tenderness Extremities exam: PRESENT: full ROM. ABSENT: calf tenderness, clubbing, pedal edema Neurological exam: PRESENT: alert, awake, oriented to person, oriented to place, oriented to time, oriented to situation, CN II-XII grossly intact. ABSENT: motor sensory deficit Psychiatric exam: PRESENT: appropriate affect, normal mood. ABSENT: homicidal ideation, suicidal ideation Skin exam: PRESENT: dry, intact, warm. ABSENT: cyanosis, rash Results Laboratory Results: 07/05/19 04:30 07/05/19 04:30 07/04/19 07/05/19 07/05/19 09:59 04:30 04:30 WBC 10.1 RBC 4.43 Hgb 8.9 L Hct 30.1 L MCV 68 L MCH 20.1 L MCHC 29.6 L RDW 18.5 H Plt Count 372 Sodium 141.2 139.5 Potassium 4.2 3.8 Chloride 104 102 Carbon Dioxide 31 H 33 H Anion Gap 6 5 BUN 18 17 Creatinine 0.85 0.91 Est GFR ( Amer) > 60 > 60 Glucose 166 H 117 H Calcium 10.2 10.2 07/02/19 07/02/19 18:08 22:07 Troponin I 0.016 0.028 NT-Pro-B Natriuret Pep 1510 H Impressions: Chest X-Ray 07/02/19 18:02 IMPRESSION: Left basilar airspace -interstitial markings and small pleural effusion. Assessment and Plan - Diagnosis (1) Acute on chronic systolic (congestive) heart failure Is this a current diagnosis for this admission?: Yes Plan: 07/04/2019-last echocardiogram from 2 years ago shows an ejection fraction 45 to 50%. I will assure that patient has echo cardiogram repeated on her admission. Continue current Lasix dosing until we see a bump in patient's creatinine. Patient continues on beta-tin and PHILLIP inhibitors. 07/05/2019-continues to show improvement. Creatinine has not bumped at this time. Continue Lasix 40 mg IV twice daily at that time we see a bump in her creatinine we will switch to oral Lasix. (2) CLYDE on CPAP Is this a current diagnosis for this admission?: Yes Plan: BiPAP ordered, education 07/04/2019-continue BiPAP at night. 07/05/2019-BiPAP continues at night (3) Diabetes mellitus type 2 in obese Is this a current diagnosis for this admission?: Yes Plan: 07/04/2019-carbohydrate controlled diet, sliding scale insulin before meals and a t bedtime and continue home regimen once patient has improved and her congestive heart failure. I am holding metformin at this time in case patient needs future diagnostic test. 07/05/2019-stable at this time continue to follow (4) Morbid obesity Is this a current diagnosis for this admission?: Yes Plan: Morbid obesity will evaluate for metabolic cause with evaluation of thyroid function and dietitian consultation 07/04/2019-continue to educate about the positive health benefits of weight loss 07/05/2019-continue education about benefits of weight loss (5) Leukocytosis Is this a current diagnosis for this admission?: Yes Plan: 07/04/2019-improved today. Patient did have one blood culture showing bacillus species, most likely contaminant in nature. I have DC'd IV vancomycin and Zosyn at this time. We will continue to follow 07/05/2019-improved. Patient recently showed up blood culture bacillus species however since she has shown gram-positive cocci in tube blood cultures. At this time I will repeat her blood cultures continue on IV vancomycin. (6) Bacteremia Is this a current diagnosis for this admission?: Yes Plan: 07/05/2019-2 blood cultures with gram-positive cocci. Continue vancomycin. Repeat blood cultures - Time Time Spent with patient: 15-24 minutes - Inpatient Certification Based on my medical assessment, after consideration of the patient's comorbidities, presenting symptoms, or acuity I expect that the services needed warrant INPATIENT care.: Yes I certify that my determination is in accordance with my understanding of Medicare's requirements for reasonable and necessary INPATIENT services [42 CFR 412.3e].: Yes Medical Necessity: Other - IV antibiotics
[2019-07-05] MEDS: HYDROCODONE/ACETAMINOPHEN 7.5-325 MG TABLET PO PRN ×2 (08:47→16:51)
[2019-07-05] MEDS: NYSTATIN TOPICAL POWDER 15 GM TP SCH ×4 (09:12→21:25)
[2019-07-05] MEDS: FERROUS SULFATE 325 MG TABLET PO SCH (09:12)
[2019-07-05] MEDS: CLOPIDOGREL BISULFATE 75 MG TABLET PO SCH (09:12)
[2019-07-05] MEDS: LISINOPRIL 10 MG TABLET PO SCH (09:13)
[2019-07-05] MEDS: METOPROLOL SUCCINATE 25 MG TAB.SR.24H PO SCH (09:13)
[2019-07-05] MEDS: LOSARTAN POTASSIUM 50 MG TABLET PO SCH ×2 (09:13→21:24)
[2019-07-05] MEDS: DULOXETINE HCL 30 MG CAPSULE.DR PO SCH ×2 (09:14→21:24)
[2019-07-05] MEDS: FLUTICASONE NASAL SPRAY 50 MCG/SPRY 120 SPRAY/16 GM NASL SCH ×2 (09:15→21:24)
[2019-07-05] MEDS: FUROSEMIDE INJ/PF 40 MG/4 ML SDV IV SCH ×2 (09:15→21:24)
[2019-07-05] MEDS: INSULIN LISPRO 100 UNIT/ML 3 ML VIAL SUBCUT SCH ×3 (10:22→16:49)
[2019-07-05] MEDS: VANCOMYCIN HCL 1,000 MG in DEXTROSE 5%-WATER 250 ML IV SCH ×2 (10:22→21:25)
[2019-07-05] MEDS: ACETAMINOPHEN 325 MG TABLET PO PRN (11:57)
[2019-07-05] MEDS: ATORVASTATIN CALCIUM 40 MG TABLET PO SCH (21:24)
--- NOTE | 2019-07-05 21:49 | XCELERA REPORT ---
[address] [address] Transthoracic Echocardiogram Report Name: MIGUEL ROBB Age: 68 yrs Gender: Female : 1950 Patient Status: Inpatient Patient Location: [address] [place] [address] Study Date: 07/04/2019 10:11 AM Height: 55 in Weight: 225 lb BSA: 1.8 m2 Procedure: A two-dimensional transthoracic echocardiogram with color flow and Doppler was performed. The study was technically limited with all images being suboptimal in quality. Reason For Study: CHF History: CHF. Ordering Physician: MORAIMA RUBIO Performed By: Margarito Bush Interpretation Summary The left ventricle is normal in size. There is moderate concentric left ventricular hypertrophy. LV EF is 60% The left ventricular ejection fraction is within normal limits. Doppler measurements suggest impaired left ventricular relaxation, which is associated with grade I/IV or mild diastolic dysfunction The left ventricular wall motion is normal. There is no thrombus. Probably no ASD ,VSD , or PFO seen. The right ventricle is normal in size and function. The left atrium is moderately dilated. There is no evidence of mitral valve prolapse. There is no vegetation seen on the mitral valve. There is no mitral valve stenosis. There is a trace to mild amount of mitral regurgitation There is no aortic valve stenosis There is no LVOT obstruction. No aortic regurgitation is present. There is no tricuspid stenosis. There is moderate pulmonary hypertension by echo Probably mild TR.RVSP is 56 mm of Hg , with RA mean of 15. There is no pulmonic valvular stenosis. There is a trace amount of pulmonic regurgitation The aortic root is normal size. IVC dilated and > than 50% decrease with respiration. There is no pericardial effusion. MMode/2D Measurements & Calculations RVDd: 3.4 cm LVIDd: 5.5 cm FS: 26.2 % Ao root diam: 2.4 cm IVSd: 1.4 cm LVIDs: 4.1 cm EDV(Teich): 147.7 ml Ao root area: 4.7 cm2 LVPWd: 1.4 cm ESV(Teich): 72.5 ml LA dimension: 5.2 cm EF(Teich): 50.9 % Doppler Measurements & Calculations MV E max isabela: MV P1/2t max isabela: Ao V2 max: LV V1 max P.4 cm/sec 109.8 cm/sec 182.4 cm/sec 8.9 mmHg MV A max isabela: MV P1/2t: 73.4 msec Ao max PG: LV V1 max: 129.4 cm/sec MVA(P1/2t): 3.0 cm2 13.3 mmHg 149.5 cm/sec MV E/A: 0.82 MV dec slope: LV dP/dt: 1818 mmHg/s 438.2 cm/sec2 MV dec time: 0.25 sec PA V2 max: PI end-d isabela: TR max isabela: MV P1/2t-pr_phl: 119.1 cm/sec 107.5 cm/sec 319.0 cm/sec 73.4 msec PA max P.7 mmHg TR max P.7 mmHg Left Ventricle The left ventricle is normal in size. There is moderate concentric left ventricular hypertrophy. LV EF is 60%. The left ventricular ejection fraction is within normal limits. Doppler measurements suggest impaired left ventricular relaxation, which is associated with grade I/IV or mild diastolic dysfunction. The left ventricular wall motion is normal. There is no thrombus. Probably no ASD ,VSD , or PFO seen. Right Ventricle The right ventricle is normal in size and function. Atria The right atrium is normal. The left atrium is moderately dilated. Mitral Valve There is no evidence of mitral valve prolapse. There is no vegetation seen on the mitral valve. There is no mitral valve stenosis. There is a trace to mild amount of mitral regurgitation. Aortic Valve There is no aortic valvular vegetation. There is no aortic valve stenosis. There is no LVOT obstruction. No aortic regurgitation is present. Tricuspid Valve There is no tricuspid stenosis. There is moderate pulmonary hypertension by echo. Probably mild TR.RVSP is 56 mm of Hg , with RA mean of 15. Pulmonic Valve There is no pulmonic valvular stenosis. There is a trace amount of pulmonic regurgitation. Great Vessels The aortic root is normal size. IVC dilated and > than 50% decrease with respiration. Effusions There is no pericardial effusion. : MORAIMA RUBIO Lakshmi
[2019-07-06] MEDS: LEVOTHYROXINE SODIUM 0.15 MG TABLET PO SCH (05:36)
[2019-07-06] MEDS: GABAPENTIN 300 MG CAPSULE PO SCH ×3 (05:36→21:49)
[2019-07-06] MEDS: HEPARIN SOD (PORCINE) 5,000 UNIT/ML 1 ML VIAL SUBCUT SCH ×3 (05:37→21:39)
[2019-07-06 05:39] LABS: HEMATOCRIT 30.5 % (36.0-47.0); HEMOGLOBIN 8.9 g/dL (12.0-15.5); MEAN CORPUSCULAR HEMOGLOBIN 20.1 pg (27.0-33.4); MEAN CORPUSCULAR HGB CONC 29.4 g/dL (32.0-36.0); MEAN CORPUSCULAR VOLUME 68 fl (80-97); PLATELET COUNT 375 10^3/uL (150-450); RED BLOOD COUNT 4.46 10^6/uL (3.72-5.28); RED CELL DISTRIBUTION WIDTH 18.3 % (11.5-14.0); WHITE BLOOD COUNT 11.5 10^3/uL (4.0-10.5)
[2019-07-06 06:02] LABS: ANION GAP 8 (5-19); BLOOD UREA NITROGEN 27 mg/dL (7-20); CALCIUM 10.2 mg/dL (8.4-10.2); CARBON DIOXIDE 30 mmol/L (22-30); CHLORIDE 99 mmol/L (98-107); GLUCOSE 116 mg/dL (75-110); POTASSIUM 3.9 mmol/L (3.6-5.0)
[2019-07-06] MEDS: IPRATROPIUM BROMIDE 0.02% NEB 0.5 MG/2.5 ML AMPUL NEB SCH ×2 (08:19→16:08)
--- NOTE | 2019-07-06 09:01 | PDOC DISCHARGE SUMMARY ---
General - Admit/Disc Date/PCP Admission Date/Primary Care Provider: 07/02/19 21:54 NIC KOTHARI NP Discharge Date: 07/06/19 - Discharge Diagnosis (1) Acute on chronic systolic (congestive) heart failure Is this a current diagnosis for this admission?: Yes (2) CLYDE on CPAP Is this a current diagnosis for this admission?: Yes (3) Diabetes mellitus type 2 in obese Is this a current diagnosis for this admission?: Yes (4) Morbid obesity Is this a current diagnosis for this admission?: Yes (5) Leukocytosis Is this a current diagnosis for this admission?: Yes (6) Bacteremia Is this a current diagnosis for this admission?: Yes - Additional Information Resuscitation Status: Full Code Discharge Diet: As Tolerated, Cardiac, Diabetic Discharge Activity: Activity As Tolerated, Balance Activity w/Rest, Weigh Daily Home Medications: Atorvastatin Calcium [Lipitor 40 mg Tablet] 40 mg PO QHS 07/03/19 Clopidogrel Bisulfate [Plavix 75 mg Tablet] 75 mg PO DAILY 07/03/19 Duloxetine HCl [Cymbalta] 60 mg PO Q12 07/03/19 Furosemide [Lasix 40 mg Tablet] 40 mg PO QAM 07/03/19 Gabapentin [Neurontin 300 mg Capsule] 900 mg PO Q8 07/03/19 Hydrocodone/Acetaminophen [[place] 7.5-325 mg Tablet] 1 tab PO Q8HP PRN 07/03/19 Lisinopril [Zestril] 40 mg PO DAILY 07/03/19 Metformin HCl [Glucophage XR 500 mg Tablet] 500 mg PO Q12 07/03/19 Metoprolol Succinate [Toprol Xl 25 mg Tab.sr] 25 mg PO DAILY 07/03/19 Nitroglycerin [Nitrostat 0.4 mg (1/150 Gr) Tabs 25/Bottle] 0.4 mg SL Q5MP PRN 07/03/19 Nystatin [Mycostatin Topical Powder 15 gm] 1 applic TOP QID 07/03/19 Sitagliptin Phosphate [Januvia] 100 mg PO NOON 07/03/19 Levothyroxine Sodium [Synthroid 0.15 mg Tablet] 0.15 mg PO DAILY 07/04/19 History of Present Illness Patient complains of: None this a.m. History of Present Illness: MIGUEL ROBB is a 68 year old female who presented to the ER with a 48-hour history of increased shortness of breath with a nonproductive cough and orthopnea. Hospital Course Hospital Course: Patient presented to the ER with past medical history of congestive heart failure with ejection fraction 45%, pulmonary hypertension, obstructive sleep apnea, hypertension, coronary disease diabetes and debility. Patient had a 48- hour span of increased shortness of breath with nonproductive cough and orthopnea. Patient lower extremity edema which prompted her to evaluation in the emergency room where she is found to have uncontrolled hypertension microcytic anemia, left-sided pleural effusion and pulmonary vascular congestion. Patient was placed on IMCU and started on Lasix IV. Patient also had blood cultures drawn at time which grew out contaminant. I have a second set that are pending I will continue to follow these. Patient denied any chest pain, nausea or vomiting during this episode. At this time patient's professional return home she will continue home medication including 40 mill grams Lasix p.o. daily. Patient will follow-up with her primary care practitioner next week. Physical Exam Vital Signs: Temp Pulse Resp BP Pulse Ox 98.1 F 61 16 116/40 L 91 L 07/06/19 07:39 07/06/19 07:39 07/06/19 07:39 07/06/19 07:39 07/06/19 07:39 Intake & Output 07/05/19 07/06/19 07/07/19 06:59 06:59 06:59 Intake Total 970 1180 Output Total 1550 1500 Balance -580 -320 Weight 100.9 kg 102.7 kg General appearance: PRESENT: no acute distress, well-developed, well-nourished Neck exam: ABSENT: carotid bruit, JVD, lymphadenopathy, thyromegaly Respiratory exam: PRESENT: clear to auscultation [place]. ABSENT: rales, rhonchi, wheezes Cardiovascular exam: PRESENT: RRR. ABSENT: diastolic murmur, rubs, systolic murmur Pulses: PRESENT: normal carotid pulses Vascular exam: PRESENT: normal capillary refill GI/Abdominal exam: PRESENT: normal bowel sounds, soft. ABSENT: distended, guarding, mass, organolmegaly, rebound, tenderness Extremities exam: PRESENT: full ROM. ABSENT: calf tenderness, clubbing, pedal edema Neurological exam: PRESENT: alert, awake, oriented to person, oriented to place, oriented to time, oriented to situation, CN II-XII grossly intact. ABSENT: motor sensory deficit Psychiatric exam: PRESENT: appropriate affect, normal mood. ABSENT: homicidal ideation, suicidal ideation Skin exam: PRESENT: dry, intact, warm. ABSENT: cyanosis, rash Results Laboratory Results: 07/06/19 04:46 07/06/19 04:46 07/06/19 07/06/19 04:46 04:46 WBC 11.5 H RBC 4.46 Hgb 8.9 L Hct 30.5 L MCV 68 L MCH 20.1 L MCHC 29.4 L RDW 18.3 H Plt Count 375 Sodium 137.2 Potassium 3.9 Chloride 99 Carbon Dioxide 30 Anion Gap 8 BUN 27 H Creatinine 0.94 Est GFR ( Amer) > 60 Glucose 116 H Calcium 10.2 07/02/19 20:54 Blood Blood Culture - Final Bacillus Sp. Not Anthracis Staphylococcus Warneri 07/02/19 07/02/19 18:08 22:07 Troponin I 0.016 0.028 NT-Pro-B Natriuret Pep 1510 H Impressions: Chest X-Ray 07/02/19 18:02 IMPRESSION: Left basilar airspace -interstitial markings and small pleural effusion. Qualifiers - * PATIENT BEING DISCHARGED WITH ANY OF THE FOLLOWING DIAGNOSIS: No Acute Heart Failure - Is this a Heart Failure Patient?: No Plan Time Spent: Greater than 30 Minutes
[2019-07-06] MEDS: INSULIN LISPRO 100 UNIT/ML 3 ML VIAL SUBCUT SCH ×3 (10:24→18:22)
[2019-07-06 10:38] LABS: VANCOMYCIN,TROUGH 19.3 ug/mL (5.0-20.0)
[2019-07-06] MEDS: FLUTICASONE NASAL SPRAY 50 MCG/SPRY 120 SPRAY/16 GM NASL SCH ×2 (11:04→21:39)
[2019-07-06] MEDS: VANCOMYCIN HCL 1,000 MG in DEXTROSE 5%-WATER 250 ML IV SCH ×2 (11:05→21:47)
[2019-07-06] MEDS: NYSTATIN TOPICAL POWDER 15 GM TP SCH ×4 (11:09→21:39)
[2019-07-06] MEDS: CLOPIDOGREL BISULFATE 75 MG TABLET PO SCH (11:12)
[2019-07-06] MEDS: LISINOPRIL 10 MG TABLET PO SCH (11:19)
[2019-07-06] MEDS: DULOXETINE HCL 30 MG CAPSULE.DR PO SCH ×2 (11:20→21:39)
[2019-07-06] MEDS: FERROUS SULFATE 325 MG TABLET PO SCH (11:21)
[2019-07-06] MEDS: LOSARTAN POTASSIUM 50 MG TABLET PO SCH ×2 (18:06→21:39)
[2019-07-06] MEDS: FUROSEMIDE INJ/PF 40 MG/4 ML SDV IV SCH ×2 (18:07→21:39)
[2019-07-06] MEDS: METOPROLOL SUCCINATE 25 MG TAB.SR.24H PO SCH (18:08)
[2019-07-06] MEDS: ATORVASTATIN CALCIUM 40 MG TABLET PO SCH (21:39)
[2019-07-07] MEDS: IPRATROPIUM BROMIDE 0.02% NEB 0.5 MG/2.5 ML AMPUL NEB SCH ×2 (00:15→08:10)
[2019-07-07] MEDS: HEPARIN SOD (PORCINE) 5,000 UNIT/ML 1 ML VIAL SUBCUT SCH (05:43)
[2019-07-07] MEDS: GABAPENTIN 300 MG CAPSULE PO SCH (05:43)
[2019-07-07] MEDS: LEVOTHYROXINE SODIUM 0.15 MG TABLET PO SCH (05:43)
[2019-07-07] MEDS: HYDROCODONE/ACETAMINOPHEN 7.5-325 MG TABLET PO PRN (07:43)
[2019-07-07] MEDS: INSULIN LISPRO 100 UNIT/ML 3 ML VIAL SUBCUT SCH (08:15)
[2019-07-07] MEDS: FERROUS SULFATE 325 MG TABLET PO SCH (11:05)
[2019-07-07] MEDS: CLOPIDOGREL BISULFATE 75 MG TABLET PO SCH (11:05)
[2019-07-07] MEDS: DULOXETINE HCL 30 MG CAPSULE.DR PO SCH (11:06)
[2019-07-07] MEDS: LISINOPRIL 10 MG TABLET PO SCH (11:06)
[2019-07-07] MEDS: FUROSEMIDE INJ/PF 40 MG/4 ML SDV IV SCH (11:07)
[2019-07-07] MEDS: NYSTATIN TOPICAL POWDER 15 GM TP SCH (11:14)
[2019-07-07] MEDS: VANCOMYCIN HCL 1,000 MG in DEXTROSE 5%-WATER 250 ML IV SCH (11:15)
[2019-07-07 12:33] VITALS: BP 134/40
== END 2019-07-07 13:50 | DRG 291 ==
LOC: ER 17:56 → EH 21:54 → 3N 07-03 05:25
PROVIDERS: ADMIT Internal Medicine; ATTEND Internal Medicine
DX: I11.0 Hypertensive heart disease with heart failure (principal); J18.1 Lobar pneumonia, unspecified organism; R78.81 Bacteremia; I50.33 Acute on chronic diastolic (congestive) heart failure; E78.00 Pure hypercholesterolemia, unspecified; E11.8 Type 2 diabetes mellitus with unspecified complications; E03.9 Hypothyroidism, unspecified; I27.20 Pulmonary hypertension, unspecified; G47.33 Obstructive sleep apnea (adult) (pediatric); E66.01 Morbid (severe) obesity due to excess calories; F17.210 Nicotine dependence, cigarettes, uncomplicated; D72.829 Elevated white blood cell count, unspecified
CPT/HCPCS: 36415; 71045; 80048; 80053; 80202; 82565; 82607; 82728; 82746; 82962; 83540; 83550; 83735; 83880; 84484; 85025; 85027; 85045; 87040; 87077; 87186; 93005; 93010; 93306; 94640; 94667; 94668; 94799; 96365; 96375; 99285; J0696; J1439; J1644; J1815; J1940; J2405; J2543; J3370; J3490; J7050; J7060

== ENCOUNTER → 2019-10-30 | Outpatient (CLI) | payer MEDICARE, OTHER ==
--- NOTE | 2019-10-31 11:42 | XCELERA REPORT ---
[address] [address] Lower Extremity Arterial Evaluation Name: MIGUEL ROBB Age: 69 yrs Gender: Female : 1950 Patient Status: Outpatient Patient Location: Study Date: 10/30/2019 02:18 PM Procedure: A color flow and duplex scan of the lower extremity arteries was performed bilaterally with velocity and waveform anaylsis. Ankle brachial indicies performed. 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 Ankle Brachial index 1,10. Left Side Arterial Evaluation Normal velocity and triphasic waveforms noted from the Common Femoral artery to the infrageniculate vessels . Ankle Brachial index 1,14. Interpretation Summary No hemodynamically significant lesions in the bilateral lower extremities, on duplex imaging, at rest. SHERYL's are normal , suggesting, no significant arterial obstructive disease. : ORLANDO NAILS > Brandon Marin
== END ==
LOC: SP 13:41
PROVIDERS: ATTEND Preventive Medicine Undersea and Hyperbaric Medicine
DX: I73.9 Peripheral vascular disease, unspecified (principal); L97.512 Non-pressure chronic ulcer of other part of right foot with fat layer exposed
CPT/HCPCS: 93922; 93925

== ENCOUNTER 2019-11-11 02:19 | Inpatient (IN) | payer MEDICARE, OTHER ==
[2019-11-11] MEDS ORDERED: NORMAL SALINE IV ONE (02:40)
[2019-11-11 03:04] LABS: INTERNATIONAL RATION (INR) 1.14; PROTHROMBIN TIME 14.7 SEC (11.4-15.4)
[2019-11-11 03:16] LABS: ALKALINE PHOSPHATASE 99 U/L (38-126); ANION GAP 9 (5-19); ASPARTATE AMINO TRANSFERASE 23 U/L (14-36); BILIRUBIN,DIRECT 0.3 mg/dL (0.0-0.4); BILIRUBIN,TOTAL 0.6 mg/dL (0.2-1.3); BLOOD UREA NITROGEN 27 mg/dL (7-20); CALCIUM 10.7 mg/dL (8.4-10.2); CARBON DIOXIDE 24 mmol/L (22-30); CHLORIDE 108 mmol/L (98-107); GLUCOSE 137 mg/dL (75-110); POTASSIUM 4.1 mmol/L (3.6-5.0); TOTAL PROTEIN 6.2 g/dL (6.3-8.2)
[2019-11-11] MEDS ORDERED: HYDROCODONE/ACETAMINOPHEN 5-325 MG TABLET PO ONE (03:17)
[2019-11-11 03:19] LABS: HEMATOCRIT 39.4 % (36.0-47.0); MEAN CORPUSCULAR HEMOGLOBIN 24.4 pg (27.0-33.4); MEAN CORPUSCULAR HGB CONC 30.4 g/dL (32.0-36.0); MEAN CORPUSCULAR VOLUME 80 fl (80-97); PLATELET COUNT 341 10^3/uL (150-450); RED BLOOD COUNT 4.91 10^6/uL (3.72-5.28)
[2019-11-11 03:24] LABS: ABSOLUTE LYMPHOCYTES# (MANUAL) 0.4 10^3/uL (0.5-4.7); ABSOLUTE MONOCYTES # (MANUAL) 0.7 10^3/uL (0.1-1.4); BASOPHILS % (MANUAL) 0 % (0-2); EOSINOPHILS % (MANUAL) 1 % (0-6); LYMPHOCYTES % (MANUAL) 1 % (13-45); MONOCYTES % (MANUAL) 2 % (3-13); SEGMENTED NEUTROPHILS % (MAN) 96 % (42-78); TOTAL CELLS COUNTED 100
[2019-11-11 03:25] LABS: ANISOCYTOSIS 1+; OVALOCYTES SLIGHT; PLATELET COMMENT ADEQUATE; POIKILOCYTOSIS SLIGHT; TEAR DROP CELLS SLIGHT; TOXIC GRANULATION SLIGHT
[2019-11-11 03:28] LABS: WHITE BLOOD COUNT 35.2 10^3/uL (4.0-10.5)
[2019-11-11] MEDS ORDERED: VANCOMYCIN HCL INJ 1000 MG VIAL IV ONE (03:33)
[2019-11-11] MEDS ORDERED: PIPERACILLIN/TAZOBACTAM 4.5 GM VIAL IV ONE (03:33)
--- NOTE | 2019-11-11 03:35 | ER Document Report ---
Entered by MIKAELA RUBIO SCRIBE 11/11/19 0322 Acting as scribe for:ALMA COYNE IV, MD ED General - General Chief Complaint: General Weakness Stated Complaint: DIZZINESS Time Seen by Provider: 11/11/19 03:12 Primary Care Provider: NIC KOTHARI NP [Primary Care Provider] - Follow up as needed Mode of Arrival: Medic Information source: Patient Notes: This 69 year old female patient with a history of CHF and a ND brought in by EMS presents to the ED today with complaints of generalized weakness that began prior to arrival. Patient also reports a strong, foul smelling urine odor and urinary frequency. Patient denies any abdominal pain or diarrhea. TRAVEL OUTSIDE OF THE [place] IN LAST 30 DAYS: No - Related Data Allergies/Adverse Reactions: albuterol [Albuterol] Allergy (Intermediate, Verified 04/21/19 06:28) Sulfa (Sulfonamide Antibiotics) Allergy (Intermediate, Verified 04/21/19 06:28) codeine [Codeine] Adverse Reaction (Intermediate, Verified 04/21/19 06:28) Past Medical History - Social History Smoking Status: Current Every Day Smoker Chew tobacco use (# tins/day): No Smoking Education Provided: No Family History: Reviewed & Not Pertinent, DM, Hyperlipidemia, Hypertension Patient has suicidal ideation: No Patient has homicidal ideation: No - Past Medical History Cardiac Medical History: Reports: Hx Congestive Heart Failure, Hx Heart Attack - HRT CATH AUG 2016 [address] [facility] SHANNON 3 MO AGO, Hx Hypercholesterolemia, Hx Hypertension - MEDICATED Pulmonary Medical History: Reports: Hx COPD Endocrine Medical History: Reports: Hx Diabetes Mellitus Type 2, Hx Hyp othyroidism Musculoskeletal Medical History: Reports Hx Arthritis, Reports Hx Muscle Weakness, Reports Hx Musculoskeletal Deformity - Scoliosis Psychiatric Medical History: Reports: Hx Depression Past Surgical History: Reports: Hx Abdominal Surgery - exploratory abd surgery x2, Hx Appendectomy, Hx Section, Hx Herniorrhaphy - Immunizations Hx Pneumococcal Vaccination: 10/17/17 Review of Systems - Review of Systems Constitutional: No symptoms reported EENT: No symptoms reported Cardiovascular: No symptoms reported Respiratory: No symptoms reported Gastrointestinal: See HPI. denies: Abdominal pain, Diarrhea Genitourinary: See HPI, Frequency, Other - Foul smelling urine odor Female Genitourinary: No symptoms reported Musculoskeletal: No symptoms reported Skin: No symptoms reported Hematologic/Lymphatic: No symptoms reported Neurological/Psychological: No symptoms reported -: Yes All other systems reviewed and negative Physical Exam - Vital signs Vitals: Resp BP Pulse Ox 19 87/37 L 86 L 11/11/19 02:25 11/11/19 02:25 11/11/19 02:25 Interpretation: Hypotensive - General General appearance: Lethargic In distress: None - HEENT Head: Normocephalic, Atraumatic Eyes: Normal Pupils: PERRL - Respiratory Respiratory status: No respiratory distress Chest status: Nontender Breath sounds: Normal Chest palpation: Normal - Cardiovascular Rhythm: Regular Heart sounds: Normal auscultation Murmur: No - Abdominal Inspection: Morbidly Obese Distension: No distension Bowel sounds: Normal Tenderness: Nontender - Abdomen soft Organomegaly: No organomegaly - Back Back: Normal, Nontender - Extremities General upper extremity: Normal inspection General lower extremity: Normal inspection - Neurological Neuro grossly intact: Yes - Psychological Associated symptoms: Other - Lethargic - Skin Skin Temperature: Warm Skin Moisture: Dry Skin Color: Normal Course - Vital Signs Vital signs: Temp Pulse Resp BP Pulse Ox 97.9 F 76 18 115/58 L 98 11/11/19 07:17 11/11/19 02:36 11/11/19 07:17 11/11/19 07:17 11/11/19 07:17 - Laboratory Result Diagrams: 11/11/19 02:00 11/11/19 02:00 Laboratory results interpreted by me: 11/11/19 11/11/19 11/11/19 02:00 02:00 02:42 WBC 35.2 H* MCH 24.4 L MCHC 30.4 L RDW 17.0 H Seg Neuts % (Manual) 96 H Lymphocytes % (Manual) 1 L Monocytes % (Manual) 2 L Abs Neuts (Manual) 33.8 H Abs Lymphs (Manual) 0.4 L VBG pH Chloride 108 H BUN 27 H Est GFR ( Amer) 54 L Est GFR (MDRD) Non-Af 45 L Glucose 137 H POC Glucose Lactic Acid 2.9 H Calcium 10.7 H Total Protein 6.2 L Albumin 3.0 L Urine Protein 11/11/19 11/11/19 11/11/19 02:57 03:26 05:45 WBC MCH MCHC RDW Seg Neuts % (Manual) Lymphocytes % (Manual) Monocytes % (Manual) Abs Neuts (Manual) Abs Lymphs (Manual) VBG pH 7.21 L Chloride BUN Est GFR ( Amer) Est GFR (MDRD) Non-Af Glucose POC Glucose 156 H Lactic Acid Calcium Total Protein Albumin Urine Protein 100 H - EKG Interpretation by Me Additional EKG results interpreted by me: 11/11/19 07:01 EKG was obtained on 11/11/2019 at 0315 hrs. And was interpreted by this MD. Findings: Sinus rhythm, rate 74, normal axis, P waves preceding QRS complexes, QRS complexes appear widened but grossly similar in morphology compared with EKG from 07/02/2019, there are no obvious ST segment elevations or depressions to suggest acute myocardial ischemia or infarction. Impression sinus rhythm with nonspecific ST segments. - Consults dr. love Time consulted: 07:50 Reason for consultation: 11/11/19 07:58 hypotension, sepsis Consulted provider: will come to ER Critical Care Note - Critical Care Note Total time excluding time spent on procedures (mins): 60 Discharge - Discharge Clinical Impression: Sepsis Qualifiers: Sepsis type: sepsis due to unspecified organism Sepsis acute organ dysfunction status: unspecified Qualified Code(s): A41.9 - Sepsis, unspecified organism Condition: Good Disposition: ADMITTED INPATIENT Unit Admitted: IMCU Referrals: NIC KOTHARI NP [Primary Care Provider] - Follow up as needed I personally performed the services described in the documentation, reviewed and edited the documentation which was dictated to the scribe in my presence, and it accurately records my words and actions.
[2019-11-11 05:39] LABS: APPEARANCE,URINE SLIGHTLY-CLOUDY; BILIRUBIN,URINE NEGATIVE (NEGATIVE); COLOR,URINE YELLOW; GLUCOSE, URINE NEGATIVE (NEGATIVE); KETONES,URINE NEGATIVE (NEGATIVE); PROTEIN,URINE 100 mg/dL (NEGATIVE); URINE SPECIFIC GRAVITY 1.015; UROBILINOGEN,URINE NEGATIVE mg/dL (<2.0)
[2019-11-11 06:02] LABS: VENOUS BLOOD HCO3 21.1 mmol/L (20-32); VENOUS BLOOD PCO2 53.6 mmHg (35-63); VENOUS BLOOD PH 7.21 (7.30-7.42)
--- NOTE | 2019-11-11 07:08 | RADIOLOGY REPORT (SQ) ---
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 There is confluent right lower lobe airspace disease. The heart is enlarged. The mediastinal contours are normal in appearance. The thoracic spine is age appropriate. The shoulders are unremarkable. Limited evaluation of the upper abdomen demonstrates no gross abnormalities. Impression: 1. Cardiomegaly with mild peribronchial thickening, likely representing pulmonary edema. 2. Right lower lobe airspace disease.
--- NOTE | 2019-11-11 08:09 | EKG REPORT ---
SEVERITY:- ABNORMAL ECG - SINUS RHYTHM INCOMPLETE LEFT BUNDLE BRANCH BLOCK PROBABLE LVH WITH SECONDARY REPOL ABNRM : Confirmed by: Ino Coon MD 11-Nov-2019 08:09:03
[2019-11-11] MEDS ORDERED: ONDANSETRON 4 MG TAB.RAPDIS PO PRN (08:29)
[2019-11-11] MEDS ORDERED: ONDANSETRON HCL INJ/PF 4 MG/2 ML SDV IV PRN (08:29)
[2019-11-11] MEDS ORDERED: ACETAMINOPHEN 650 MG SUPP.RECT PR PRN (08:29)
[2019-11-11] MEDS ORDERED: PROMETHAZINE HCL 25 MG TABLET PO PRN (08:29)
[2019-11-11 09:03] LABS: ARTERIAL BLOOD BASE EXCESS -5.7 mmol/L; ARTERIAL BLOOD H2CO3 1.33 mmol/L (1.05-1.35); ARTERIAL BLOOD HCO3 20.7 mmol/L (20-24); ARTERIAL BLOOD O2 SATURATION 86.5 % (94-98); ARTERIAL BLOOD PCO2 44.2 mmHg (35-45); ARTERIAL BLOOD PH 7.29 (7.35-7.45); ARTERIAL BLOOD PO2 57.2 mmHg (80-100); ARTERIAL BLOOD TOTAL CO2 22.1 mmol/L (21-25)
[2019-11-11 09:04] LABS: ARTERIAL BLOOD FIO2 ROOM AIR
--- NOTE | 2019-11-11 09:13 | PDOC H&P ---
History of Present Illness Admission Date/PCP: 11/11/19 08:33 NIC KOTHARI NP History of Present Illness: MIGUEL ROBB is a 69 year old female with past medical history significant f or diastolic CHF, HTN, HLD, T2 DM, MT status post stents 5 years ago, multiple bowel perforations status post hemicolectomy who presents for 1 day history of progressive shortness of breath/DOTSON which began per patient while she was on the toilet urinating profusely which she states was due to her Lasix. She denies any history of COPD however she has a 05-dchl-earr smoking history and continues to smoke today. Patient states she has had multiple exploratory laparotomies for bowel perforations and states that she had a hemicolectomy years ago due to this. Her VBG showed significant metabolic acidosis at 7.21 pH and a lactate over 2. She was hypoxic on admission requiring 3 L nasal cannula. She is initially hypotensive but seemed to respond to aggressive IV fluid hydration. Blood pressure remains quite low on admission but is tenuously being maintained by fluids. Admitted for further evaluation and treatment. Her WBC was also markedly elevated at 35. Past Medical History Cardiac Medical History: Reports: Congestive Heart Failure, Myocardial Infarction - HRT CATH AUG 2016 2 STENTS-SAW DR SHANNON 3 MO AGO, Hyperlipidema, Hypertension - MEDICATED Pulmonary Medical History: Reports: Chronic Obstructive Pulmonary Disease (COPD) Denies: Asthma Neurological Medical History: Reports: None Denies: Seizures Endocrine Medical History: Reports: Diabetes Mellitus Type 2, Hypothyroidism Renal/ Medical History: Reports: None Malignancy Medical History: Reports: None GI Medical History: Reports: Other - Bowel perforation x2 Denies: Hepatitis, Hiatal Hernia Musculoskeltal Medical History: Reports: Arthritis Psychiatric Medical History: Reports: Depression Traumatic Medical History: Reports: None Hematology: Reports: None Denies: Anemia, Sickle Cell Disease Infectious Medical History: Reports: None Past Surgical History Past Surgical History: Reports: Appendectomy, Section, Herniorrhaphy, Other - exploratory laparotomy 2, bowel resection Denies: Amputation, Hysterectomy, Mastectomy, Pacemaker Social History Information Source: Patient Lives with: Alone Smoking Status: Current Every Day Smoker Cigarettes Packs Per Day: 0.5 Number of Years Smokin Frequency of Alcohol Use: None Hx Recreational Drug Use: No Drugs: None Hx Prescription Drug Abuse: No - Advance Directive Resuscitation Status: Full Code Family History Family History: CAD, COPD, DM, Hyperlipidemia, Hypertension Parental Family History Reviewed: Yes Children Family History Reviewed: Yes Sibling(s) Family History Reviewed.: Yes Medication/Allergy Allergies/Adverse Reactions: albuterol [Albuterol] Allergy (Intermediate, Verified 04/21/19 06:28) Sulfa (Sulfonamide Antibiotics) Allergy (Intermediate, Verified 04/21/19 06:28) codeine [Codeine] Adverse Reaction (Intermediate, Verified 04/21/19 06:28) Review of Systems All systems: reviewed and no additional remarkable complaints except as stated - Severe shortness of breath, severe generalized fatigue and weakness; no other complaints less otherwise stated in HPI Physical Exam Vital Signs: Temp Pulse Resp BP Pulse Ox 97.9 F 76 18 115/58 L 98 11/11/19 07:17 11/11/19 02:36 11/11/19 07:17 11/11/19 07:17 11/11/19 07:17 Intake & Output 11/10/19 11/11/19 11/12/19 06:59 06:59 06:59 Intake Total 3180 Balance 3180 Weight 106 kg General appearance: PRESENT: no acute distress, morbidly obese, obese Head exam: PRESENT: atraumatic, normocephalic Eye exam: PRESENT: conjunctiva pink. ABSENT: scleral icterus Mouth exam: PRESENT: moist Respiratory exam: PRESENT: wheezes. ABSENT: accessory muscle use, crackles, rhonchi, tachypnea Cardiovascular exam: PRESENT: RRR. ABSENT: diastolic murmur, rubs, systolic murmur GI/Abdominal exam: PRESENT: hernia - Midline reducible nontender, normal bowel sounds, soft. ABSENT: distended, guarding, mass, organolmegaly, rebound, tenderness Rectal exam: PRESENT: deferred Neurological exam: PRESENT: alert, awake, oriented to person, oriented to place, oriented to situation Psychiatric exam: PRESENT: appropriate affect, normal mood Skin exam: PRESENT: dry, intact, warm Results Laboratory Results: 11/11/19 02:00 11/11/19 02:00 11/11/19 11/11/19 11/11/19 02:00 02:00 02:42 WBC 35.2 H* RBC 4.91 Hgb 12.0 Hct 39.4 MCV 80 MCH 24.4 L MCHC 30.4 L RDW 17.0 H Plt Count 341 Seg Neutrophils % Not Reportable VBG pH VBG pCO2 VBG HCO3 VBG Base Excess Sodium 141.2 Potassium 4.1 Chloride 108 H Carbon Dioxide 24 Anion Gap 9 BUN 27 H Creatinine 1.19 Est GFR ( Amer) 54 L Glucose 137 H Lactic Acid 2.9 H Calcium 10.7 H Total Bilirubin 0.6 AST 23 Alkaline Phosphatase 99 Total Protein 6.2 L Albumin 3.0 L Urine Color Urine Appearance Urine pH Ur Specific [place] Urine Protein Urine Glucose (UA) Urine Ketones Urine Blood Urine RBC (Auto) 11/11/19 11/11/19 11/11/19 03:26 05:45 05:45 WBC RBC Hgb Hct MCV MCH MCHC RDW Plt Count Seg Neutrophils % VBG pH 7.21 L VBG pCO2 53.6 VBG HCO3 21.1 VBG Base Excess -7.0 Sodium Potassium Chloride Carbon Dioxide Anion Gap BUN Creatinine Est GFR ( Amer) Glucose Lactic Acid 1.6 Calcium Total Bilirubin AST Alkaline Phosphatase Total Protein Albumin Urine Color YELLOW Urine Appearance SLIGHTLY-CLOUDY Urine pH 5.0 Ur Specific [place] 1.015 Urine Protein 100 H Urine Glucose (UA) NEGATIVE Urine Ketones NEGATIVE Urine Blood NEGATIVE Urine RBC (Auto) 1 Assessment and Plan - Diagnosis (1) Septic shock Is this a current diagnosis for this admission?: Yes Plan: Unclear etiology: Possible bowel perforation versus pneumonia versus hematologic malignancy mimicking septic shock Markedly elevated WBC at 35 on admission, afebrile, tachypneic prior to arrival, hypotensive on admission partially responsive to fluids, lactic acidosis VBG showed pH 7.21, getting new ABG IV fluids Empiric vancomycin/cefepime Blood cultures Stat CT chest/abdomen/pelvis with contrast IMCU disposition with low threshold for ICU transfer if she worsens (2) Acute hypoxemic respiratory failure Is this a current diagnosis for this admission?: Yes Plan: Likely due to COPD versus pneumonia Patient denies history of COPD but has wheezing on exam and a 54-rubd-hski smoking history She states she is allergic to albuterol; can use as needed Xopenex and ipratropium instead Supplemental oxygen to maintain saturation 89 to 94% Recommend outpatient PFTs (3) COPD (chronic obstructive pulmonary disease) Qualifiers: COPD type: unspecified COPD Qualified Code(s): J44.9 - Chronic obstructive pulmonary disease, unspecified Is this a current diagnosis for this admission?: Yes Plan: Per patient she does not have COPD but has extensive smoking history and actively wheezing Treatment as above Counseled on smoking cessation but she does not seem interested in this (4) Acute respiratory failure with hypercapnia Is this a current diagnosis for this admission?: Yes (5) Diabetes mellitus type 2 in obese Is this a current diagnosis for this admission?: Yes Plan: Hold oral medications A1c Low-dose correctional insulin and Accu-Cheks (6) PAF (paroxysmal atrial fibrillation) Is this a current diagnosis for this admission?: Yes Plan: Patient is completely unaware of any medication she takes for this but believes that she takes Coumadin; she denies any history of A. fib Patient has no idea why she takes Coumadin and this is not on her home medication list Sinus rhythm on admission (7) HTN (hypertension) Qualifiers: Hypertension type: essential hypertension Qualified Code(s): I10 - Essential (primary) hypertension Is this a current diagnosis for this admission?: Yes (8) HLD (hyperlipidemia) Qualifiers: Hyperlipidemia type: unspecified Qualified Code(s): E78.5 - Hyperlipidemia, unspecified Is this a current diagnosis for this admission?: Yes (9) Morbid obesity Is this a current diagnosis for this admission?: Yes Plan: Needs weight loss, recommend vegan diet (10) CLYDE on CPAP Is this a current diagnosis for this admission?: Yes Plan: CPAP nightly if patient will allow it and tolerated (11) Sepsis Qualifiers: Sepsis type: sepsis due to unspecified organism Sepsis acute organ dysfunction status: unspecified Qualified Code(s): A41.9 - Sepsis, unspecified organism Is this a current diagnosis for this admission?: Yes (12) Continuous tobacco abuse Is this a current diagnosis for this admission?: Yes Plan: Counseled on smoking cessation greater than 7 minutes, not interested in stopping - Time Time Spent with patient: 35 or more minutes Medications reviewed and adjusted accordingly: Yes - Inpatient Certification Based on my medical assessment, after consideration of the patient's comorbidities, presenting symptoms, or acuity I expect that the services needed warrant INPATIENT care.: Yes I certify that my determination is in accordance with my understanding of Medicare's requirements for reasonable and necessary INPATIENT services [42 CFR 412.3e].: Yes Medical Necessity: Significant Comorbidiites Make Outpatient Treatment Too Risky, Need Close Monitoring Due to Risk of Patient Decompensation, Need For IV Fluids, Need for IV Antibiotics
[2019-11-11] MEDS ORDERED: LEVALBUTEROL HCL NEB 0.63 MG/3 ML AMPUL NEB PRN (09:14)
[2019-11-11] MEDS ORDERED: IPRATROPIUM BROMIDE 0.02% NEB 0.5 MG/2.5 ML AMPUL NEB PRN (09:15)
--- NOTE | 2019-11-11 09:16 | ADVANCED CARE ---
- Diagnosis (1) Septic shock Diagnosis Current: Yes (2) Acute hypoxemic respiratory failure Diagnosis Current: Yes (3) COPD (chronic obstructive pulmonary disease) Diagnosis Current: Yes (4) Acute respiratory failure with hypercapnia Diagnosis Current: Yes (5) Diabetes mellitus type 2 in obese Diagnosis Current: Yes (6) PAF (paroxysmal atrial fibrillation) Diagnosis Current: Yes (7) HTN (hypertension) Diagnosis Current: Yes (8) HLD (hyperlipidemia) Diagnosis Current: Yes (9) Morbid obesity Diagnosis Current: Yes (10) CLYDE on CPAP Diagnosis Current: Yes (11) Sepsis Diagnosis Current: Yes (12) Continuous tobacco abuse Diagnosis Current: Yes Attendance: Patient only Resuscitation Status: Full Code Discussion: All aspects of CODE STATUS discussed including chest compressions/cardiovers ion/intubation and patient states she wants all of these interventions and wishes to be full code. She states her M POA is her son Terence Palacios [phone] Time Spent: 17 minutes
[2019-11-11] MEDS ORDERED: VANCOMYCIN HCL INJ 1000 MG VIAL IV SCH (10:00)
[2019-11-11 10:27] LABS: ANION GAP 8 (5-19); BLOOD UREA NITROGEN 28 mg/dL (7-20); CALCIUM 9.9 mg/dL (8.4-10.2); CARBON DIOXIDE 22 mmol/L (22-30); CHLORIDE 107 mmol/L (98-107); GLUCOSE 147 mg/dL (75-110)
[2019-11-11] MEDS: DOCUSATE SODIUM 100 MG CAPSULE PO SCH (10:32)
[2019-11-11] MEDS: LEVOTHYROXINE SODIUM 0.15 MG TABLET PO SCH (10:32)
[2019-11-11] MEDS: INSULIN LISPRO 100 UNIT/ML 3 ML VIAL SUBCUT SCH ×3 (10:41→21:43)
--- NOTE | 2019-11-11 12:04 | RADIOLOGY REPORT (SQ) ---
EXAM DESCRIPTION: CT CHEST WITH; CT ABD/PELVIS WITH IV ORAL COMPLETED DATE/TIME: 11/11/2019 11:32 am REASON FOR STUDY: acute resp failure, acidosis, possible PNA; possible bowel perforation -multiple p erfs in past COMPARISON: CT abdomen pelvis 11/11/2017 CONTRAST TYPE AND DOSE: contrast/concentration: Isovue 350.00 mg/ml; Total Contrast Delivered: 100.0 ml; Total Saline Delivered: 72.0 ml Contrast extravasation the patient's arm at the injection site. No significant contrast enhancement over the imaging of the chest abdomen pelvis RENAL FUNCTION: Creatinine 1.2 TECHNIQUE: CT scan of the chest performed using helical scanning technique with dynamic intravenous contrast injection. Images reviewed with lung, soft tissue and bone windows. Reconstructed coronal a nd sagittal MPR images reviewed. All images stored on PACS. CT scan of the abdomen and pelvis performed with intravenous and with oral contrastusing helical scan gita technique with dynamic intravenous contrast injection. Images reviewed with lung, soft tissue a nd bone windows. Reconstructed coronal and sagittal MPR images reviewed. Delayed images for evaluat ion of the urinary system also acquired and evaluated. All images stored on PACS. All CT scanners at this facility use dose modulation, iterative reconstruction, and/or weight based d osing when appropriate to reduce radiation dose to as low as reasonably achievable (ALARA). [facility]: Dose Right [facility]: CareDose [facility]: Dose Right [facility]: Teradose 4D [facility]: [employer] RADIATION DOSE: CT Rad equipment meets quality standard of care and radiation dose reduction techniq ues were employed. CTDIvol: 19.9 mGy. DLP: 1436 mGy-cm.; CT Rad equipment meets quality standard of c are and radiation dose reduction techniques were employed. CTDIvol: 20.4 mGy. DLP: 1076 mGy-cm. . LIMITATIONS: No contrast bolus. Extravasation of the IV site. Please use warm compresses and follo w the contrast extravasation protocol as per radiology FINDINGS: CHEST: LUNGS AND PLEURA: No opacities, nodules, masses. No pneumothorax. No effusions. HILAR AND MEDIASTINAL STRUCTURES: No identified masses or abnormal nodes. HEART AND VASCULAR STRUCTURES: Marked cardiomegaly. Radiodense coronary arteries from diffuse calcif ication or stenting. HARDWARE: None. THYROID AND OTHER SOFT TISSUES: No masses. No adenopathy. BONES: No significant finding. OTHER: Small hiatal hernia. ABDOMEN AND PELVIS: LIVER: Normal size. No masses. No dilated ducts. SPLEEN: Normal size. No focal lesions. PANCREAS: No masses. No significant calcifications. No adjacent inflammation or peripancreatic fluid collections. Pancreatic duct not dilated. GALLBLADDER: Surgically absent ADRENAL GLANDS: Stable 3 cm fatty density adenoma left adrenal gland. Right adrenal gland unremarkab le RIGHT KIDNEY AND URETER: No solid masses. No significant calcification. No hydronephrosis or hydroure ter. LEFT KIDNEY AND URETER: No solid masses. No significant calcification. No hydronephrosis or hydrouret er. AORTA AND VESSELS: No abdominal aortic aneurysm. Heavily calcified proximal visceral arteries includ ing the SMA, best shown on sagittal image 65 and axial image 60. RETROPERITONEUM: No retroperitoneal adenopathy, hemorrhage or masses. BOWEL AND PERITONEAL CAVITY: No free intraperitoneal air or fluid. No bowel obstruction. Colonic di verticulosis without CT signs of acute diverticulitis. Transverse colon short segment in the ventral hernia umbilical region. APPENDIX: Not identified ABDOMINAL WALL: Patient has an umbilical hernia containing nonobstructed transverse colon. Abdominal wall defect measures 4.5 cm in greatest diameter on axial image 75. Infraumbilical anterior abdomin al wall demonstrates surgical donta post hernia repair PELVIS: No mass or free fluid. Muhammad catheter drains the bladder. Normal size female pelvic organs. BONES: No significant or acute findings. OTHER: No other significant finding. IMPRESSION: Umbilical region hernia containing nonobstructed transverse colon Post cholecystectomy Colonic diverticulosis without CT signs of acute diverticulitis No acute findings over the chest Very heavily calcified superior mesenteric artery NORMAL CT OF THE ABDOMEN AND PELVIS WITH ORAL AND INTRAVENOUS CONTRAST. TECHNICAL DOCUMENTATION: JOB ID: [id number] Quality ID # [id number]: Final reports with documentation of one or more dose reduction techniques (e.g., Au tomated exposure control, adjustment of the mA and/or kV according to patient size, use of iterative reconstruction technique) 2010 [employer]- All Rights Reserved Reading location - IP/workstation name: [email or web address]
[2019-11-11] MEDS ORDERED: CEFEPIME 2 GM/D5W RTU 2 GM/50 ML RTUPB IV SCH (14:00)
[2019-11-11] MEDS: CEFEPIME HCL 2 GM in DEXTROSE 5%-WATER 50 ML IV SCH ×2 (14:53→21:50)
[2019-11-11] MEDS: HEPARIN SOD (PORCINE) 5,000 UNIT/ML 1 ML VIAL SUBCUT SCH ×2 (14:53→21:43)
[2019-11-11] MEDS: OXYCODONE-ACETAMINOPHEN 5-325 MG TABLET PO PRN (16:00)
[2019-11-11] MEDS: PROMETHAZINE HCL INJ 25 MG/1 ML VIAL IV PRN (21:43)
[2019-11-12] MEDS: OXYCODONE-ACETAMINOPHEN 5-325 MG TABLET PO PRN ×3 (00:49→23:05)
[2019-11-12] MEDS: HEPARIN SOD (PORCINE) 5,000 UNIT/ML 1 ML VIAL SUBCUT SCH ×3 (05:44→23:02)
[2019-11-12] MEDS: LEVOTHYROXINE SODIUM 0.15 MG TABLET PO SCH (05:44)
[2019-11-12] MEDS: CEFEPIME HCL 2 GM in DEXTROSE 5%-WATER 50 ML IV SCH ×3 (05:44→23:08)
[2019-11-12] MEDS: VANCOMYCIN HCL 750 MG in DEXTROSE 5%-WATER 250 ML IV SCH (05:44)
[2019-11-12 06:25] LABS: HEMATOCRIT 36.3 % (36.0-47.0); HEMOGLOBIN 11.4 g/dL (12.0-15.5); MEAN CORPUSCULAR HEMOGLOBIN 24.6 pg (27.0-33.4); MEAN CORPUSCULAR HGB CONC 31.4 g/dL (32.0-36.0); MEAN CORPUSCULAR VOLUME 78 fl (80-97); PLATELET COUNT 240 10^3/uL (150-450); RED BLOOD COUNT 4.65 10^6/uL (3.72-5.28); RED CELL DISTRIBUTION WIDTH 17.5 % (11.5-14.0)
--- NOTE | 2019-11-12 08:06 | RADIOLOGY REPORT (SQ) ---
EXAM DESCRIPTION: U/S LTD DUPLEX ART/JEWEL FLOW COMPLETED DATE/TIME: 11/12/2019 4:40 am REASON FOR STUDY: Mesenteric ischemia - get arterial flow COMPARISON: None. TECHNIQUE: Grayscale, Doppler, color Doppler and spectral ultrasound performed of the celiac axis an d superior mesenteric artery. LIMITATIONS: None. FINDINGS: Abdominal aorta, celiac axis and SMA are obscured by overlying bowel gas. IMPRESSION: Nondiagnostic study. TECHNICAL DOCUMENTATION: JOB ID: [id number] [employer]- All Rights Reserved Reading location - IP/workstation name: [email or web address]
[2019-11-12] MEDS: INSULIN LISPRO 100 UNIT/ML 3 ML VIAL SUBCUT SCH ×2 (08:23→13:34)
[2019-11-12] MEDS: DOCUSATE SODIUM 100 MG CAPSULE PO SCH (10:26)
[2019-11-12 14:47] LABS: PATH REVIEW PATHOLOGIST REVIEWED
[2019-11-12] MEDS ORDERED: NITROGLYCERIN 0.4 MG/TAB 25 TAB/BOTTLE SL PRN (16:44)
--- NOTE | 2019-11-12 17:13 | PDOC PROGRESS REPORT ---
Subjective Progress Note for:: 11/12/19 Subjective:: Patient today denies any shortness of breath, chest pain, abdominal pain nausea vomiting. I had a discussion with patient's son over the phone who states that he brought patient in yesterday because patient had complained of weakness in her leg and a general feeling of malaise. Patient had had a few episodes of polyuria yesterday mostly in the nighttime and required significant assistance getting up and transitioning from toilets to wheelchair from bed to wheelchair as well. This is what prompted evaluation in the ER. Patient son Tomas states that patient never complained of any respiratory symptoms or her breathing was fine. He also states that patient take the Lasix daily but is not aware if she was overusing it. States patient also complained of some right knee pain after falling in the bathroom. Reason For Visit: SEPTIC SHOCK, ACUTE HYPOXEMIC RESP FAILURE Physical Exam Vital Signs: Temp Pulse Resp BP Pulse Ox 98.1 F 74 17 142/43 H 97 11/12/19 11:13 11/12/19 11:13 11/12/19 11:13 11/12/19 11:13 11/12/19 11:13 Intake & Output 11/11/19 11/12/19 11/13/19 06:59 06:59 06:59 Intake Total 3590 340 Output Total 1700 700 Balance 1890 -360 Weight 106 kg 110 kg General appearance: PRESENT: no acute distress, cooperative, morbidly obese Neck exam: ABSENT: JVD Respiratory exam: PRESENT: symmetrical, unlabored. ABSENT: accessory muscle use, tachypnea, wheezes Cardiovascular exam: PRESENT: RRR, +S1, +S2. ABSENT: tachycardia GI/Abdominal exam: PRESENT: hernia - Easily reducible, normal bowel sounds, soft, tenderness - At site of hernia. ABSENT: firm, guarding, rebound, rigid Neurological exam: PRESENT: alert, awake Psychiatric exam: PRESENT: anxious. ABSENT: agitated Skin exam: PRESENT: skin tears - Ulcer underneath base of toe on plantar surface of right foot without any purulence or drainage or evidence of infection. Results Laboratory Results: 11/12/19 06:16 11/11/19 09:25 11/12/19 11/12/19 06:16 06:16 WBC 22.0 H RBC 4.65 Hgb 11.4 L Hct 36.3 MCV 78 L MCH 24.6 L MCHC 31.4 L RDW 17.5 H Plt Count 240 Magnesium 2.0 Impressions: Abdomen/Pelvis CT 11/11/19 00:00 IMPRESSION: Umbilical region hernia containing nonobstructed transverse colon Post cholecystectomy Colonic diverticulosis without CT signs of acute diverticulitis No acute findings over the chest Very heavily calcified superior mesenteric artery NORMAL CT OF THE ABDOMEN AND PELVIS WITH ORAL AND INTRAVENOUS CONTRAST. Chest CT 11/11/19 00:00 IMPRESSION: Umbilical region hernia containing nonobstructed transverse colon Post cholecystectomy Colonic diverticulosis without CT signs of acute diverticulitis No acute findings over the chest Very heavily calcified superior mesenteric artery NORMAL CT OF THE ABDOMEN AND PELVIS WITH ORAL AND INTRAVENOUS CONTRAST. Vascular Ultrasound 11/11/19 00:00 IMPRESSION: Nondiagnostic study. Assessment and Plan - Diagnosis (1) Hypotension Qualifiers: Hypotension type: unspecified hypotension type Qualified Code(s): I95.9 - Hypotension, unspecified Is this a current diagnosis for this admission?: Yes Plan: Patient was very hypotensive on presentation requiring a lot of IV fluids for resuscitation Currently resolved patient after receiving several boluses of IV fluids There was initial suspicion for severe sepsis as an etiology for her hypotension especially given leukocytosis of 35. However, there is currently no clear source of infection. I have reviewed the CT scans images with the radiologist. Chest CT only shows some atelectasis of the lung bases but no evidence of infiltrates. CT abdomen/pelvis shows no intra-abdominal acute processes and no evidence of infection and does show non- strangulated ventral hernia. I have assessed diabetic foot ulcer and it does not appear infected. Her primary complaint of polyuria but urinalysis is completely negative. No clear cellulitis noted. At this point, patient is already on antibiotics Vancomycin-Cefepime which I will maintain for now but will discontinue if blood cultures are negative for over 48 hours. Monitor BP off fluid Hold her Lasix, lisinopril and Toprol-XL. (2) Acute and chronic respiratory failure with hypoxia Is this a current diagnosis for this admission?: Yes Plan: Patient has history of COPD and I suspect her hypoxia is likely chronic. May be mildly worsened by atelectasis. Patient states she uses oxygen at home. (3) Atelectasis of both lungs Is this a current diagnosis for this admission?: Yes Plan: Incentive spirometer (4) Continuous tobacco abuse Is this a current diagnosis for this admission?: Yes Plan: Prior documentation notes that patient was not interested in stopping despite counseling (5) Diabetes mellitus type 2 in obese Is this a current diagnosis for this admission?: Yes Plan: Resume sitagliptin. Keep metformin on hold given recent contrast administration Low-dose correctional insulin and Accu-Cheks (6) HTN (hypertension) Qualifiers: Hypertension type: essential hypertension Qualified Code(s): I10 - Essential (primary) hypertension Is this a current diagnosis for this admission?: Yes Plan: Hold lisinopril and Toprol-XL for now. Will resume if BP starts running high. (7) CLYDE on CPAP Is this a current diagnosis for this admission?: Yes Plan: Continue patient's nocturnal CPAP (8) Chronic pain Qualifiers: Chronic pain type: due to trauma Qualified Code(s): G89.21 - Chronic pain due to trauma Is this a current diagnosis for this admission?: Yes Plan: Chronic pain involving low back and knee. Takes [place] at home. Continue Percocet as needed. (9) Generalized weakness Is this a current diagnosis for this admission?: Yes Plan: Physical therapy and occupational therapy evaluation - Time Time Spent with patient: 15-24 minutes
[2019-11-12] MEDS: PROMETHAZINE HCL INJ 25 MG/1 ML VIAL IV PRN (21:08)
[2019-11-12] MEDS: NYSTATIN TOPICAL POWDER 15 GM TP SCH (23:02)
[2019-11-12] MEDS: GABAPENTIN 300 MG CAPSULE PO SCH (23:02)
[2019-11-12] MEDS: ATORVASTATIN CALCIUM 40 MG TABLET PO SCH (23:02)
[2019-11-13] MEDS: INSULIN LISPRO 100 UNIT/ML 3 ML VIAL SUBCUT SCH ×5 (02:37→23:00)
[2019-11-13] MEDS: VANCOMYCIN HCL 750 MG in DEXTROSE 5%-WATER 250 ML IV SCH (06:30)
[2019-11-13] MEDS: CEFEPIME HCL 2 GM in DEXTROSE 5%-WATER 50 ML IV SCH (06:31)
[2019-11-13] MEDS: LEVOTHYROXINE SODIUM 0.15 MG TABLET PO SCH (06:32)
[2019-11-13] MEDS: HEPARIN SOD (PORCINE) 5,000 UNIT/ML 1 ML VIAL SUBCUT SCH ×3 (06:32→23:00)
[2019-11-13] MEDS: GABAPENTIN 300 MG CAPSULE PO SCH ×3 (06:32→23:00)
[2019-11-13 06:47] LABS: HEMATOCRIT 35.7 % (36.0-47.0); HEMOGLOBIN 11.4 g/dL (12.0-15.5); MEAN CORPUSCULAR HEMOGLOBIN 24.7 pg (27.0-33.4); MEAN CORPUSCULAR HGB CONC 31.9 g/dL (32.0-36.0); MEAN CORPUSCULAR VOLUME 78 fl (80-97); PLATELET COUNT 214 10^3/uL (150-450); RED CELL DISTRIBUTION WIDTH 17.2 % (11.5-14.0); WHITE BLOOD COUNT 17.1 10^3/uL (4.0-10.5)
[2019-11-13 06:48] LABS: BLOOD UREA NITROGEN 21 mg/dL (7-20); CALCIUM 10.2 mg/dL (8.4-10.2); CARBON DIOXIDE 24 mmol/L (22-30); CHLORIDE 108 mmol/L (98-107); GLUCOSE 137 mg/dL (75-110); POTASSIUM 4.2 mmol/L (3.6-5.0)
[2019-11-13 06:52] LABS: ANION GAP 4 (5-19)
[2019-11-13] MEDS: OXYCODONE-ACETAMINOPHEN 5-325 MG TABLET PO PRN ×2 (09:15→17:32)
[2019-11-13] MEDS: CLOPIDOGREL BISULFATE 75 MG TABLET PO SCH (09:15)
[2019-11-13] MEDS: DOCUSATE SODIUM 100 MG CAPSULE PO SCH (09:15)
[2019-11-13] MEDS: SITAGLIPTIN PHOSPHATE 50 MG TABLET PO SCH (09:15)
[2019-11-13] MEDS: NYSTATIN TOPICAL POWDER 15 GM TP SCH ×4 (09:16→23:00)
[2019-11-13] MEDS ORDERED: VANCOMYCIN HCL INJ 1000 MG VIAL IV SCH (13:15)
--- NOTE | 2019-11-13 13:15 | PDOC PROGRESS REPORT ---
Subjective Progress Note for:: 11/13/19 Subjective:: Patient complaining of bilateral knee pain a lot worse in her left knee. Denies any fevers or chills. Denies any shortness of breath or chest pain. Denies nausea or vomiting. Patient also has tenderness in her right leg. Reason For Visit: SEPTIC SHOCK, ACUTE HYPOXEMIC RESP FAILURE Physical Exam Vital Signs: Temp Pulse Resp BP Pulse Ox 98.1 F 61 16 139/48 H 98 11/13/19 12:24 11/13/19 12:24 11/13/19 12:24 11/13/19 12:24 11/13/19 12:24 Intake & Output 11/12/19 11/13/19 11/14/19 06:59 06:59 06:59 Intake Total 3590 790 300 Output Total 1700 2875 Balance 1889 -2084 300 Weight 110 kg 107.5 kg General appearance: PRESENT: no acute distress, cooperative Neck exam: ABSENT: JVD Respiratory exam: PRESENT: clear to auscultation [place], symmetrical, unlabored. ABSENT: tachypnea, wheezes Cardiovascular exam: PRESENT: RRR, +S1, +S2. ABSENT: tachycardia GI/Abdominal exam: PRESENT: hernia - Very much reducible, normal bowel sounds, soft, tenderness - Mild around hernia site. ABSENT: distended, firm, guarding, rebound, rigid Extremities exam: PRESENT: joint swelling - Significant tenderness of left knee with some effusion. Mildly tender right knee with no significant effusion., other - Erythema and tenderness around right lower extremity from around ankle to just below the knee with mild warmth. Neurological exam: PRESENT: alert, awake, oriented to person, oriented to place. ABSENT: oriented to time Results Laboratory Results: 11/13/19 05:59 11/13/19 05:59 11/13/19 11/13/19 05:59 05:59 WBC 17.1 H RBC 4.60 Hgb 11.4 L Hct 35.7 L MCV 78 L MCH 24.7 L MCHC 31.9 L RDW 17.2 H Plt Count 214 Sodium 135.9 L Potassium 4.2 Chloride 108 H Carbon Dioxide 24 Anion Gap 4 L BUN 21 H Creatinine 0.68 Est GFR ( Amer) > 60 Glucose 137 H Calcium 10.2 Phosphorus 3.0 Magnesium 2.1 Impressions: Abdomen/Pelvis CT 11/11/19 00:00 IMPRESSION: Umbilical region hernia containing nonobstructed transverse colon Post cholecystectomy Colonic diverticulosis without CT signs of acute diverticulitis No acute findings over the chest Very heavily calcified superior mesenteric artery NORMAL CT OF THE ABDOMEN AND PELVIS WITH ORAL AND INTRAVENOUS CONTRAST. Chest CT 11/11/19 00:00 IMPRESSION: Umbilical region hernia containing nonobstructed transverse colon Post cholecystectomy Colonic diverticulosis without CT signs of acute diverticulitis No acute findings over the chest Very heavily calcified superior mesenteric artery NORMAL CT OF THE ABDOMEN AND PELVIS WITH ORAL AND INTRAVENOUS CONTRAST. Vascular Ultrasound 11/11/19 00:00 IMPRESSION: Nondiagnostic study. Assessment and Plan - Diagnosis (1) Cellulitis of right leg Is this a current diagnosis for this admission?: Yes Plan: Vancomycin day 3. S/p cefepime x2 days. Blood cultures negative so far. WBC down trended (2) Severe sepsis with acute organ dysfunction Is this a current diagnosis for this admission?: Yes Plan: Patient was very hypotensive on admission requiring a lot of IV fluids for resuscitation with WBC of 35, lactic acidosis and hypoxia which have all mostly resolved at this point Patient has received a thorough work-up for an infectious source including CT of the chest, CT abdomen pelvis, and urinalysis which have all been negative for any evidence of infection. Diabetic foot ulcer also does not look infected. Only infection source appears to be cellulitis of her right lower leg. (3) Acute and chronic respiratory failure with hypoxia Is this a current diagnosis for this admission?: Yes Plan: Patient has history of COPD and I suspect her hypoxia is likely chronic. May be mildly worsened by atelectasis. (4) Atelectasis of both lungs Is this a current diagnosis for this admission?: Yes Plan: Incentive spirometer (5) Continuous tobacco abuse Is this a current diagnosis for this admission?: Yes Plan: Prior documentation notes that patient was not interested in stopping despite counseling (6) Diabetes mellitus type 2 in obese Is this a current diagnosis for this admission?: Yes Plan: sitagliptin. Keep metformin on hold given recent contrast administration-can r esume tomorrow. Low-dose correctional insulin and Accu-Cheks (7) Knee pain, bilateral Qualifiers: Chronicity: chronic Qualified Code(s): M25.561 - Pain in right knee; M25.562 - Pain in left knee; G89.29 - Other chronic pain Is this a current diagnosis for this admission?: Yes Plan: Acute on chronic osteoarthritis. Seems to have a lot of tenderness in left knee with some swelling. Will check knee x-rays and possibly have orthopedics see regarding any need for intervention (8) HTN (hypertension) Qualifiers: Hypertension type: essential hypertension Qualified Code(s): I10 - Essential (primary) hypertension Is this a current diagnosis for this admission?: Yes Plan: Hold lisinopril and Toprol-XL for now. Will resume if BP starts running high. (9) CLYDE on CPAP Is this a current diagnosis for this admission?: Yes Plan: Continue patient's nocturnal CPAP (10) Chronic pain Qualifiers: Chronic pain type: due to trauma Qualified Code(s): G89.21 - Chronic pain due to trauma Is this a current diagnosis for this admission?: Yes Plan: Chronic pain involving low back and knee. Takes [place] at home. Continue Percocet as needed. (11) Generalized weakness Is this a current diagnosis for this admission?: Yes Plan: Physical therapy and occupational therapy evaluation - Time Time Spent with patient: 15-24 minutes
[2019-11-13] MEDS ORDERED: VANCOMYCIN HCL 0 MG in DEXTROSE 5%-WATER 250 ML IV NR (13:30)
--- NOTE | 2019-11-13 15:57 | RADIOLOGY REPORT (SQ) ---
EXAM DESCRIPTION: KNEE RIGHT 3 VIEWS COMPLETED DATE/TIME: 11/13/2019 3:21 pm REASON FOR STUDY: knee pain COMPARISON: None. NUMBER OF VIEWS: Three views. TECHNIQUE: AP, lateral, and sunrise patella radiographic images acquired of the right knee. LIMITATIONS: None. FINDINGS: MINERALIZATION: Osteopenia. BONES: No acute fracture or dislocation. No worrisome bone lesions. JOINT: Small effusion. Joint space narrowing and osteophyte formation all 3 compartments. SOFT TISSUES: No soft tissue swelling. No radio-opaque foreign body. OTHER: No other significant finding. IMPRESSION: Osteoarthritis. No acute findings. TECHNICAL DOCUMENTATION: JOB ID: [id number] [employer]- All Rights Reserved Reading location - IP/workstation name: [email or web address]
--- NOTE | 2019-11-13 15:58 | RADIOLOGY REPORT (SQ) ---
EXAM DESCRIPTION: KNEE LEFT 3 VIEWS COMPLETED DATE/TIME: 11/13/2019 3:21 pm REASON FOR STUDY: knee pain and swelling COMPARISON: None. NUMBER OF VIEWS: Three views. TECHNIQUE: AP, lateral, and sunrise patella radiographic images acquired of the left knee. LIMITATIONS: Body habitus. FINDINGS: MINERALIZATION: Osteopenia. BONES: No acute fracture or dislocation. No worrisome bone lesions. JOINT: Joint space narrowing and osteophyte formation all 3 compartments. SOFT TISSUES: Vascular calcifications. OTHER: No other significant finding. IMPRESSION: Osteoarthritis. No acute findings. TECHNICAL DOCUMENTATION: JOB ID: [id number] [employer]- All Rights Reserved Reading location - IP/workstation name: [email or web address]
[2019-11-13] MEDS: VANCOMYCIN HCL 1,250 MG in DEXTROSE 5%-WATER 250 ML IV SCH (17:28)
[2019-11-13] MEDS: ATORVASTATIN CALCIUM 40 MG TABLET PO SCH (23:00)
[2019-11-14] MEDS: VANCOMYCIN HCL 1,250 MG in DEXTROSE 5%-WATER 250 ML IV SCH ×2 (05:35→16:59)
[2019-11-14] MEDS: LEVOTHYROXINE SODIUM 0.15 MG TABLET PO SCH (05:36)
[2019-11-14] MEDS: GABAPENTIN 300 MG CAPSULE PO SCH ×3 (05:36→22:37)
[2019-11-14] MEDS: OXYCODONE-ACETAMINOPHEN 5-325 MG TABLET PO PRN (05:36)
[2019-11-14] MEDS: HEPARIN SOD (PORCINE) 5,000 UNIT/ML 1 ML VIAL SUBCUT SCH ×3 (05:36→22:38)
[2019-11-14 06:19] LABS: HEMATOCRIT 34.4 % (36.0-47.0); MEAN CORPUSCULAR HEMOGLOBIN 24.7 pg (27.0-33.4); MEAN CORPUSCULAR HGB CONC 31.9 g/dL (32.0-36.0); MEAN CORPUSCULAR VOLUME 78 fl (80-97); PLATELET COUNT 217 10^3/uL (150-450); RED BLOOD COUNT 4.43 10^6/uL (3.72-5.28); RED CELL DISTRIBUTION WIDTH 17.3 % (11.5-14.0); WHITE BLOOD COUNT 15.8 10^3/uL (4.0-10.5)
[2019-11-14 06:43] LABS: BLOOD UREA NITROGEN 19 mg/dL (7-20); CALCIUM 10.4 mg/dL (8.4-10.2); GLUCOSE 124 mg/dL (75-110); POTASSIUM 4.7 mmol/L (3.6-5.0)
[2019-11-14 06:48] LABS: CARBON DIOXIDE 26 mmol/L (22-30); CHLORIDE 106 mmol/L (98-107)
[2019-11-14 06:51] LABS: ANION GAP 5 (5-19)
[2019-11-14] MEDS: INSULIN LISPRO 100 UNIT/ML 3 ML VIAL SUBCUT SCH ×4 (08:30→22:36)
[2019-11-14] MEDS: NYSTATIN TOPICAL POWDER 15 GM TP SCH ×4 (09:32→22:35)
[2019-11-14] MEDS: DOCUSATE SODIUM 100 MG CAPSULE PO SCH (09:32)
[2019-11-14] MEDS: SITAGLIPTIN PHOSPHATE 50 MG TABLET PO SCH (09:32)
[2019-11-14] MEDS: CLOPIDOGREL BISULFATE 75 MG TABLET PO SCH (09:32)
[2019-11-14] MEDS ORDERED: ERGOCALCIFEROL (VITAMIN D2) 50000 UNIT (1.25 MG) CAPSULE PO SCH (10:00)
--- NOTE | 2019-11-14 14:57 | PDOC PROGRESS REPORT ---
Subjective Progress Note for:: 11/14/19 Subjective:: Patient denies any bruising difficulties today. Occasionally continues complain of pain in her left knee mostly. Patient has not been able to do much ambulation. Discussion with PT and they are recommending SNF. Reason For Visit: SEPTIC SHOCK, ACUTE HYPOXEMIC RESP FAILURE Physical Exam Vital Signs: Temp Pulse Resp BP Pulse Ox 97.9 F 66 20 152/74 H 97 11/14/19 14:44 11/14/19 14:44 11/14/19 14:44 11/14/19 14:44 11/14/19 14:44 Intake & Output 11/13/19 11/14/19 11/15/19 06:59 06:59 06:59 Intake Total 790 1290 1087 Output Total 2875 2550 1275 Balance -2085 -1260 -188 Weight 107.5 kg 109.9 kg General appearance: PRESENT: no acute distress, cooperative Neck exam: ABSENT: JVD Respiratory exam: PRESENT: clear to auscultation [place], unlabored. ABSENT: t achypnea, wheezes Cardiovascular exam: PRESENT: RRR, +S1, +S2. ABSENT: tachycardia GI/Abdominal exam: PRESENT: soft. ABSENT: rebound, rigid, tenderness Extremities exam: PRESENT: joint swelling - Significant tenderness and some swelling over the left knee. Right knee mildly tender but without swelling., other - Redness and tenderness in her right lower extremity between the upper [place] and ankle Neurological exam: PRESENT: alert, awake Results Laboratory Results: 11/14/19 05:58 11/14/19 05:58 11/14/19 11/14/19 05:58 05:58 WBC 15.8 H RBC 4.43 Hgb 11.0 L Hct 34.4 L MCV 78 L MCH 24.7 L MCHC 31.9 L RDW 17.3 H Plt Count 217 Sodium 137.3 Potassium 4.7 Chloride 106 Carbon Dioxide 26 Anion Gap 5 BUN 19 Creatinine 0.64 Est GFR ( Amer) > 60 Glucose 124 H Calcium 10.4 H Impressions: Abdomen/Pelvis CT 11/11/19 00:00 IMPRESSION: Umbilical region hernia containing nonobstructed transverse colon Post cholecystectomy Colonic diverticulosis without CT signs of acute diverticulitis No acute findings over the chest Very heavily calcified superior mesenteric artery NORMAL CT OF THE ABDOMEN AND PELVIS WITH ORAL AND INTRAVENOUS CONTRAST. Chest CT 11/11/19 00:00 IMPRESSION: Umbilical region hernia containing nonobstructed transverse colon Post cholecystectomy Colonic diverticulosis without CT signs of acute diverticulitis No acute findings over the chest Very heavily calcified superior mesenteric artery NORMAL CT OF THE ABDOMEN AND PELVIS WITH ORAL AND INTRAVENOUS CONTRAST. Vascular Ultrasound 11/11/19 00:00 IMPRESSION: Nondiagnostic study. Knee X-Ray 11/13/19 00:00 IMPRESSION: Osteoarthritis. No acute findings. Assessment and Plan - Diagnosis (1) Cellulitis of right leg Is this a current diagnosis for this admission?: Yes Plan: Vancomycin day 4. S/p cefepime x2 days. Blood cultures negative so far. WBC down trended (2) Severe sepsis with acute organ dysfunction Is this a current diagnosis for this admission?: Yes Plan: Patient was very hypotensive on admission requiring a lot of IV fluids for resuscitation with WBC of 35, lactic acidosis and hypoxia which have all mostly resolved at this point Patient has received a thorough work-up for an infectious source including CT of the chest, CT abdomen pelvis, and urinalysis which have all been negative for any evidence of infection. Diabetic foot ulcer also does not look infected. Only infection source appears to be cellulitis of her right lower leg. (3) Acute and chronic respiratory failure with hypoxia Is this a current diagnosis for this admission?: Yes Plan: Patient has history of COPD and I suspect her hypoxia is likely chronic. May be mildly worsened by atelectasis. (4) Knee pain, bilateral Qualifiers: Chronicity: chronic Qualified Code(s): M25.561 - Pain in right knee; M25.562 - Pain in left knee; G89.29 - Other chronic pain Is this a current diagnosis for this admission?: Yes Plan: Acute on chronic osteoarthritis. Seems to have a lot of tenderness in left knee with some swelling. X-ray showing only osteoarthritis. Orthopedics consulted to evaluate for need for arthrocentesis given tenderness in the left knee or any therapeutic recommendations. (5) Atelectasis of both lungs Is this a current diagnosis for this admission?: Yes Plan: Incentive spirometer (6) Continuous tobacco abuse Is this a current diagnosis for this admission?: Yes (7) Diabetes mellitus type 2 in obese Is this a current diagnosis for this admission?: Yes (8) HTN (hypertension) Qualifiers: Hypertension type: essential hypertension Qualified Code(s): I10 - Essential (primary) hypertension Is this a current diagnosis for this admission?: Yes (9) CLYDE on CPAP Is this a current diagnosis for this admission?: Yes (10) Chronic pain Qualifiers: Chronic pain type: due to trauma Qualified Code(s): G89.21 - Chronic pain due to trauma Is this a current diagnosis for this admission?: Yes (11) Generalized weakness Is this a current diagnosis for this admission?: Yes Plan: Physical therapy and occupational therapy evaluation recommending SNF menu planner consulted - Time Time Spent with patient: 15-24 minutes
[2019-11-14] MEDS: METOPROLOL SUCCINATE 25 MG TAB.SR.24H PO SCH (16:28)
[2019-11-14] MEDS: LISINOPRIL 10 MG TABLET PO SCH (16:28)
--- NOTE | 2019-11-14 19:49 | PDOC CONSULTATION ---
Consultation Consult Date: 11/14/19 Attending physician:: BUBBA JOHNSON Provider Consulted: SHAYNA MAYERS Consult reason:: Bilateral knee pain History of Present Illness Admission Date/PCP: 11/11/19 08:33 NIC KOTHARI NP Patient complains of: Bilateral knee pain History of Present Illness: MIGUEL ROBB is a 69 year old female admitted to the medical service with septic shock and respiratory failure. The patient has a long history of knee pain due to tricompartmental degenerative joint disease. The patient relates that she has been experiencing pain in both of her knees for the last several weeks. She recalls falling while at a seafood buffet and has been experiencing pain in her left knee since that episode. Past Medical History Cardiac Medical History: Reports: Congestive Heart Failure, Myocardial Infarction - HRT CATH AUG 2016 [address] [facility] [address] SHANNON 3 MO AGO, Hyperlipidema, Hypertension - MEDICATED Pulmonary Medical History: Reports: Chronic Obstructive Pulmonary Disease (COPD) Denies: Asthma Neurological Medical History: Reports: None Denies: Seizures Endocrine Medical History: Reports: Diabetes Mellitus Type 2, Hypothyroidism Renal/ Medical History: Reports: None Malignancy Medical History: Reports: None GI Medical History: Reports: Other - Bowel perforation x2 Denies: Hepatitis, Hiatal Hernia Musculoskeltal Medical History: Reports: Arthritis Skin Medical History: Reports: Other - Cellulitis Psychiatric Medical History: Reports: Depression Traumatic Medical History: Reports: None Hematology: Reports: None Denies: Anemia, Sickle Cell Disease Infectious Medical History: Reports: None Past Surgical History Past Surgical History: Reports: Appendectomy, Section, Herniorrhaphy, Other - exploratory laparotomy 2, bowel resection Denies: Amputation, Hysterectomy, Mastectomy, Pacemaker Social History Lives with: Alone Smoking Status: Current Every Day Smoker Cigarettes Packs Per Day: 1 Electronic Cigarette use?: No Number of Years Smokin Last Time Smoked: 2 days ago Frequency of Alcohol Use: None Hx Recreational Drug Use: No Drugs: None Hx Prescription Drug Abuse: No - Advance Directive Resuscitation Status: Full Code Family History Family History: CAD, COPD, DM, Hyperlipidemia, Hypertension Parental Family History Reviewed: Yes Children Family History Reviewed: No Sibling(s) Family History Reviewed.: No Medication/Allergy Home Medications: Atorvastatin Calcium [Lipitor 40 mg Tablet] 40 mg PO QHS 11/11/19 Clopidogrel Bisulfate [Plavix 75 mg Tablet] 75 mg PO DAILY 11/11/19 Duloxetine HCl [Cymbalta] 60 mg PO Q12 11/11/19 Ergocalciferol (Vitamin D2) [Drisdol 50,000 Unit (1.25MG) Capsule] 50,000 unit PO WE@1000 11/11/19 Furosemide [Lasix 40 mg Tablet] 40 mg PO QAM 11/11/19 Gabapentin [Neurontin 300 mg Capsule] 300 mg PO Q8 11/11/19 Hydrocodone/Acetaminophen [[place] 7.5-325 mg Tablet] 1 tab PO Q8HP PRN 11/11/19 Levothyroxine Sodium [Synthroid 0.15 mg Tablet] 0.15 mg PO DAILY 11/11/19 Lisinopril [Prinivil 40 mg Tablet] 40 mg PO DAILY 11/11/19 Metformin HCl 500 mg PO Q12 11/11/19 Metoprolol Succinate [Kapspargo Sprinkle] 25 mg PO DAILY 11/11/19 Nitroglycerin [Nitrostat 0.4 mg (1/150 Gr) Tabs 25/Bottle] 1 tab SL Q5MP PRN 11/11/19 Nystatin [Mycostatin Topical Powder 15 gm] 1 applic TP QID 11/11/19 Sitagliptin Phosphate [Januvia 50 mg Tablet] 50 mg PO DAILY 11/11/19 Allergies/Adverse Reactions: albuterol [Albuterol] Allergy (Intermediate, Verified 04/21/19 06:28) Sulfa (Sulfonamide Antibiotics) Allergy (Intermediate, Verified 04/21/19 06:28) codeine [Codeine] Adverse Reaction (Intermediate, Verified 04/21/19 06:28) Review of Systems Constitutional: PRESENT: as per HPI Respiratory: PRESENT: dyspnea Musculoskeletal: PRESENT: other - Bilateral knee pain Psychiatric: PRESENT: depression Hematologic/Lymphatic: PRESENT: easy bleeding - Patient states she normally takes Coumadin Physical Exam Vital Signs: Temp Pulse Resp BP Pulse Ox 97.9 F 66 20 152/74 H 97 11/14/19 14:44 11/14/19 14:44 11/14/19 14:44 11/14/19 14:44 11/14/19 14:44 Intake & Output 11/13/19 11/14/19 11/15/19 06:59 06:59 06:59 Intake Total 790 1290 2159 Output Total 2875 2550 1974 Balance -5 -1260 184 Weight 107.5 kg 109.9 kg General appearance: PRESENT: no acute distress Head exam: PRESENT: atraumatic Respiratory exam: PRESENT: accessory muscle use, tachypnea Cardiovascular exam: PRESENT: RRR Rectal exam: PRESENT: deferred Extremities exam: PRESENT: other - Right lower extremity: The patient has cellulitis from the level of the foot up to the mid tibia. There is no erythema surrounding the knee. There is diffuse joint line tenderness. There is a 2+ effusion of the knee. Left lower extremity: There is a 2+ effusion of the knee. There is diffuse joint line tenderness. Range of motion is easily obtained from 0 to 90 degrees. Results Laboratory Results: 11/14/19 05:58 11/14/19 05:58 11/14/19 11/14/19 05:58 05:58 WBC 15.8 H RBC 4.43 Hgb 11.0 L Hct 34.4 L MCV 78 L MCH 24.7 L MCHC 31.9 L RDW 17.3 H Plt Count 217 Sodium 137.3 Potassium 4.7 Chloride 106 Carbon Dioxide 26 Anion Gap 5 BUN 19 Creatinine 0.64 Est GFR ( Amer) > 60 Glucose 124 H Calcium 10.4 H Impressions: Abdomen/Pelvis CT 11/11/19 00:00 IMPRESSION: Umbilical region hernia containing nonobstructed transverse colon Post cholecystectomy Colonic diverticulosis without CT signs of acute diverticulitis No acute findings over the chest Very heavily calcified superior mesenteric artery NORMAL CT OF THE ABDOMEN AND PELVIS WITH ORAL AND INTRAVENOUS CONTRAST. Chest CT 11/11/19 00:00 IMPRESSION: Umbilical region hernia containing nonobstructed transverse colon Post cholecystectomy Colonic diverticulosis without CT signs of acute diverticulitis No acute findings over the chest Very heavily calcified superior mesenteric artery NORMAL CT OF THE ABDOMEN AND PELVIS WITH ORAL AND INTRAVENOUS CONTRAST. Vascular Ultrasound 11/11/19 00:00 IMPRESSION: Nondiagnostic study. Knee X-Ray 11/13/19 00:00 IMPRESSION: Osteoarthritis. No acute findings. Status: Image reviewed by me - Radiographs of both knees independently reviewed: Radiographs demonstrate severe tricompartmental osteoarthritis without evidence of acute fracture. Assessment & Plan - Diagnosis (1) Bilateral primary osteoarthritis of knee Is this a current diagnosis for this admission?: Yes (2) Knee pain, bilateral Qualifiers: Chronicity: chronic Qualified Code(s): M25.561 - Pain in right knee; M25.5 62 - Pain in left knee; G89.29 - Other chronic pain Is this a current diagnosis for this admission?: Yes - Time Time Spent: 50 to 70 Minutes - Plan Summary Plan Summary: The patient has bilateral tricompartmental osteoarthritis of both knees. If the patient's medical condition is able to be better optimized, she would benefit from total knee arthroplasties. At present given her overall medical condition, she is not a surgical candidate for elective joint replacement. It is not uncommon for patients to have exacerbations of pain who have underlying osteoarthritis in the knee. Exacerbations are commonly caused by minor trauma, active infection, or recently resolved infections. The patient relates a history of recent minor falls and is currently admitted with active sepsis with an active cellulitis of the right leg. There is no indication that the patient's current knee pain is due to infection involving the knee joint. Arthrocentesis for evaluation of joint fluid is not therefore indicated. The patient's ongoing infection and current use of Plavix for anticoagulation also increases the risk of complications from arthrocentesis as well as the potential complications of aspiration and installation of corticosteroids. Once the patient's medical condition is optimized and she is no longer being treated for acute infections, she may consider outpatient arthrocentesis and cortisone injection. At this point the risks of arthrocentesis will be minimized but still present due to the risk of intra-articular bleeding as she would still remain on anticoagulants.
[2019-11-14] MEDS: ATORVASTATIN CALCIUM 40 MG TABLET PO SCH (22:37)
[2019-11-15] MEDS: HEPARIN SOD (PORCINE) 5,000 UNIT/ML 1 ML VIAL SUBCUT SCH ×3 (05:47→23:01)
[2019-11-15] MEDS: VANCOMYCIN HCL 1,250 MG in DEXTROSE 5%-WATER 250 ML IV SCH ×2 (05:48→18:33)
[2019-11-15] MEDS: LEVOTHYROXINE SODIUM 0.15 MG TABLET PO SCH (05:48)
[2019-11-15] MEDS: GABAPENTIN 300 MG CAPSULE PO SCH ×3 (05:48→23:03)
[2019-11-15 06:15] LABS: VANCOMYCIN,TROUGH 17.2 ug/mL (5.0-20.0)
[2019-11-15] MEDS: INSULIN LISPRO 100 UNIT/ML 3 ML VIAL SUBCUT SCH ×4 (08:09→23:01)
[2019-11-15] MEDS: LISINOPRIL 10 MG TABLET PO SCH (09:05)
[2019-11-15] MEDS: CLOPIDOGREL BISULFATE 75 MG TABLET PO SCH (09:06)
[2019-11-15] MEDS: DOCUSATE SODIUM 100 MG CAPSULE PO SCH (09:06)
[2019-11-15] MEDS: METOPROLOL SUCCINATE 25 MG TAB.SR.24H PO SCH (09:06)
[2019-11-15] MEDS: SITAGLIPTIN PHOSPHATE 50 MG TABLET PO SCH (09:06)
[2019-11-15] MEDS: NYSTATIN TOPICAL POWDER 15 GM TP SCH ×4 (09:07→23:03)
[2019-11-15] MEDS: OXYCODONE-ACETAMINOPHEN 5-325 MG TABLET PO PRN ×2 (09:14→23:09)
[2019-11-15 10:03] LABS: ABSOLUTE EOSINOPHILS # (AUTO) 0.2 10^3/uL (0.0-0.6); ABSOLUTE LYMPHOCYTES (AUTO) 1.3 10^3/uL (0.5-4.7); ABSOLUTE MONOCYTES (AUTO) 1.4 10^3/uL (0.1-1.4); ABSOLUTE NEUT (AUTO) 8.3 10^3/uL (1.7-8.2); BASOPHILS % (AUTO) 0.2 % (0-2); EOSINOPHILS % (AUTO) 1.9 % (0-6); HEMATOCRIT 36.4 % (36.0-47.0); HEMOGLOBIN 11.5 g/dL (12.0-15.5); LYMPHOCYTES % (AUTO) 11.2 % (13-45); MEAN CORPUSCULAR HEMOGLOBIN 24.6 pg (27.0-33.4); MEAN CORPUSCULAR HGB CONC 31.6 g/dL (32.0-36.0); MEAN CORPUSCULAR VOLUME 78 fl (80-97); MONOCYTES % (AUTO) 12.3 % (3-13); PLATELET COUNT 234 10^3/uL (150-450); RED BLOOD COUNT 4.68 10^6/uL (3.72-5.28); RED CELL DISTRIBUTION WIDTH 17.1 % (11.5-14.0); SEGMENTED NEUTROPHILS % (AUTO) 74.4 % (42-78); TOTAL CELLS COUNTED % (AUTO) 100 %; WHITE BLOOD COUNT 11.2 10^3/uL (4.0-10.5)
[2019-11-15 10:23] LABS: ANION GAP 6 (5-19); BLOOD UREA NITROGEN 20 mg/dL (7-20); CALCIUM 11.1 mg/dL (8.4-10.2); CARBON DIOXIDE 30 mmol/L (22-30); CHLORIDE 104 mmol/L (98-107); GLUCOSE 141 mg/dL (75-110); POTASSIUM 4.5 mmol/L (3.6-5.0)
--- NOTE | 2019-11-15 15:22 | PDOC PROGRESS REPORT ---
Subjective Progress Note for:: 11/15/19 Subjective:: Patient feels well today. Still having some pain in her left knee but improved. Has not been able to do much ambulation. Reason For Visit: SEPTIC SHOCK, ACUTE HYPOXEMIC RESP FAILURE Physical Exam Vital Signs: Temp Pulse Resp BP Pulse Ox 98.2 F 65 18 159/47 H 96 11/15/19 10:57 11/15/19 14:00 11/15/19 10:57 11/15/19 10:57 11/15/19 10:57 Intake & Output 11/14/19 11/15/19 11/16/19 06:59 06:59 06:59 Intake Total 1290 2631 1192 Output Total 2550 3100 500 Balance -1260 -469 692 Weight 109.9 kg 111.1 kg General appearance: PRESENT: no acute distress, cooperative Neck exam: ABSENT: JVD Respiratory exam: PRESENT: clear to auscultation [place] Extremities exam: PRESENT: other - Tenderness of her left knee but has improved from prior. Still has swelling and redness in the right lower extremity. Results Laboratory Results: 11/15/19 08:43 11/15/19 08:43 11/15/19 11/15/19 11/15/19 05:35 08:43 08:43 WBC 11.2 H RBC 4.68 Hgb 11.5 L Hct 36.4 MCV 78 L MCH 24.6 L MCHC 31.6 L RDW 17.1 H Plt Count 234 Seg Neutrophils % 74.4 Sodium 140.0 Potassium 4.5 Chloride 104 Carbon Dioxide 30 Anion Gap 6 BUN 20 Creatinine 0.72 0.74 Est GFR ( Amer) > 60 > 60 Glucose 141 H Calcium 11.1 H Impressions: Abdomen/Pelvis CT 11/11/19 00:00 IMPRESSION: Umbilical region hernia containing nonobstructed transverse colon Post cholecystectomy Colonic diverticulosis without CT signs of acute diverticulitis No acute findings over the chest Very heavily calcified superior mesenteric artery NORMAL CT OF THE ABDOMEN AND PELVIS WITH ORAL AND INTRAVENOUS CONTRAST. Chest CT 11/11/19 00:00 IMPRESSION: Umbilical region hernia containing nonobstructed transverse colon Post cholecystectomy Colonic diverticulosis without CT signs of acute diverticulitis No acute findings over the chest Very heavily calcified superior mesenteric artery NORMAL CT OF THE ABDOMEN AND PELVIS WITH ORAL AND INTRAVENOUS CONTRAST. Vascular Ultrasound 11/11/19 00:00 IMPRESSION: Nondiagnostic study. Knee X-Ray 11/13/19 00:00 IMPRESSION: Osteoarthritis. No acute findings. Assessment and Plan - Diagnosis (1) Cellulitis of right leg Is this a current diagnosis for this admission?: Yes Plan: Vancomycin day 5. S/p cefepime x2 days. Transition to p.o. antibiotics tomorrow Blood cultures negative so far. WBC down trended (2) Severe sepsis with acute organ dysfunction Is this a current diagnosis for this admission?: Yes Plan: Patient was very hypotensive on admission requiring a lot of IV fluids for resuscitation with WBC of 35, lactic acidosis and hypoxia which have all mostly resolved at this point Patient has received a thorough work-up for an infectious source including CT of the chest, CT abdomen pelvis, and urinalysis which have all been negative for any evidence of infection. Diabetic foot ulcer also does not look infected. Only infection source appears to be cellulitis of her right lower leg. (3) Acute and chronic respiratory failure with hypoxia Is this a current diagnosis for this admission?: Yes Plan: Patient has history of COPD and I suspect her hypoxia is likely chronic. May be mildly worsened by atelectasis. Continue incentive spirometer. Wean off oxygen as tolerated. (4) Knee pain, bilateral Qualifiers: Chronicity: chronic Qualified Code(s): M25.561 - Pain in right knee; M25.562 - Pain in left knee; G89.29 - Other chronic pain Is this a current diagnosis for this admission?: Yes Plan: Acute on chronic osteoarthritis. Seems to have a lot of tenderness in left knee with some swelling. X-ray showing only osteoarthritis. Orthopedics evaluated and there is no need for arthrocentesis or intra-articular injection at this point per the recommendation. Outpatient follow-up Physical therapy at [facility] (5) Atelectasis of both lungs Is this a current diagnosis for this admission?: Yes Plan: Incentive spirometer (6) Continuous tobacco abuse Is this a current diagnosis for this admission?: Yes (7) Diabetes mellitus type 2 in obese Is this a current diagnosis for this admission?: Yes (8) HTN (hypertension) Qualifiers: Hypertension type: essential hypertension Qualified Code(s): I10 - Essential (primary) hypertension Is this a current diagnosis for this admission?: Yes (9) CLYDE on CPAP Is this a current diagnosis for this admission?: Yes (10) Chronic pain Qualifiers: Chronic pain type: due to trauma Qualified Code(s): G89.21 - Chronic pain due to trauma Is this a current diagnosis for this admission?: Yes (11) Generalized weakness Is this a current diagnosis for this admission?: Yes - Time Time Spent with patient: Less than 15 minutes
[2019-11-15] MEDS ORDERED: NORMAL SALINE 1000 ML 1,000 ML IV ONE (15:28)
[2019-11-15] MEDS ORDERED: FUROSEMIDE INJ/PF 40 MG/4 ML SDV IV ONE (16:30)
[2019-11-15] MEDS: ATORVASTATIN CALCIUM 40 MG TABLET PO SCH (23:03)
[2019-11-16 06:27] LABS: ABSOLUTE EOSINOPHILS # (AUTO) 0.2 10^3/uL (0.0-0.6); ABSOLUTE LYMPHOCYTES (AUTO) 2.1 10^3/uL (0.5-4.7); ABSOLUTE MONOCYTES (AUTO) 1.4 10^3/uL (0.1-1.4); ABSOLUTE NEUT (AUTO) 6.7 10^3/uL (1.7-8.2); BASOPHILS % (AUTO) 0.3 % (0-2); EOSINOPHILS % (AUTO) 2.3 % (0-6); HEMATOCRIT 35.4 % (36.0-47.0); HEMOGLOBIN 11.3 g/dL (12.0-15.5); LYMPHOCYTES % (AUTO) 20.2 % (13-45); MEAN CORPUSCULAR HEMOGLOBIN 24.8 pg (27.0-33.4); MEAN CORPUSCULAR HGB CONC 31.9 g/dL (32.0-36.0); MEAN CORPUSCULAR VOLUME 78 fl (80-97); MONOCYTES % (AUTO) 13.2 % (3-13); PLATELET COUNT 318 10^3/uL (150-450); RED BLOOD COUNT 4.56 10^6/uL (3.72-5.28); RED CELL DISTRIBUTION WIDTH 17.1 % (11.5-14.0); TOTAL CELLS COUNTED % (AUTO) 100 %; WHITE BLOOD COUNT 10.4 10^3/uL (4.0-10.5)
[2019-11-16 06:40] LABS: ALBUMIN 2.7 g/dL (3.5-5.0); ALKALINE PHOSPHATASE 152 U/L (38-126); ASPARTATE AMINO TRANSFERASE 20 U/L (14-36); BILIRUBIN,TOTAL 0.4 mg/dL (0.2-1.3); BLOOD UREA NITROGEN 21 mg/dL (7-20); CALCIUM 10.5 mg/dL (8.4-10.2); CARBON DIOXIDE 35 mmol/L (22-30); GLUCOSE 118 mg/dL (75-110); POTASSIUM 4.2 mmol/L (3.6-5.0); TOTAL PROTEIN 5.9 g/dL (6.3-8.2)
[2019-11-16] MEDS: LEVOTHYROXINE SODIUM 0.15 MG TABLET PO SCH (06:47)
[2019-11-16] MEDS: GABAPENTIN 300 MG CAPSULE PO SCH ×3 (06:47→23:07)
[2019-11-16] MEDS: VANCOMYCIN HCL 1,250 MG in DEXTROSE 5%-WATER 250 ML IV SCH (06:47)
[2019-11-16] MEDS: HEPARIN SOD (PORCINE) 5,000 UNIT/ML 1 ML VIAL SUBCUT SCH ×3 (06:47→23:05)
[2019-11-16 06:52] LABS: ANION GAP 2 (5-19); CHLORIDE 103 mmol/L (98-107)
[2019-11-16] MEDS: OXYCODONE-ACETAMINOPHEN 5-325 MG TABLET PO PRN ×2 (06:55→17:47)
[2019-11-16] MEDS: INSULIN LISPRO 100 UNIT/ML 3 ML VIAL SUBCUT SCH ×4 (08:34→23:05)
[2019-11-16] MEDS: SITAGLIPTIN PHOSPHATE 50 MG TABLET PO SCH (09:42)
[2019-11-16] MEDS: CLOPIDOGREL BISULFATE 75 MG TABLET PO SCH (09:42)
[2019-11-16] MEDS: LISINOPRIL 10 MG TABLET PO SCH (09:42)
[2019-11-16] MEDS: DOCUSATE SODIUM 100 MG CAPSULE PO SCH (09:42)
[2019-11-16] MEDS ORDERED: FUROSEMIDE INJ/PF 40 MG/4 ML SDV IV ONE (09:45)
[2019-11-16] MEDS ORDERED: NORMAL SALINE 1000 ML 1,000 ML IV ONE (09:45)
[2019-11-16] MEDS: NYSTATIN TOPICAL POWDER 15 GM TP SCH ×4 (09:49→23:07)
[2019-11-16] MEDS ORDERED: FUROSEMIDE 40 MG TABLET PO SCH (10:00)
[2019-11-16 16:37] LABS: ALKALINE PHOSPHATASE 175 U/L (38-126); ASPARTATE AMINO TRANSFERASE 23 U/L (14-36); BILIRUBIN,DIRECT 0.3 mg/dL (0.0-0.4); BILIRUBIN,TOTAL 0.4 mg/dL (0.2-1.3); BLOOD UREA NITROGEN 20 mg/dL (7-20); CALCIUM 10.7 mg/dL (8.4-10.2); CARBON DIOXIDE 39 mmol/L (22-30); CHLORIDE 97 mmol/L (98-107); GLUCOSE 127 mg/dL (75-110); POTASSIUM 3.7 mmol/L (3.6-5.0); TOTAL PROTEIN 6.5 g/dL (6.3-8.2)
[2019-11-16 17:18] LABS: ANION GAP 4 (5-19)
--- NOTE | 2019-11-16 17:31 | PDOC PROGRESS REPORT ---
Subjective Progress Note for:: 11/16/19 Subjective:: Patient feels well today. Still having some pain in her left knee but improved. Reason For Visit: SEPTIC SHOCK, ACUTE HYPOXEMIC RESP FAILURE Physical Exam Vital Signs: Temp Pulse Resp BP Pulse Ox 98.1 F 66 16 143/49 H 91 L 11/16/19 12:27 11/16/19 14:00 11/16/19 12:27 11/16/19 12:27 11/16/19 12:30 Intake & Output 11/15/19 11/16/19 11/17/19 06:59 06:59 06:59 Intake Total 2631 1624 1948 Output Total 3107 0626 2150 Balance -469 -4176 -665 Weight 111.1 kg 111.1 kg General appearance: PRESENT: no acute distress, cooperative Neck exam: ABSENT: JVD Respiratory exam: PRESENT: clear to auscultation [place], unlabored. ABSENT: tachypnea, wheezes Cardiovascular exam: PRESENT: RRR, +S1, +S2. ABSENT: tachycardia GI/Abdominal exam: PRESENT: soft. ABSENT: rebound, rigid, tenderness Neurological exam: PRESENT: alert, awake Results Laboratory Results: 11/16/19 06:08 11/16/19 15:52 11/16/19 11/16/19 11/16/19 06:08 06:08 06:08 WBC 10.4 RBC 4.56 Hgb 11.3 L Hct 35.4 L MCV 78 L MCH 24.8 L MCHC 31.9 L RDW 17.1 H Plt Count 318 Seg Neutrophils % 64.0 Sodium 139.8 Potassium 4.2 Chloride 103 Carbon Dioxide 35 H Anion Gap 2 L BUN 21 H Creatinine 0.73 Est GFR ( Amer) > 60 Glucose 118 H Calcium 10.5 H Total Bilirubin 0.4 AST 20 Alkaline Phosphatase 152 H Total Protein 5.9 L Albumin 2.7 L PTH Intact 103.2 H 11/16/19 15:52 WBC RBC Hgb Hct MCV MCH MCHC RDW Plt Count Seg Neutrophils % Sodium 140.2 Potassium 3.7 Chloride 97 L Carbon Dioxide 39 H Anion Gap 4 L BUN 20 Creatinine 0.66 Est GFR ( Amer) > 60 Glucose 127 H Calcium 10.7 H Total Bilirubin 0.4 AST 23 Alkaline Phosphatase 175 H Total Protein 6.5 Albumin 3.0 L PTH Intact 11/11/19 05:45 Blood Blood Culture - Final NO GROWTH IN 5 DAYS 11/11/19 02:42 Blood Blood Culture - Final NO GROWTH IN 5 DAYS Impressions: Abdomen/Pelvis CT 11/11/19 00:00 IMPRESSION: Umbilical region hernia containing nonobstructed transverse colon Post cholecystectomy Colonic diverticulosis without CT signs of acute diverticulitis No acute findings over the chest Very heavily calcified superior mesenteric artery NORMAL CT OF THE ABDOMEN AND PELVIS WITH ORAL AND INTRAVENOUS CONTRAST. Chest CT 11/11/19 00:00 IMPRESSION: Umbilical region hernia containing nonobstructed transverse colon Post cholecystectomy Colonic diverticulosis without CT signs of acute diverticulitis No acute findings over the chest Very heavily calcified superior mesenteric artery NORMAL CT OF THE ABDOMEN AND PELVIS WITH ORAL AND INTRAVENOUS CONTRAST. Vascular Ultrasound 11/11/19 00:00 IMPRESSION: Nondiagnostic study. Knee X-Ray 11/13/19 00:00 IMPRESSION: Osteoarthritis. No acute findings. Assessment and Plan - Diagnosis (1) Cellulitis of right leg Is this a current diagnosis for this admission?: Yes Plan: Vancomycin day 6. S/p cefepime x2 days. Transition to p.o. antibiotics tomorrow Blood cultures negative so far. WBC down trended (2) Primary hyperparathyroidism Is this a current diagnosis for this admission?: Yes Plan: New diagnosis of primary hyperparathyroidism IV fluids and Lasix Corrected calcium is over 11 Asymptomatic hypercalcemia Check urine calcium creatinine ratio (3) Knee pain, bilateral Qualifiers: Chronicity: chronic Qualified Code(s): M25.561 - Pain in right knee; M25.562 - Pain in left knee; G89.29 - Other chronic pain Is this a current diagnosis for this admission?: Yes Plan: Acute on chronic osteoarthritis. Seems to have a lot of tenderness in left knee with some swelling. X-ray showing only osteoarthritis. Orthopedics evaluated and there is no need for arthrocentesis or intra-articular injection at this point per the recommendation. Outpatient follow-up Physical therapy at senior care facility (4) Atelectasis of both lungs Is this a current diagnosis for this admission?: Yes Plan: Incentive spirometer (5) Diabetes mellitus type 2 in obese Is this a current diagnosis for this admission?: Yes Plan: sitagliptin. Resume metformin. Low-dose correctional insulin and Accu-Cheks (6) Continuous tobacco abuse Is this a current diagnosis for this admission?: Yes Plan: Prior documentation notes that patient was not interested in stopping despite counseling (7) Severe sepsis with acute organ dysfunction Is this a current diagnosis for this admission?: Yes Plan: Currently resolved Patient was very hypotensive on admission requiring a lot of IV fluids for resuscitation with WBC of 35, lactic acidosis and hypoxia which have all resolved at this point Patient has received a thorough work-up for an infectious source including CT of the chest, CT abdomen pelvis, and urinalysis which have all been negative for any evidence of infection. Diabetic foot ulcer also does not look infected. Only infection source appears to be cellulitis of her right lower leg. (8) Acute and chronic respiratory failure with hypoxia Is this a current diagnosis for this admission?: Yes Plan: Patient has history of COPD and I suspect her hypoxia is likely chronic. May be mildly worsened by atelectasis. Continue incentive spirometer. Wean off oxygen as tolerated. (9) HTN (hypertension) Qualifiers: Hypertension type: essential hypertension Qualified Code(s): I10 - Essential (primary) hypertension Is this a current diagnosis for this admission?: Yes (10) CLYDE on CPAP Is this a current diagnosis for this admission?: Yes (11) Chronic pain Qualifiers: Chronic pain type: due to trauma Qualified Code(s): G89.21 - Chronic pain due to trauma Is this a current diagnosis for this admission?: Yes (12) Generalized weakness Is this a current diagnosis for this admission?: Yes - Time Time Spent with patient: 15-24 minutes
[2019-11-16] MEDS ORDERED: FUROSEMIDE 40 MG TABLET PO ONE (18:00)
[2019-11-16] MEDS ORDERED: VANCOMYCIN HCL 1,000 MG in DEXTROSE 5%-WATER 250 ML IV SCH (22:00)
[2019-11-16] MEDS: ATORVASTATIN CALCIUM 40 MG TABLET PO SCH (23:06)
[2019-11-17] MEDS: OXYCODONE-ACETAMINOPHEN 5-325 MG TABLET PO PRN (03:32)
[2019-11-17 05:06] LABS: HEMATOCRIT 35.3 % (36.0-47.0); HEMOGLOBIN 11.3 g/dL (12.0-15.5); MEAN CORPUSCULAR HEMOGLOBIN 24.7 pg (27.0-33.4); MEAN CORPUSCULAR HGB CONC 31.9 g/dL (32.0-36.0); MEAN CORPUSCULAR VOLUME 77 fl (80-97); PLATELET COUNT 399 10^3/uL (150-450); RED BLOOD COUNT 4.57 10^6/uL (3.72-5.28)
[2019-11-17 05:32] LABS: ALBUMIN 2.8 g/dL (3.5-5.0); ALKALINE PHOSPHATASE 151 U/L (38-126); ANION GAP 7 (5-19); ASPARTATE AMINO TRANSFERASE 23 U/L (14-36); BILIRUBIN,TOTAL 0.3 mg/dL (0.2-1.3); BLOOD UREA NITROGEN 24 mg/dL (7-20); CALCIUM 10.5 mg/dL (8.4-10.2); CARBON DIOXIDE 34 mmol/L (22-30); CHLORIDE 100 mmol/L (98-107); GLUCOSE 136 mg/dL (75-110); POTASSIUM 3.9 mmol/L (3.6-5.0)
[2019-11-17] MEDS: GABAPENTIN 300 MG CAPSULE PO SCH ×2 (06:58→14:26)
[2019-11-17] MEDS: LEVOTHYROXINE SODIUM 0.15 MG TABLET PO SCH (06:58)
[2019-11-17] MEDS: HEPARIN SOD (PORCINE) 5,000 UNIT/ML 1 ML VIAL SUBCUT SCH ×2 (06:58→14:25)
[2019-11-17] MEDS: INSULIN LISPRO 100 UNIT/ML 3 ML VIAL SUBCUT SCH ×3 (09:01→18:19)
[2019-11-17] MEDS ORDERED: METOPROLOL SUCCINATE 25 MG TAB.SR.24H PO SCH (10:00)
[2019-11-17] MEDS ORDERED: DOXYCYCLINE HYCLATE 100 MG TABLET PO SCH (10:00)
[2019-11-17] MEDS ORDERED: FUROSEMIDE 40 MG TABLET PO SCH (10:00)
[2019-11-17] MEDS: CLOPIDOGREL BISULFATE 75 MG TABLET PO SCH (10:45)
[2019-11-17] MEDS: DOCUSATE SODIUM 100 MG CAPSULE PO SCH (10:45)
[2019-11-17] MEDS: SITAGLIPTIN PHOSPHATE 50 MG TABLET PO SCH (10:45)
[2019-11-17] MEDS: LISINOPRIL 10 MG TABLET PO SCH (10:46)
[2019-11-17] MEDS: NYSTATIN TOPICAL POWDER 15 GM TP SCH ×3 (10:46→18:22)
--- NOTE | 2019-11-17 12:12 | PDOC TRANSFER SUMMARY ---
Impression - Admit/DC Date/PCP Admission Date/Primary Care Provider: 11/11/19 08:33 NIC KOTHARI NP Discharge Date: 11/17/19 - Discharge Diagnosis (1) Cellulitis of right leg Is this a current diagnosis for this admission?: Yes (2) Primary hyperparathyroidism Is this a current diagnosis for this admission?: Yes (3) Knee pain, bilateral Is this a current diagnosis for this admission?: Yes (4) Atelectasis of both lungs Is this a current diagnosis for this admission?: Yes (5) Diabetes mellitus type 2 in obese Is this a current diagnosis for this admission?: Yes (6) Continuous tobacco abuse Is this a current diagnosis for this admission?: Yes (7) Severe sepsis with acute organ dysfunction Is this a current diagnosis for this admission?: Yes (8) Acute and chronic respiratory failure with hypoxia Is this a current diagnosis for this admission?: Yes (9) HTN (hypertension) Is this a current diagnosis for this admission?: Yes (10) CLYDE on CPAP Is this a current diagnosis for this admission?: Yes (11) Chronic pain Is this a current diagnosis for this admission?: Yes (12) Generalized weakness Is this a current diagnosis for this admission?: Yes - Additional Information Resuscitation Status: Full Code Discharge Diet: As Tolerated Discharge Activity: Activity As Tolerated Referrals: ORTHOPEDICS [Provider Group] NIC KOTHARI NP [Primary Care Provider] - (Follow-up within 1 week for further care) Prescriptions: Hydrocodone/Acetaminophen [Excel 7.5-325 mg Tablet] 1 tab PO Q8HP PRN #2 PRN Reason: For Pain Home Medications: Atorvastatin Calcium [Lipitor 40 mg Tablet] 40 mg PO QHS 11/11/19 Clopidogrel Bisulfate [Plavix 75 mg Tablet] 75 mg PO DAILY 11/11/19 Duloxetine HCl [Cymbalta] 60 mg PO Q12 11/11/19 Ergocalciferol (Vitamin D2) [Drisdol 50,000 unit (1.25MG) Capsule] 50,000 unit PO WE@1000 11/11/19 Furosemide [Lasix 40 mg Tablet] 40 mg PO QAM 11/11/19 Gabapentin [Neurontin 300 mg Capsule] 300 mg PO Q8 11/11/19 Levothyroxine Sodium [Synthroid 0.15 mg Tablet] 0.15 mg PO DAILY 11/11/19 Lisinopril [Prinivil 40 mg Tablet] 40 mg PO DAILY 11/11/19 Metformin HCl 500 mg PO Q12 11/11/19 Nitroglycerin [Nitrostat 0.4 mg (1/150 Gr) Tabs 25/Bottle] 1 tab SL Q5MP PRN 11/11/19 Nystatin [Mycostatin Topical Powder 15 gm] 1 applic TP QID 11/11/19 Sitagliptin Phosphate [Januvia 50 mg Tablet] 50 mg PO DAILY 11/11/19 Doxycycline Hyclate [Vibramycin 100 mg Tablet] 100 mg PO Q12 7 Days #13 tablet 11/17/19 Hydrocodone/Acetaminophen [Excel 7.5-325 mg Tablet] 1 tab PO Q8HP PRN #2 11/17/19 Metoprolol Succinate [Toprol Xl 25 mg Tab.sr] 12.5 mg PO DAILY tab.sr.24h 11/17/19 History of Present Illiness History of Present Illness: MIGUEL ROBB is a 69 year old female with past medical history significant for diastolic CHF, HTN, HLD, T2 DM, MT status post stents 5 years ago, multiple bowel perforations status post hemicolectomy who presents for 1 day history of progressive shortness of breath/DOTSON which began per patient while she was on the toilet urinating profusely which she states was due to her Lasix. She denies any history of COPD however she has a [id number] smoking history and continues to smoke today. Patient states she has had multiple exploratory laparotomies for bowel perforations and states that she had a hemicolectomy years ago due to this. Her VBG showed significant metabolic acidosis at 7.21 pH and a lactate over 2. She was hypoxic on admission requiring 3 L nasal cannula. She is initially hypotensive but seemed to respond to aggressive IV fluid hydration. Blood pressure remains quite low on admission but is tenuously being maintained by fluids. Admitted for further evaluation and treatment. Her WBC was also markedly elevated at 35. Hospital Course Hospital Course: Briefly, patient had presented with what appeared to be severe sepsis with elevated white count, lactic acidosis, hypotension and was aggressively fluid resuscitated. She never required ICU stay or pressors. Patient received a extensive work-up to identify source of infection which were all negative but only source of infection noted was cellulitis of her right lower leg. Patient was treated with broad-spectrum antibiotics initially and has been transitioned to p.o. doxycycline at this point. Patient's mental status has improved and patient is more alert. Patient has been noted to have hypercalcemia though asymptomatic. Parathyroid hormone was elevated indicating patient has primary hyperparathyroidism. Patient received IV fluids and replacing for hypocalcemia which is dropped from about 12-11.3. Patient will require to follow-up with an fishing rod marker for further evaluation and management of this and also to stratify patient to see if she is a candidate for surgical parathyroidectomy. (1) Cellulitis of right leg Is this a current diagnosis for this admission?: Yes Plan: Vancomycin day 6. S/p cefepime x2 days. Transitioned to doxycycline for 7 more days to complete 2 weeks of therapy for extensive cellulitis. Blood cultures negative so far. WBC down trended initially at 35k but last reading was 13 K (2) Primary hyperparathyroidism Is this a current diagnosis for this admission?: Yes Plan: New diagnosis of primary hyperparathyroidism Encourage p.o. hydration and continue Lasix Corrected calcium is 11.3. Intact PTH of 109. Asymptomatic hypercalcemia--bisphosphonate not indicated at this time. urine calcium creatinine ratio results pending. Patient will need to follow-up with an fishing rod marker for further care, urine calcium analysis and evaluation to see if parathyroidectomy is indicated. (3) Knee pain, bilateral Qualifiers: Chronicity: chronic Qualified Code(s): M25.561 - Pain in right knee; M25.562 - Pain in left knee; G89.29 - Other chronic pain Is this a current diagnosis for this admission?: Yes Plan: Acute on chronic osteoarthritis. Seems to have a lot of tenderness in left knee with some swelling. X-ray showing only osteoarthritis but very significant and tricompartmental osteoarthritis. Orthopedics evaluated and stated that there is no need for arthrocentesis or intra-articular injection and that patient can follow-up with them as outpatient for further care and may potentially benefit from total knee replacement in the future. Outpatient follow-up Physical therapy at long term facility (4) Atelectasis of both lungs Is this a current diagnosis for this admission?: Yes Plan: Incentive spirometer (5) Diabetes mellitus type 2 in obese Is this a current diagnosis for this admission?: Yes Plan: sitagliptin and metformin. Low-dose correctional insulin and Accu-Cheks (6) Continuous tobacco abuse Is this a current diagnosis for this admission?: Yes Plan: patient was not interested in stopping despite counseling (7) Severe sepsis with acute organ dysfunction Is this a current diagnosis for this admission?: Yes Plan: Currently resolved Patient was very hypotensive on admission requiring a lot of IV fluids for resuscitation with WBC of 35, lactic acidosis and hypoxia which have all resolved at this point Patient has received a thorough work-up for an infectious source including CT of the chest, CT abdomen pelvis, and urinalysis which have all been negative for any evidence of infection. Diabetic foot ulcer also does not look infected. Only infection source appears to be cellulitis of her right lower leg. (8) Acute and chronic respiratory failure with hypoxia Is this a current diagnosis for this admission?: Yes Plan: Patient has history of COPD and I suspect her hypoxia is likely chronic. May be mildly worsened by atelectasis. Continue incentive spirometer. Currently off oxygen. (9) HTN (hypertension) Qualifiers: Hypertension type: essential hypertension Qualified Code(s): I10 - Essential (primary) hypertension Is this a current diagnosis for this admission?: Yes (10) CLYDE on CPAP Is this a current diagnosis for this admission?: Yes nocturnal CPAP (11) Chronic pain Qualifiers: Chronic pain type: due to trauma Qualified Code(s): G89.21 - Chronic pain due to trauma Is this a current diagnosis for this admission?: Yes Physical Exam Vital Signs: Temp Pulse Resp BP Pulse Ox 98.0 F 77 18 158/60 H 91 L 11/17/19 08:17 11/17/19 08:17 11/17/19 08:17 11/17/19 08:17 11/17/19 10:10 Intake & Output 11/16/19 11/17/19 11/18/19 06:59 06:59 06:59 Intake Total 3274 2970 Output Total 5675 8030 Balance -2401 -780 Weight 108.2 kg General appearance: PRESENT: no acute distress, cooperative Neck exam: ABSENT: JVD Respiratory exam: PRESENT: clear to auscultation [place]. ABSENT: accessory muscle use, retraction Cardiovascular exam: PRESENT: +S1, +S2 GI/Abdominal exam: PRESENT: normal bowel sounds, soft. ABSENT: distended, rebound, rigid, tenderness Extremities exam: PRESENT: tenderness - tenderness in the left knee joint, other - redness in the rle from just below knee to ankle. Improved from presentation. Neurological exam: PRESENT: alert, awake, oriented to person, oriented to place, oriented to time. ABSENT: oriented to situation Results Laboratory Results: WBC 13.0 10^3/uL (4.0-10.5) H 11/17/19 04:45 RBC 4.57 10^6/uL (3.72-5.28) 11/17/19 04:45 Hgb 11.3 g/dL (12.0-15.5) L 11/17/19 04:45 Hct 35.3 % (36.0-47.0) L 11/17/19 04:45 MCV 77 fl (80-97) L 11/17/19 04:45 MCH 24.7 pg (27.0-33.4) L 11/17/19 04:45 MCHC 31.9 g/dL (32.0-36.0) L 11/17/19 04:45 RDW 17.0 % (11.5-14.0) H 11/17/19 04:45 Plt Count 399 10^3/uL (150-450) 11/17/19 04:45 Lymph % (Auto) 20.2 % (13-45) 11/16/19 06:08 [place] % (Auto) 13.2 % (3-13) H 11/16/19 06:08 Eos % (Auto) 2.3 % (0-6) 11/16/19 06:08 Baso % (Auto) 0.3 % (0-2) 11/16/19 06:08 Absolute Neuts (auto) 6.7 10^3/uL (1.7-8.2) 11/16/19 06:08 Absolute Lymphs (auto) 2.1 10^3/uL (0.5-4.7) 11/16/19 06:08 Absolute Monos (auto) 1.4 10^3/uL (0.1-1.4) 11/16/19 06:08 Absolute Eos (auto) 0.2 10^3/uL (0.0-0.6) 11/16/19 06:08 Absolute Basos (auto) 0.0 10^3/uL (0.0-0.2) 11/16/19 06:08 Total Counted 100 11/11/19 02:00 Seg Neutrophils % 64.0 % (42-78) 11/16/19 06:08 Seg Neuts % (Manual) 96 % (42-78) H 11/11/19 02:00 Lymphocytes % (Manual) 1 % (13-45) L 11/11/19 02:00 Monocytes % (Manual) 2 % (3-13) L 11/11/19 02:00 Eosinophils % (Manual) 1 % (0-6) 11/11/19 02:00 Basophils % (Manual) 0 % (0-2) 11/11/19 02:00 Abs Neuts (Manual) 33.8 10^3/uL (1.7-8.2) H 11/11/19 02:00 Abs Lymphs (Manual) 0.4 10^3/uL (0.5-4.7) L 11/11/19 02:00 Abs Monocytes (Manual) 0.7 10^3/uL (0.1-1.4) 11/11/19 02:00 Absolute Eos (Manual) 0.4 10^3/uL (0.0-0.6) 11/11/19 02:00 Abs Basophils (Manual) 0.0 10^3/uL (0.0-0.2) 11/11/19 02:00 Toxic Granulation SLIGHT 11/11/19 02:00 Platelet Comment ADEQUATE 11/11/19 02:00 Poikilocytosis SLIGHT 11/11/19 02:00 Anisocytosis 1+ 11/11/19 02:00 Tear Drop Cells SLIGHT 11/11/19 02:00 Ovalocytes SLIGHT 11/11/19 02:00 PT 14.7 SEC (11.4-15.4) 11/11/19 02:00 INR 1.14 11/11/19 02:00 Carbonic Acid 1.33 mmol/L (1.05-1.35) 11/11/19 08:45 HCO3/H2CO3 Ratio 15:1 11/11/19 08:45 ABG pH 7.29 (7.35-7.45) L 11/11/19 08:45 ABG pCO2 44.2 mmHg (35-45) 11/11/19 08:45 ABG pO2 57.2 mmHg (80-100) L 11/11/19 08:45 ABG HCO3 20.7 mmol/L (20-24) 11/11/19 08:45 ABG Total CO2 22.1 mmol/L (21-25) 11/11/19 08:45 ABG O2 Saturation 86.5 % (94-98) L 11/11/19 08:45 ABG Base Excess -5.7 mmol/L 11/11/19 08:45 VBG pH 7.21 (7.30-7.42) L 11/11/19 05:45 VBG pCO2 53.6 mmHg (35-63) 11/11/19 05:45 VBG HCO3 21.1 mmol/L (20-32) 11/11/19 05:45 VBG Base Excess -7.0 mmol/L 11/11/19 05:45 FiO2 ROOM AIR 11/11/19 08:45 Sodium 140.7 mmol/L (137-145) 11/17/19 04:45 Potassium 3.9 mmol/L (3.6-5.0) 11/17/19 04:45 Chloride 100 mmol/L (98-107) 11/17/19 04:45 Carbon Dioxide 34 mmol/L (22-30) H 11/17/19 04:45 Anion Gap 7 (5-19) 11/17/19 04:45 BUN 24 mg/dL (7-20) H 11/17/19 04:45 Creatinine 0.79 mg/dL (0.52-1.25) 11/17/19 04:45 Est GFR ( Amer) > 60 (>60) 11/17/19 04:45 Est GFR (MDRD) Non-Af > 60 (>60) 11/17/19 04:45 Glucose 136 mg/dL (75-110) H 11/17/19 04:45 POC Glucose 124 mg/dL (70-110) H 11/17/19 08:15 Lactic Acid 1.3 mmol/L (0.7-2.1) 11/11/19 09:25 Calcium 10.5 mg/dL (8.4-10.2) H 11/17/19 04:45 Phosphorus 3.0 mg/dL (2.5-4.5) 11/13/19 05:59 Magnesium 2.1 mg/dL (1.6-2.3) 11/13/19 05:59 Total Bilirubin 0.3 mg/dL (0.2-1.3) 11/17/19 04:45 Direct Bilirubin 0.0 mg/dL (0.0-0.4) 11/17/19 04:45 Neonat Total Bilirubin Not Reportable 11/17/19 04:45 Neonat Direct Bilirubin Not Reportable 11/17/19 04:45 Neonat Indirect Bili Not Reportable 11/17/19 04:45 AST 23 U/L (14-36) 11/17/19 04:45 ALT 16 U/L (<35) 11/17/19 04:45 Alkaline Phosphatase 151 U/L (38-126) H 11/17/19 04:45 Total Protein 6.0 g/dL (6.3-8.2) L 11/17/19 04:45 Albumin 2.8 g/dL (3.5-5.0) L 11/17/19 04:45 TSH 0.64 uIU/mL (0.47-4.68) 11/11/19 09:25 PTH Intact 103.2 pg/mL (10.0-65.0) H 11/16/19 06:08 Urine Color YELLOW 11/11/19 03:26 Urine Appearance SLIGHTLY-CLOUDY 11/11/19 03:26 Urine pH 5.0 (5.0-9.0) 11/11/19 03:26 Ur Specific [place] 1.015 11/11/19 03:26 Urine Protein 100 mg/dL (NEGATIVE) H 11/11/19 03:26 Urine Glucose (UA) NEGATIVE mg/dL (NEGATIVE) 11/11/19 03:26 Urine Ketones NEGATIVE mg/dL (NEGATIVE) 11/11/19 03:26 Urine Blood NEGATIVE (NEGATIVE) 11/11/19 03:26 Urine Nitrite (Reflex) NEGATIVE (NEGATIVE) 11/11/19 03:26 Urine Bilirubin NEGATIVE (NEGATIVE) 11/11/19 03:26 Urine Urobilinogen NEGATIVE mg/dL (<2.0) 11/11/19 03:26 Leukocyte Esterase Rfl NEGATIVE (NEGATIVE) 11/11/19 03:26 Urine RBC (Auto) 1 /HPF 11/11/19 03:26 U Hyaline Cast (Auto) 4 /LPF 11/11/19 03:26 Urine WBC (Reflex) 4 /HPF 11/11/19 03:26 Squamous Epi Cells Auto 1 /HPF 11/11/19 03:26 Urine Mucus (Auto) RARE /LPF 11/11/19 03:26 Urine Ascorbic Acid NEGATIVE (NEGATIVE) 11/11/19 03:26 Time Trough Drawn 0535 11/15/19 05:35 Vancomycin Trough 17.2 ug/mL (5.0-20.0) 11/15/19 05:35 Slides for Path Review PATHOLOGIST REVIEWED 11/11/19 02:00 Impressions: Abdomen/Pelvis CT 11/11/19 00:00 IMPRESSION: Umbilical region hernia containing nonobstructed transverse colon Post cholecystectomy Colonic diverticulosis without CT signs of acute diverticulitis No acute findings over the chest Very heavily calcified superior mesenteric artery NORMAL CT OF THE ABDOMEN AND PELVIS WITH ORAL AND INTRAVENOUS CONTRAST. Chest CT 11/11/19 00:00 IMPRESSION: Umbilical region hernia containing nonobstructed transverse colon Post cholecystectomy Colonic diverticulosis without CT signs of acute diverticulitis No acute findings over the chest Very heavily calcified superior mesenteric artery NORMAL CT OF THE ABDOMEN AND PELVIS WITH ORAL AND INTRAVENOUS CONTRAST. Vascular Ultrasound 11/11/19 00:00 IMPRESSION: Nondiagnostic study. Knee X-Ray 11/13/19 00:00 IMPRESSION: Osteoarthritis. No acute findings. Knee X-Ray 11/13/19 00:00 IMPRESSION: Osteoarthritis. No acute findings. Plan Time Spent: Greater than 30 Minutes Stroke Is this a Stroke Patient?: No Acute Heart Failure - Is this a Heart Failure Patient?: No
[2019-11-17] MEDS ORDERED: CLINDAMYCIN HCL 150 MG CAPSULE PO SCH (14:00)
[2019-11-17 18:38] VITALS: BP 144/54
== END 2019-11-17 19:39 | DRG 871 ==
LOC: ER 02:19 → EH 08:33 → 3S 13:32
PROVIDERS: ADMIT Internal Medicine; ATTEND Internal Medicine
PROC: 5A09457 Assistance with Respiratory Ventilation, 24-96 Consecutive Hours, Continuous Positive Airway Pressure (ICD-10-PCS; principal; 2019-11-11)
DX: A41.9 Sepsis, unspecified organism (principal); R65.21 Severe sepsis with septic shock; J96.21 Acute and chronic respiratory failure with hypoxia; L03.115 Cellulitis of right lower limb; J98.11 Atelectasis; E87.2 Acidosis; I50.32 Chronic diastolic (congestive) heart failure; E21.0 Primary hyperparathyroidism; E11.9 Type 2 diabetes mellitus without complications; G47.33 Obstructive sleep apnea (adult) (pediatric); G89.29 Other chronic pain; I11.0 Hypertensive heart disease with heart failure; E78.5 Hyperlipidemia, unspecified; E83.52 Hypercalcemia; M17.0 Bilateral primary osteoarthritis of knee; F32.9 Major depressive disorder, single episode, unspecified; F17.210 Nicotine dependence, cigarettes, uncomplicated; E66.01 Morbid (severe) obesity due to excess calories; I48.0 Paroxysmal atrial fibrillation; I25.2 Old myocardial infarction; E11.621 Type 2 diabetes mellitus with foot ulcer; Z60.2 Problems related to living alone; Z79.899 Other long term (current) drug therapy; Z79.02 Long term (current) use of antithrombotics/antiplatelets; Z79.890 Hormone replacement therapy; Z79.84 Long term (current) use of oral hypoglycemic drugs; Z95.5 Presence of coronary angioplasty implant and graft; Z90.49 Acquired absence of other specified parts of digestive tract; Z91.81 History of falling; Z88.6 Allergy status to analgesic agent; Z88.2 Allergy status to sulfonamides; Z88.8 Allergy status to other drugs, medicaments and biological substances
CPT/HCPCS: 36415; 71045; 71260; 74177; 80048; 80053; 80202; 81001; 82340; 82565; 82570; 82803; 82962; 83605; 83735; 83970; 84100; 84443; 85025; 85027; 85610; 87040; 87070; 93005; 93010; 93976; 94660; 94799; 96361; 96365; 96366; 96368; 99291; J0692; J1644; J1815; J1940; J2543; J2550; J3370; J3490; J7030; J7060; J7614

== ENCOUNTER 2020-04-13 15:29 | Inpatient (IN) | payer MEDICARE, OTHER ==
[2020-04-13 17:39] LABS: APPEARANCE,URINE SLIGHTLY-CLOUDY; BILIRUBIN,URINE NEGATIVE (NEGATIVE); COLOR,URINE AMBER; GLUCOSE, URINE NEGATIVE (NEGATIVE); KETONES,URINE NEGATIVE (NEGATIVE); PROTEIN,URINE 30 mg/dL (NEGATIVE); URINE SPECIFIC GRAVITY 1.016
--- NOTE | 2020-04-13 18:05 | ER Document Report ---
ED General - General Chief Complaint: Leg Pain Stated Complaint: LEG PAIN - RIGHT Time Seen by Provider: 04/13/20 17:44 Primary Care Provider: NIC KOTHARI NP [Primary Care Provider] - Follow up as needed TRAVEL OUTSIDE OF THE [place] IN LAST 30 DAYS: No - HPI Notes: Patient is a 69-year-old female who presents to the emergency department for evaluation. At this time she is unable to offer me much in the way of history. Evidently EMS was called to her house on Tuesday for a fall. Today she could not assist her son getting out of bed, so EMS was called. She has pain in her right leg, this is not new. She states that it gets intermittently red. Evidently EMS found her to be mildly hypoxic, she was placed on oxygen and brought to the emergency department. Per nursing, patient was an extremely poor state of hygiene, significant candidal infections in intertriginous folds, some skin breakdown on sacral evaluation. Beyond this, the patient can offer me no meaningful history. The remainder of information is obtained from nursing, EMS notes, medical records. - Related Data Allergies/Adverse Reactions: albuterol [Albuterol] Allergy (Intermediate, Verified 04/13/20 17:04) Sulfa (Sulfonamide Antibiotics) Allergy (Intermediate, Verified 04/13/20 17:04) codeine [Codeine] Adverse Reaction (Intermediate, Verified 04/13/20 17:04) Past Medical History - General Information source: Emergency Med Personnel, [facility] Records - Social History Smoking Status: Current Some Day Smoker Frequency of alcohol use: None Drug Abuse: None Family History: CAD, COPD, DM, Hyperlipidemia, Hypertension - Past Medical History Cardiac Medical History: Reports: Hx Congestive Heart Failure, Hx Heart Attack - HRT CATH AUG 2016 2 STENTS-SAW DR SHANNON 3 MO AGO, Hx Hypercholesterolemia, Hx Hypertension - MEDICATED Pulmonary Medical History: Reports: Hx COPD Denies: Hx Asthma Neurological Medical History: Denies: Hx Cerebrovascular Accident, Hx Seizures Endocrine Medical History: Reports: Hx Diabetes Mellitus Type 2, Hx Hypothyroidism Renal/ Medical History: Denies: Hx Peritoneal Dialysis GI Medical History: Denies: Hx Hepatitis, Hx Hiatal Hernia, Hx Ulcer Musculoskeletal Medical History: Reports Hx Arthritis, Reports Hx Muscle Weakness, Reports Hx Musculoskeletal Deformity - Scoliosis Psychiatric Medical History: Reports: Hx Depression Infectious Medical History: Denies: Hx Hepatitis Past Surgical History: Reports: Hx Abdominal Surgery - exploratory abd surgery x2, Hx Appendectomy, Hx Section, Hx Herniorrhaphy, Other - exploratory laparotomy 2, bowel resection. Denies: Hx Hysterectomy, Hx Mastectomy, Hx Open Heart Surgery, Hx Pacemaker - Immunizations Hx Pneumococcal Vaccination: 10/17/17 Review of Systems - Review of Systems Constitutional: Weakness Musculoskeletal: See HPI Skin: See HPI Neurological/Psychological: See HPI -: Yes All other systems reviewed and negative - ROS done with patient, do not believe she is a reliable historian now Physical Exam - Vital signs Vitals: Temp Pulse Resp BP Pulse Ox 98.0 F 72 20 141/116 H 89 L 04/13/20 15:50 04/13/20 15:50 04/13/20 15:50 04/13/20 15:50 04/13/20 15:50 - Notes Notes: Patient is a morbidly obese 69-year-old female. She is lying in the bed with nasal cannula oxygen on at 2-1/2 L. She is drowsy with eyes closed. She does not open her eyes and less commanded. Her speech is garbled, she sounds drowsy. She does move all 4 extremities spontaneously, only intermittently follows commands. She does seem to be having increased work of breathing, mild tachypnea. Head is normocephalic and appears atraumatic, pupils are equal round, reactive to light. Oral mucosa is moist. Uvula is midline. Neck is supple, no meningismus. Heart is regular rate and rhythm, lungs show diminished breath sounds, unclear as to whether or not this is secondary to body habitus o r a markedly diminished air movement. Abdomen is obese, nontender. She has significant moisture and erythema noted to the intertriginous areas below her pannus, below both breasts, consistent with [place]. These also tracked into her groin. Patient has a 2 cm ulceration over the first metatarsophalangeal joint on the right foot, sole. She is tracking erythema from that ulceration up to the dorsum of the foot, and diffusely on the calf. It is not well demarcated, consistent with likely cellulitis. Course - Re-evaluation Re-evalutation: 04/13/20 18:04 Patient presents to the emergency department for evaluation. Initially it was just weakness and red lower extremity. At the time of my evaluation, however, she is exhibiting mental status changes. I am concerned she may be retaining CO2, may have a more significant infection than originally thought. She was placed on a bus driver/monitor. Septic work-up was started, ABG ordered. Awaiting work-up, we will continue to monitor. 04/13/20 18:47 Still awaiting ABG. Laboratory investigations reveal a 26,000 white count and a mildly positive troponin. Her renal function is also altered as well. She is given 2 L of normal saline bolus, this is calculated based on ideal body weight for a sepsis patient, as the patient is morbidly obese. She is given cefepime and vancomycin to cover for the cellulitis from her right foot ulcer that is tracking up her right leg. Still awaiting chest x-ray. We will continue to monitor. 04/13/20 20:32 Chest x-ray shows no acute changes. Foot x-ray does not show any clear signs of osteomyelitis. She is already been appropriately medicated for diabetic cellulitis. She is placed on BiPAP for mild CO2 retention and acidosis. Her mental status improved. She is given IV fluids for sepsis based on ideal body weight. She has severe sepsis given her BRIGID. Will admit the patient for further care, Dr. Salas graciously accepts the patient. - Vital Signs Vital signs: Temp Pulse Resp BP Pulse Ox 98.0 F 72 17 117/59 L 97 04/13/20 15:50 04/13/20 15:50 04/13/20 20:04 04/13/20 19:01 04/13/20 20:03 - Laboratory Result Diagrams: 04/13/20 17:45 04/13/20 17:45 Laboratory results interpreted by me: 04/13/20 04/13/20 04/13/20 16:50 17:45 17:45 WBC 26.3 H Hgb 11.9 L MCH 25.3 L MCHC 30.3 L RDW 17.0 H Seg Neuts % (Manual) 96 H Lymphocytes % (Manual) 2 L Monocytes % (Manual) 2 L Abs Neuts (Manual) 25.2 H Carbonic Acid ABG pH ABG pCO2 ABG pO2 ABG O2 Saturation Sodium 135.2 L BUN 57 H Creatinine 1.75 H Est GFR ( Amer) 35 L Est GFR (MDRD) Non-Af 29 L Total Protein 6.0 L Albumin 2.8 L Urine Protein 30 H Urine Urobilinogen 4.0 H Leukocyte Esterase Rfl MODERATE H 04/13/20 18:35 WBC Hgb MCH MCHC RDW Seg Neuts % (Manual) Lymphocytes % (Manual) Monocytes % (Manual) Abs Neuts (Manual) Carbonic Acid 1.46 H ABG pH 7.28 L ABG pCO2 48.6 H ABG pO2 57.0 L ABG O2 Saturation 85.8 L Sodium BUN Creatinine Est GFR ( Amer) Est GFR (MDRD) Non-Af Total Protein Albumin Urine Protein Urine Urobilinogen Leukocyte Esterase Rfl - Diagnostic Test Radiology reviewed: Reports reviewed Radiology results interpreted by me: 04/13/20 20:33 Chest X-Ray 04/13/20 17:54 IMPRESSION: No significant interval change. No acute cardiopulmonary disease. Foot X-Ray 04/13/20 17:54 IMPRESSION: Diffuse osteopenia. No radiographic evidence of acute osteomyelitis. Ulceration at the plantar surface forefoot. If there is clinical concern for osteomyelitis, MRI or a nuclear medicine bone scan should be considered for further evaluation. Discharge - Discharge Clinical Impression: Acute respiratory failure with hypercapnia, Sepsis, Acute kidney injury, Cellulitis of right leg Condition: Stable Disposition: ADMITTED INPATIENT Admitting Provider: Josue (Hospitalist) Unit Admitted: IMCU Referrals: NIC KOTHARI NP [Primary Care Provider] - Follow up as needed
[2020-04-13 18:18] LABS: INTERNATIONAL RATION (INR) 1.11; PROTHROMBIN TIME 14.3 SEC (11.4-15.4)
[2020-04-13 18:21] LABS: ALBUMIN 2.8 g/dL (3.5-5.0); ALKALINE PHOSPHATASE 112 U/L (38-126); ANION GAP 7 (5-19); ASPARTATE AMINO TRANSFERASE 24 U/L (14-36); BILIRUBIN,DIRECT 0.2 mg/dL (0.0-0.4); BILIRUBIN,TOTAL 0.5 mg/dL (0.2-1.3); BLOOD UREA NITROGEN 57 mg/dL (7-20); CALCIUM 9.7 mg/dL (8.4-10.2); CARBON DIOXIDE 23 mmol/L (22-30); CHLORIDE 105 mmol/L (98-107); GLUCOSE 105 mg/dL (75-110); POTASSIUM 4.2 mmol/L (3.6-5.0)
[2020-04-13 18:37] LABS: HEMATOCRIT 39.2 % (36.0-47.0); HEMOGLOBIN 11.9 g/dL (12.0-15.5); MEAN CORPUSCULAR HEMOGLOBIN 25.3 pg (27.0-33.4); MEAN CORPUSCULAR HGB CONC 30.3 g/dL (32.0-36.0); MEAN CORPUSCULAR VOLUME 84 fl (80-97); PLATELET COUNT 270 10^3/uL (150-450); RED BLOOD COUNT 4.69 10^6/uL (3.72-5.28); WHITE BLOOD COUNT 26.3 10^3/uL (4.0-10.5)
[2020-04-13 18:41] LABS: ABSOLUTE LYMPHOCYTES# (MANUAL) 0.5 10^3/uL (0.5-4.7); ABSOLUTE MONOCYTES # (MANUAL) 0.5 10^3/uL (0.1-1.4); ANISOCYTOSIS 1+; BASOPHILS % (MANUAL) 0 % (0-2); EOSINOPHILS % (MANUAL) 0 % (0-6); LYMPHOCYTES % (MANUAL) 2 % (13-45); MONOCYTES % (MANUAL) 2 % (3-13); PLATELET COMMENT ADEQUATE; SEGMENTED NEUTROPHILS % (MAN) 96 % (42-78); TOTAL CELLS COUNTED 100
--- NOTE | 2020-04-13 18:43 | EKG REPORT ---
SEVERITY:- ABNORMAL ECG - PACEMAKER SPIKES OR ARTIFACTS SINUS RHYTHM NONSPECIFIC INTRAVENTRICULAR CONDUCTION DELAY MINIMAL ST DEPRESSION, LATERAL LEADS : Confirmed by: Jonathan Staley 13-Apr-2020 18:42:05
[2020-04-13] MEDS ORDERED: VANCOMYCIN HCL INJ 1000 MG VIAL IV ONE (18:45)
[2020-04-13] MEDS ORDERED: CEFEPIME 2 GM/D5W RTU 2 GM/50 ML RTUPB IV ONE (18:45)
[2020-04-13 18:54] LABS: ARTERIAL BLOOD BASE EXCESS -4.8 mmol/L; ARTERIAL BLOOD FIO2 ROOM AIR; ARTERIAL BLOOD H2CO3 1.46 mmol/L (1.05-1.35); ARTERIAL BLOOD HCO3 22.1 mmol/L (20-24); ARTERIAL BLOOD O2 SATURATION 85.8 % (94-98); ARTERIAL BLOOD PCO2 48.6 mmHg (35-45); ARTERIAL BLOOD PH 7.28 (7.35-7.45); ARTERIAL BLOOD TOTAL CO2 23.6 mmol/L (21-25)
--- NOTE | 2020-04-13 19:17 | RADIOLOGY REPORT (SQ) ---
EXAM DESCRIPTION: FOOT RIGHT 2 VIEWS IMAGES COMPLETED DATE/TIME: 04/13/2020 5:47 pm REASON FOR STUDY: ulceration, cellulitis COMPARISON: None. NUMBER OF VIEWS: Two views TECHNIQUE: AP and lateral radiographic images acquired of the right foot. LIMITATIONS: None. FINDINGS: MINERALIZATION: Osteopenia. BONES: No acute fracture or dislocation. No worrisome bone lesions. JOINTS: No effusions. SOFT TISSUES: Ulceration on the plantar surface forefoot. OTHER: No other significant finding. IMPRESSION: Diffuse osteopenia. No radiographic evidence of acute osteomyelitis. Ulceration at the plantar surface forefoot. If there is clinical concern for osteomyelitis, MRI or a nuclear medicine bone scan should be considered for further evaluation. TECHNICAL DOCUMENTATION: JOB ID: [id number] 2010 [employer]- All Rights Reserved Reading location - IP/workstation name: [email or web address]
--- NOTE | 2020-04-13 19:18 | RADIOLOGY REPORT (SQ) ---
EXAM DESCRIPTION: CHEST SINGLE VIEW IMAGES COMPLETED DATE/TIME: 04/13/2020 5:47 pm REASON FOR STUDY: dyspnea, weakness COMPARISON: Chest radiograph, 11/11/2019. Chest radiograph, 07/02/2019. EXAM PARAMETERS: NUMBER OF VIEWS: One view. TECHNIQUE: Single frontal radiographic view of the chest acquired. RADIATION DOSE: NA LIMITATIONS: None. FINDINGS: LUNGS AND PLEURA: Tracheal deviation to the right is stable from prior. No focal consolid ation or pleural effusion. MEDIASTINUM AND HILAR STRUCTURES: No masses. Contour normal. HEART AND VASCULAR STRUCTURES: Moderate cardiomegaly. No pulmonary vascular congestion. BONES: No acute findings. HARDWARE: None in the chest. OTHER: No other significant finding. IMPRESSION: No significant interval change. No acute cardiopulmonary disease. TECHNICAL DOCUMENTATION: JOB ID: [id number] 2010 Done.- All Rights Reserved Reading location - IP/workstation name: [email or web address]
[2020-04-13] MEDS: NORMAL SALINE 1000 ML 1,000 ML IV PRN (19:43)
[2020-04-13] MEDS ORDERED: ACETAMINOPHEN 650 MG SUPP.RECT PR PRN (21:09)
[2020-04-13] MEDS ORDERED: LORAZEPAM INJ 2 MG/1 ML VIAL IV PRN (21:09)
[2020-04-13] MEDS ORDERED: NICOTINE 21 MG/24 HR PATCH.TD24 TD PRN (21:09)
[2020-04-13] MEDS ORDERED: MEROPENEM 1 GM VIAL IV SCH (21:15)
[2020-04-13] MEDS ORDERED: GLUCAGON,HUMAN RECOMB 1 MG INJ IM PRN (21:16)
[2020-04-13] MEDS ORDERED: DEXTROSE 50%-WATER 25 GM/50 ML DISP.SYRIN IV PRN ×2 (21:16)
[2020-04-13] MEDS ORDERED: DEXTROSE 40% GEL 15 GM TUBE PO PRN ×2 (21:16)
[2020-04-13] MEDS ORDERED: MEROPENEM 1 GM VIAL IV PRN (21:30)
[2020-04-13] MEDS: PANTOPRAZOLE SODIUM 40 MG VIAL IV SCH (23:40)
[2020-04-14 00:44] LABS: CREATINE KINASE MB 4.65 ng/mL (<4.55)
[2020-04-14 00:46] LABS: TROPONIN I 0.211 ng/mL
[2020-04-14] MEDS: INSULIN REG, HUMAN 100 UNIT/ML 3 ML VIAL (PYX) SUBCUT SCH ×4 (00:56→17:21)
[2020-04-14] MEDS ORDERED: MEROPENEM 1 GM VIAL ONE (02:46)
[2020-04-14] MEDS ORDERED: LINEZOLID 600 MG/300 ML RTUPB IV ONE (02:46)
[2020-04-14] MEDS: MEROPENEM 1 GM in NORMAL SALINE 50 ML IV SCH ×4 (02:59→22:18)
[2020-04-14] MEDS: LINEZOLID 600 MG/300 ML RTUPB IV SCH ×3 (02:59→22:18)
--- NOTE | 2020-04-14 05:42 | PDOC H&P ---
History of Present Illness Admission Date/PCP: 04/13/2020 20:36 NIC KOTHARI NP Patient complains of: Right leg pain History of Present Illness: MIGUEL PALACIOS is a 69 year old female who presented to the emergency room via EMS with a 3-day history of right leg pain. The patient is lethargic and confused and as such cannot provide reliable historical input for her medical record. Her son called for the ambulance because he could not get her out of bed and admitted she had been complaining of increased pain in her right lower leg accompanied by increased redness and swelling in the right lower leg for 3 days. In the emergency room she was found to have a white blood count of 26,000 with an erythematous and edematous right lower leg and a plantar ulcer of the right foot noted. She was also found to have an acute kidney injury and a respiratory acidosis accompanying acute respiratory failure with hypoxia and hypercapnia. She was placed on BiPAP, empiric antibiotic therapy was initiated after cultures were obtained and she was subsequently admitted to the hospital for further evaluation treatment. Past Medical History Past Medical History: Due to patient's current mental status past medical history, past surgical history, social history and family history are obtained from the best available reliable source. Cardiac Medical History: Reports: Congestive Heart Failure, Coronary Artery Disease, Myocardial Infarction - HRT CATH AUG 2016 2 STENTS, Hyperlipidema, Hypertension Pulmonary Medical History: Reports: Chronic Obstructive Pulmonary Disease (COPD), Respiratory Failure Denies: Asthma EENT Medical History: Denies: Cataracts, Ears - Hearing aids Neurological Medical History: Denies: Hemorrhagic CVA, Ischemic CVA, Seizures Endocrine Medical History: Reports: Diabetes Mellitus Type 2, Hypothyroidism, Obesity Denies: Diabetes Mellitus Type 1, Hyperthyroidism Renal/ Medical History: Denies: Chronic Kidney Disease, Nephrolithiasis Malignancy Medical History: Reports: None GI Medical History: Denies: Cirrhosis, Hepatitis, Hiatal Hernia Musculoskeltal Medical History: Reports: Arthritis Denies: Gout Skin Medical History: Reports: Other - Chronic venous stasis skin changes with frequent superinfection Denies: Eczema, Psoriasis Psychiatric Medical History: Reports: Depression Denies: Alcohol Dependency, Substance Abuse, Tobacco Dependency Traumatic Medical History: Reports: None Hematology: Denies: Anemia, Sickle Cell Disease Infectious Medical History: Reports: None Past Surgical History Past Surgical History: Due to patient's current mental status past medical history, past surgical history, social history and family history are obtained from the best available reliable source. Past Surgical History: Reports: Appendectomy, Cardiac Catheterization, Section, Coronary Stent, Herniorrhaphy, Other - exploratory laparotomy 2, bowel resection Social History Information Source[facility] Lives with: Family Smoking Status: Current Some Day Smoker Electronic Cigarette use?: No Frequency of Alcohol Use: None Hx Recreational Drug Use: No Drugs: None Hx Prescription Drug Abuse: No Past Social History Note: Due to patient's current mental status past medical history, past surgical history, social history and family history are obtained from the best available reliable source. - Advance Directive Resuscitation Status: Full Code Surrogate healthcare decision maker:: Isai Palacios Family History Family History: CAD, COPD, DM, Hyperlipidemia, Hypertension Family History: Due to patient's current mental status past medical history, past surgical history, social history and family history are obtained from the best available reliable source. Parental Family History Reviewed: Yes Children Family History Reviewed: No Sibling(s) Family History Reviewed.: Yes Medication/Allergy Home Medications: Atorvastatin Calcium [Lipitor 40 mg Tablet] 40 mg PO QHS 11/11/19 Clopidogrel Bisulfate [Plavix 75 mg Tablet] 75 mg PO DAILY 11/11/19 Duloxetine HCl [Cymbalta] 60 mg PO Q12 11/11/19 Ergocalciferol (Vitamin D2) [Drisdol 50,000 unit (1.25MG) Capsule] 50,000 unit PO WE@1000 11/11/19 Furosemide [Lasix 40 mg Tablet] 40 mg PO QAM 11/11/19 Gabapentin [Neurontin 300 mg Capsule] 300 mg PO Q8 11/11/19 Levothyroxine Sodium [Synthroid 0.15 mg Tablet] 0.15 mg PO DAILY 11/11/19 Lisinopril [Prinivil 40 mg Tablet] 40 mg PO DAILY 11/11/19 Metformin HCl 500 mg PO Q12 11/11/19 Nitroglycerin [Nitrostat 0.4 mg (1/150 Gr) Tabs 25/Bottle] 1 tab SL Q5MP PRN 11/11/19 Nystatin [Mycostatin Topical Powder 15 gm] 1 applic TP QID 11/11/19 Sitagliptin Phosphate [Januvia 50 mg Tablet] 50 mg PO DAILY 11/11/19 Doxycycline Hyclate [Vibramycin 100 mg Tablet] 100 mg PO Q12 7 Days #13 tablet 11/17/19 Hydrocodone/Acetaminophen [[place] 7.5-325 mg Tablet] 1 tab PO Q8HP PRN #2 11/17/19 Metoprolol Succinate [Toprol Xl 25 mg Tab.sr] 12.5 mg PO DAILY tab.sr.24h 11/17/19 Allergies/Adverse Reactions: albuterol [Albuterol] Allergy (Intermediate, Verified 04/13/20 17:04) Sulfa (Sulfonamide Antibiotics) Allergy (Intermediate, Verified 04/13/20 17:04) codeine [Codeine] Adverse Reaction (Intermediate, Verified 04/13/20 17:04) Review of Systems ROS unobtainable: Due to mental status - Patient lethargic and confused secondary to severe sepsis Physical Exam Vital Signs: Temp Pulse Resp BP Pulse Ox 98.0 F 72 17 117/59 L 97 04/13/20 15:50 04/13/20 15:50 04/13/20 20:04 04/13/20 19:01 04/13/20 20:03 Intake & Output 04/11/20 04/12/20 04/13/20 23:59 23:59 23:59 Intake Total 50 Balance 50 Weight 106.8 kg General appearance: PRESENT: disheveled, other - Lethargic and confused, on BiPAP the time of my exam Head exam: PRESENT: atraumatic, normocephalic Eye exam: PRESENT: conjunctiva pink. ABSENT: conjunctival injection, scleral icterus Ear exam: PRESENT: normal external ear exam. ABSENT: bleeding, drainage Mouth exam: PRESENT: dry mucosa, neck supple Neck exam: ABSENT: thyromegaly, tracheal deviation Respiratory exam: PRESENT: symmetrical, other - On BiPAP at the time of exam Cardiovascular exam: PRESENT: RRR. ABSENT: clicks, gallop, rubs Pulses: PRESENT: normal carotid pulses, normal radial pulses Vascular exam: PRESENT: normal capillary refill. ABSENT: pallor GI/Abdominal exam: PRESENT: normal bowel sounds, soft Rectal exam: PRESENT: deferred Extremities exam: PRESENT: pedal edema - With erythema of the right foot, +2 edema - With erythema of the right lower extremity. ABSENT: joint swelling Musculoskeletal exam: ABSENT: deformity, dislocation Neurological exam: PRESENT: altered - Lethargic and confused, CN II-XII grossly intact Psychiatric exam: PRESENT: other - Lethargic and confused Skin exam: PRESENT: dry, erythema - Erythema and edema of the right lower extremity and foot with plantar ulcer of the right foot noted, rash - Intertriginous erythematous rash consistent with candidiasis involving all and intertriginous areas., warm, other - Decubitus changes of the sacral area stage II. ABSENT: jaundice, urticaria Results Laboratory Results: 04/13/20 17:45 04/13/20 17:45 04/13/20 04/13/20 04/13/20 16:50 17:45 17:45 WBC 26.3 H RBC 4.69 Hgb 11.9 L Hct 39.2 MCV 84 MCH 25.3 L MCHC 30.3 L RDW 17.0 H Plt Count 270 Seg Neutrophils % Not Reportable Carbonic Acid HCO3/H2CO3 Ratio ABG pH ABG pCO2 ABG pO2 ABG HCO3 ABG O2 Saturation ABG Base Excess FiO2 Sodium 135.2 L Potassium 4.2 Chloride 105 Carbon Dioxide 23 Anion Gap 7 BUN 57 H Creatinine 1.75 H Est GFR ( Amer) 35 L Glucose 105 Lactic Acid Calcium 9.7 Total Bilirubin 0.5 AST 24 Alkaline Phosphatase 112 Total Protein 6.0 L Albumin 2.8 L Urine Color GADIEL Urine Appearance SLIGHTLY-CLOUDY Urine pH 5.0 Ur Specific [place] 1.016 Urine Protein 30 H Urine Glucose (UA) NEGATIVE Urine Ketones NEGATIVE Urine Blood NEGATIVE Urine RBC (Auto) 1 04/13/20 04/13/20 18:35 18:55 WBC RBC Hgb Hct MCV MCH MCHC RDW Plt Count Seg Neutrophils % Carbonic Acid 1.46 H HCO3/H2CO3 Ratio 15:1 ABG pH 7.28 L ABG pCO2 48.6 H ABG pO2 57.0 L ABG HCO3 22.1 ABG O2 Saturation 85.8 L ABG Base Excess -4.8 FiO2 ROOM AIR Sodium Potassium Chloride Carbon Dioxide Anion Gap BUN Creatinine Est GFR ( Amer) Glucose Lactic Acid 0.9 Calcium Total Bilirubin AST Alkaline Phosphatase Total Protein Albumin Urine Color Urine Appearance Urine pH Ur Specific [place] Urine Protein Urine Glucose (UA) Urine Ketones Urine Blood Urine RBC (Auto) 04/13/20 17:45 Troponin I 0.153 Impressions: Chest X-Ray 04/13/20 17:54 IMPRESSION: No significant interval change. No acute cardiopulmonary disease. Foot X-Ray 04/13/20 17:54 IMPRESSION: Diffuse osteopenia. No radiographic evidence of acute osteomyelitis. Ulceration at the plantar surface forefoot. If there is clini izzy concern for osteomyelitis, MRI or a nuclear medicine bone scan should be considered for further evaluation. Assessment and Plan - Diagnosis (1) Cellulitis of right leg Is this a current diagnosis for this admission?: Yes (2) Severe sepsis with acute organ dysfunction Is this a current diagnosis for this admission?: Yes (3) Acute respiratory failure with hypoxia and hypercapnia Is this a current diagnosis for this admission?: Yes (4) Acute kidney injury Is this a current diagnosis for this admission?: Yes (5) Leukocytosis Qualifiers: Leukocytosis type: unspecified Qualified Code(s): D72.829 - Elevated white blood cell count, unspecified Is this a current diagnosis for this admission?: Yes (6) Elevation of cardiac enzymes Is this a current diagnosis for this admission?: Yes (7) COPD (chronic obstructive pulmonary disease) Qualifiers: COPD type: unspecified COPD Qualified Code(s): J44.9 - Chronic obstructive pulmonary disease, unspecified Is this a current diagnosis for this admission?: Yes (8) Diabetes mellitus type 2 in obese Is this a current diagnosis for this admission?: Yes (9) Hypothyroidism Qualifiers: Hypothyroidism type: unspecified Qualified Code(s): E03.9 - Hypothyroidism, unspecified Is this a current diagnosis for this admission?: Yes (10) CLYDE on CPAP Is this a current diagnosis for this admission?: Yes (11) HLD (hyperlipidemia) Qualifiers: Hyperlipidemia type: unspecified Qualified Code(s): E78.5 - Hyperlipidemia, unspecified Is this a current diagnosis for this admission?: Yes (12) HTN (hypertension) Qualifiers: Hypertension type: essential hypertension Qualified Code(s): I10 - Essential (primary) hypertension Is this a current diagnosis for this admission?: Yes (13) Chronic diastolic congestive heart failure Is this a current diagnosis for this admission?: Yes (14) Sacral decubitus ulcer, stage II Is this a current diagnosis for this admission?: Yes (15) Candidal intertrigo Is this a current diagnosis for this admission?: Yes (16) Morbid obesity Is this a current diagnosis for this admission?: Yes (17) Continuous tobacco abuse Is this a current diagnosis for this admission?: Yes - Plan Summary Summary: Patient will be admitted to telemetry where she will receive routine supportive and symptomatic cares. She will be treated with BiPAP as required to maintain adequate oxygen saturation and alleviate respiratory acidosis. She will receive IV fluids utilizing LR at 167 mL/h for the first 12 hours of therapy. She will receive IV meropenem and Zyvox empirically pending culture results. She will receive Ativan 1 mg IV every 4 hours as needed for anxiety or restlessness. She will receive morphine sulfate 2 to 4 mg IV every 2 hours as needed for pain. Serial cardiac enzymes will be obtained. CBCs, metabolic profiles, magnesium levels and additional laboratory and/or radiographic evaluations will be obtained as needed. A routine cardiology consultation will be obtained with Dr. Connor. - Time Time Spent with patient: Less than 15 minutes Medications reviewed and adjusted accordingly: Yes Anticipated discharge: SNF - Inpatient Certification Based on my medical assessment, after consideration of the patient's comorbidi ties, presenting symptoms, or acuity I expect that the services needed warrant INPATIENT care.: Yes I certify that my determination is in accordance with my understanding of Nereyda aquino's requirements for reasonable and necessary INPATIENT services [42 CFR 412.3e].: Yes Medical Necessity: Significant Comorbidiites Make Outpatient Treatment Too Risky, Need Close Monitoring Due to Risk of Patient Decompensation, Need For IV Fluids, Need For Continuous Telemetry Monitoring, Need for IV Antibiotics, Risk of Complication if Not Cared For in Hospital
[2020-04-14] MEDS: NORMAL SALINE 1000 ML 1,000 ML IV PRN (06:51)
[2020-04-14 07:12] LABS: HEMOGLOBIN 10.9 g/dL (12.0-15.5)
[2020-04-14 07:19] LABS: HEMATOCRIT 34.9 % (36.0-47.0); MEAN CORPUSCULAR HEMOGLOBIN 25.3 pg (27.0-33.4); MEAN CORPUSCULAR HGB CONC 31.3 g/dL (32.0-36.0); MEAN CORPUSCULAR VOLUME 81 fl (80-97); PLATELET COUNT 244 10^3/uL (150-450); RED BLOOD COUNT 4.31 10^6/uL (3.72-5.28); RED CELL DISTRIBUTION WIDTH 16.4 % (11.5-14.0); WHITE BLOOD COUNT 18.1 10^3/uL (4.0-10.5)
[2020-04-14 07:37] LABS: ANION GAP 8 (5-19); BLOOD UREA NITROGEN 56 mg/dL (7-20); CALCIUM 9.2 mg/dL (8.4-10.2); CARBON DIOXIDE 20 mmol/L (22-30); CHLORIDE 107 mmol/L (98-107); GLUCOSE 105 mg/dL (75-110); POTASSIUM 3.7 mmol/L (3.6-5.0)
[2020-04-14 07:46] LABS: CREATINE KINASE MB 3.48 ng/mL (<4.55); TROPONIN I 0.209 ng/mL
[2020-04-14 09:14] LABS: ARTERIAL BLOOD BASE EXCESS -8.1 mmol/L; ARTERIAL BLOOD H2CO3 1.23 mmol/L (1.05-1.35); ARTERIAL BLOOD HCO3 18.4 mmol/L (20-24); ARTERIAL BLOOD O2 SATURATION 94.5 % (94-98); ARTERIAL BLOOD PH 7.27 (7.35-7.45); ARTERIAL BLOOD PO2 80.9 mmHg (80-100); ARTERIAL BLOOD TOTAL CO2 19.6 mmol/L (21-25)
[2020-04-14 09:17] LABS: ARTERIAL BLOOD FIO2 25%
[2020-04-14] MEDS: PANTOPRAZOLE SODIUM 40 MG VIAL IV SCH ×2 (10:43→22:19)
[2020-04-14] MEDS: NYSTATIN TOPICAL POWDER 15 GM TP SCH ×2 (10:45→17:22)
--- NOTE | 2020-04-14 11:23 | PDOC CONSULTATION ---
Consultation Consult Date: 04/14/20 Attending physician:: TIN CURIEL Provider Consulted: BEN BANUELOS Consult reason:: Elevated Troponin History of Present Illness Admission Date/PCP: 04/13/20 20:58 NIC KOTHARI NP Patient complains of: No complaints History of Present Illness: MIGUEL ROBB is a 69 year old female admitted with cellulitis and leukocytosis. Had respiratory failure and was started on IV antibiotics. No mention of CAD. Unable to obtain any history or ROS. No family present. History per chart and input from RN Mildly increased Troponins noted. Past Medical History Cardiac Medical History: Reports: Congestive Heart Failure, Coronary Artery Disease, Myocardial Infarction - HRT CATH AUG 2016 2 STENTS, Hyperlipidema, Hypertension Pulmonary Medical History: Reports: Chronic Obstructive Pulmonary Disease (COPD), Respiratory Failure Denies: Asthma EENT Medical History: Denies: Cataracts, Ears - Hearing aids Neurological Medical History: Denies: Hemorrhagic CVA, Ischemic CVA, Seizures Endocrine Medical History: Reports: Diabetes Mellitus Type 2, Hypothyroidism, Obesity Denies: Diabetes Mellitus Type 1, Hyperthyroidism Renal/ Medical History: Denies: Chronic Kidney Disease, Nephrolithiasis Malignancy Medical History: Reports: None GI Medical History: Denies: Cirrhosis, Hepatitis, Hiatal Hernia Musculoskeltal Medical History: Reports: Arthritis Denies: Gout Skin Medical History: Reports: Other - Chronic venous stasis skin changes with frequent superinfection Denies: Eczema, Psoriasis Psychiatric Medical History: Reports: Depression Denies: Alcohol Dependency, Substance Abuse, Tobacco Dependency Traumatic Medical History: Reports: None Hematology: Denies: Anemia, Sickle Cell Disease Infectious Medical History: Reports: None Past Surgical History Past Surgical History: Reports: Appendectomy, Cardiac Catheterization, Section, Coronary Stent, Herniorrhaphy, Other - exploratory laparotomy 2, bowel resection Denies: Amputation, Hysterectomy, Mastectomy, Pacemaker Social History Lives with: Family Smoking Status: Current Some Day Smoker Electronic Cigarette use?: No Frequency of Alcohol Use: None Hx Recreational Drug Use: No Drugs: None Hx Prescription Drug Abuse: No - Advance Directive Resuscitation Status: Full Code Family History Family History: CAD, COPD, DM, Hyperlipidemia, Hypertension Parental Family History Reviewed: No - Unable to obtain Children Family History Reviewed: NA Sibling(s) Family History Reviewed.: NA Medication/Allergy Home Medications: Atorvastatin Calcium [Lipitor 40 mg Tablet] 40 mg PO QHS 11/11/19 Clopidogrel Bisulfate [Plavix 75 mg Tablet] 75 mg PO DAILY 11/11/19 Duloxetine HCl [Cymbalta] 60 mg PO Q12 11/11/19 Ergocalciferol (Vitamin D2) [Drisdol 50,000 unit (1.25MG) Capsule] 50,000 unit PO WE@1000 11/11/19 Furosemide [Lasix 40 mg Tablet] 40 mg PO QAM 11/11/19 Gabapentin [Neurontin 300 mg Capsule] 600 mg PO Q8 11/11/19 Nitroglycerin [Nitrostat 0.4 mg (1/150 Gr) Tabs 25/Bottle] 1 tab SL Q5MP PRN 11/11/19 Sitagliptin Phosphate [Januvia 50 mg Tablet] 100 mg PO WLUNCH 11/11/19 Levothyroxine Sodium [Levo-T] 137 mcg PO Q6AM 04/14/20 Lisinopril [Zestril] 20 mg PO DAILY 04/14/20 Metoprolol Succinate [Toprol Xl 25 mg Tab.sr] 25 mg PO DAILY 04/14/20 Allergies/Adverse Reactions: albuterol [Albuterol] Allergy (Intermediate, Verified 04/13/20 17:04) Sulfa (Sulfonamide Antibiotics) Allergy (Intermediate, Verified 04/13/20 17:04) codeine [Codeine] Adverse Reaction (Intermediate, Verified 04/13/20 17:04) Review of Systems ROS unobtainable: Due to mental status Physical Exam Vital Signs: Temp Pulse Resp BP Pulse Ox 97.9 F 58 L 20 85/63 L 96 04/14/20 03:43 04/14/20 07:57 04/14/20 08:44 04/14/20 03:43 04/14/20 03:43 Intake & Output 04/13/20 04/14/20 04/15/20 06:59 06:59 06:59 Intake Total 1350 Balance 1350 Weight 107.7 kg General appearance: PRESENT: no acute distress, obese, well-developed, well- nourished Head exam: PRESENT: atraumatic, normocephalic Mouth exam: PRESENT: moist Respiratory exam: PRESENT: decreased breath sounds, prolonged expiratory phas, symmetrical, unlabored Cardiovascular exam: PRESENT: RRR, +S1, +S2 Pulses: PRESENT: normal radial pulses GI/Abdominal exam: PRESENT: soft Rectal exam: PRESENT: deferred Neurological exam: PRESENT: altered Skin exam: PRESENT: erythema - RLE Results Laboratory Results: 04/14/20 06:59 04/14/20 06:59 04/13/20 04/13/20 04/13/20 16:50 17:45 17:45 WBC 26.3 H RBC 4.69 Hgb 11.9 L Hct 39.2 MCV 84 MCH 25.3 L MCHC 30.3 L RDW 17.0 H Plt Count 270 Seg Neutrophils % Not Reportable Carbonic Acid HCO3/H2CO3 Ratio ABG pH ABG pCO2 ABG pO2 ABG HCO3 ABG O2 Saturation ABG Base Excess FiO2 Sodium 135.2 L Potassium 4.2 Chloride 105 Carbon Dioxide 23 Anion Gap 7 BUN 57 H Creatinine 1.75 H Est GFR ( Amer) 35 L Glucose 105 Lactic Acid Calcium 9.7 Magnesium Total Bilirubin 0.5 AST 24 Alkaline Phosphatase 112 Total Protein 6.0 L Albumin 2.8 L TSH Free T3 pg/mL Urine Color GADIEL Urine Appearance SLIGHTLY-CLOUDY Urine pH 5.0 Ur Specific [place] 1.016 Urine Protein 30 H Urine Glucose (UA) NEGATIVE Urine Ketones NEGATIVE Urine Blood NEGATIVE Urine RBC (Auto) 1 04/13/20 04/13/20 04/13/20 17:45 18:35 18:55 WBC RBC Hgb Hct MCV MCH MCHC RDW Plt Count Seg Neutrophils % Carbonic Acid 1.46 H HCO3/H2CO3 Ratio 15:1 ABG pH 7.28 L ABG pCO2 48.6 H ABG pO2 57.0 L ABG HCO3 22.1 ABG O2 Saturation 85.8 L ABG Base Excess -4.8 FiO2 ROOM AIR Sodium Potassium Chloride Carbon Dioxide Anion Gap BUN Creatinine Est GFR ( Amer) Glucose Lactic Acid 0.9 Calcium Magnesium Total Bilirubin AST Alkaline Phosphatase Total Protein Albumin TSH Free T3 pg/mL 1.41 L Urine Color Urine Appearance Urine pH Ur Specific [place] Urine Protein Urine Glucose (UA) Urine Ketones Urine Blood Urine RBC (Auto) 04/13/20 04/14/20 04/14/20 20:40 01:43 06:59 WBC RBC Hgb Hct MCV MCH MCHC RDW Plt Count Seg Neutrophils % Carbonic Acid HCO3/H2CO3 Ratio ABG pH ABG pCO2 ABG pO2 ABG HCO3 ABG O2 Saturation ABG Base Excess FiO2 Sodium Potassium Chloride Carbon Dioxide Anion Gap BUN Creatinine Est GFR ( Amer) Glucose Lactic Acid 0.6 L 0.6 L 0.6 L Calcium Magnesium Total Bilirubin AST Alkaline Phosphatase Total Protein Albumin TSH Free T3 pg/mL Urine Color Urine Appearance Urine pH Ur Specific [place] Urine Protein Urine Glucose (UA) Urine Ketones Urine Blood Urine RBC (Auto) 04/14/20 04/14/20 04/14/20 06:59 06:59 06:59 WBC 18.1 H RBC 4.31 Hgb 10.9 L Hct 34.9 L MCV 81 MCH 25.3 L MCHC 31.3 L RDW 16.4 H Plt Count 244 Seg Neutrophils % Carbonic Acid HCO3/H2CO3 Ratio ABG pH ABG pCO2 ABG pO2 ABG HCO3 ABG O2 Saturation ABG Base Excess FiO2 Sodium 134.7 L Potassium 3.7 Chloride 107 Carbon Dioxide 20 L Anion Gap 8 BUN 56 H Creatinine 1.37 H Est GFR ( Amer) 46 L Glucose 105 Lactic Acid Calcium 9.2 Magnesium 2.0 Total Bilirubin AST Alkaline Phosphatase Total Protein Albumin TSH 0.56 Free T3 pg/mL Urine Color Urine Appearance Urine pH Ur Specific [place] Urine Protein Urine Glucose (UA) Urine Ketones Urine Blood Urine RBC (Auto) 04/14/20 04/14/20 09:00 09:56 WBC RBC Hgb Hct MCV MCH MCHC RDW Plt Count Seg Neutrophils % Carbonic Acid 1.23 HCO3/H2CO3 Ratio 14:1 ABG pH 7.27 L ABG pCO2 41.0 ABG pO2 80.9 ABG HCO3 18.4 L ABG O2 Saturation 94.5 ABG Base Excess -8.1 FiO2 25% Sodium Potassium Chloride Carbon Dioxide Anion Gap BUN Creatinine Est GFR ( Amer) Glucose Lactic Acid 0.5 L Calcium Magnesium Total Bilirubin AST Alkaline Phosphatase Total Protein Albumin TSH Free T3 pg/mL Urine Color Urine Appearance Urine pH Ur Specific [place] Urine Protein Urine Glucose (UA) Urine Ketones Urine Blood Urine RBC (Auto) 04/13/20 04/13/20 04/13/20 17:45 23:55 23:55 Creatine Kinase 108 CK-MB (CK-2) 4.65 H Troponin I 0.153 0.211 04/14/20 04/14/20 06:59 06:59 Creatine Kinase 83 CK-MB (CK-2) 3.48 Troponin I 0.209 Impressions: Chest X-Ray 04/13/20 17:54 IMPRESSION: No significant interval change. No acute cardiopulmonary disease. Foot X-Ray 04/13/20 17:54 IMPRESSION: Diffuse osteopenia. No radiographic evidence of acute osteomyelitis. Ulceration at the plantar surface forefoot. If there is clinical concern for osteomyelitis, MRI or a nuclear medicine bone scan should be considered for further evaluation. Assessment & Plan - Diagnosis (1) Non-STEMI (non-ST elevated myocardial infarction) Is this a current diagnosis for this admission?: Yes Plan: Mildy elevated indeterminate troponin in setting of Cellulitis Right lower extremity Unlikely to be ACS Treat underlying infection No ischemic symptoms EKG is non -diagnostic for myocardial ischemia (2) CLYDE on CPAP Is this a current diagnosis for this admission?: Yes Plan: Supportive care BIPAP (3) Cellulitis of right leg Is this a current diagnosis for this admission?: Yes Plan: IV Antibiotics - Notes Notes: Treatment of cellulitis now Troponin increased in setting of infection
[2020-04-14 13:10] LABS: CREATINE KINASE MB 3.17 ng/mL (<4.55)
[2020-04-14 13:14] LABS: TROPONIN I 0.214 ng/mL
[2020-04-14] MEDS: MORPHINE SULFATE 10 MG/ML INJ IV PRN (16:08)
--- NOTE | 2020-04-14 16:33 | PDOC PROGRESS REPORT ---
Subjective Progress Note for:: 04/14/20 Subjective:: No adverse events overnight. No new complaints. Vital signs been stable. Blood pressures were low but have improved a little bit throughout the day. No fevers. Reason For Visit: SEVERE SEPSIS WITHOUT SHOCK,CELLULITIS RIGHT LOWER Physical Exam Vital Signs: Temp Pulse Resp BP Pulse Ox 97.9 F 58 L 20 85/63 L 96 04/14/20 03:43 04/14/20 07:57 04/14/20 08:44 04/14/20 03:43 04/14/20 03:43 Intake & Output 04/13/20 04/14/20 04/15/20 06:59 06:59 06:59 Intake Total 1350 Balance 1350 Weight 107.7 kg General appearance: PRESENT: disheveled, mild distress, morbidly obese Respiratory exam: PRESENT: clear to auscultation [place], symmetrical, unlabored. ABSENT: accessory muscle use, chest wall tenderness, crackles, prolonged expiratory phas, rhonchi, tachypnea, wheezes Cardiovascular exam: PRESENT: RRR, +S1, +S2 Pulses: PRESENT: normal carotid pulses Vascular exam: PRESENT: normal capillary refill GI/Abdominal exam: PRESENT: normal bowel sounds, soft. ABSENT: distended, guarding, rebound, tenderness Extremities exam: PRESENT: pedal edema, +2 edema. ABSENT: clubbing Musculoskeletal exam: PRESENT: normal inspection. ABSENT: deformity Neurological exam: PRESENT: awake, oriented to person, oriented to place Psychiatric exam: PRESENT: agitated Skin exam: PRESENT: dry, erythema - Right leg, warm Results Laboratory Results: 04/14/20 06:59 04/14/20 06:59 04/13/20 04/13/20 04/13/20 16:50 17:45 17:45 WBC 26.3 H RBC 4.69 Hgb 11.9 L Hct 39.2 MCV 84 MCH 25.3 L MCHC 30.3 L RDW 17.0 H Plt Count 270 Seg Neutrophils % Not Reportable Carbonic Acid HCO3/H2CO3 Ratio ABG pH ABG pCO2 ABG pO2 ABG HCO3 ABG O2 Saturation ABG Base Excess FiO2 Sodium 135.2 L Potassium 4.2 Chloride 105 Carbon Dioxide 23 Anion Gap 7 BUN 57 H Creatinine 1.75 H Est GFR ( Amer) 35 L Glucose 105 Lactic Acid Calcium 9.7 Magnesium Total Bilirubin 0.5 AST 24 Alkaline Phosphatase 112 Total Protein 6.0 L Albumin 2.8 L TSH Free T3 pg/mL Urine Color GADIEL Urine Appearance SLIGHTLY-CLOUDY Urine pH 5.0 Ur Specific Milo 1.016 Urine Protein 30 H Urine Glucose (UA) NEGATIVE Urine Ketones NEGATIVE Urine Blood NEGATIVE Urine RBC (Auto) 1 04/13/20 04/13/20 04/13/20 17:45 18:35 18:55 WBC RBC Hgb Hct MCV MCH MCHC RDW Plt Count Seg Neutrophils % Carbonic Acid 1.46 H HCO3/H2CO3 Ratio 15:1 ABG pH 7.28 L ABG pCO2 48.6 H ABG pO2 57.0 L ABG HCO3 22.1 ABG O2 Saturation 85.8 L ABG Base Excess -4.8 FiO2 ROOM AIR Sodium Potassium Chloride Carbon Dioxide Anion Gap BUN Creatinine Est GFR ( Amer) Glucose Lactic Acid 0.9 Calcium Magnesium Total Bilirubin AST Alkaline Phosphatase Total Protein Albumin TSH Free T3 pg/mL 1.41 L Urine Color Urine Appearance Urine pH Ur Specific Milo Urine Protein Urine Glucose (UA) Urine Ketones Urine Blood Urine RBC (Auto) 04/13/20 04/14/20 04/14/20 20:40 01:43 06:59 WBC RBC Hgb Hct MCV MCH MCHC RDW Plt Count Seg Neutrophils % Carbonic Acid HCO3/H2CO3 Ratio ABG pH ABG pCO2 ABG pO2 ABG HCO3 ABG O2 Saturation ABG Base Excess FiO2 Sodium Potassium Chloride Carbon Dioxide Anion Gap BUN Creatinine Est GFR ( Amer) Glucose Lactic Acid 0.6 L 0.6 L 0.6 L Calcium Magnesium Total Bilirubin AST Alkaline Phosphatase Total Protein Albumin TSH Free T3 pg/mL Urine Color Urine Appearance Urine pH Ur Specific Mil[place] Urine Protein Urine Glucose (UA) Urine Ketones Urine Blood Urine RBC (Auto) 04/14/20 04/14/20 04/14/20 06:59 06:59 06:59 WBC 18.1 H RBC 4.31 Hgb 10.9 L Hct 34.9 L MCV 81 MCH 25.3 L MCHC 31.3 L RDW 16.4 H Plt Count 244 Seg Neutrophils % Carbonic Acid HCO3/H2CO3 Ratio ABG pH ABG pCO2 ABG pO2 ABG HCO3 ABG O2 Saturation ABG Base Excess FiO2 Sodium 134.7 L Potassium 3.7 Chloride 107 Carbon Dioxide 20 L Anion Gap 8 BUN 56 H Creatinine 1.37 H Est GFR ( Amer) 46 L Glucose 105 Lactic Acid Calcium 9.2 Magnesium 2.0 Total Bilirubin AST Alkaline Phosphatase Total Protein Albumin TSH 0.56 Free T3 pg/mL Urine Color Urine Appearance Urine pH Ur Specific Milo Urine Protein Urine Glucose (UA) Urine Ketones Urine Blood Urine RBC (Auto) 04/14/20 04/14/20 09:00 09:56 WBC RBC Hgb Hct MCV MCH MCHC RDW Plt Count Seg Neutrophils % Carbonic Acid 1.23 HCO3/H2CO3 Ratio 14:1 ABG pH 7.27 L ABG pCO2 41.0 ABG pO2 80.9 ABG HCO3 18.4 L ABG O2 Saturation 94.5 ABG Base Excess -8.1 FiO2 25% Sodium Potassium Chloride Carbon Dioxide Anion Gap BUN Creatinine Est GFR ( Amer) Glucose Lactic Acid 0.5 L Calcium Magnesium Total Bilirubin AST Alkaline Phosphatase Total Protein Albumin TSH Free T3 pg/mL Urine Color Urine Appearance Urine pH Ur Specific Mil[place] Urine Protein Urine Glucose (UA) Urine Ketones Urine Blood Urine RBC (Auto) 04/13/20 16:50 Clean Catch Midstream Urine Culture - Final 2,000 col/ml 04/13/20 04/13/20 04/13/20 17:45 23:55 23:55 Creatine Kinase 108 CK-MB (CK-2) 4.65 H Troponin I 0.153 0.211 04/14/20 04/14/20 04/14/20 06:59 06:59 12:16 Creatine Kinase 83 65 CK-MB (CK-2) 3.48 Troponin I 0.209 04/14/20 12:16 Creatine Kinase CK-MB (CK-2) 3.17 Troponin I 0.214 Impressions: Chest X-Ray 04/13/20 17:54 IMPRESSION: No significant interval change. No acute cardiopulmonary disease. Foot X-Ray 04/13/20 17:54 IMPRESSION: Diffuse osteopenia. No radiographic evidence of acute osteomyelitis. Ulceration at the plantar surface forefoot. If there is clinical concern for osteomyelitis, MRI or a nuclear medicine bone scan should be considered for further evaluation. Assessment and Plan - Diagnosis (1) Acute kidney injury Is this a current diagnosis for this admission?: Yes Plan: Responding to IV fluids, monitoring urine output and electrolytes (2) Acute respiratory failure with hypoxia and hypercapnia Is this a current diagnosis for this admission?: Yes Plan: Currently stable on 1.5 L per nasal cannula (3) Candidal intertrigo Is this a current diagnosis for this admission?: Yes Plan: Topical nystatin powder (4) Cellulitis of right leg Is this a current diagnosis for this admission?: Yes Plan: Currently on Zyvox and meropenem. Blood culture turned positive for coagulase- negative Staphylococcus. Likely contaminant. Continue to monitor. (5) Chronic diastolic congestive heart failure Is this a current diagnosis for this admission?: Yes Plan: Monitoring her blood pressure. Not acutely exacerbated. (6) Elevation of cardiac enzymes Is this a current diagnosis for this admission?: Yes Plan: She has extensive coronary atherosclerosis. No chest pain. Likely as a result of her sepsis. Seen by cardiology. No further work-up indicated at this time. Continues on telemetry. (7) Sacral decubitus ulcer, stage II Is this a current diagnosis for this admission?: Yes Plan: Local wound care (8) Sepsis Qualifiers: Sepsis type: sepsis due to unspecified organism Sepsis acute organ dysfunction status: with acute organ dysfunction Severe sepsis acute organ dysfunction type: acute renal failure Acute renal failure type: unspecified Severe sepsis shock status: without septic shock Qualified Code(s): A41.9 - Sepsis, unspecified organism; R65.20 - Severe sepsis without septic shock; N17.9 - Acute kidney failure, unspecified Is this a current diagnosis for this admission?: Yes Plan: Antibiotics and IV fluids as previously noted. Renal function is improving. - Plan Summary Summary: Patient will be admitted to telemetry where she will receive routine supportive and symptomatic cares. She will be treated with BiPAP as required to maintain adequate oxygen saturation and alleviate respiratory acidosis. She will receive IV fluids utilizing LR at 167 mL/h for the first 12 hours of therapy. She will receive IV meropenem and Zyvox empirically pending culture results. She will receive Ativan 1 mg IV every 4 hours as needed for anxiety or restlessness. She will receive morphine sulfate 2 to 4 mg IV every 2 hours as needed for pain. Serial cardiac enzymes will be obtained. CBCs, metabolic profiles, magnesium levels and additional laboratory and/or radiographic evaluations will be obtained as needed. A routine cardiology consultation will be obtained with Dr. Connor. - Time Time Spent with patient: 25-34 minutes
[2020-04-15] MEDS: MORPHINE SULFATE 10 MG/ML INJ IV PRN (03:15)
[2020-04-15 06:41] LABS: HEMATOCRIT 35.3 % (36.0-47.0); HEMOGLOBIN 11.1 g/dL (12.0-15.5); MEAN CORPUSCULAR HEMOGLOBIN 25.3 pg (27.0-33.4); MEAN CORPUSCULAR HGB CONC 31.5 g/dL (32.0-36.0); MEAN CORPUSCULAR VOLUME 80 fl (80-97); PLATELET COUNT 247 10^3/uL (150-450); WHITE BLOOD COUNT 12.2 10^3/uL (4.0-10.5)
[2020-04-15 07:07] LABS: CALCIUM 9.9 mg/dL (8.4-10.2); CARBON DIOXIDE 23 mmol/L (22-30); GLUCOSE 137 mg/dL (75-110); POTASSIUM 3.9 mmol/L (3.6-5.0)
[2020-04-15 07:12] LABS: ANION GAP 5 (5-19); CHLORIDE 109 mmol/L (98-107)
[2020-04-15 07:18] LABS: BLOOD UREA NITROGEN 35 mg/dL (7-20)
[2020-04-15] MEDS: INSULIN REG, HUMAN 100 UNIT/ML 3 ML VIAL (PYX) SUBCUT SCH ×4 (08:33→22:20)
[2020-04-15] MEDS: MEROPENEM 1 GM in NORMAL SALINE 50 ML IV SCH ×2 (10:11→21:30)
[2020-04-15] MEDS: PANTOPRAZOLE SODIUM 40 MG VIAL IV SCH ×2 (10:12→21:27)
[2020-04-15] MEDS: NYSTATIN TOPICAL POWDER 15 GM TP SCH ×2 (10:49→21:26)
[2020-04-15] MEDS: LINEZOLID 600 MG/300 ML RTUPB IV SCH ×2 (11:04→21:30)
--- NOTE | 2020-04-15 13:02 | PDOC PROGRESS REPORT ---
Subjective Progress Note for:: 04/15/20 Subjective:: Patient is a bit more awake and talkative today. She is having her breakfast. Endorses left lower extremity especially knee pain. Presently receiving antibiotics for right lower extremity cellulitis. No chest pain is reported no dyspnea is reported Reason For Visit: SEVERE SEPSIS WITHOUT SHOCK,CELLULITIS RIGHT LOWER Physical Exam Vital Signs: Temp Pulse Resp BP Pulse Ox 98.1 F 57 L 16 142/57 H 97 04/15/20 07:56 04/15/20 07:56 04/15/20 07:56 04/15/20 07:56 04/15/20 07:56 Intake & Output 04/14/20 04/15/20 04/16/20 06:59 06:59 06:59 Intake Total 1350 1304 Output Total 3000 Balance 1350 -1696 Weight 107.7 kg 109.7 kg General appearance: PRESENT: no acute distress, cooperative, obese, well-deve loped, well-nourished Eye exam: PRESENT: conjunctiva pink, EOMI Mouth exam: PRESENT: moist Respiratory exam: PRESENT: decreased breath sounds, symmetrical, unlabored Cardiovascular exam: PRESENT: RRR, +S1, +S2 Pulses: PRESENT: normal radial pulses GI/Abdominal exam: PRESENT: soft Rectal exam: PRESENT: deferred Extremities exam: PRESENT: other - Right lower extremity is erythematous but appears to be mildly better. Skin is shiny. Neurological exam: PRESENT: alert, awake Psychiatric exam: PRESENT: appropriate affect Skin exam: PRESENT: dry, intact Results Laboratory Results: 04/15/20 05:56 04/15/20 05:56 04/14/20 04/15/20 04/15/20 09:56 05:56 05:56 WBC 12.2 H RBC 4.40 Hgb 11.1 L Hct 35.3 L MCV 80 MCH 25.3 L MCHC 31.5 L RDW 16.0 H Plt Count 247 Sodium 136.9 L Potassium 3.9 Chloride 109 H Carbon Dioxide 23 Anion Gap 5 BUN 35 H D Creatinine 0.85 Est GFR ( Amer) > 60 Glucose 137 H Lactic Acid 0.5 L Calcium 9.9 Magnesium 2.2 04/13/20 18:55 Blood Blood Culture (PCR) - Final Staphylococcus Species 04/13/20 17:55 Blood Blood Culture (PCR) - Final Staphylococcus Species 04/13/20 16:50 Clean Catch Midstream Urine Culture - Final 2,000 col/ml 04/13/20 04/13/20 04/13/20 17:45 23:55 23:55 Creatine Kinase 108 CK-MB (CK-2) 4.65 H Troponin I 0.153 0.211 04/14/20 04/14/20 04/14/20 06:59 06:59 12:16 Creatine Kinase 83 65 CK-MB (CK-2) 3.48 Troponin I 0.209 04/14/20 12:16 Creatine Kinase CK-MB (CK-2) 3.17 Troponin I 0.214 Impressions: Chest X-Ray 04/13/20 17:54 IMPRESSION: No significant interval change. No acute cardiopulmonary disease. Foot X-Ray 04/13/20 17:54 IMPRESSION: Diffuse osteopenia. No radiographic evidence of acute osteomyelitis. Ulceration at the plantar surface forefoot. If there is cli nical concern for osteomyelitis, MRI or a nuclear medicine bone scan should be considered for further evaluation. Assessment & Plan - Diagnosis (1) Non-STEMI (non-ST elevated myocardial infarction) Is this a current diagnosis for this admission?: Yes Plan: Non-ST segment elevation myocardial infarction. Elevated troponins in the setting of cellulitis and infection. Unlikely due to acute coronary syndrome Supportive medical care with aspirin statin and beta-blockers as feasible Would not pursue re-stratification at this time. Twelve-lead EKG shows sinus rhythm with no convincing evidence for myocardial ischemia or infarction (2) CLYDE on CPAP Is this a current diagnosis for this admission?: Yes Plan: Continue supportive care for obstructive sleep apnea (3) Cellulitis of right leg Is this a current diagnosis for this admission?: Yes Plan: Appears to be improving Continue intravenous antibiotics
--- NOTE | 2020-04-15 17:23 | PDOC PROGRESS REPORT ---
Subjective Progress Note for:: 04/15/20 Subjective:: No adverse events overnight. No new complaints. She is more awake and alert today. She says she is feeling better. No fevers. Appetite is improving. Reason For Visit: SEVERE SEPSIS WITHOUT SHOCK,CELLULITIS RIGHT LOWER Physical Exam Vital Signs: Temp Pulse Resp BP Pulse Ox 98.2 F 63 16 154/77 H 92 04/15/20 11:59 04/15/20 14:00 04/15/20 11:59 04/15/20 11:59 04/15/20 11:59 Intake & Output 04/14/20 04/15/20 04/16/20 06:59 06:59 06:59 Intake Total 1350 1304 1418 Output Total 3000 600 Balance 1350 -1696 818 Weight 107.7 kg 109.7 kg General appearance: PRESENT: disheveled, no apparent distress, morbidly obese Respiratory exam: PRESENT: clear to auscultation [place], symmetrical, unlabored. ABSENT: accessory muscle use, chest wall tenderness, crackles, prolonged expiratory phas, rhonchi, tachypnea, wheezes Cardiovascular exam: PRESENT: RRR, +S1, +S2 Pulses: PRESENT: normal carotid pulses Vascular exam: PRESENT: normal capillary refill GI/Abdominal exam: PRESENT: normal bowel sounds, soft. ABSENT: distended, guarding, rebound, tenderness Extremities exam: PRESENT: pedal edema, +2 edema. ABSENT: clubbing Musculoskeletal exam: PRESENT: normal inspection. ABSENT: deformity Neurological exam: PRESENT: awake, oriented to person, oriented to place Psychiatric exam: PRESENT: Appropriate affect, normal mood Skin exam: PRESENT: dry, erythema - Right leg shows diminishing erythema compared to prior exam, warm Results Laboratory Results: 04/15/20 05:56 04/15/20 05:56 04/15/20 04/15/20 05:56 05:56 WBC 12.2 H RBC 4.40 Hgb 11.1 L Hct 35.3 L MCV 80 MCH 25.3 L MCHC 31.5 L RDW 16.0 H Plt Count 247 Sodium 136.9 L Potassium 3.9 Chloride 109 H Carbon Dioxide 23 Anion Gap 5 BUN 35 H D Creatinine 0.85 Est GFR ( Amer) > 60 Glucose 137 H Calcium 9.9 Magnesium 2.2 04/13/20 18:55 Blood Blood Culture (PCR) - Final Staphylococcus Species 04/13/20 17:55 Blood Blood Culture (PCR) - Final Staphylococcus Species 04/13/20 04/13/20 04/13/20 17:45 23:55 23:55 Creatine Kinase 108 CK-MB (CK-2) 4.65 H Troponin I 0.153 0.211 04/14/20 04/14/20 04/14/20 06:59 06:59 12:16 Creatine Kinase 83 65 CK-MB (CK-2) 3.48 Troponin I 0.209 04/14/20 12:16 Creatine Kinase CK-MB (CK-2) 3.17 Troponin I 0.214 Impressions: Chest X-Ray 04/13/20 17:54 IMPRESSION: No significant interval change. No acute cardiopulmonary disease. Foot X-Ray 04/13/20 17:54 IMPRESSION: Diffuse osteopenia. No radiographic evidence of acute os teomyelitis. Ulceration at the plantar surface forefoot. If there is clinical concern for osteomyelitis, MRI or a nuclear medicine bone scan should be considered for further evaluation. Assessment and Plan - Diagnosis (1) Acute kidney injury Is this a current diagnosis for this admission?: Yes Plan: Resolved. Still a little bit dry so fluids are continued. (2) Acute respiratory failure with hypoxia and hypercapnia Is this a current diagnosis for this admission?: Yes Plan: Currently stable on 1.5 L per nasal cannula (3) Candidal intertrigo Is this a current diagnosis for this admission?: Yes Plan: Topical nystatin powder (4) Cellulitis of right leg Is this a current diagnosis for this admission?: Yes Plan: Currently on Zyvox and meropenem. Erythema has improved. Both blood cultures are now positive for coagulase-negative Staphylococcus. (5) Chronic diastolic congestive heart failure Is this a current diagnosis for this admission?: Yes Plan: Monitoring her blood pressure. Not acutely exacerbated. (6) Elevation of cardiac enzymes Is this a current diagnosis for this admission?: Yes Plan: She has extensive coronary atherosclerosis. No chest pain. Likely as a result of her sepsis. Seen by cardiology. No further work-up indicated at this time. Continues on telemetry. (7) Sacral decubitus ulcer, stage II Is this a current diagnosis for this admission?: Yes Plan: Local wound care (8) Sepsis Qualifiers: Sepsis type: sepsis due to unspecified organism Sepsis acute organ dysfunction status: with acute organ dysfunction Severe sepsis acute organ dysfunction type: acute renal failure Acute renal failure type: unspecified Severe sepsis shock status: without septic shock Qualified Code(s): A41.9 - Sepsis, unspecified organism; R65.20 - Severe sepsis without septic shock; N17.9 - Acute kidney failure, unspecified Is this a current diagnosis for this admission?: Yes Plan: Antibiotics and IV fluids as previously noted. Renal function is improving. (9) Bacteremia due to coagulase-negative Staphylococcus Is this a current diagnosis for this admission?: Yes Plan: Both blood cultures have turned positive. She is currently on Zyvox and cj penem. A ADY has been scheduled. - Plan Summary Summary: Patient will be admitted to telemetry where she will receive routine supportive and symptomatic cares. She will be treated with BiPAP as required to maintain adequate oxygen saturation and alleviate respiratory acidosis. She will receive IV fluids utilizing LR at 167 mL/h for the first 12 hours of therapy. She will receive IV meropenem and Zyvox empirically pending culture results. She will receive Ativan 1 mg IV every 4 hours as needed for anxiety or restlessness. She will receive morphine sulfate 2 to 4 mg IV every 2 hours as needed for pain. Serial cardiac enzymes will be obtained. CBCs, metabolic profiles, magnesium levels and additional laboratory and/or radiographic evaluations will be obtained as needed. A routine cardiology consultation will be obtained with Dr. Connor. - Time Time Spent with patient: 25-34 minutes
[2020-04-15] MEDS ORDERED: NITROGLYCERIN 0.4 MG/TAB 25 TAB/BOTTLE SL PRN (17:31)
[2020-04-15] MEDS: HYDRALAZINE HCL INJ/PF 20 MG/1 ML SDV IV PRN (18:19)
[2020-04-15] MEDS: GABAPENTIN 300 MG CAPSULE PO SCH (21:27)
[2020-04-15] MEDS: ATORVASTATIN CALCIUM 40 MG TABLET PO SCH (21:27)
[2020-04-15] MEDS ORDERED: DULOXETINE HCL 30 MG CAPSULE.DR PO SCH (22:00)
[2020-04-15] MEDS ORDERED: DIGOXIN INJ 0.5 MG/2 ML AMPULE IV ONE (22:00)
--- NOTE | 2020-04-16 02:28 | EKG REPORT ---
SEVERITY:- ABNORMAL ECG - ATRIAL FIBRILLATION NONSPECIFIC INTRAVENTRICULAR CONDUCTION DELAY PROBABLE LVH WITH SECONDARY REPOL ABNRM : Confirmed by: Kiesha Barragan MD 16-Apr-2020 02:27:02
[2020-04-16 05:50] LABS: HEMATOCRIT 38.8 % (36.0-47.0); HEMOGLOBIN 12.6 g/dL (12.0-15.5); MEAN CORPUSCULAR HEMOGLOBIN 25.6 pg (27.0-33.4); MEAN CORPUSCULAR HGB CONC 32.4 g/dL (32.0-36.0); MEAN CORPUSCULAR VOLUME 79 fl (80-97); PLATELET COUNT 264 10^3/uL (150-450); RED BLOOD COUNT 4.92 10^6/uL (3.72-5.28); RED CELL DISTRIBUTION WIDTH 15.7 % (11.5-14.0); WHITE BLOOD COUNT 10.6 10^3/uL (4.0-10.5)
[2020-04-16] MEDS ORDERED: LEVOTHYROXINE SODIUM 137 MCG PO SCH (06:00)
[2020-04-16 06:11] LABS: BLOOD UREA NITROGEN 19 mg/dL (7-20); CALCIUM 10.2 mg/dL (8.4-10.2); GLUCOSE 155 mg/dL (75-110); POTASSIUM 3.9 mmol/L (3.6-5.0)
[2020-04-16 06:16] LABS: CARBON DIOXIDE 26 mmol/L (22-30); CHLORIDE 109 mmol/L (98-107)
[2020-04-16 06:22] LABS: ANION GAP 3 (5-19)
[2020-04-16] MEDS ORDERED: LIDOCAINE 2% INJ-PF (20 MG/ML) 10 ML AMPUL ONE (07:04)
[2020-04-16] MEDS ORDERED: PROPOFOL INJ 200 MG/20 ML VIAL IV ONE (07:04)
[2020-04-16] MEDS: GABAPENTIN 300 MG CAPSULE PO SCH ×3 (07:50→21:35)
[2020-04-16] MEDS: INSULIN REG, HUMAN 100 UNIT/ML 3 ML VIAL (PYX) SUBCUT SCH ×4 (07:51→21:31)
[2020-04-16] MEDS ORDERED: DIPHENHYDRAMINE HCL 50 MG/ML VIAL ONE (09:28)
--- NOTE | 2020-04-16 09:38 | XCELERA REPORT ---
Study ID: [id number] [id number] Transesophageal Echocardiogram Report Name: MIGUEL ROBB Age: 69 yrs Gender: Female : 1950 Patient Status: Inpatient Patient Location: [address] [place] [address] Study Date: 04/16/2020 07:37 AM History: Bacteremia Cellulitis Weight: 241 lb Reason For Study: Staphylococcal bacteremia Ordering Physician: TIN CURIEL Performed By: Lore Dumont Interpretation Summary There is no evidence of a mass or vegetation. This does not rule out endocarditis. Left ventricular systolic function is low normal. Ejection Fraction = 50-55%. The right ventricle is normal in size and function. There is trace mitral regurgitation. No hemodynamically significant valvular aortic stenosis. There is no pericardial effusion. There is no evidence of a mass or vegetation. This does not rule out endocarditis. Procedure A complete two-dimensional transesophageal echocardiogram was performed (2D, spectral and color flow Doppler). Informed consent for Transesophageal Echocardiogram, and use of a contrast agent as needed, was obtained prior to the procedure. The patient was brought to the OR in a fasting state. An intravenous line was placed. A topical anesthetic agent was used for oropharangeal anesthesia. A bite block was inserted. IV conscious sedation was administered using per Anesthesia. The patient's vital signs, including blood pressure, heart rate, pulse oximetry and cardiac rhythm were monitored thoughout the procedure. The transesophageal probe was passed without difficulty. The usual views were obtained; basal, mid-esophageal, transgastric and aortic views. The patient tolerated the procedure well without evidence of orophangeal or esophageal trauma. Subsequent to all the images being obtained the probe was removed with out trauma. Left Ventricle The left ventricle is normal in size. There is no thrombus. There is normal left ventricular wall thickness. Left ventricular systolic function is low normal. Ejection Fraction = 50-55%. No regional wall motion abnormalities noted. Right Ventricle The right ventricle is normal in size and function. Atria The interatrial septum is intact with no evidence for an atrial septal defect. There is no Doppler evidence for an atrial septal defect. The left atrium is mildly dilated. No left atrial mass or thrombus visualized. Right atrial size is normal. Mitral Valve The mitral valve is normal in structure and function. There is no vegetation seen on the mitral valve. There is no mitral valve stenosis. There is trace mitral regurgitation. Tricuspid Valve The tricuspid valve is normal in structure and function. There is no tricuspid valve vegetation. There is no tricuspid stenosis. No tricuspid regurgitation. Aortic Valve The aortic valve opens well. There is no aortic valvular vegetation. No hemodynamically significant valvular aortic stenosis. No aortic regurgitation is present. Pulmonic Valve The pulmonic valve is not well seen, but is grossly normal. There is no vegetation on the pulmonic valve. There is no pulmonic valvular regurgitation. Arteries The aortic root is normal size. Mild atherosclerotic plaque(s) in the aortic arch. Mild atherosclerotic plaque(s) in the descending aorta. Pericardium There is no pericardial effusion. Electronically signed by: Gene Connor 04/16/2020 09:38 AM CC: TIN CURIEL Anil
[2020-04-16] MEDS ORDERED: ERGOCALCIFEROL (VITAMIN D2) 50000 UNIT (1.25 MG) CAPSULE PO SCH (10:00)
--- NOTE | 2020-04-16 10:02 | PDOC PROGRESS REPORT ---
Subjective Progress Note for:: 04/16/20 Subjective:: Patient was examined in the OR. She underwent transesophageal echocardiogram for bacteremia. Overall she looks better. No complaints Reason For Visit: SEVERE SEPSIS WITHOUT SHOCK,CELLULITIS RIGHT LOWER Physical Exam Vital Signs: Temp Pulse Resp BP Pulse Ox 98.2 F 64 20 140/74 H 95 04/16/20 09:02 04/16/20 09:32 04/16/20 09:32 04/16/20 09:32 04/16/20 09:32 Intake & Output 04/15/20 04/16/20 04/17/20 06:59 06:59 06:59 Intake Total 1304 2046 100 Output Total 3000 2150 Balance -1696 -104 100 Weight 109.7 kg 108.7 kg General appearance: PRESENT: obese, well-developed, well-nourished Head exam: PRESENT: atraumatic, normocephalic Eye exam: PRESENT: EOMI Respiratory exam: PRESENT: symmetrical, unlabored Cardiovascular exam: PRESENT: RRR, +S1, +S2 Pulses: PRESENT: normal radial pulses GI/Abdominal exam: PRESENT: soft Rectal exam: PRESENT: deferred Neurological exam: PRESENT: alert, altered, oriented to person, oriented to place, oriented to time, oriented to situation Psychiatric exam: PRESENT: appropriate affect Skin exam: PRESENT: dry - Shiny skin on right lower extremity with erythema, erythema Results Laboratory Results: 04/16/20 05:33 04/16/20 05:33 04/16/20 04/16/20 05:33 05:33 WBC 10.6 H RBC 4.92 Hgb 12.6 Hct 38.8 MCV 79 L MCH 25.6 L MCHC 32.4 RDW 15.7 H Plt Count 264 Sodium 138.1 Potassium 3.9 Chloride 109 H Carbon Dioxide 26 Anion Gap 3 L BUN 19 Creatinine 0.61 Est GFR ( Amer) > 60 Glucose 155 H Calcium 10.2 Magnesium 2.0 04/13/20 18:55 Blood Blood Culture (PCR) - Final Staphylococcus Species 04/13/20 17:55 Blood Blood Culture (PCR) - Final Staphylococcus Species 04/13/20 04/13/20 04/13/20 17:45 23:55 23:55 Creatine Kinase 108 CK-MB (CK-2) 4.65 H Troponin I 0.153 0.211 04/14/20 04/14/20 04/14/20 06:59 06:59 12:16 Creatine Kinase 83 65 CK-MB (CK-2) 3.48 Troponin I 0.209 04/14/20 12:16 Creatine Kinase CK-MB (CK-2) 3.17 Troponin I 0.214 Impressions: Chest X-Ray 04/13/20 17:54 IMPRESSION: No significant interval change. No acute cardiopulmonary disease. Foot X-Ray 04/13/20 17:54 IMPRESSION: Diffuse osteopenia. No radiographic evidence of acute osteomyelitis. Ulceration at the plantar surface forefoot. If there is clinical concern for osteomyelitis, MRI or a nuclear medicine bone scan should be considered for further evaluation. Assessment & Plan - Diagnosis (1) Non-STEMI (non-ST elevated myocardial infarction) Is this a current diagnosis for this admission?: Yes Plan: Non-ST segment elevation myocardial infarction. Elevated troponins in the setting of cellulitis and infection. Unlikely due to acute coronary syndrome Supportive medical care with aspirin statin and beta-blockers as feasible Would not pursue re-stratification at this time. Twelve-lead EKG shows sinus rhythm with no convincing evidence for myocardial ischemia or infarction (2) CLYDE on CPAP Is this a current diagnosis for this admission?: Yes Plan: Continue supportive care for obstructive sleep apnea (3) Cellulitis of right leg Is this a current diagnosis for this admission?: Yes Plan: Appears to be improving Continue intravenous antibiotics Bacteremia noted Transesophageal echocardiogram was performed which did not show any convincing evidence of vegetation. Continue antibiotic therapy
[2020-04-16] MEDS: PANTOPRAZOLE SODIUM 40 MG VIAL IV SCH ×2 (10:54→21:35)
[2020-04-16] MEDS: FUROSEMIDE 40 MG TABLET PO SCH (10:54)
[2020-04-16] MEDS: LISINOPRIL 10 MG TABLET PO SCH (10:54)
[2020-04-16] MEDS: CLOPIDOGREL BISULFATE 75 MG TABLET PO SCH (10:54)
[2020-04-16] MEDS: METOPROLOL SUCCINATE 25 MG TAB.SR.24H PO SCH (10:54)
[2020-04-16] MEDS: MEROPENEM 1 GM in NORMAL SALINE 50 ML IV SCH (10:55)
[2020-04-16] MEDS: NYSTATIN TOPICAL POWDER 15 GM TP SCH ×2 (10:55→18:58)
[2020-04-16] MEDS ORDERED: DIPHENHYDRAMINE HCL 50 MG/ML VIAL IV ONE (11:00)
[2020-04-16] MEDS: LEVOTHYROXINE SODIUM 0.025 MG TABLET PO SCH (11:26)
[2020-04-16] MEDS: LINEZOLID 600 MG/300 ML RTUPB IV SCH ×2 (11:40→21:35)
[2020-04-16] MEDS: LEVOTHYROXINE SODIUM 0.112 MG TABLET PO SCH (11:44)
[2020-04-16] MEDS: SITAGLIPTIN PHOSPHATE 50 MG TABLET PO SCH (12:27)
--- NOTE | 2020-04-16 13:17 | PDOC PROGRESS REPORT ---
Subjective Progress Note for:: 04/16/20 Subjective:: Back in sinus rhythm with good rate control after episode of atrial fibrillation with RVR last night. Patient is still feeling tired. She has not been out of bed yet for this hospitalization. Reason For Visit: SEVERE SEPSIS WITHOUT SHOCK,CELLULITIS RIGHT LOWER Physical Exam Vital Signs: Temp Pulse Resp BP Pulse Ox 97.7 F 58 L 20 158/51 H 97 04/16/20 11:32 04/16/20 11:32 04/16/20 11:32 04/16/20 11:32 04/16/20 11:32 Intake & Output 04/15/20 04/16/20 04/17/20 06:59 06:59 06:59 Intake Total 1304 2046 200 Output Total 3000 2150 Balance -1696 -104 200 Weight 109.7 kg 108.7 kg General appearance: PRESENT: no acute distress, morbidly obese, well-developed Head exam: PRESENT: atraumatic, normocephalic Respiratory exam: PRESENT: symmetrical, unlabored, wheezes - Sporadic expiratory wheezes. ABSENT: rales, rhonchi, tachypnea Cardiovascular exam: PRESENT: RRR, +S1, +S2 GI/Abdominal exam: PRESENT: normal bowel sounds, soft, other - Pendulous abdomen. ABSENT: tenderness Rectal exam: PRESENT: deferred Neurological exam: PRESENT: alert, awake, oriented to person, oriented to place, oriented to situation, CN II-XII grossly intact. ABSENT: altered Psychiatric exam: PRESENT: flat affect. ABSENT: agitated, anxious Focused psych exam: ABSENT: delusional, paranoid, restlessness Skin exam: PRESENT: dry, warm Results Laboratory Results: 04/16/20 05:33 04/16/20 05:33 04/16/20 04/16/20 05:33 05:33 WBC 10.6 H RBC 4.92 Hgb 12.6 Hct 38.8 MCV 79 L MCH 25.6 L MCHC 32.4 RDW 15.7 H Plt Count 264 Sodium 138.1 Potassium 3.9 Chloride 109 H Carbon Dioxide 26 Anion Gap 3 L BUN 19 Creatinine 0.61 Est GFR ( Amer) > 60 Glucose 155 H Calcium 10.2 Magnesium 2.0 04/13/20 18:55 Blood Blood Culture (PCR) - Final Staphylococcus Species 04/13/20 17:55 Blood Blood Culture (PCR) - Final Staphylococcus Species 04/13/20 04/13/20 04/13/20 17:45 23:55 23:55 Creatine Kinase 108 CK-MB (CK-2) 4.65 H Troponin I 0.153 0.211 04/14/20 04/14/20 04/14/20 06:59 06:59 12:16 Creatine Kinase 83 65 CK-MB (CK-2) 3.48 Troponin I 0.209 04/14/20 12:16 Creatine Kinase CK-MB (CK-2) 3.17 Troponin I 0.214 Impressions: Chest X-Ray 04/13/20 17:54 IMPRESSION: No significant interval change. No acute cardiopulmonary disease. Foot X-Ray 04/13/20 17:54 IMPRESSION: Diffuse osteopenia. No radiographic evidence of acute osteomyelitis. Ulceration at the plantar surface forefoot. If there is clinical concern for osteomyelitis, MRI or a nuclear medicine bone scan should be considered for further evaluation. Assessment and Plan - Diagnosis (1) Acute kidney injury Is this a current diagnosis for this admission?: Yes Plan: Resolved. Still a little bit dry so fluids are continued. 04/16/2020 Will likely no longer needs fluids after today. Recheck labs tomorrow. (2) Acute respiratory failure with hypoxia and hypercapnia Is this a current diagnosis for this admission?: Yes Plan: Currently stable on 1.5 L per nasal cannula April 16, 2020 Taper oxygen as tolerated. (3) Candidal intertrigo Is this a current diagnosis for this admission?: Yes Plan: Topical nystatin powder April 16, 2020 Monitor for improvement. (4) Cellulitis of right leg Is this a current diagnosis for this admission?: Yes Plan: Currently on Zyvox and meropenem. Erythema has improved. Both blood cultures are now positive for coagulase-negative Staphylococcus. April 16, 2020 Gram-positive cocci were only was identified. Meropenem was discontinued since urine showed insignificant variance. Continue Zyvox. (5) Bacteremia due to coagulase-negative Staphylococcus Is this a current diagnosis for this admission?: Yes Plan: Both blood cultures have turned positive. She is currently on Zyvox and m eropenem. A ADY has been scheduled. April 16, 2020 Continue Zyvox. Meropenem discontinued. ADY was negative. (6) Chronic diastolic congestive heart failure Is this a current diagnosis for this admission?: Yes Plan: Monitoring her blood pressure. Not acutely exacerbated. 04/16/2020 Continue furosemide, lisinopril and metoprolol. (7) Elevation of cardiac enzymes Is this a current diagnosis for this admission?: Yes Plan: She has extensive coronary atherosclerosis. No chest pain. Likely as a result of her sepsis. Seen by cardiology. No further work-up indicated at this time. Continues on telemetry. April 16, 2020 As above. No further need to monitor troponin levels. (8) Sacral decubitus ulcer, stage II Is this a current diagnosis for this admission?: Yes Plan: Local wound care 04/16/2020 In addition to wound care I have ordered offloading every 3 hours. (9) Sepsis Qualifiers: Sepsis type: sepsis due to unspecified organism Sepsis acute organ dysfunction status: with acute organ dysfunction Severe sepsis acute organ dysfunction type: acute renal failure Acute renal failure type: unspecified Severe sepsis shock status: without septic shock Qualified Code(s): A41.9 - Sepsis, unspecified organism; R65.20 - Severe sepsis without septic shock; N17.9 - Acute kidney failure, unspecified Is this a current diagnosis for this admission?: Yes Plan: Antibiotics and IV fluids as previously noted. Renal function is improving. April 16, 2020 Resolved with fluids and antibiotics. - Plan Summary Summary: Patient will be admitted to telemetry where she will receive routine supportive and symptomatic cares. She will be treated with BiPAP as required to maintain adequate oxygen saturation and alleviate respiratory acidosis. She will receive IV fluids utilizing LR at 167 mL/h for the first 12 hours of therapy. She will receive IV meropenem and Zyvox empirically pending culture results. She will receive Ativan 1 mg IV every 4 hours as needed for anxiety or restlessness. She will receive morphine sulfate 2 to 4 mg IV every 2 hours as needed for pain. Serial cardiac enzymes will be obtained. CBCs, metabolic profiles, magnesium levels and additional laboratory and/or radiographic evaluations will be obtained as needed. A routine cardiology consultation will be obtained with Dr. Connor. - Time Time Spent with patient: 15-24 minutes Medications reviewed and adjusted accordingly: Yes Anticipated discharge: Home with Homehealth
[2020-04-16] MEDS: ATORVASTATIN CALCIUM 40 MG TABLET PO SCH (21:35)
[2020-04-16] MEDS: HYDRALAZINE HCL INJ/PF 20 MG/1 ML SDV IV PRN (23:49)
[2020-04-16] MEDS: MORPHINE SULFATE 10 MG/ML INJ IV PRN (23:50)
[2020-04-17] MEDS: LEVOTHYROXINE SODIUM 0.025 MG TABLET PO SCH (05:04)
[2020-04-17] MEDS: LEVOTHYROXINE SODIUM 0.112 MG TABLET PO SCH (05:04)
[2020-04-17] MEDS: GABAPENTIN 300 MG CAPSULE PO SCH ×3 (05:04→21:54)
[2020-04-17] MEDS: MORPHINE SULFATE 10 MG/ML INJ IV PRN (05:38)
[2020-04-17 06:06] LABS: HEMATOCRIT 37.4 % (36.0-47.0); HEMOGLOBIN 12.1 g/dL (12.0-15.5); MEAN CORPUSCULAR HEMOGLOBIN 25.5 pg (27.0-33.4); MEAN CORPUSCULAR HGB CONC 32.4 g/dL (32.0-36.0); MEAN CORPUSCULAR VOLUME 79 fl (80-97); PLATELET COUNT 279 10^3/uL (150-450); RED BLOOD COUNT 4.74 10^6/uL (3.72-5.28); RED CELL DISTRIBUTION WIDTH 15.9 % (11.5-14.0); WHITE BLOOD COUNT 11.7 10^3/uL (4.0-10.5)
[2020-04-17 06:24] LABS: BLOOD UREA NITROGEN 22 mg/dL (7-20); CALCIUM 10.3 mg/dL (8.4-10.2); CHLORIDE 105 mmol/L (98-107); GLUCOSE 128 mg/dL (75-110); POTASSIUM 4.1 mmol/L (3.6-5.0)
[2020-04-17 06:29] LABS: CARBON DIOXIDE 29 mmol/L (22-30)
[2020-04-17 06:32] LABS: ABSOLUTE MONOCYTES # (MANUAL) 0.9 10^3/uL (0.1-1.4); ANION GAP 3 (5-19); ANISOCYTOSIS SLIGHT; BASOPHILS % (MANUAL) 0 % (0-2); EOSINOPHILS % (MANUAL) 2 % (0-6); LYMPHOCYTES % (MANUAL) 17 % (13-45); MONOCYTES % (MANUAL) 8 % (3-13); SEGMENTED NEUTROPHILS % (MAN) 73 % (42-78); TOTAL CELLS COUNTED 100
[2020-04-17 06:33] LABS: PLATELET COMMENT ADEQUATE
[2020-04-17] MEDS: INSULIN REG, HUMAN 100 UNIT/ML 3 ML VIAL (PYX) SUBCUT SCH ×4 (08:40→21:48)
[2020-04-17] MEDS: FUROSEMIDE 40 MG TABLET PO SCH (08:43)
--- NOTE | 2020-04-17 11:08 | PDOC PROGRESS REPORT ---
Subjective Progress Note for:: 04/17/20 Subjective:: 69 year old female who presented to the emergency room via EMS with a 3-day history of right leg pain. The patient is lethargic and confused and as such cannot provide reliable historical input for her medical record. Her son called for the ambulance because he could not get her out of bed and admitted she had been complaining of increased pain in her right lower leg accompanied by increased redness and swelling in the right lower leg for 3 days. In the emerg ency room she was found to have a white blood count of 26,000 with an erythematous and edematous right lower leg and a plantar ulcer of the right foot noted. She was also found to have an acute kidney injury and a respiratory acidosis accompanying acute respiratory failure with hypoxia and hypercapnia. She was placed on BiPAP, empiric antibiotic therapy was initiated after cultures were obtained and she was subsequently admitted to the hospital for further evaluation treatment. 04/14/20-No adverse events overnight. No new complaints. Vital signs been stable. Blood pressures were low but have improved a little bit throughout the day. No fevers. 04/15-No adverse events overnight. No new complaints. She is more awake and alert today. She says she is feeling better. No fevers. Appetite is improving. 04/16/20-Back in sinus rhythm with good rate control after episode of atrial fibrillation with RVR last night. Patient is still feeling tired. She has not been out of bed yet for this hospitalization. 04/17/2020-comfortably in the bed communicating well. Alert awake oriented. She explained to me that she traveled back from [place] to [place] and forgot to take of the socks and the edges of the socks cut into her skin and got infection of the right foot. ADY is negative during the hospital stay. Came in with altered mental status which was resolved. Blood cultures growing Staphylococcus species. Sieving Zyvox at this time. WBC count is 11,700 afebrile blood pressures are stable. Reason For Visit: SEVERE SEPSIS WITHOUT SHOCK,CELLULITIS RIGHT LOWER Physical Exam Vital Signs: Temp Pulse Resp BP Pulse Ox 98.1 F 50 L 20 134/57 H 97 04/17/20 03:53 04/17/20 07:00 04/17/20 03:53 04/17/20 03:53 04/17/20 04:04 Intake & Output 04/16/20 04/17/20 04/18/20 06:59 06:59 06:59 Intake Total 2045 1810 Output Total 2150 1100 Balance -104 710 Weight 108.7 kg 108.8 kg General appearance: PRESENT: no acute distress, morbidly obese Head exam: PRESENT: atraumatic Eye exam: PRESENT: PERRLA Mouth exam: PRESENT: moist, tongue midline Teeth exam: PRESENT: poor dentation Neck exam: ABSENT: carotid bruit, JVD, lymphadenopathy, thyromegaly Respiratory exam: PRESENT: decreased breath sounds Cardiovascular exam: PRESENT: RRR. ABSENT: diastolic murmur, rubs, systolic murmur Vascular exam: PRESENT: normal capillary refill GI/Abdominal exam: PRESENT: normal bowel sounds, soft. ABSENT: distended, guarding, mass, organolmegaly, rebound, tenderness Rectal exam: PRESENT: deferred Extremities exam: PRESENT: other - Streak of erythema/redness is present on the dorsum of the right foot without any underlying abscess. Neurological exam: PRESENT: alert, awake, oriented to person, oriented to place, oriented to time, oriented to situation, CN II-XII grossly intact. ABSENT: motor sensory deficit Psychiatric exam: PRESENT: appropriate affect, normal mood. ABSENT: homicidal ideation, suicidal ideation Results Laboratory Results: 04/17/20 05:28 04/17/20 05:28 04/17/20 04/17/20 05:28 05:28 WBC 11.7 H RBC 4.74 Hgb 12.1 Hct 37.4 MCV 79 L MCH 25.5 L MCHC 32.4 RDW 15.9 H Plt Count 279 Seg Neutrophils % Not Reportable Sodium 137.3 Potassium 4.1 Chloride 105 Carbon Dioxide 29 Anion Gap 3 L BUN 22 H Creatinine 0.91 Est GFR ( Amer) > 60 Glucose 128 H Calcium 10.3 H Magnesium 2.0 04/13/20 18:55 Blood Blood Culture (PCR) - Final Staphylococcus Species 04/13/20 18:55 Blood Blood Culture - Final Staphylococcus Capitis 04/13/20 17:55 Blood Blood Culture (PCR) - Final Staphylococcus Species 04/13/20 17:55 Blood Blood Culture - Final Staphylococcus Capitis 04/13/20 04/13/20 04/13/20 17:45 23:55 23:55 Creatine Kinase 108 CK-MB (CK-2) 4.65 H Troponin I 0.153 0.211 04/14/20 04/14/20 04/14/20 06:59 06:59 12:16 Creatine Kinase 83 65 CK-MB (CK-2) 3.48 Troponin I 0.209 04/14/20 12:16 Creatine Kinase CK-MB (CK-2) 3.17 Troponin I 0.214 Impressions: Chest X-Ray 04/13/20 17:54 IMPRESSION: No significant interval change. No acute cardiopulmonary disease. Foot X-Ray 04/13/20 17:54 IMPRESSION: Diffuse osteopenia. No radiographic evidence of acute osteomyelitis. Ulceration at the plantar surface forefoot. If there is clinical concern for osteomyelitis, MRI or a nuclear medicine bone scan should be considered for further evaluation. Assessment and Plan - Diagnosis (1) Acute kidney injury Is this a current diagnosis for this admission?: Yes Plan: Resolved. Still a little bit dry so fluids are continued. 04/16/2020 Will likely no longer needs fluids after today. Recheck labs tomorrow. 04/17/2020-serum creatinine is 0.9. He acute kidney injury is resolved. Patient is not on IV fluids at this time. (2) Acute respiratory failure with hypercapnia Is this a current diagnosis for this admission?: Yes Plan: Currently stable on 1.5 L per nasal cannula April 16, 2020 Taper oxygen as tolerated. 04/17/2020-pulse ox today is 97% on 2 L. Without oxygen supplementations oxygen levels are dropping to 85%. Plan is to continue provide oxygen supplementations at this time. (3) Candidal intertrigo Is this a current diagnosis for this admission?: No Plan: Topical nystatin powder April 16, 2020 Monitor for improvement. (4) Cellulitis of right leg Is this a current diagnosis for this admission?: Yes Plan: Currently on Zyvox and meropenem. Erythema has improved. Both blood cultures are now positive for coagulase-negative Staphylococcus. April 16, 2020 Gram-positive cocci were only was identified. Meropenem was discontinued since urine showed insignificant variance. Continue Zyvox. 04/17/2020-patient is presently on Zyvox blood culture positive for coagulase- negative Staphylococcus. Plan is to repeat the blood cultures today. (5) Chronic diastolic congestive heart failure Is this a current diagnosis for this admission?: No Plan: Monitoring her blood pressure. Not acutely exacerbated. 04/16/2020 Continue furosemide, lisinopril and metoprolol. 04/17/2020-blood pressure today is 134/58 on examination not in fluid overload. Presently on furosemide, lisinopril, metoprolol. Patient has history of chronic diastolic heart failure. (6) Elevation of cardiac enzymes Is this a current diagnosis for this admission?: Yes Plan: She has extensive coronary atherosclerosis. No chest pain. Likely as a result of her sepsis. Seen by cardiology. No further work-up indicated at this time. Continues on telemetry. April 16, 2020 As above. No further need to monitor troponin levels. 04/17/2020-patient presented with non-STEMI cardiology consult was done. No further recommendations by cardiology team. (7) Sepsis Qualifiers: Sepsis type: sepsis due to unspecified organism Sepsis acute organ dysfunction status: with acute organ dysfunction Severe sepsis acute organ dysfunction type: acute renal failure Acute renal failure type: unspecified Severe sepsis shock status: without septic shock Qualified Code(s): A41.9 - Sepsis, unspecified organism; R65.20 - Severe sepsis without septic shock; N17.9 - Acute kidney failure, unspecified Is this a current diagnosis for this admission?: Yes Plan: Antibiotics and IV fluids as previously noted. Renal function is improving. April 16, 2020 Resolved with fluids and antibiotics. 04/17/2020-sepsis is resolving, blood pressure is stable afebrile WBC count is 11,700. Cultures are positive for coagulase-negative Staphylococcus aureus. Presently on Zyvox. Plan is to repeat the chest today. On examination right foot cellulitis is improving. (8) Sacral decubitus ulcer, stage II Is this a current diagnosis for this admission?: Yes Plan: Local wound care 04/16/2020 In addition to wound care I have ordered offloading every 3 hours. (9) Morbid obesity Is this a current diagnosis for this admission?: No Plan: 04/17/2020-patient BMI is more than 55 diet exercise weight loss lifestyle modifications discussed with the patient. - Plan Summary Summary: Patient will be admitted to telemetry where she will receive routine supportive and symptomatic cares. She will be treated with BiPAP as required to maintain adequate oxygen saturation and alleviate respiratory acidosis. She will receive IV fluids utilizing LR at 167 mL/h for the first 12 hours of therapy. She will receive IV meropenem and Zyvox empirically pending culture results. She will receive Ativan 1 mg IV every 4 hours as needed for anxiety or restlessness. She will receive morphine sulfate 2 to 4 mg IV every 2 hours as needed for pain. Serial cardiac enzymes will be obtained. CBCs, metabolic profiles, magnesium levels and additional laboratory and/or radiographic evaluations will be obtained as needed. A routine cardiology consultation will be obtained with Dr. Connor.
[2020-04-17] MEDS: METOPROLOL SUCCINATE 25 MG TAB.SR.24H PO SCH (11:21)
[2020-04-17] MEDS: LINEZOLID 600 MG/300 ML RTUPB IV SCH ×2 (11:21→21:54)
[2020-04-17] MEDS: CLOPIDOGREL BISULFATE 75 MG TABLET PO SCH (11:21)
[2020-04-17] MEDS: LISINOPRIL 10 MG TABLET PO SCH (11:21)
[2020-04-17] MEDS: NYSTATIN TOPICAL POWDER 15 GM TP SCH ×2 (11:25→17:32)
[2020-04-17] MEDS: SITAGLIPTIN PHOSPHATE 50 MG TABLET PO SCH (12:33)
--- NOTE | 2020-04-17 15:09 | PDOC PROGRESS REPORT ---
Subjective Progress Note for:: 04/17/20 Subjective:: Resting in bed comfortably. Cellulitis appears to be improving. Had episodes of atrial fibrillation which converted spontaneously to sinus rhythm. Presently appears to be normal rhythm on telemetry. No complaints whatsoever at the moment. No chest pain. Transesophageal echocardiogram did not reveal any vegetation. This was done yesterday. Reason For Visit: SEVERE SEPSIS WITHOUT SHOCK,CELLULITIS RIGHT LOWER Physical Exam Vital Signs: Temp Pulse Resp BP Pulse Ox 97.6 F 55 L 27 H 163/56 H 100 04/17/20 12:18 04/17/20 14:00 04/17/20 12:18 04/17/20 12:18 04/17/20 12:18 Intake & Output 04/16/20 04/17/20 04/18/20 06:59 06:59 06:59 Intake Total 2046 1810 Output Total 2150 1100 400 Balance -104 710 -400 Weight 108.7 kg 108.8 kg General appearance: PRESENT: no acute distress, cooperative, obese, well- developed, well-nourished Head exam: PRESENT: atraumatic, normocephalic Eye exam: PRESENT: conjunctiva pink Mouth exam: PRESENT: moist Respiratory exam: PRESENT: crackles - At the base, prolonged expiratory phas, symmetrical, unlabored Cardiovascular exam: PRESENT: RRR, +S1, +S2 Pulses: PRESENT: normal radial pulses GI/Abdominal exam: PRESENT: soft Rectal exam: PRESENT: deferred Extremities exam: PRESENT: other - Right lower extremities erythema is decreased Neurological exam: PRESENT: alert, awake, oriented to person, oriented to place, oriented to time, oriented to situation Psychiatric exam: PRESENT: appropriate affect Skin exam: PRESENT: dry, intact Results Laboratory Results: 04/17/20 05:28 04/17/20 05:28 04/17/20 04/17/20 05:28 05:28 WBC 11.7 H RBC 4.74 Hgb 12.1 Hct 37.4 MCV 79 L MCH 25.5 L MCHC 32.4 RDW 15.9 H Plt Count 279 Seg Neutrophils % Not Reportable Sodium 137.3 Potassium 4.1 Chloride 105 Carbon Dioxide 29 Anion Gap 3 L BUN 22 H Creatinine 0.91 Est GFR ( Amer) > 60 Glucose 128 H Calcium 10.3 H Magnesium 2.0 06/28/20 18:55 Blood Blood Culture (PCR) - Final Staphylococcus Species 04/13/20 18:55 Blood Blood Culture - Final Staphylococcus Capitis 04/13/20 17:55 Blood Blood Culture (PCR) - Final Staphylococcus Species 04/13/20 17:55 Blood Blood Culture - Final Staphylococcus Capitis 04/13/20 04/13/20 04/13/20 17:45 23:55 23:55 Creatine Kinase 108 CK-MB (CK-2) 4.65 H Troponin I 0.153 0.211 04/14/20 04/14/20 04/14/20 06:59 06:59 12:16 Creatine Kinase 83 65 CK-MB (CK-2) 3.48 Troponin I 0.209 04/14/20 12:16 Creatine Kinase CK-MB (CK-2) 3.17 Troponin I 0.214 EKG Comments: Twelve-lead EKG 04/13/2020 Sinus rhythm, 62 bpm Transesophageal echocardiogram 04/16/2020 No convincing evidence for vegetation Telemetry strips were reviewed and showed episodes of A. fib with rapid ventricular response Present telemetry shows sinus rhythm Impressions: Chest X-Ray 04/13/20 17:54 IMPRESSION: No significant interval change. No acute cardiopulmonary disease. Foot X-Ray 04/13/20 17:54 IMPRESSION: Diffuse osteopenia. No radiographic evidence of acute osteomyelitis. Ulceration at the plantar surface forefoot. If there is c linical concern for osteomyelitis, MRI or a nuclear medicine bone scan should be considered for further evaluation. Assessment & Plan - Diagnosis (1) Non-STEMI (non-ST elevated myocardial infarction) Is this a current diagnosis for this admission?: Yes Plan: Non-ST segment elevation myocardial infarction. Elevated troponins in the setting of cellulitis and infection. Unlikely due to acute coronary syndrome Supportive medical care with aspirin statin and beta-blockers as feasible Would not pursue re-stratification at this time. Twelve-lead EKG shows sinus rhythm with no convincing evidence for myocardial ischemia or infarction (2) CLYDE on CPAP Is this a current diagnosis for this admission?: Yes Plan: Continue supportive care for obstructive sleep apnea (3) Cellulitis of right leg Is this a current diagnosis for this admission?: Yes Plan: Appears to be improving Continue intravenous antibiotics Bacteremia noted Transesophageal echocardiogram was performed which did not show any convincing evidence of vegetation. Continue antibiotic therapy (4) Atrial fibrillation Qualifiers: Atrial fibrillation type: paroxysmal Qualified Code(s): I48.0 - Paroxysmal atrial fibrillation Is this a current diagnosis for this admission?: Yes Plan: Paroxysmal atrial fibrillation in the setting of cellulitis and infection. This may be related to ongoing infectious process. However presently she is maintaining sinus rhythm These episodes of atrial fibrillation are likely provoked by ongoing infection. However should she continue to have episodes of atrial fibrillation especially longer ones systemic anticoagulation should be considered on account of increased risk of stroke. Would recommend continue metoprolol succinate as for hypertension which would help with triggers for atrial fibrillation as well
[2020-04-17] MEDS: PANTOPRAZOLE SODIUM 40 MG TABLET.DR PO SCH (17:31)
[2020-04-17] MEDS: ATORVASTATIN CALCIUM 40 MG TABLET PO SCH (21:54)
[2020-04-18] MEDS: HYDRALAZINE HCL INJ/PF 20 MG/1 ML SDV IV PRN (03:37)
[2020-04-18] MEDS: GABAPENTIN 300 MG CAPSULE PO SCH ×3 (05:28→21:42)
[2020-04-18] MEDS: LEVOTHYROXINE SODIUM 0.112 MG TABLET PO SCH (05:28)
[2020-04-18] MEDS: PANTOPRAZOLE SODIUM 40 MG TABLET.DR PO SCH ×2 (05:28→18:41)
[2020-04-18] MEDS: LEVOTHYROXINE SODIUM 0.025 MG TABLET PO SCH (05:28)
[2020-04-18] MEDS: INSULIN REG, HUMAN 100 UNIT/ML 3 ML VIAL (PYX) SUBCUT SCH ×4 (08:38→21:58)
--- NOTE | 2020-04-18 10:22 | PDOC PROGRESS REPORT ---
Subjective Progress Note for:: 04/18/20 Subjective:: 69 year old female who presented to the emergency room via EMS with a 3-day history of right leg pain. The patient is lethargic and confused and as such cannot provide reliable historical input for her medical record. Her son called for the ambulance because he could not get her out of bed and admitted she had been complaining of increased pain in her right lower leg accompanied by increased redness and swelling in the right lower leg for 3 days. In the emerg ency room she was found to have a white blood count of 26,000 with an erythematous and edematous right lower leg and a plantar ulcer of the right foot noted. She was also found to have an acute kidney injury and a respiratory acidosis accompanying acute respiratory failure with hypoxia and hypercapnia. She was placed on BiPAP, empiric antibiotic therapy was initiated after cultures were obtained and she was subsequently admitted to the hospital for further evaluation treatment. 04/14/20-No adverse events overnight. No new complaints. Vital signs been stable. Blood pressures were low but have improved a little bit throughout the day. No fevers. 04/15-No adverse events overnight. No new complaints. She is more awake and alert today. She says she is feeling better. No fevers. Appetite is improving. 04/16/20-Back in sinus rhythm with good rate control after episode of atrial fibrillation with RVR last night. Patient is still feeling tired. She has not been out of bed yet for this hospitalization. 04/17/2020-comfortably in the bed communicating well. Alert awake oriented. She explained to me that she traveled back from [place] to [place] and forgot to take of the socks and the edges of the socks cut into her skin and got infection of the right foot. ADY is negative during the hospital stay. Came in with altered mental status which was resolved. Blood cultures growing Staphylococcus species. Sieving Zyvox at this time. WBC count is 11,700 afebrile blood pressures are stable. 04/18/2020-patient is comfortably in the bed communicating well. No complaints. Unable to come out of the bed physical therapy consult was requested plan is to refer her to long-term care facility. Latest blood sugar is 129. Patient is presently on Zyvox, cultures are positive for Staphylococcus species. Coagulase-negative Staphylococcus. It is to have pressure ulcer on the right heel with erythema on the in the middle skin is not open but underlying pus looking material seen. Discussed the plan with Dr. Armstrong he is going to see the patient today. Reason For Visit: SEVERE SEPSIS WITHOUT SHOCK,CELLULITIS RIGHT LOWER Physical Exam Vital Signs: Temp Pulse Resp BP Pulse Ox 98.3 F 59 L 21 H 176/88 H 92 04/18/20 03:31 04/18/20 07:00 04/18/20 03:31 04/18/20 03:31 04/18/20 04:27 Intake & Output 04/17/20 04/18/20 04/19/20 06:59 06:59 06:59 Intake Total 1810 600 Output Total 1100 3700 Balance 710 -3100 Weight 108.8 kg 112 kg General appearance: PRESENT: no acute distress, morbidly obese Head exam: PRESENT: atraumatic Eye exam: PRESENT: PERRLA Mouth exam: PRESENT: moist, tongue midline Teeth exam: PRESENT: poor dentation Neck exam: ABSENT: carotid bruit, JVD, lymphadenopathy, thyromegaly Respiratory exam: PRESENT: decreased breath sounds Cardiovascular exam: PRESENT: RRR. ABSENT: diastolic murmur, rubs, systolic murmur GI/Abdominal exam: PRESENT: normal bowel sounds, soft. ABSENT: distended, guar ding, mass, organolmegaly, rebound, tenderness Rectal exam: PRESENT: deferred Extremities exam: PRESENT: full ROM. ABSENT: calf tenderness, clubbing, pedal edema Neurological exam: PRESENT: alert, awake, oriented to person, oriented to place, oriented to time, oriented to situation, CN II-XII grossly intact. ABSENT: motor sensory deficit Psychiatric exam: PRESENT: appropriate affect, normal mood. ABSENT: homicidal ideation, suicidal ideation Results Laboratory Results: 04/17/20 05:28 04/17/20 05:28 04/13/20 18:55 Blood Blood Culture (PCR) - Final Staphylococcus Species 04/13/20 18:55 Blood Blood Culture - Final Staphylococcus Capitis 04/13/20 17:55 Blood Blood Culture (PCR) - Final Staphylococcus Species 04/13/20 17:55 Blood Blood Culture - Final Staphylococcus Capitis 04/13/20 04/13/20 04/13/20 17:45 23:55 23:55 Creatine Kinase 108 CK-MB (CK-2) 4.65 H Troponin I 0.153 0.211 04/14/20 04/14/20 04/14/20 06:59 06:59 12:16 Creatine Kinase 83 65 CK-MB (CK-2) 3.48 Troponin I 0.209 04/14/20 12:16 Creatine Kinase CK-MB (CK-2) 3.17 Troponin I 0.214 Impressions: Chest X-Ray 04/13/20 17:54 IMPRESSION: No significant interval change. No acute cardiopulmonary disease. Foot X-Ray 04/13/20 17:54 IMPRESSION: Diffuse osteopenia. No radiographic evidence of acute osteomyelitis. Ulceration at the plantar surface forefoot. If there is clinical concern for osteomyelitis, MRI or a nuclear medicine bone scan should be considered for further evaluation. Assessment and Plan - Diagnosis (1) Acute kidney injury Is this a current diagnosis for this admission?: Yes Plan: Resolved. Still a little bit dry so fluids are continued. 04/16/2020 Will likely no longer needs fluids after today. Recheck labs tomorrow. 04/17/2020-serum creatinine is 0.9. He acute kidney injury is resolved. Patient is not on IV fluids at this time. 04/18/2020-patient admitted with acute kidney injury, latest serum creatinine 0.9. Magui resolved. (2) Acute respiratory failure with hypercapnia Is this a current diagnosis for this admission?: Yes Plan: Currently stable on 1.5 L per nasal cannula April 16, 2020 Taper oxygen as tolerated. 04/17/2020-pulse ox today is 97% on 2 L. Without oxygen supplementations oxygen levels are dropping to 85%. Plan is to continue provide oxygen supplementations at this time. 04/18/2020-patient is comfortably in the bed not in distress. Communicating well without any respiratory distress. Pulse ox is 94% on 2 L. Acute respiratory failure with hypoxia and hypercapnia resolving. (3) Candidal intertrigo Is this a current diagnosis for this admission?: No Plan: Topical nystatin powder April 16, 2020 Monitor for improvement. (4) Cellulitis of right leg Is this a current diagnosis for this admission?: Yes Plan: Currently on Zyvox and meropenem. Erythema has improved. Both blood cultures are now positive for coagulase-negative Staphylococcus. April 16, 2020 Gram-positive cocci were only was identified. Meropenem was discontinued since urine showed insignificant variance. Continue Zyvox. 04/17/2020-patient is presently on Zyvox blood culture positive for coagulase- negative Staphylococcus. Plan is to repeat the blood cultures today. 04/18/2020-patient is presently on Zyvox, blood cultures are positive for coagulase-negative staph in multiple bottles. Plan is to continue the antibiotic therapy at this time. (5) Chronic diastolic congestive heart failure Is this a current diagnosis for this admission?: No Plan: Monitoring her blood pressure. Not acutely exacerbated. 04/16/2020 Continue furosemide, lisinopril and metoprolol. 04/17/2020-blood pressure today is 134/58 on examination not in fluid overload. Presently on furosemide, lisinopril, metoprolol. Patient has history of chronic diastolic heart failure. 04/18/2020-blood pressure today is 176/88. Presently on furosemide, lisinopril, metoprolol. Patient has history of diastolic heart failure. Plan is to closely monitor the blood pressures at this time. (6) Elevation of cardiac enzymes Is this a current diagnosis for this admission?: Yes Plan: She has extensive coronary atherosclerosis. No chest pain. Likely as a result of her sepsis. Seen by cardiology. No further work-up indicated at this time. Continues on telemetry. April 16, 2020 As above. No further need to monitor troponin levels. 04/17/2020-patient presented with non-STEMI cardiology consult was done. No further recommendations by cardiology team. (7) Sepsis Qualifiers: Sepsis type: sepsis due to unspecified organism Sepsis acute organ dysfunction status: with acute organ dysfunction Severe sepsis acute organ dysfunction type: acute renal failure Acute renal failure type: unspecified Severe sepsis shock status: without septic shock Qualified Code(s): A41.9 - Sepsis, unspecified organism; R65.20 - Severe sepsis without septic shock; N17.9 - Acute kidney failure, unspecified Is this a current diagnosis for this admission?: Yes Plan: Antibiotics and IV fluids as previously noted. Renal function is improving. April 16, 2020 Resolved with fluids and antibiotics. 04/17/2020-sepsis is resolving, blood pressure is stable afebrile WBC count is 11,700. Cultures are positive for coagulase-negative Staphylococcus aureus. Presently on Zyvox. Plan is to repeat the labs today. On examination right foot cellulitis is improving. 04/18/2020-WBC count is 11,700 today cultures are positive for coagulase-negative staph aureus on Zyvox. (8) Sacral decubitus ulcer, stage II Is this a current diagnosis for this admission?: Yes Plan: Local wound care 04/16/2020 In addition to wound care I have ordered offloading every 3 hours. 04/18/2020-patient is getting daily dressing changes. (9) Morbid obesity Is this a current diagnosis for this admission?: No Plan: 04/17/2020-patient BMI is more than 55 diet exercise weight loss lifestyle modifications discussed with the patient. (10) Nonhealing wound of heel Is this a current diagnosis for this admission?: Yes Plan: 04/18/2020-noticed to have a pressure wound on the right heel. It is not a open w ound. It may need a debridement. Consultation with Dr. Armstrong was requested. Patient is in the bed and unable to get out of the bed. Physical therapy consult was requested therapeutic case manager consult was requested for possible placement. - Plan Summary Summary: Patient will be admitted to telemetry where she will receive routine supportive and symptomatic cares. She will be treated with BiPAP as required to maintain adequate oxygen saturation and alleviate respiratory acidosis. She will receive IV fluids utilizing LR at 167 mL/h for the first 12 hours of therapy. She will receive IV meropenem and Zyvox empirically pending culture results. She will receive Ativan 1 mg IV every 4 hours as needed for anxiety or restlessness. She will receive morphine sulfate 2 to 4 mg IV every 2 hours as needed for pain. Serial cardiac enzymes will be obtained. CBCs, metabolic profiles, magnesium levels and additional laboratory and/or radiographic evaluations will be obtained as needed. A routine cardiology consultation will be obtained with Dr. Connor.
[2020-04-18] MEDS: LISINOPRIL 10 MG TABLET PO SCH (10:35)
[2020-04-18] MEDS: CLOPIDOGREL BISULFATE 75 MG TABLET PO SCH (10:35)
[2020-04-18] MEDS: METOPROLOL SUCCINATE 25 MG TAB.SR.24H PO SCH (10:36)
[2020-04-18] MEDS: LINEZOLID 600 MG/300 ML RTUPB IV SCH ×2 (10:36→21:53)
[2020-04-18] MEDS: FUROSEMIDE 40 MG TABLET PO SCH (10:36)
[2020-04-18] MEDS: MORPHINE SULFATE 10 MG/ML INJ IV PRN ×2 (10:43→21:45)
[2020-04-18] MEDS: NYSTATIN TOPICAL POWDER 15 GM TP SCH ×2 (10:46→20:00)
[2020-04-18] MEDS: SITAGLIPTIN PHOSPHATE 50 MG TABLET PO SCH (15:05)
[2020-04-18] MEDS: ATORVASTATIN CALCIUM 40 MG TABLET PO SCH (21:40)
--- NOTE | 2020-04-19 00:16 | PDOC CONSULTATION ---
Consultation Consult Date: 04/19/20 Attending physician:: ASHLEY TOTH Provider Consulted: TOMMY PETERSON Consult reason:: pressure ulcer right heel History of Present Illness Admission Date/PCP: 04/13/20 20:58 NIC KOTHARI NP History of Present Illness: MIGUEL ROBB is a 69 year old female admitted for rt leg cellulitis and +blood cultures She has been treated the hospital for the last 3 to 4 days with improvement of the right lower extremity cellulitis. Document however her hospitalist recently noticed a right heel ulcer today with a bullae over the right heel incision and requested surgical consultation. Patient denies any pain to the right lower extremity. Past Medical History Cardiac Medical History: Reports: Congestive Heart Failure, Coronary Artery Disease, Myocardial Infarction - HRT CATH AUG 2016 2 STENTS, Hyperlipidema, Hypertension Pulmonary Medical History: Reports: Chronic Obstructive Pulmonary Disease (COPD), Respiratory Failure Denies: Asthma EENT Medical History: Denies: Cataracts, Ears - Hearing aids Neurological Medical History: Denies: Hemorrhagic CVA, Ischemic CVA, Seizures Endocrine Medical History: Reports: Diabetes Mellitus Type 2, Hypothyroidism, Obesity Denies: Diabetes Mellitus Type 1, Hyperthyroidism Renal/ Medical History: Denies: Chronic Kidney Disease, Nephrolithiasis Malignancy Medical History: Reports: None GI Medical History: Denies: Cirrhosis, Hepatitis, Hiatal Hernia Musculoskeltal Medical History: Reports: Arthritis Denies: Gout Skin Medical History: Reports: Other - Chronic venous stasis skin changes with frequent superinfection Denies: Eczema, Psoriasis Psychiatric Medical History: Reports: Depression Denies: Alcohol Dependency, Substance Abuse, Tobacco Dependency Traumatic Medical History: Reports: None Hematology: Denies: Anemia, Sickle Cell Disease Infectious Medical History: Reports: None Past Surgical History Past Surgical History: Reports: Appendectomy, Cardiac Catheterization, Section, Coronary Stent, Herniorrhaphy, Other - exploratory laparotomy 2, bowel resection Denies: Amputation, Hysterectomy, Mastectomy, Pacemaker Social History Lives with: Family Smoking Status: Current Some Day Smoker Electronic Cigarette use?: No Number of Years Smokin Last Time Smoked: 04/10/2020 Frequency of Alcohol Use: None Hx Recreational Drug Use: No Drugs: None Hx Prescription Drug Abuse: No - Advance Directive Resuscitation Status: Full Code Family History Family History: CAD, COPD, DM, Hyperlipidemia, Hypertension Parental Family History Reviewed: No Children Family History Reviewed: NA Sibling(s) Family History Reviewed.: NA Medication/Allergy Home Medications: Atorvastatin Calcium [Lipitor 40 mg Tablet] 40 mg PO QHS 11/11/19 Clopidogrel Bisulfate [Plavix 75 mg Tablet] 75 mg PO DAILY 11/11/19 Duloxetine HCl [Cymbalta] 60 mg PO Q12 11/11/19 Ergocalciferol (Vitamin D2) [Drisdol 50,000 unit (1.25MG) Capsule] 50,000 unit PO WE@1000 11/11/19 Furosemide [Lasix 40 mg Tablet] 40 mg PO QAM 11/11/19 Gabapentin [Neurontin 300 mg Capsule] 600 mg PO Q8 11/11/19 Nitroglycerin [Nitrostat 0.4 mg (1/150 Gr) Tabs 25/Bottle] 1 tab SL Q5MP PRN 11/11/19 Sitagliptin Phosphate [Januvia 50 mg Tablet] 100 mg PO WLUNCH 11/11/19 Levothyroxine Sodium [Levo-T] 137 mcg PO Q6AM 04/14/20 Lisinopril [Zestril] 20 mg PO DAILY 04/14/20 Metoprolol Succinate [Toprol Xl 25 mg Tab.sr] 25 mg PO DAILY 04/14/20 Allergies/Adverse Reactions: albuterol [Albuterol] Allergy (Intermediate, Verified 04/13/20 17:04) Sulfa (Sulfonamide Antibiotics) Allergy (Intermediate, Verified 04/13/20 17:04) codeine [Codeine] Adverse Reaction (Intermediate, Verified 04/13/20 17:04) Review of Systems Constitutional: PRESENT: as per HPI Eyes: ABSENT: as per HPI, visual disturbances, other Ears: ABSENT: as per HPI, hearing changes, other Nose, Mouth, and Throat: ABSENT: as per HPI, headache(s), mouth pain, sore throat, vertigo, other Breasts: ABSENT: as per HPI, other Cardiovascular: ABSENT: as per HPI, chest pain, dyspnea on exertion, edema, orthropnea, palpitations, other Respiratory: ABSENT: as per HPI, cough, dyspnea, hemoptysis, sputum, other Gastrointestinal: ABSENT: as per HPI, abdominal pain, bloating, coffee ground emesis, constipation, diarrhea, dysphagia, heartburn, hematemesis, hematochezia, melena, nausea, vomiting, other Genitourinary: ABSENT: as per HPI, difficulty urinating, dysuria, hematuria, nocturia, other Integumentary: ABSENT: as per HPI, diaphoresis, erythema, lesions, pruritus, rash, wounds, other Neurological: ABSENT: as per HPI, abnormal gait, abnormal movements, abnormal speech, confusion, convulsions, dizziness, focal weakness, frequent falls, lack of coordination, memory loss, numbness, paresthesias, restless legs, syncope, tingling, tremor(s), vertigo, weakness, other Hematologic/Lymphatic: ABSENT: easy bleeding, easy bruising Allergic/Immunologic: ABSENT: as per HPI, seasonal rhinorrhea, other Physical Exam Vital Signs: Temp Pulse Resp BP Pulse Ox 97.9 F 62 20 151/67 H 97 04/18/20 19:29 04/18/20 19:29 04/18/20 19:29 04/18/20 19:29 04/18/20 19:29 Intake & Output 04/17/20 04/18/20 04/19/20 06:59 06:59 06:59 Intake Total 1361 930 6640 Output Total 1100 3700 1950 Balance 710 -3100 -732 Weight 108.8 kg 112 kg General appearance: PRESENT: morbidly obese Head exam: PRESENT: atraumatic Eye exam: PRESENT: EOMI Mouth exam: PRESENT: moist Neck exam: PRESENT: full ROM Respiratory exam: PRESENT: clear to auscultation [place] Cardiovascular exam: PRESENT: RRR Pulses: PRESENT: normal radial pulses, normal femoral pulses Vascular exam: PRESENT: normal capillary refill Breast: PRESENT: Normal GI/Abdominal exam: PRESENT: soft Rectal exam: PRESENT: deferred Extremities exam: PRESENT: other - Morbidly obese female sitting in bed The right lower extremity has 2-3+ edema the entire length of the extremities. There is a dry ulceration of the right great toe which does not exhibit any drainage or pus. In the right heel there is a 4 x 2 cm bullae that has obvious fluid underneath. He exhibits pink some dermal tissue after the bolus was excised with a sterile scissors at bedside. There was serous fluid around the bullae there was no evidence of any purulent drainage. Musculoskeletal exam: PRESENT: full ROM Neurological exam: PRESENT: alert, awake, oriented to person, oriented to place Psychiatric exam: PRESENT: appropriate affect Skin exam: PRESENT: dry Results Laboratory Results: 04/17/20 05:28 04/17/20 05:28 04/13/20 04/13/20 04/13/20 17:45 23:55 23:55 Creatine Kinase 108 CK-MB (CK-2) 4.65 H Troponin I 0.153 0.211 04/14/20 04/14/20 04/14/20 06:59 06:59 12:16 Creatine Kinase 83 65 CK-MB (CK-2) 3.48 Troponin I 0.209 04/14/20 12:16 Creatine Kinase CK-MB (CK-2) 3.17 Troponin I 0.214 Impressions: Chest X-Ray 04/13/20 17:54 IMPRESSION: No significant interval change. No acute cardiopulmonary disease. Foot X-Ray 04/13/20 17:54 IMPRESSION: Diffuse osteopenia. No radiographic evidence of acute osteo myelitis. Ulceration at the plantar surface forefoot. If there is clinical concern for osteomyelitis, MRI or a nuclear medicine bone scan should be considered for further evaluation. Assessment & Plan - Plan Summary Plan Summary: Patient is early pressure ulcer right heel. The blister was debrided at bedside. Recommend wet-to-dry dressing changes and offloading the right lower extremity with elevation on 2 pillows. Instructions have been given to the nursing staff. No further indication for surgical intervention. Please reconsult as necessary.
[2020-04-19] MEDS: GABAPENTIN 300 MG CAPSULE PO SCH ×3 (05:14→21:42)
[2020-04-19] MEDS: LEVOTHYROXINE SODIUM 0.025 MG TABLET PO SCH (05:14)
[2020-04-19] MEDS: PANTOPRAZOLE SODIUM 40 MG TABLET.DR PO SCH ×2 (05:14→17:49)
[2020-04-19] MEDS: LEVOTHYROXINE SODIUM 0.112 MG TABLET PO SCH (05:14)
[2020-04-19] MEDS: FUROSEMIDE 40 MG TABLET PO SCH (08:13)
[2020-04-19] MEDS: INSULIN REG, HUMAN 100 UNIT/ML 3 ML VIAL (PYX) SUBCUT SCH ×4 (08:35→22:03)
--- NOTE | 2020-04-19 08:46 | PDOC PROGRESS REPORT ---
Subjective Progress Note for:: 04/19/20 Subjective:: 69 year old female who presented to the emergency room via EMS with a 3-day history of right leg pain. The patient is lethargic and confused and as such cannot provide reliable historical input for her medical record. Her son called for the ambulance because he could not get her out of bed and admitted she had been complaining of increased pain in her right lower leg accompanied by increased redness and swelling in the right lower leg for 3 days. In the emerg ency room she was found to have a white blood count of 26,000 with an erythematous and edematous right lower leg and a plantar ulcer of the right foot noted. She was also found to have an acute kidney injury and a respiratory acidosis accompanying acute respiratory failure with hypoxia and hypercapnia. She was placed on BiPAP, empiric antibiotic therapy was initiated after cultures were obtained and she was subsequently admitted to the hospital for further evaluation treatment. 04/14/20-No adverse events overnight. No new complaints. Vital signs been stable. Blood pressures were low but have improved a little bit throughout the day. No fevers. 04/15-No adverse events overnight. No new complaints. She is more awake and alert today. She says she is feeling better. No fevers. Appetite is improving. 04/16/20-Back in sinus rhythm with good rate control after episode of atrial fibrillation with RVR last night. Patient is still feeling tired. She has not been out of bed yet for this hospitalization. 04/17/2020-comfortably in the bed communicating well. Alert awake oriented. She explained to me that she traveled back from [place] to [place] and forgot to take of the socks and the edges of the socks cut into her skin and got infection of the right foot. ADY is negative during the hospital stay. Came in with altered mental status which was resolved. Blood cultures growing Staphylococcus species. Sieving Zyvox at this time. WBC count is 11,700 afebrile blood pressures are stable. 04/18/2020-patient is comfortably in the bed communicating well. No complaints. Unable to come out of the bed physical therapy consult was requested plan is to refer her to long-term care facility. Latest blood sugar is 129. Patient is presently on Zyvox, cultures are positive for Staphylococcus species. Coagulase-negative Staphylococcus. It is to have pressure ulcer on the right heel with erythema on the in the middle skin is not open but underlying pus looking material seen. Discussed the plan with Dr. Armstrong he is going to see the patient today. 04/19/2020-patient is comfortable in the bed communicating well. Surgical consult was done yesterday Dr. Armstrong did debridement at bedside of the right heel wound. No acute events in the last 24 hours afebrile. Patient is waiting for placement. Reason For Visit: SEVERE SEPSIS WITHOUT SHOCK,CELLULITIS RIGHT LOWER Physical Exam Vital Signs: Temp Pulse Resp BP Pulse Ox 98.0 F 61 20 135/54 H 96 04/19/20 07:28 04/19/20 07:28 04/19/20 07:28 04/19/20 07:28 04/19/20 07:28 Intake & Output 04/18/20 04/19/20 04/20/20 06:59 06:59 06:59 Intake Total 600 2098 Output Total 3700 2300 Balance -3100 -202 Weight 112 kg 112.5 kg General appearance: PRESENT: no acute distress, morbidly obese Head exam: PRESENT: atraumatic Eye exam: PRESENT: PERRLA Ear exam: PRESENT: normal external ear exam Mouth exam: PRESENT: neck supple Teeth exam: PRESENT: poor dentation Neck exam: ABSENT: carotid bruit, JVD, lymphadenopathy, thyromegaly Respiratory exam: PRESENT: decreased breath sounds Cardiovascular exam: PRESENT: RRR. ABSENT: diastolic murmur, rubs, systolic murmur GI/Abdominal exam: PRESENT: normal bowel sounds, soft. ABSENT: distended, guarding, mass, organolmegaly, rebound, tenderness Rectal exam: PRESENT: deferred Extremities exam: PRESENT: full ROM. ABSENT: calf tenderness, clubbing, pedal edema Neurological exam: PRESENT: alert, awake, oriented to person, oriented to place, oriented to time, oriented to situation, CN II-XII grossly intact. ABSENT: motor sensory deficit Psychiatric exam: PRESENT: appropriate affect, normal mood. ABSENT: homicidal ideation, suicidal ideation Results Laboratory Results: 04/17/20 05:28 04/17/20 05:28 04/13/20 04/13/20 04/13/20 17:45 23:55 23:55 Creatine Kinase 108 CK-MB (CK-2) 4.65 H Troponin I 0.153 0.211 04/14/20 04/14/20 04/14/20 06:59 06:59 12:16 Creatine Kinase 83 65 CK-MB (CK-2) 3.48 Troponin I 0.209 04/14/20 12:16 Creatine Kinase CK-MB (CK-2) 3.17 Troponin I 0.214 Impressions: Chest X-Ray 04/13/20 17:54 IMPRESSION: No significant interval change. No acute cardiopulmonary disease. Foot X-Ray 04/13/20 17:54 IMPRESSION: Diffuse osteopenia. No radiographic evidence of acute osteomyelitis. Ulceration at the plantar surface forefoot. If there is clinical concern for osteomyelitis, MRI or a nuclear medicine bone scan should be considered for further evaluation. Assessment and Plan - Diagnosis (1) Acute kidney injury Is this a current diagnosis for this admission?: Yes Plan: Resolved. Still a little bit dry so fluids are continued. 04/16/2020 Will likely no longer needs fluids after today. Recheck labs tomorrow. 04/17/2020-serum creatinine is 0.9. He acute kidney injury is resolved. Patient is not on IV fluids at this time. 04/18/2020-patient admitted with acute kidney injury, latest serum creatinine 0.9. Magui resolved. 04/19/2020-patient admitted with acute kidney injury which was resolved. (2) Acute respiratory failure with hypercapnia Is this a current diagnosis for this admission?: Yes Plan: Currently stable on 1.5 L per nasal cannula April 16, 2020 Taper oxygen as tolerated. 04/17/2020-pulse ox today is 97% on 2 L. Without oxygen supplementations oxygen levels are dropping to 85%. Plan is to continue provide oxygen supplementations at this time. 04/18/2020-patient is comfortably in the bed not in distress. Communicating well without any respiratory distress. Pulse ox is 94% on 2 L. Acute respiratory failure with hypoxia and hypercapnia resolving. 04/19/20-patient is comfortable in the bed communicating well. Pulse ox is 94% on 1.5 L of oxygen. On examination chest bilateral entry was good no wheezing no crepitations. (3) Candidal intertrigo Is this a current diagnosis for this admission?: No Plan: Topical nystatin powder April 16, 2020 Monitor for improvement. (4) Cellulitis of right leg Is this a current diagnosis for this admission?: Yes Plan: Currently on Zyvox and meropenem. Erythema has improved. Both blood cultures are now positive for coagulase-negative Staphylococcus. April 16, 2020 Gram-positive cocci were only was identified. Meropenem was discontinued since urine showed insignificant variance. Continue Zyvox. 04/17/2020-patient is presently on Zyvox blood culture positive for coagulase- negative Staphylococcus. Plan is to repeat the blood cultures today. 04/18/2020-patient is presently on Zyvox, blood cultures are positive for coagu lase-negative staph in multiple bottles. Plan is to continue the antibiotic therapy at this time. 04/19/2020-patient is presently on Zyvox, blood cultures are positive for coagulase-negative staph in multiple bottles. Needs to complete the antibiotic therapy today. (5) Chronic diastolic congestive heart failure Is this a current diagnosis for this admission?: No Plan: Monitoring her blood pressure. Not acutely exacerbated. 04/16/2020 Continue furosemide, lisinopril and metoprolol. 04/17/2020-blood pressure today is 134/58 on examination not in fluid overload. Presently on furosemide, lisinopril, metoprolol. Patient has history of chronic diastolic heart failure. 04/18/2020-blood pressure today is 176/88. Presently on furosemide, lisinopril, metoprolol. Patient has history of diastolic heart failure. Plan is to closely monitor the blood pressures at this time. (6) Elevation of cardiac enzymes Is this a current diagnosis for this admission?: Yes Plan: She has extensive coronary atherosclerosis. No chest pain. Likely as a result of her sepsis. Seen by cardiology. No further work-up indicated at this time. Continues on telemetry. April 16, 2020 As above. No further need to monitor troponin levels. 04/17/2020-patient presented with non-STEMI cardiology consult was done. No further recommendations by cardiology team. (7) Sepsis Qualifiers: Sepsis type: sepsis due to unspecified organism Sepsis acute organ dysfunction status: with acute organ dysfunction Severe sepsis acute organ dysfunction type: acute renal failure Acute renal failure type: unspecified Severe sepsis shock status: without septic shock Qualified Code(s): A41.9 - Sepsis, unspecified organism; R65.20 - Severe sepsis without septic shock; N17.9 - Acute kidney failure, unspecified Is this a current diagnosis for this admission?: Yes Plan: Antibiotics and IV fluids as previously noted. Renal function is improving. April 16, 2020 Resolved with fluids and antibiotics. 04/17/2020-sepsis is resolving, blood pressure is stable afebrile WBC count is 11,700. Cultures are positive for coagulase-negative Staphylococcus aureus. Presently on Zyvox. Plan is to repeat the labs today. On examination right foot cellulitis is improving. 04/18/2020-WBC count is 11,700 today cultures are positive for coagulase-negative staph aureus on Zyvox. 04/19/2020-sepsis is resolved. (8) Sacral decubitus ulcer, stage II Is this a current diagnosis for this admission?: Yes Plan: Local wound care 04/16/2020 In addition to wound care I have ordered offloading every 3 hours. 04/18/2020-patient is getting daily dressing changes. (9) Morbid obesity Is this a current diagnosis for this admission?: No Plan: 04/17/2020-patient BMI is more than 55 diet exercise weight loss lifestyle modifications discussed with the patient. (10) Nonhealing wound of heel Is this a current diagnosis for this admission?: Yes Plan: 04/18/2020-noticed to have a pressure wound on the right heel. It is not a open wound. It may need a debridement. Consultation with Dr. Armstrong was requested. Patient is in the bed and unable to get out of the bed. Physical therapy consult was requested briefcase sewer consult was requested for possible placement. 04/19/2020-Dr. Armstrong was consulted he did a debridement of the right heel wound at bedside. - Plan Summary Summary: Patient will be admitted to telemetry where she will receive routine supportive and symptomatic cares. She will be treated with BiPAP as required to maintain a dequate oxygen saturation and alleviate respiratory acidosis. She will receive IV fluids utilizing LR at 167 mL/h for the first 12 hours of therapy. She will receive IV meropenem and Zyvox empirically pending culture results. She will receive Ativan 1 mg IV every 4 hours as needed for anxiety or restlessness. She will receive morphine sulfate 2 to 4 mg IV every 2 hours as needed for pain. Serial cardiac enzymes will be obtained. CBCs, metabolic profiles, magnesium levels and additional laboratory and/or radiographic evaluations will be obtained as needed. A routine cardiology consultation will be obtained with Dr. Connor.
[2020-04-19] MEDS: LINEZOLID 600 MG/300 ML RTUPB IV SCH ×2 (11:53→21:43)
[2020-04-19] MEDS: LISINOPRIL 10 MG TABLET PO SCH (11:54)
[2020-04-19] MEDS: METOPROLOL SUCCINATE 25 MG TAB.SR.24H PO SCH (11:55)
[2020-04-19] MEDS: CLOPIDOGREL BISULFATE 75 MG TABLET PO SCH (11:55)
[2020-04-19] MEDS: SITAGLIPTIN PHOSPHATE 50 MG TABLET PO SCH (11:55)
[2020-04-19] MEDS: NYSTATIN TOPICAL POWDER 15 GM TP SCH ×2 (11:58→17:49)
[2020-04-19] MEDS: MORPHINE SULFATE 10 MG/ML INJ IV PRN (19:40)
[2020-04-19] MEDS: ATORVASTATIN CALCIUM 40 MG TABLET PO SCH (21:42)
[2020-04-20 05:13] LABS: HEMATOCRIT 37.1 % (36.0-47.0); HEMOGLOBIN 11.8 g/dL (12.0-15.5); MEAN CORPUSCULAR HEMOGLOBIN 25.4 pg (27.0-33.4); MEAN CORPUSCULAR HGB CONC 31.8 g/dL (32.0-36.0); MEAN CORPUSCULAR VOLUME 80 fl (80-97); PLATELET COUNT 330 10^3/uL (150-450); RED BLOOD COUNT 4.65 10^6/uL (3.72-5.28)
[2020-04-20 05:27] LABS: ALBUMIN 2.6 g/dL (3.5-5.0); ALKALINE PHOSPHATASE 83 U/L (38-126); ASPARTATE AMINO TRANSFERASE 17 U/L (14-36); BILIRUBIN,TOTAL 0.3 mg/dL (0.2-1.3); BLOOD UREA NITROGEN 26 mg/dL (7-20); CALCIUM 10.1 mg/dL (8.4-10.2); GLUCOSE 139 mg/dL (75-110); POTASSIUM 4.1 mmol/L (3.6-5.0); TOTAL PROTEIN 5.3 g/dL (6.3-8.2)
[2020-04-20] MEDS: LEVOTHYROXINE SODIUM 0.112 MG TABLET PO SCH (05:32)
[2020-04-20] MEDS: PANTOPRAZOLE SODIUM 40 MG TABLET.DR PO SCH ×2 (05:32→18:02)
[2020-04-20] MEDS: GABAPENTIN 300 MG CAPSULE PO SCH ×3 (05:32→21:05)
[2020-04-20] MEDS: LEVOTHYROXINE SODIUM 0.025 MG TABLET PO SCH (05:32)
[2020-04-20 05:33] LABS: ABSOLUTE LYMPHOCYTES# (MANUAL) 1.7 10^3/uL (0.5-4.7); ABSOLUTE MONOCYTES # (MANUAL) 0.3 10^3/uL (0.1-1.4); ANISOCYTOSIS SLIGHT; BAND NEUTROPHILS % (MANUAL) 1 % (3-5); BASOPHILS % (MANUAL) 0 % (0-2); EOSINOPHILS % (MANUAL) 2 % (0-6); LYMPHOCYTES % (MANUAL) 11 % (13-45); MONOCYTES % (MANUAL) 2 % (3-13); PLATELET CLUMPS PRESENT; PLATELET COMMENT ADEQUATE; SEGMENTED NEUTROPHILS % (MAN) 83 % (42-78); TOTAL CELLS COUNTED 100
[2020-04-20 05:34] LABS: CARBON DIOXIDE 35 mmol/L (22-30); CHLORIDE 99 mmol/L (98-107)
[2020-04-20 05:37] LABS: ANION GAP 3 (5-19)
--- NOTE | 2020-04-20 08:14 | PDOC PROGRESS REPORT ---
Subjective Progress Note for:: 04/20/20 Subjective:: 69 year old female who presented to the emergency room via EMS with a 3-day history of right leg pain. The patient is lethargic and confused and as such cannot provide reliable historical input for her medical record. Her son called for the ambulance because he could not get her out of bed and admitted she had been complaining of increased pain in her right lower leg accompanied by increased redness and swelling in the right lower leg for 3 days. In the emerg ency room she was found to have a white blood count of 26,000 with an erythematous and edematous right lower leg and a plantar ulcer of the right foot noted. She was also found to have an acute kidney injury and a respiratory acidosis accompanying acute respiratory failure with hypoxia and hypercapnia. She was placed on BiPAP, empiric antibiotic therapy was initiated after cultures were obtained and she was subsequently admitted to the hospital for further evaluation treatment. 04/14/20-No adverse events overnight. No new complaints. Vital signs been stable. Blood pressures were low but have improved a little bit throughout the day. No fevers. 04/15-No adverse events overnight. No new complaints. She is more awake and alert today. She says she is feeling better. No fevers. Appetite is improving. 04/16/20-Back in sinus rhythm with good rate control after episode of atrial fibrillation with RVR last night. Patient is still feeling tired. She has not been out of bed yet for this hospitalization. 04/17/2020-comfortably in the bed communicating well. Alert awake oriented. She explained to me that she traveled back from [place] to [place] and forgot to take of the socks and the edges of the socks cut into her skin and got infection of the right foot. ADY is negative during the hospital stay. Came in with altered mental status which was resolved. Blood cultures growing Staphylococcus species. Sieving Zyvox at this time. WBC count is 11,700 afebrile blood pressures are stable. 04/18/2020-patient is comfortably in the bed communicating well. No complaints. Unable to come out of the bed physical therapy consult was requested plan is to refer her to long-term care facility. Latest blood sugar is 129. Patient is presently on Zyvox, cultures are positive for Staphylococcus species. Coagulase-negative Staphylococcus. It is to have pressure ulcer on the right heel with erythema on the in the middle skin is not open but underlying pus looking material seen. Discussed the plan with Dr. Armstrong he is going to see the patient today. 04/19/2020-patient is comfortable in the bed communicating well. Surgical consult was done yesterday Dr. Armstrong did debridement at bedside of the right heel wound. No acute events in the last 24 hours afebrile. Patient is waiting for placement. 04/20/2020-patient is waiting for placement. Physical therapy is working with the patient. No acute events in the last 24 hours. Afebrile. Reason For Visit: SEVERE SEPSIS WITHOUT SHOCK,CELLULITIS RIGHT LOWER Physical Exam Vital Signs: Temp Pulse Resp BP Pulse Ox 97.7 F 49 L 17 140/36 H 95 04/20/20 03:30 04/20/20 03:30 04/20/20 03:30 04/20/20 03:30 04/20/20 07:26 Intake & Output 04/19/20 04/20/20 04/21/20 06:59 06:59 06:59 Intake Total 2098 1860 Output Total 2300 3075 Balance -202 -1215 Weight 112.5 kg 110.6 kg General appearance: PRESENT: no acute distress, morbidly obese Head exam: PRESENT: atraumatic Eye exam: PRESENT: PERRLA Mouth exam: PRESENT: moist, tongue midline Teeth exam: PRESENT: poor dentation Neck exam: ABSENT: carotid bruit, JVD, lymphadenopathy, thyromegaly Respiratory exam: PRESENT: decreased breath sounds Cardiovascular exam: PRESENT: bradycardia GI/Abdominal exam: PRESENT: normal bowel sounds, soft. ABSENT: distended, guarding, mass, organolmegaly, rebound, tenderness Rectal exam: PRESENT: deferred Neurological exam: PRESENT: alert, awake, oriented to person, oriented to place, oriented to time, oriented to situation, CN II-XII grossly intact. ABSENT: motor sensory deficit Psychiatric exam: PRESENT: appropriate affect, normal mood. ABSENT: homicidal ideation, suicidal ideation Results Laboratory Results: 04/20/20 04:19 04/20/20 04:19 04/20/20 04/20/20 04:19 04:19 WBC 14.0 H RBC 4.65 Hgb 11.8 L Hct 37.1 MCV 80 MCH 25.4 L MCHC 31.8 L RDW 16.0 H Plt Count 330 Seg Neutrophils % Not Reportable Sodium 136.7 L Potassium 4.1 Chloride 99 Carbon Dioxide 35 H Anion Gap 3 L BUN 26 H Creatinine 0.86 Est GFR ( Amer) > 60 Glucose 139 H Calcium 10.1 Magnesium 2.1 Total Bilirubin 0.3 AST 17 Alkaline Phosphatase 83 Total Protein 5.3 L Albumin 2.6 L 04/13/20 04/13/20 04/13/20 17:45 23:55 23:55 Creatine Kinase 108 CK-MB (CK-2) 4.65 H Troponin I 0.153 0.211 04/14/20 04/14/20 04/14/20 06:59 06:59 12:16 Creatine Kinase 83 65 CK-MB (CK-2) 3.48 Troponin I 0.209 04/14/20 12:16 Creatine Kinase CK-MB (CK-2) 3.17 Troponin I 0.214 Impressions: Chest X-Ray 04/13/20 17:54 IMPRESSION: No significant interval change. No acute cardiopulmonary disease. Foot X-Ray 04/13/20 17:54 IMPRESSION: Diffuse osteopenia. No radiographic evidence of acute osteomyelitis. Ulceration at the plantar surface forefoot. If there is clinical concern for osteomyelitis, MRI or a nuclear medicine bone scan should be considered for further evaluation. Assessment and Plan - Diagnosis (1) Acute kidney injury Is this a current diagnosis for this admission?: Yes Plan: Resolved. Still a little bit dry so fluids are continued. 04/16/2020 Will likely no longer needs fluids after today. Recheck labs tomorrow. 04/17/2020-serum creatinine is 0.9. He acute kidney injury is resolved. Patient is not on IV fluids at this time. 04/18/2020-patient admitted with acute kidney injury, latest serum creatinine 0.9. Magui resolved. 04/19/2020-patient admitted with acute kidney injury which was resolved. 04/20/2020-latest serum creatinine 0.86 acute kidney injury is resolved. (2) Acute respiratory failure with hypercapnia Is this a current diagnosis for this admission?: Yes Plan: Currently stable on 1.5 L per nasal cannula April 16, 2020 Taper oxygen as tolerated. 04/17/2020-pulse ox today is 97% on 2 L. Without oxygen supplementations oxygen levels are dropping to 85%. Plan is to continue provide oxygen supplementations at this time. 04/18/2020-patient is comfortably in the bed not in distress. Communicating well without any respiratory distress. Pulse ox is 94% on 2 L. Acute respiratory failure with hypoxia and hypercapnia resolving. 04/19/20-patient is comfortable in the bed communicating well. Pulse ox is 94% on 1.5 L of oxygen. On examination chest bilateral entry was good no wheezing no crepitations. 04/20/20-pulse ox today's 100% on 1.5 of liters. Not in respiratory distress. Comfortably in the bed communicating well. (3) Candidal intertrigo Is this a current diagnosis for this admission?: No Plan: Topical nystatin powder April 16, 2020 Monitor for improvement. (4) Cellulitis of right leg Is this a current diagnosis for this admission?: Yes Plan: Currently on Zyvox and meropenem. Erythema has improved. Both blood cultures are now positive for coagulase-negative Staphylococcus. April 16, 2020 Gram-positive cocci were only was identified. Meropenem was discontinued since urine showed insignificant variance. Continue Zyvox. 04/17/2020-patient is presently on Zyvox blood culture positive for coagulase- negative Staphylococcus. Plan is to repeat the blood cultures today. 04/18/2020-patient is presently on Zyvox, blood cultures are positive for coagulase-negative staph in multiple bottles. Plan is to continue the antibiotic therapy at this time. 04/19/2020-patient is presently on Zyvox, blood cultures are positive for coagulase-negative staph in multiple bottles. Needs to complete the antibiotic therapy today. 04/20/2020-cellulitis of the right lower leg improving. Blood cultures positive for coagulase-negative staph in multiple bottles. On linezolid plan is to discontinue antibiotics from today. Blood cultures from 04/17/2020 no bacterial growth seen. (5) Chronic diastolic congestive heart failure Is this a current diagnosis for this admission?: No Plan: Monitoring her blood pressure. Not acutely exacerbated. 04/16/2020 Continue furosemide, lisinopril and metoprolol. 04/17/2020-blood pressure today is 134/58 on examination not in fluid overload. Presently on furosemide, lisinopril, metoprolol. Patient has history of chronic diastolic heart failure. 04/18/2020-blood pressure today is 176/88. Presently on furosemide, lisinopril, metoprolol. Patient has history of diastolic heart failure. Plan is to closely monitor the blood pressures at this time. 04/20/2020-blood pressure today is 140/66. Plan is to continue furosemide, lisinopril, metoprolol. (6) Elevation of cardiac enzymes Is this a current diagnosis for this admission?: Yes Plan: She has extensive coronary atherosclerosis. No chest pain. Likely as a result of her sepsis. Seen by cardiology. No further work-up indicated at this time. Continues on telemetry. April 16, 2020 As above. No further need to monitor troponin levels. 04/17/2020-patient presented with non-STEMI cardiology consult was done. No further recommendations by cardiology team. (7) Sepsis Qualifiers: Sepsis type: sepsis due to unspecified organism Sepsis acute organ dysfunction status: with acute organ dysfunction Severe sepsis acute organ dysfunction type: acute renal failure Acute renal failure type: unspecified Severe sepsis shock status: without septic shock Qualified Code(s): A41.9 - Sepsis, unspecified organism; R65.20 - Severe sepsis without septic shock; N17.9 - Acute kidney failure, unspecified Is this a current diagnosis for this admission?: Yes Plan: Antibiotics and IV fluids as previously noted. Renal function is improving. April 16, 2020 Resolved with fluids and antibiotics. 04/17/2020-sepsis is resolving, blood pressure is stable afebrile WBC count is 11,700. Cultures are positive for coagulase-negative Staphylococcus aureus. Presently on Zyvox. Plan is to repeat the labs today. On examination right fo ot cellulitis is improving. 04/18/2020-WBC count is 11,700 today cultures are positive for coagulase-negative staph aureus on Zyvox. 04/19/2020-sepsis is resolved. (8) Sacral decubitus ulcer, stage II Is this a current diagnosis for this admission?: Yes Plan: Local wound care 04/16/2020 In addition to wound care I have ordered offloading every 3 hours. 04/18/2020-patient is getting daily dressing changes. (9) Morbid obesity Is this a current diagnosis for this admission?: No Plan: 04/17/2020-patient BMI is more than 55 diet exercise weight loss lifestyle modifications discussed with the patient. (10) Nonhealing wound of heel Is this a current diagnosis for this admission?: Yes Plan: 04/18/2020-noticed to have a pressure wound on the right heel. It is not a open wound. It may need a debridement. Consultation with Dr. Armstrong was requested. Patient is in the bed and unable to get out of the bed. Physical therapy consult was requested case therapist consult was requested for possible pl acement. 04/19/2020-Dr. Armstrong was consulted he did a debridement of the right heel wound at bedside. - Plan Summary Summary: Patient will be admitted to telemetry where she will receive routine supportive and symptomatic cares. She will be treated with BiPAP as required to maintain adequate oxygen saturation and alleviate respiratory acidosis. She will receive IV fluids utilizing LR at 167 mL/h for the first 12 hours of therapy. She will receive IV meropenem and Zyvox empirically pending culture results. She will receive Ativan 1 mg IV every 4 hours as needed for anxiety or restlessness. She will receive morphine sulfate 2 to 4 mg IV every 2 hours as needed for pain. Serial cardiac enzymes will be obtained. CBCs, metabolic profiles, magnesium levels and additional laboratory and/or radiographic evaluations will be obtained as needed. A routine cardiology consultation will be obtained with Dr. Connor.
[2020-04-20] MEDS: INSULIN REG, HUMAN 100 UNIT/ML 3 ML VIAL (PYX) SUBCUT SCH ×3 (09:49→16:33)
[2020-04-20] MEDS: CLOPIDOGREL BISULFATE 75 MG TABLET PO SCH (09:59)
[2020-04-20] MEDS: FUROSEMIDE 40 MG TABLET PO SCH (09:59)
[2020-04-20] MEDS: LISINOPRIL 10 MG TABLET PO SCH (09:59)
[2020-04-20] MEDS: NYSTATIN TOPICAL POWDER 15 GM TP SCH ×2 (09:59→18:02)
[2020-04-20] MEDS: SITAGLIPTIN PHOSPHATE 50 MG TABLET PO SCH (13:16)
[2020-04-20] MEDS: ATORVASTATIN CALCIUM 40 MG TABLET PO SCH (21:09)
[2020-04-20] MEDS: MORPHINE SULFATE 10 MG/ML INJ IV PRN (21:09)
[2020-04-21] MEDS: INSULIN REG, HUMAN 100 UNIT/ML 3 ML VIAL (PYX) SUBCUT SCH ×3 (02:54→13:22)
[2020-04-21] MEDS: MORPHINE SULFATE 10 MG/ML INJ IV PRN (04:08)
[2020-04-21] MEDS: GABAPENTIN 300 MG CAPSULE PO SCH ×2 (05:10→13:25)
[2020-04-21] MEDS: LEVOTHYROXINE SODIUM 0.025 MG TABLET PO SCH (05:10)
[2020-04-21] MEDS: PANTOPRAZOLE SODIUM 40 MG TABLET.DR PO SCH (05:10)
[2020-04-21] MEDS: LEVOTHYROXINE SODIUM 0.112 MG TABLET PO SCH (05:11)
[2020-04-21 08:10] LABS: ABSOLUTE BASOPHILS # (AUTO) 0.1 10^3/uL (0.0-0.2); ABSOLUTE EOSINOPHILS # (AUTO) 0.5 10^3/uL (0.0-0.6); ABSOLUTE LYMPHOCYTES (AUTO) 2.2 10^3/uL (0.5-4.7); ABSOLUTE MONOCYTES (AUTO) 0.9 10^3/uL (0.1-1.4); ABSOLUTE NEUT (AUTO) 8.1 10^3/uL (1.7-8.2); BASOPHILS % (AUTO) 0.7 % (0-2); EOSINOPHILS % (AUTO) 4.5 % (0-6); HEMATOCRIT 37.8 % (36.0-47.0); HEMOGLOBIN 11.8 g/dL (12.0-15.5); LYMPHOCYTES % (AUTO) 18.4 % (13-45); MEAN CORPUSCULAR HEMOGLOBIN 24.9 pg (27.0-33.4); MEAN CORPUSCULAR HGB CONC 31.2 g/dL (32.0-36.0); MEAN CORPUSCULAR VOLUME 80 fl (80-97); MONOCYTES % (AUTO) 7.5 % (3-13); PLATELET COUNT 325 10^3/uL (150-450); RED BLOOD COUNT 4.74 10^6/uL (3.72-5.28); RED CELL DISTRIBUTION WIDTH 15.4 % (11.5-14.0); SEGMENTED NEUTROPHILS % (AUTO) 68.9 % (42-78); TOTAL CELLS COUNTED % (AUTO) 100 %; WHITE BLOOD COUNT 11.8 10^3/uL (4.0-10.5)
[2020-04-21 08:28] LABS: ALBUMIN 2.7 g/dL (3.5-5.0); ALKALINE PHOSPHATASE 85 U/L (38-126); ASPARTATE AMINO TRANSFERASE 19 U/L (14-36); BILIRUBIN,TOTAL 0.4 mg/dL (0.2-1.3); BLOOD UREA NITROGEN 24 mg/dL (7-20); CALCIUM 10.4 mg/dL (8.4-10.2); GLUCOSE 132 mg/dL (75-110); POTASSIUM 4.3 mmol/L (3.6-5.0); TOTAL PROTEIN 5.8 g/dL (6.3-8.2)
[2020-04-21 08:33] LABS: CARBON DIOXIDE 39 mmol/L (22-30); CHLORIDE 96 mmol/L (98-107)
[2020-04-21 08:42] LABS: ANION GAP 2 (5-19)
[2020-04-21] MEDS: LISINOPRIL 10 MG TABLET PO SCH (09:02)
[2020-04-21] MEDS: FUROSEMIDE 40 MG TABLET PO SCH (09:02)
[2020-04-21] MEDS: CLOPIDOGREL BISULFATE 75 MG TABLET PO SCH (09:02)
[2020-04-21] MEDS: NYSTATIN TOPICAL POWDER 15 GM TP SCH (09:03)
--- NOTE | 2020-04-21 09:12 | PDOC PROGRESS REPORT ---
Subjective Progress Note for:: 04/21/20 Subjective:: 69 year old female who presented to the emergency room via EMS with a 3-day history of right leg pain. The patient is lethargic and confused and as such cannot provide reliable historical input for her medical record. Her son called for the ambulance because he could not get her out of bed and admitted she had been complaining of increased pain in her right lower leg accompanied by increased redness and swelling in the right lower leg for 3 days. In the emerg ency room she was found to have a white blood count of 26,000 with an erythematous and edematous right lower leg and a plantar ulcer of the right foot noted. She was also found to have an acute kidney injury and a respiratory acidosis accompanying acute respiratory failure with hypoxia and hypercapnia. She was placed on BiPAP, empiric antibiotic therapy was initiated after cultures were obtained and she was subsequently admitted to the hospital for further evaluation treatment. 04/14/20-No adverse events overnight. No new complaints. Vital signs been stable. Blood pressures were low but have improved a little bit throughout the day. No fevers. 04/15-No adverse events overnight. No new complaints. She is more awake and alert today. She says she is feeling better. No fevers. Appetite is improving. 04/16/20-Back in sinus rhythm with good rate control after episode of atrial fibrillation with RVR last night. Patient is still feeling tired. She has not been out of bed yet for this hospitalization. 04/17/2020-comfortably in the bed communicating well. Alert awake oriented. She explained to me that she traveled back from [place] to [place] and forgot to take of the socks and the edges of the socks cut into her skin and got infection of the right foot. ADY is negative during the hospital stay. Came in with altered mental status which was resolved. Blood cultures growing Staphylococcus species. Sieving Zyvox at this time. WBC count is 11,700 afebrile blood pressures are stable. 04/18/2020-patient is comfortably in the bed communicating well. No complaints. Unable to come out of the bed physical therapy consult was requested plan is to refer her to long-term care facility. Latest blood sugar is 129. Patient is presently on Zyvox, cultures are positive for Staphylococcus species. Coagulase-negative Staphylococcus. It is to have pressure ulcer on the right heel with erythema on the in the middle skin is not open but underlying pus looking material seen. Discussed the plan with Dr. Armstrong he is going to see the patient today. 04/19/2020-patient is comfortable in the bed communicating well. Surgical consult was done yesterday Dr. Armstrong did debridement at bedside of the right heel wound. No acute events in the last 24 hours afebrile. Patient is waiting for placement. 04/20/2020-patient is waiting for placement. No acute events in the last 24 hours. Afebrile. 04/21/20-waiting for placement. No acute events in the last 24 hours. Except patient getting bradycardic without BiPAP. Beta-blockers on hold. Not on antibiotics at this time. Afebrile. WBC improved 11.8. Reason For Visit: SEVERE SEPSIS WITHOUT SHOCK,CELLULITIS RIGHT LOWER Physical Exam Vital Signs: Temp Pulse Resp BP Pulse Ox 98.1 F 58 L 16 125/40 L 96 04/21/20 08:04 04/21/20 08:04 04/21/20 08:04 04/21/20 08:04 04/21/20 08:04 Intake & Output 04/20/20 04/21/20 04/22/20 06:59 06:59 06:59 Intake Total 1860 1516 Output Total 3075 900 Balance -1215 616 Weight 110.6 kg 109.9 kg General appearance: PRESENT: no acute distress, obese Head exam: PRESENT: atraumatic Eye exam: PRESENT: PERRLA Ear exam: PRESENT: normal external ear exam Mouth exam: PRESENT: neck supple Teeth exam: PRESENT: poor dentation Neck exam: ABSENT: carotid bruit, JVD, lymphadenopathy, thyromegaly Respiratory exam: PRESENT: decreased breath sounds Cardiovascular exam: PRESENT: RRR. ABSENT: diastolic murmur, rubs, systolic murmur Pulses: PRESENT: normal dorsalis pedis pul GI/Abdominal exam: PRESENT: normal bowel sounds, soft. ABSENT: distended, guarding, mass, organolmegaly, rebound, tenderness Rectal exam: PRESENT: deferred Extremities exam: PRESENT: full ROM, other - Wound on the right heel with a dressing and wound on the dorsum of the right foot improving.. ABSENT: calf tenderness, clubbing, pedal edema Neurological exam: PRESENT: alert, awake, oriented to person, oriented to place, oriented to time, oriented to situation, CN II-XII grossly intact. ABSENT: motor sensory deficit Psychiatric exam: PRESENT: appropriate affect, normal mood. ABSENT: homicidal ideation, suicidal ideation Results Laboratory Results: 04/21/20 08:00 04/21/20 08:00 04/21/20 04/21/20 08:00 08:00 WBC 11.8 H RBC 4.74 Hgb 11.8 L Hct 37.8 MCV 80 MCH 24.9 L MCHC 31.2 L RDW 15.4 H Plt Count 325 Seg Neutrophils % 68.9 Sodium 137.4 Potassium 4.3 Chloride 96 L Carbon Dioxide 39 H Anion Gap 2 L BUN 24 H Creatinine 0.78 Est GFR ( Amer) > 60 Glucose 132 H Calcium 10.4 H Magnesium 2.1 Total Bilirubin 0.4 AST 19 Alkaline Phosphatase 85 Total Protein 5.8 L Albumin 2.7 L 04/13/20 04/13/20 04/13/20 17:45 23:55 23:55 Creatine Kinase 108 CK-MB (CK-2) 4.65 H Troponin I 0.153 0.211 04/14/20 04/14/20 04/14/20 06:59 06:59 12:16 Creatine Kinase 83 65 CK-MB (CK-2) 3.48 Troponin I 0.209 04/14/20 12:16 Creatine Kinase CK-MB (CK-2) 3.17 Troponin I 0.214 Impressions: Chest X-Ray 04/13/20 17:54 IMPRESSION: No significant interval change. No acute cardiopulmonary disease. Foot X-Ray 04/13/20 17:54 IMPRESSION: Diffuse osteopenia. No radiographic evidence of acute osteomyelitis. Ulceration at the plantar surface forefoot. If there is clinical concern for osteomyelitis, MRI or a nuclear medicine bone scan should be considered for further evaluation. Assessment and Plan - Diagnosis (1) Acute kidney injury Is this a current diagnosis for this admission?: Yes Plan: Resolved. Still a little bit dry so fluids are continued. 04/16/2020 Will likely no longer needs fluids after today. Recheck labs tomorrow. 04/17/2020-serum creatinine is 0.9. He acute kidney injury is resolved. Patient is not on IV fluids at this time. 04/18/2020-patient admitted with acute kidney injury, latest serum creatinine 0.9. Magui resolved. 04/19/2020-patient admitted with acute kidney injury which was resolved. 04/20/2020-latest serum creatinine 0.86 acute kidney injury is resolved. (2) Acute respiratory failure with hypercapnia Is this a current diagnosis for this admission?: Yes Plan: Currently stable on 1.5 L per nasal cannula April 16, 2020 Taper oxygen as tolerated. 04/17/2020-pulse ox today is 97% on 2 L. Without oxygen supplementations oxygen levels are dropping to 85%. Plan is to continue provide oxygen supplementations at this time. 04/18/2020-patient is comfortably in the bed not in distress. Communicating well without any respiratory distress. Pulse ox is 94% on 2 L. Acute respiratory failure with hypoxia and hypercapnia resolving. 04/19/20-patient is comfortable in the bed communicating well. Pulse ox is 94% on 1.5 L of oxygen. On examination chest bilateral entry was good no wheezing no crepitations. 04/20/20-pulse ox today's 100% on 1.5 of liters. Not in respiratory distress. Comfortably in the bed communicating well. 04/21/2020-pulse ox is 97% on 1 and half liters. Without BiPAP heart rate is dropping to 30s. Patient is not on beta-blockers. (3) Candidal intertrigo Is this a current diagnosis for this admission?: No Plan: Topical nystatin powder April 16, 2020 Monitor for improvement. (4) Cellulitis of right leg Is this a current diagnosis for this admission?: Yes Plan: Currently on Zyvox and meropenem. Erythema has improved. Both blood cultures are now positive for coagulase-negative Staphylococcus. April 16, 2020 Gram-positive cocci were only was identified. Meropenem was discontinued since urine showed insignificant variance. Continue Zyvox. 04/17/2020-patient is presently on Zyvox blood culture positive for coagulase- negative Staphylococcus. Plan is to repeat the blood cultures today. 04/18/2020-patient is presently on Zyvox, blood cultures are positive for coagulase-negative staph in multiple bottles. Plan is to continue the antibiotic therapy at this time. 04/19/2020-patient is presently on Zyvox, blood cultures are positive for coagulase-negative staph in multiple bottles. Needs to complete the antibiotic therapy today. 04/20/2020-cellulitis of the right lower leg improving. Blood cultures positive for coagulase-negative staph in multiple bottles. On linezolid plan is to discontinue antibiotics from today. Blood cultures from 04/17/2020 no bacterial growth seen. 04/21/2020-wound on the dorsum of the right foot is resolving. Linezolid is discontinued. Patient is afebrile. (5) Chronic diastolic congestive heart failure Is this a current diagnosis for this admission?: No Plan: Monitoring her blood pressure. Not acutely exacerbated. 04/16/2020 Continue furosemide, lisinopril and metoprolol. 04/17/2020-blood pressure today is 134/58 on examination not in fluid overload. Presently on furosemide, lisinopril, metoprolol. Patient has history of chronic diastolic heart failure. 04/18/2020-blood pressure today is 176/88. Presently on furosemide, lisinopril, metoprolol. Patient has history of diastolic heart failure. Plan is to closely monitor the blood pressures at this time. 04/20/2020-blood pressure today is 140/66. Plan is to continue furosemide, lisinopril, metoprolol. 04/21/2020-blood pressure today is 122/60. Stable. Plan is to continue furosemide, lisinopril. Metoprolol is discontinued because of the bradycardia. (6) Elevation of cardiac enzymes Is this a current diagnosis for this admission?: Yes Plan: She has extensive coronary atherosclerosis. No chest pain. Likely as a result of her sepsis. Seen by cardiology. No further work-up indicated at this time. Continues on telemetry. April 16, 2020 As above. No further need to monitor troponin levels. 04/17/2020-patient presented with non-STEMI cardiology consult was done. No further recommendations by cardiology team. (7) Sepsis Qualifiers: Sepsis type: sepsis due to unspecified organism Sepsis acute organ dysfunction status: with acute organ dysfunction Severe sepsis acute organ dysfunction type: acute renal failure Acute renal failure type: unspecified Severe sepsis shock status: without septic shock Qualified Code(s): A41.9 - Sepsis, unspecified organism; R65.20 - Severe sepsis without septic shock; N17.9 - Acute kidney failure, unspecified Is this a current diagnosis for this admission?: Yes Plan: Antibiotics and IV fluids as previously noted. Renal function is improving. April 16, 2020 Resolved with fluids and antibiotics. 04/17/2020-sepsis is resolving, blood pressure is stable afebrile WBC count is 11,700. Cultures are positive for coagulase-negative Staphylococcus aureus. Presently on Zyvox. Plan is to repeat the labs today. On examination right foot cellulitis is improving. 04/18/2020-WBC count is 11,700 today cultures are positive for coagulase-negative staph aureus on Zyvox. 04/19/2020-sepsis is resolved. (8) Sacral decubitus ulcer, stage II Is this a current diagnosis for this admission?: Yes Plan: Local wound care 04/16/2020 In addition to wound care I have ordered offloading every 3 hours. 04/18/2020-patient is getting daily dressing changes. (9) Morbid obesity Is this a current diagnosis for this admission?: No Plan: 04/17/2020-patient BMI is more than 55 diet exercise weight loss lifestyle modifications discussed with the patient. (10) Nonhealing wound of heel Is this a current diagnosis for this admission?: Yes Plan: 04/18/2020-noticed to have a pressure wound on the right heel. It is not a open wound. It may need a debridement. Consultation with Dr. Armstrong was requested. Patient is in the bed and unable to get out of the bed. Physical therapy consult was requested field case manager consult was requested for possible placement. 04/19/2020-Dr. Armstrong was consulted he did a debridement of the right heel wound at bedside. 04/20/20-Dr. Armstrong did the debridement of the right heel receiving daily dres sings. - Plan Summary Summary: Patient will be admitted to telemetry where she will receive routine supportive and symptomatic cares. She will be treated with BiPAP as required to maintain adequate oxygen saturation and alleviate respiratory acidosis. She will receive IV fluids utilizing LR at 167 mL/h for the first 12 hours of therapy. She will receive IV meropenem and Zyvox empirically pending culture results. She will receive Ativan 1 mg IV every 4 hours as needed for anxiety or restlessness. She will receive morphine sulfate 2 to 4 mg IV every 2 hours as needed for pain. Serial cardiac enzymes will be obtained. CBCs, metabolic profiles, magnesium levels and additional laboratory and/or radiographic evaluations will be obtained as needed. A routine cardiology consultation will be obtained with Dr. Connor.
[2020-04-21] MEDS ORDERED: MORPHINE SULFATE 10 MG/ML INJ IV PRN ×3 (12:36→13:00)
[2020-04-21] MEDS ORDERED: OXYCODONE-ACETAMINOPHEN 5-325 MG TABLET PO PRN (12:44)
[2020-04-21] MEDS: SITAGLIPTIN PHOSPHATE 50 MG TABLET PO SCH (13:25)
[2020-04-21 13:27] VITALS: BP 126/46
--- NOTE | 2020-04-21 14:27 | PDOC TRANSFER SUMMARY ---
Impression - Admit/DC Date/PCP Admission Date/Primary Care Provider: 04/13/20 20:58 NIC KOTHARI NP Discharge Date: 04/21/20 - Discharge Diagnosis (1) Acute kidney injury Is this a current diagnosis for this admission?: Yes (2) Acute respiratory failure with hypercapnia Is this a current diagnosis for this admission?: Yes (3) Candidal intertrigo Is this a current diagnosis for this admission?: No (4) Cellulitis of right leg Is this a current diagnosis for this admission?: Yes (5) Chronic diastolic congestive heart failure Is this a current diagnosis for this admission?: No (6) Elevation of cardiac enzymes Is this a current diagnosis for this admission?: Yes (7) Sepsis Is this a current diagnosis for this admission?: Yes (8) Sacral decubitus ulcer, stage II Is this a current diagnosis for this admission?: Yes (9) Morbid obesity Is this a current diagnosis for this admission?: No (10) Nonhealing wound of heel Is this a current diagnosis for this admission?: Yes - Assessment Summary: (1) Acute kidney injury Is this a current diagnosis for this admission?: Yes Plan: Resolved. Still a little bit dry so fluids are continued. 04/16/2020 Will likely no longer needs fluids after today. Recheck labs tomorrow. 04/17/2020-serum creatinine is 0.9. He acute kidney injury is resolved. Patient is not on IV fluids at this time. 04/18/2020-patient admitted with acute kidney injury, latest serum creatinine 0.9. Magui resolved. 04/19/2020-patient admitted with acute kidney injury which was resolved. 04/20/2020-latest serum creatinine 0.86 acute kidney injury is resolved. 04/21/2020-latest serum creatinine 0.78 acute kidney injury is resolved. pt is going to [facility] for rehab. (2) Acute respiratory failure with hypercapnia Is this a current diagnosis for this admission?: Yes Plan: Currently stable on 1.5 L per nasal cannula April 16, 2020 Taper oxygen as tolerated. 04/17/2020-pulse ox today is 97% on 2 L. Without oxygen supplementations oxygen levels are dropping to 85%. Plan is to continue provide oxygen supplementations at this time. 04/18/2020-patient is comfortably in the bed not in distress. Communicating well without any respiratory distress. Pulse ox is 94% on 2 L. Acute respiratory failure with hypoxia and hypercapnia resolving. 04/19/20-patient is comfortable in the bed communicating well. Pulse ox is 94% on 1.5 L of oxygen. On examination chest bilateral entry was good no wheezing no crepitations. 04/20/20-pulse ox today's 100% on 1.5 of liters. Not in respiratory distress. Comfortably in the bed communicating well. 04/21/2020-pulse ox is 97% on 1 and half liters. Without BiPAP heart rate is dropping to 30s. Patient is not on beta-blockers. 04/21/2020-patient is going to [facility] today she may had to use the BiPAP on and off basis [facility] the [facility]. (3) Candidal intertrigo Is this a current diagnosis for this admission?: No Plan: Topical nystatin powder April 16, 2020 Monitor for improvement. (4) Cellulitis of right leg Is this a current diagnosis for this admission?: Yes Plan: Currently on Zyvox and meropenem. Erythema has improved. Both blood cultures are now positive for coagulase-negative Staphylococcus. April 16, 2020 Gram-positive cocci were only was identified. Meropenem was discontinued since urine showed insignificant variance. Continue Zyvox. 04/17/2020-patient is presently on Zyvox blood culture positive for coagulase- negative Staphylococcus. Plan is to repeat the blood cultures today. 04/18/2020-patient is presently on Zyvox, blood cultures are positive for coagulase-negative staph in multiple bottles. Plan is to continue the antibiotic therapy at this time. 04/19/2020-patient is presently on Zyvox, blood cultures are positive for coagulase-negative staph in multiple bottles. Needs to complete the antibiotic therapy today. 04/20/2020-cellulitis of the right lower leg improving. Blood cultures positive for coagulase-negative staph in multiple bottles. On linezolid plan is to discontinue antibiotics from today. Blood cultures from 04/17/2020 no bacterial growth seen. 04/21/2020-wound on the dorsum of the right foot is resolving. Linezolid is discontinued. Patient is afebrile. (5) Chronic diastolic congestive heart failure Is this a current diagnosis for this admission?: No Plan: Monitoring her blood pressure. Not acutely exacerbated. 04/16/2020 Continue furosemide, lisinopril and metoprolol. 04/17/2020-blood pressure today is 134/58 on examination not in fluid overload. Presently on furosemide, lisinopril, metoprolol. Patient has history of chronic diastolic heart failure. 04/18/2020-blood pressure today is 176/88. Presently on furosemide, lisinopril, metoprolol. Patient has history of diastolic heart failure. Plan is to closely monitor the blood pressures at this time. 04/20/2020-blood pressure today is 140/66. Plan is to continue furosemide, lisinopril, metoprolol. 04/21/2020-blood pressure today is 122/60. Stable. Plan is to continue furosemide, lisinopril. Metoprolol is discontinued because of the bradycardia. (6) Elevation of cardiac enzymes Is this a current diagnosis for this admission?: Yes Plan: She has extensive coronary atherosclerosis. No chest pain. Likely as a result of her sepsis. Seen by cardiology. No further work-up indicated at this time. Continues on telemetry. April 16, 2020 As above. No further need to monitor troponin levels. 04/17/2020-patient presented with non-STEMI cardiology consult was done. No further recommendations by cardiology team. (7) Sepsis Qualifiers: Sepsis type: sepsis due to unspecified organism Sepsis acute organ dysfunction status: with acute organ dysfunction Severe sepsis acute organ dysfunction type: acute renal failure Acute renal failure type: unspecified Severe sepsis shock status: without septic shock Qualified Code(s): A41.9 - Sepsis, unspecified organism; R65.20 - Severe sepsis without septic shock; N17.9 - Acute kidney failure, unspecified Is this a current diagnosis for this admission?: Yes Plan: Antibiotics and IV fluids as previously noted. Renal function is improving. April 16, 2020 Resolved with fluids and antibiotics. 04/17/2020-sepsis is resolving, blood pressure is stable afebrile WBC count is 11,700. Cultures are positive for coagulase-negative Staphylococcus aureus. Presently on Zyvox. Plan is to repeat the labs today. On examination right foot cellulitis is improving. 04/18/2020-WBC count is 11,700 today cultures are positive for coagulase-negative staph aureus on Zyvox. 04/19/2020-sepsis is resolved. (8) Sacral decubitus ulcer, stage II Is this a current diagnosis for this admission?: Yes Plan: Local wound care 04/16/2020 In addition to wound care I have ordered offloading every 3 hours. 04/18/2020-patient is getting daily dressing changes. 04/21/2020-s sacral decubitus stage II stable. To continue dressing changes as per wound care recommendations. (9) Morbid obesity Is this a current diagnosis for this admission?: No Plan: 04/17/2020-patient BMI is more than 55 diet exercise weight loss lifestyle modifications discussed with the patient. (10) Nonhealing wound of heel Is this a current diagnosis for this admission?: Yes Plan: 04/18/2020-noticed to have a pressure wound on the right heel. It is not a open wound. It may need a debridement. Consultation with Dr. Armstrong was requested. Patient is in the bed and unable to get out of the bed. Physical therapy consult was requested pillowcase cleaner consult was requested for possible placement. 04/19/2020-Dr. Armstrong was consulted he did a debridement of the right heel wound at bedside. 04/20/20-Dr. Armstrong did the debridement of the right heel receiving daily dressings. 04/21/2020-patient with right heel dressings and further management of the dr meyers as per [facility]. - Plan Summary Summary: Patient will be admitted to telemetry where she will receive routine supportive and symptomatic cares. She will be treated with BiPAP as required to maintain adequate oxygen saturation and alleviate respiratory acidosis. She will receive IV fluids utilizing LR at 167 mL/h for the first 12 hours of therapy. She will receive IV meropenem and Zyvox empirically pending culture results. She will receive Ativan 1 mg IV every 4 hours as needed for anxiety or restlessness. She will receive morphine sulfate 2 to 4 mg IV every 2 hours as needed for pain. Serial cardiac enzymes will be obtained. CBCs, metabolic profiles, magnesium levels and additional laboratory and/or radiographic evaluations will be obtained as needed. A routine cardiology consultation will be obtained with Dr. Connor. - Additional Information Resuscitation Status: Full Code Discharge Diet: Diabetic Discharge Activity: Activity As Tolerated Referrals: NIC KOTHARI NP [Primary Care Provider] - Follow up as needed Prescriptions: Oxycodone HCl/Acetaminophen [Percocet 5-325 mg Tablet] 1 tab PO Q6HP PRN 3 Days #10 tablet PRN Reason: Pantoprazole Sodium [Protonix [address] Tablet] 40 mg PO BID@0600,1700 30 Days #60 tablet.dr Home Medications: Atorvastatin Calcium [Lipitor 40 mg Tablet] 40 mg PO QHS 11/11/19 Clopidogrel Bisulfate [Plavix 75 mg Tablet] 75 mg PO DAILY 11/11/19 Duloxetine HCl [Cymbalta] 60 mg PO Q12 11/11/19 Ergocalciferol (Vitamin D2) [Drisdol 50,000 unit (1.25MG) Capsule] 50,000 unit PO WE@1000 11/11/19 Furosemide [Lasix 40 mg Tablet] 40 mg PO QAM 11/11/19 Gabapentin [Neurontin 300 mg Capsule] 600 mg PO Q8 11/11/19 Nitroglycerin [Nitrostat 0.4 mg (1/150 Gr) Tabs 25/Bottle] 1 tab SL Q5MP PRN 11/11/19 Sitagliptin Phosphate [Januvia 50 mg Tablet] 100 mg PO WLUNCH 11/11/19 Levothyroxine Sodium [Levo-T] 137 mcg PO Q6AM 04/14/20 Lisinopril [Zestril] 20 mg PO DAILY 04/14/20 Metoprolol Succinate [Toprol Xl 25 mg Tab.sr] 25 mg PO DAILY 04/14/20 Ergocalciferol (Vitamin D2) [Drisdol 50,000 unit (1.25MG) Capsule] 50,000 unit PO WE@1000 capsule 04/21/20 Oxycodone HCl/Acetaminophen [Percocet 5-325 mg Tablet] 1 tab PO Q6HP PRN 3 Days #10 tablet 04/21/20 Pantoprazole Sodium [Protonix [address] Tablet] 40 mg PO BID@0600,1700 30 Days #60 tablet. 04/21/20 Sitagliptin Phosphate [Januvia 50 mg Tablet] 100 mg PO WLUNCH tablet 04/21/20 History of Present Illiness History of Present Illness: MIGUEL ROBB is a 69 year old female 69 year old female who presented to the emergency room via EMS with a 3-day history of right leg pain. The patient is lethargic and confused and as such cannot provide reliable historical input for her medical record. Her son called for the ambulance because he could not get her out of bed and admitted she had been complaining of increased pain in her right lower leg accompanied by increased redness and swelling in the right lower leg for 3 days. In the emergency room she was found to have a white blood count of 26,000 with an erythematous and edematous right lower leg and a plantar ulcer of the right foot noted. She was also found to have an acute kidney injury and a respiratory acidosis accompanying acute respiratory failure with hypoxia and hypercapnia. She was placed on BiPAP, empiric antibiotic therapy was initiated after cultures were obtained and she was subsequently admitted to the hospital for further evaluation treatment. Hospital Course Hospital Course: 69 year old female who presented to the emergency room via EMS with a 3-day history of right leg pain. The patient is lethargic and confused and as such cannot provide reliable historical input for her medical record. Her son called for the ambulance because he could not get her out of bed and admitted she had been complaining of increased pain in her right lower leg accompanied by incr eased redness and swelling in the right lower leg for 3 days. In the emergency room she was found to have a white blood count of 26,000 with an erythematous and edematous right lower leg and a plantar ulcer of the right foot noted. She was also found to have an acute kidney injury and a respiratory acidosis accompanying acute respiratory failure with hypoxia and hypercapnia. She was placed on BiPAP, empiric antibiotic therapy was initiated after cultures were obtained and she was subsequently admitted to the hospital for further evaluation treatment. 04/14/20-No adverse events overnight. No new complaints. Vital signs been stable. Blood pressures were low but have improved a little bit throughout the day. No fevers. 04/15-No adverse events overnight. No new complaints. She is more awake and alert today. She says she is feeling better. No fevers. Appetite is improving. 04/16/20-Back in sinus rhythm with good rate control after episode of atrial fibrillation with RVR last night. Patient is still feeling tired. She has not been out of bed yet for this hospitalization. 04/17/2020-comfortably in the bed communicating well. Alert awake oriented. She explained to me that she traveled back from [place] to [place] and forgot to take of the socks and the edges of the socks cut into her skin and got infection of the right foot. ADY is negative during the hospital stay. Came in with altered mental status which was resolved. Blood cultures growing Staphylococcus species. Sieving Zyvox at this time. WBC count is 11,700 afebrile blood pressures are stable. 04/18/2020-patient is comfortably in the bed communicating well. No complaints. Unable to come out of the bed physical therapy consult was requested plan is to refer her to long-term care facility. Latest blood sugar is 129. Patient is presently on Zyvox, cultures are positive for Staphylococcus species. Coagulase-negative Staphylococcus. It is to have pressure ulcer on the right heel with erythema on the in the middle skin is not open but underlying pus looking material seen. Discussed the plan with Dr. Armstrong he is going to see the patient today. 04/19/2020-patient is comfortable in the bed communicating well. Surgical consult was done yesterday Dr. Armstrong did debridement at bedside of the right heel wound. No acute events in the last 24 hours afebrile. Patient is waiting for placement. 04/20/2020-patient is waiting for placement. No acute events in the last 24 hours. Afebrile. 04/21/20-waiting for placement. No acute events in the last 24 hours. Except patient getting bradycardic without BiPAP. Beta-blockers on hold. Not on antibiotics at this time. Afebrile. WBC improved 11.8. 04/21/2020-patient got to bed at [facility] , as per case management patient can go there today to start rehab. Patient agreed with the discharge plan. Physical Exam Vital Signs: Temp Pulse Resp BP Pulse Ox 97.3 F 62 16 126/46 H 95 04/21/20 12:56 04/21/20 12:56 04/21/20 12:56 04/21/20 12:56 04/21/20 12:56 Intake & Output 04/20/20 04/21/20 04/22/20 06:59 06:59 06:59 Intake Total 1860 1516 Output Total 3075 900 Balance -1215 616 Weight 110.6 kg 109.9 kg General appearance: PRESENT: no acute distress, cooperative, morbidly obese Head exam: PRESENT: atraumatic Eye exam: PRESENT: PERRLA Ear exam: PRESENT: normal external ear exam Mouth exam: PRESENT: neck supple Teeth exam: PRESENT: poor dentation Neck exam: ABSENT: carotid bruit, JVD, lymphadenopathy, thyromegaly Respiratory exam: PRESENT: decreased breath sounds Cardiovascular exam: PRESENT: RRR. ABSENT: diastolic murmur, rubs, systolic murmur GI/Abdominal exam: PRESENT: normal bowel sounds, soft. ABSENT: distended, guarding, mass, organolmegaly, rebound, tenderness Rectal exam: PRESENT: deferred Extremities exam: PRESENT: other - Right heel with dressing and wound on the dorsum of the right foot improving without any evidence of infection. Neurological exam: PRESENT: alert, awake, oriented to person, oriented to place, oriented to time, oriented to situation, CN II-XII grossly intact. ABSENT: motor sensory deficit Psychiatric exam: PRESENT: appropriate affect, normal mood. ABSENT: homicidal ideation, suicidal ideation Results Laboratory Results: WBC 11.8 10^3/uL (4.0-10.5) H 04/21/20 08:00 RBC 4.74 10^6/uL (3.72-5.28) 04/21/20 08:00 Hgb 11.8 g/dL (12.0-15.5) L 04/21/20 08:00 Hct 37.8 % (36.0-47.0) 04/21/20 08:00 MCV 80 fl (80-97) 04/21/20 08:00 MCH 24.9 pg (27.0-33.4) L 04/21/20 08:00 MCHC 31.2 g/dL (32.0-36.0) L 04/21/20 08:00 RDW 15.4 % (11.5-14.0) H 04/21/20 08:00 Plt Count 325 10^3/uL (150-450) 04/21/20 08:00 Lymph % (Auto) 18.4 % (13-45) 04/21/20 08:00 [place] % (Auto) 7.5 % (3-13) 04/21/20 08:00 Eos % (Auto) 4.5 % (0-6) 04/21/20 08:00 Baso % (Auto) 0.7 % (0-2) 04/21/20 08:00 Absolute Neuts (auto) 8.1 10^3/uL (1.7-8.2) 04/21/20 08:00 Absolute Lymphs (auto) 2.2 10^3/uL (0.5-4.7) 04/21/20 08:00 Absolute Monos (auto) 0.9 10^3/uL (0.1-1.4) 04/21/20 08:00 Absolute Eos (auto) 0.5 10^3/uL (0.0-0.6) 04/21/20 08:00 Absolute Basos (auto) 0.1 10^3/uL (0.0-0.2) 04/21/20 08:00 Total Counted 100 04/20/20 04:19 Seg Neutrophils % 68.9 % (42-78) 04/21/20 08:00 Seg Neuts % (Manual) 83 % (42-78) H 04/20/20 04:19 Band Neutrophils % 1 % (3-5) L 04/20/20 04:19 Lymphocytes % (Manual) 11 % (13-45) L 04/20/20 04:19 Atypical Lymphs % 1 % (0) 04/20/20 04:19 Monocytes % (Manual) 2 % (3-13) L 04/20/20 04:19 Eosinophils % (Manual) 2 % (0-6) 04/20/20 04:19 Basophils % (Manual) 0 % (0-2) 04/20/20 04:19 Abs Neuts (Manual) 11.8 10^3/uL (1.7-8.2) H 04/20/20 04:19 Abs Lymphs (Manual) 1.7 10^3/uL (0.5-4.7) 04/20/20 04:19 Abs Monocytes (Manual) 0.3 10^3/uL (0.1-1.4) 04/20/20 04:19 Absolute Eos (Manual) 0.3 10^3/uL (0.0-0.6) 04/20/20 04:19 Abs Basophils (Manual) 0.0 10^3/uL (0.0-0.2) 04/20/20 04:19 Clumped Platelets PRESENT 04/20/20 04:19 Platelet Comment ADEQUATE 04/20/20 04:19 Anisocytosis SLIGHT 04/20/20 04:19 Microcytosis SLIGHT 04/17/20 05:28 PT 14.3 SEC (11.4-15.4) 04/13/20 17:45 INR 1.11 04/13/20 17:45 Carbonic Acid 1.23 mmol/L (1.05-1.35) 04/14/20 09:00 HCO3/H2CO3 Ratio 14:1 04/14/20 09:00 ABG pH 7.27 (7.35-7.45) L 04/14/20 09:00 ABG pCO2 41.0 mmHg (35-45) 04/14/20 09:00 ABG pO2 80.9 mmHg (80-100) 04/14/20 09:00 ABG HCO3 18.4 mmol/L (20-24) L 04/14/20 09:00 ABG Total CO2 19.6 mmol/L (21-25) L 04/14/20 09:00 ABG O2 Saturation 94.5 % (94-98) 04/14/20 09:00 ABG Base Excess -8.1 mmol/L 04/14/20 09:00 FiO2 25% 04/14/20 09:00 Sodium 137.4 mmol/L (137-145) 04/21/20 08:00 Potassium 4.3 mmol/L (3.6-5.0) 04/21/20 08:00 Chloride 96 mmol/L (98-107) L 04/21/20 08:00 Carbon Dioxide 39 mmol/L (22-30) H 04/21/20 08:00 Anion Gap 2 (5-19) L 04/21/20 08:00 BUN 24 mg/dL (7-20) H 04/21/20 08:00 Creatinine 0.78 mg/dL (0.52-1.25) 04/21/20 08:00 Est GFR ( Amer) > 60 (>60) 04/21/20 08:00 Est GFR (MDRD) Non-Af > 60 (>60) 04/21/20 08:00 Glucose 132 mg/dL (75-110) H 04/21/20 08:00 POC Glucose 143 mg/dL (70-110) H 04/21/20 12:26 Hemoglobin A1c % 6.4 % (4.7-6.0) H 04/14/20 06:59 Lactic Acid 0.5 mmol/L (0.7-2.1) L 04/14/20 09:56 Calcium 10.4 mg/dL (8.4-10.2) H 04/21/20 08:00 Magnesium 2.1 mg/dL (1.6-2.3) 04/21/20 08:00 Total Bilirubin 0.4 mg/dL (0.2-1.3) 04/21/20 08:00 Direct Bilirubin 0.0 mg/dL (0.0-0.4) 04/21/20 08:00 Neonat Total Bilirubin Not Reportable 04/21/20 08:00 Neonat Direct Bilirubin Not Reportable 04/21/20 08:00 Neonat Indirect Bili Not Reportable 04/21/20 08:00 AST 19 U/L (14-36) 04/21/20 08:00 ALT 12 U/L (<35) 04/21/20 08:00 Alkaline Phosphatase 85 U/L (38-126) 04/21/20 08:00 Creatine Kinase 65 U/L (30-135) 04/14/20 12:16 CK-MB (CK-2) 3.17 ng/mL (<4.55) 04/14/20 12:16 Troponin I 0.214 ng/mL 04/14/20 12:16 Total Protein 5.8 g/dL (6.3-8.2) L 04/21/20 08:00 Albumin 2.7 g/dL (3.5-5.0) L 04/21/20 08:00 TSH 0.56 uIU/mL (0.47-4.68) 04/14/20 06:59 Free T3 pg/mL 1.41 pg/mL (2.77-5.27) L 04/13/20 17:45 Urine Color GADIEL 04/13/20 16:50 Urine Appearance SLIGHTLY-CLOUDY 04/13/20 16:50 Urine pH 5.0 (5.0-9.0) 04/13/20 16:50 Ur Specific [place] 1.016 04/13/20 16:50 Urine Protein 30 mg/dL (NEGATIVE) H 04/13/20 16:50 Urine Glucose (UA) NEGATIVE mg/dL (NEGATIVE) 04/13/20 16:50 Urine Ketones NEGATIVE mg/dL (NEGATIVE) 04/13/20 16:50 Urine Blood NEGATIVE (NEGATIVE) 04/13/20 16:50 Urine Nitrite (Reflex) NEGATIVE (NEGATIVE) 04/13/20 16:50 Urine Bilirubin NEGATIVE (NEGATIVE) 04/13/20 16:50 Urine Urobilinogen 4.0 mg/dL (<2.0) H 04/13/20 16:50 Leukocyte Esterase Rfl MODERATE (NEGATIVE) H 04/13/20 16:50 Urine RBC (Auto) 1 /HPF 04/13/20 16:50 U Hyaline Cast (Auto) 1 /LPF 04/13/20 16:50 Urine WBC (Reflex) 4 /HPF 04/13/20 16:50 Squamous Epi Cells Auto 2 /HPF 04/13/20 16:50 Urine Ascorbic Acid NEGATIVE (NEGATIVE) 04/13/20 16:50 SARS-CoV-2 (PCR) NEGATIVE (NEGATIVE) 04/15/20 12:19 04/13/20 04/13/20 04/14/20 17:45 23:55 06:59 CK-MB (CK-2) 4.65 H 3.48 Troponin I 0.153 0.211 0.209 04/14/20 12:16 CK-MB (CK-2) 3.17 Troponin I 0.214 Impressions: Chest X-Ray 04/13/20 17:54 IMPRESSION: No significant interval change. No acute cardiopulmonary disease. Foot X-Ray 04/13/20 17:54 IMPRESSION: Diffuse osteopenia. No radiographic evidence of acute osteomyelitis. Ulceration at the plantar surface forefoot. If there is clinical concern for osteomyelitis, MRI or a nuclear medicine bone scan should be considered for further evaluation. Plan Time Spent: Greater than 30 Minutes Stroke Is this a Stroke Patient?: No Acute Heart Failure - Is this a Heart Failure Patient?: No
--- NOTE | 2020-04-29 20:37 | Operative Report ---
Nonrecallable Operative Report DATE OF SURGERY: 04/19/20 PREOPERATIVE DIAGNOSIS: Right heel decubitus ulcer POSTOPERATIVE DIAGNOSIS: Heel decubitus ulcer OPERATION: Bedside debridement right heel decubitus ulcer SURGEON: TOMMY PETERSON ANESTHESIA: Other TISSUE REMOVED OR ALTERED: Necrotic skin right heel COMPLICATIONS: None ESTIMATED BLOOD LOSS: 2 cc INTRAOPERATIVE FINDINGS: See note PROCEDURE: Procedure note; the procedure was done at the bedside on the medical floor. The right heel was prepped and draped in usual sterile fashion. After proper timeout site verification procedure commenced. Using a sterile scissors the epidermis of the right heel was excised to reveal normal granulation tissue underneath. Sterile dressing was applied which completed the procedure.
== END 2020-04-21 15:10 | DRG 871 ==
LOC: ER 15:29 → EH 20:58 → 3S 04-14 01:59
PROVIDERS: ADMIT Emergency Medicine; ATTEND Internal Medicine
PROC: 5A09357 Assistance with Respiratory Ventilation, Less than 24 Consecutive Hours, Continuous Positive Airway Pressure (ICD-10-PCS; 2020-04-13)
PROC: 0HBMXZZ Excision of Right Foot Skin, External Approach (ICD-10-PCS; principal; 2020-04-19)
DX: A41.9 Sepsis, unspecified organism (principal); J96.02 Acute respiratory failure with hypercapnia; J96.01 Acute respiratory failure with hypoxia; I21.4 Non-ST elevation (NSTEMI) myocardial infarction; N17.9 Acute kidney failure, unspecified; Z68.43 Body mass index [BMI] 50.0-59.9, adult; L03.115 Cellulitis of right lower limb; I50.32 Chronic diastolic (congestive) heart failure; L03.90 Cellulitis, unspecified; L89.152 Pressure ulcer of sacral region, stage 2; L89.612 Pressure ulcer of right heel, stage 2; I11.0 Hypertensive heart disease with heart failure; E11.628 Type 2 diabetes mellitus with other skin complications; B37.2 Candidiasis of skin and nail; R65.20 Severe sepsis without septic shock; B95.61 Methicillin susceptible Staphylococcus aureus infection as the cause of diseases classified elsewhere; E66.01 Morbid (severe) obesity due to excess calories; I25.10 Atherosclerotic heart disease of native coronary artery without angina pectoris; I25.2 Old myocardial infarction; Z95.5 Presence of coronary angioplasty implant and graft; E78.5 Hyperlipidemia, unspecified; J44.9 Chronic obstructive pulmonary disease, unspecified; E03.9 Hypothyroidism, unspecified; M19.90 Unspecified osteoarthritis, unspecified site; F32.9 Major depressive disorder, single episode, unspecified; F17.200 Nicotine dependence, unspecified, uncomplicated; G47.33 Obstructive sleep apnea (adult) (pediatric); I48.0 Paroxysmal atrial fibrillation; M41.9 Scoliosis, unspecified; Z79.02 Long term (current) use of antithrombotics/antiplatelets; Z79.84 Long term (current) use of oral hypoglycemic drugs; Z83.3 Family history of diabetes mellitus; Z82.49 Family history of ischemic heart disease and other diseases of the circulatory system; Z83.6 Family history of other diseases of the respiratory system; Z88.6 Allergy status to analgesic agent; Z88.2 Allergy status to sulfonamides; Z88.8 Allergy status to other drugs, medicaments and biological substances
CPT/HCPCS: 01922; 36415; 36600; 71045; 80048; 80053; 81001; 82550; 82553; 82803; 82962; 83036; 83605; 83735; 84443; 84481; 84484; 85025; 85027; 85610; 87040; 87077; 87086; 87150; 87186; 87635; 93005; 93010; 93312; 93325; 94660; 96365; 96367; 99285; C9113; C9803; J0360; J0692; J1160; J1200; J1815; J2020; J2185; J2270; J2704; J3370; J3490; J7030